=== PATIENT | female | born 1960 | race Caucasian/White ===

== ENCOUNTER → 2022-03-24 10:32 | Outpatient (BNVA) | payer MEDICARE, MEDICAID, SELFPAY | PROVIDERS: PCP Family Medicine; Visit Provider Physician Assistant | DX: E66.01 Morbid (severe) obesity due to excess calories (principal); Z68.42 Body mass index [BMI] 45.0-49.9, adult; G47.30 Sleep apnea, unspecified; K21.9 Gastro-esophageal reflux disease without esophagitis; M79.7 Fibromyalgia; M06.9 Rheumatoid arthritis, unspecified; R42 Dizziness and giddiness; F41.9 Anxiety disorder, unspecified; F32.A Depression, unspecified; Z98.84 Bariatric surgery status | CPT/HCPCS: 99202 ==

== ENCOUNTER → 2022-04-09 14:18 | Outpatient (BNVA) | payer MEDICARE, MEDICAID, SELFPAY | PROVIDERS: PCP Family Medicine; Visit Provider Dietitian, Registered | DX: E66.01 Morbid (severe) obesity due to excess calories (principal); Z71.3 Dietary counseling and surveillance | CPT/HCPCS: 97802 ==

== ENCOUNTER 2022-05-04 14:31 | Outpatient (REF) | payer MEDICARE, MEDICAID, SELFPAY ==
[2022-05-05 15:43] LABS: H Pylori Breath Test Negative (Negative)
== END 2022-05-04 14:32 | disposition home or self-care (01) ==
LOC: HO.LNP 14:31
PROVIDERS: PCP Family Medicine; Visit Provider Physician Assistant
DX: Z01.818 Encounter for other preprocedural examination (principal); E66.01 Morbid (severe) obesity due to excess calories; Z98.84 Bariatric surgery status
CPT/HCPCS: 83013; 99211; 99212

== ENCOUNTER → 2022-05-07 10:20 | Outpatient (BNVA) | payer MEDICARE, MEDICAID, SELFPAY | PROVIDERS: PCP Family Medicine; Visit Provider Dietitian, Registered | DX: E66.01 Morbid (severe) obesity due to excess calories (principal); Z68.41 Body mass index [BMI] 40.0-44.9, adult | CPT/HCPCS: 97803 ==

== ENCOUNTER 2022-05-26 09:28 | Outpatient (REF) | payer MEDICARE, MEDICAID, SELFPAY ==
--- NOTE | ~2022-05-26 | FL_ITS ---
EXAMINATION: FL UPPER GI SERIES CLINICAL INFORMATION: Bariatric service evaluation. Patient notes prior gastric sleeve for approximately 6 years ago at outside facility. Chronic history heartburn. COMPARISON: None TECHNIQUE: Upper GI series is performed using fluoroscopic evaluation in addition to multiple fluoroscopic spot views. The patient is imaged both upright and prone and using both thick and thin barium sulfate along with effervescent granules. Fluoroscopy time: 2.2 minutes DAP: 35.597 Gycm2 Fluoroscopic spot images: 26 FINDINGS: There is normal esophageal motility. There is no obstruction, stricture, or ulceration. There is intermittent sliding hiatal hernia, measuring approximately 2 thoracic vertebral bodies in height. There is spontaneous gastroesophageal reflux seen to the proximal thoracic esophagus. The stomach shows slightly elongated configuration consistent with the history gastric sleeve although is otherwise unremarkable. There is no thickening gastric folds or ulceration or gastric outlet obstruction. The duodenum and upper jejunal mucosal pattern are unremarkable. FL/FL upper GI series IMPRESSION: -Spontaneous gastroesophageal reflux. -Intermittent sliding hiatal hernia. -No ulceration or scarring. No gastric outlet obstruction.
--- NOTE | ~2022-05-26 | US_ITS ---
EXAMINATION: US ABDOMEN US CHEST CLINICAL INFORMATION: Rmcoik-zx-lpqjkf obesity due to excess calories. COMPARISON: None. TECHNIQUE: Chest 2 views. Routine ultrasound imaging of abdomen was performed. FINDINGS: CHEST: The lungs are well expanded and clear. The heart size and pulmonary vascularity are normal. There is moderate right lateral spondylosis dorsal spine. No lytic process. ABDOMEN: Pancreas: The head and the body of the pancreas is homogeneous echotexture. The tail is obscured by overlying gas. Aorta and IVC. The abdominal aorta is normal caliber. IVC is also normal caliber. Liver: The liver is normal size, contour and echogenicity. No focal lesion seen. Right hepatic lobe measures 17.1 cm in length and left hepatic lobe measures 9.9 cm in length. Elastography: Median stiffness measures 1.55 m/s. IQR/median measures 0.14. Gallbladder: The gallbladder is well distended without any echogenic stones or pericholecystic fluid collection. The wall thickness is 0.26 cm. CBD: CBD measures 0.6 x 0.8 cm. Right Kidney: Right kidney measures 12.2 cm in length with normal cortical thickness. No echogenic stones, cysts or hydronephrosis. Left Kidney: Left kidney measures 11.3 cm with normal cortical thickness. No echogenic stones, cysts or solid mass. No hydronephrosis. Spleen: Neck measures 10.3 cm. It is homogeneous in echotexture. Free Fluid: None. US/US abdomen comp w elastography IMPRESSION: Unremarkable chest exam. Unremarkable complete abdominal ultrasound. Elastography: Median stiffness value 1.55 m/s corresponds to cACLD (ruled out).
--- NOTE | 2022-05-26 11:29 | ECG_ITS ---
Test Reason : morbid obesity Blood Pressure : / mmHG Vent. Rate : 066 BPM Atrial Rate : 066 BPM P-R Int : 138 ms QRS Dur : 092 ms QT Int : 398 ms P-R-T Axes : 056 036 084 degrees QTc Int : 417 ms Normal sinus rhythm Low voltage QRS Borderline ECG No previous ECGs available Referred By: Brook Sanford Electronically Signed By:DONNIE CEE
[2022-05-26 12:01] LABS: Estimated Average Glucose 131 mg/dL; Hemoglobin A1c % 6.2 %
[2022-05-26 12:14] LABS: Cholesterol 280 mg/dL; HDL Cholesterol 64 mg/dL; LDL Cholesterol Calculated 196 mg/dl; Triglycerides 101 mg/dL
[2022-05-26 12:35] LABS: Insulin 12 uU/mL (2-29); TSH reflex Free T4 1.63 uIU/mL (0.32-4.0); Vitamin D 25-OH Total 34.7 ng/mL (>30)
[2022-05-26 13:33] LABS: Folate 11.2 ng/mL (> or = 4.0); Vitamin B12 600 pg/mL (200-900)
[2022-05-27 13:47] LABS: PTHI 189 pg/mL (16-77)
[2022-05-29 12:42] LABS: Zinc 72 mcg/dL (60-130)
[2022-05-29 21:46] LABS: Vitamin A 32 mcg/dL (38-98)
[2022-06-04 06:02] LABS: Vitamin B1 16 nmol/L (8-30)
== END 2022-05-26 09:29 | disposition home or self-care (01) ==
LOC: HO.US 09:28
PROVIDERS: PCP Family Medicine; Visit Provider Physician Assistant
DX: Z01.818 Encounter for other preprocedural examination (principal); E66.01 Morbid (severe) obesity due to excess calories; K21.9 Gastro-esophageal reflux disease without esophagitis; Z98.84 Bariatric surgery status
CPT/HCPCS: 36415; 71046; 74240; 76705; 76981; 80061; 82306; 82607; 82746; 83036; 83525; 83970; 84425; 84443; 84590; 84630; 93005

== ENCOUNTER → 2022-06-17 12:00 | Outpatient (BNVA) | payer MEDICARE, MEDICAID, SELFPAY | PROVIDERS: PCP Family Medicine; Visit Provider Counselor Mental Health | DX: F41.1 Generalized anxiety disorder (principal); K21.9 Gastro-esophageal reflux disease without esophagitis; E66.01 Morbid (severe) obesity due to excess calories; M06.9 Rheumatoid arthritis, unspecified | CPT/HCPCS: 90791 ==

== ENCOUNTER → 2022-06-25 09:17 | Outpatient (BNVA) | payer MEDICARE, MEDICAID, SELFPAY | PROVIDERS: PCP Family Medicine; Referring Provider Physician Assistant; Visit Provider Dietitian, Registered | DX: E66.01 Morbid (severe) obesity due to excess calories (principal); Z68.41 Body mass index [BMI] 40.0-44.9, adult | CPT/HCPCS: 97803 ==

== ENCOUNTER → 2022-06-28 14:42 | Outpatient (BNVA) | payer MEDICARE, MEDICAID, SELFPAY | PROVIDERS: PCP Family Medicine; Visit Provider Physician Assistant | DX: E66.01 Morbid (severe) obesity due to excess calories (principal); Z98.84 Bariatric surgery status; K21.9 Gastro-esophageal reflux disease without esophagitis; K44.9 Diaphragmatic hernia without obstruction or gangrene | CPT/HCPCS: Q3014 ==

== ENCOUNTER → 2022-08-04 10:30 | Outpatient (BNVA) | payer MEDICARE, MEDICAID, SELFPAY | PROVIDERS: PCP Family Medicine; Visit Provider Physician Assistant | DX: E66.01 Morbid (severe) obesity due to excess calories (principal); Z98.84 Bariatric surgery status; K21.9 Gastro-esophageal reflux disease without esophagitis; K44.9 Diaphragmatic hernia without obstruction or gangrene; G47.30 Sleep apnea, unspecified | CPT/HCPCS: Q3014 ==

== ENCOUNTER → 2022-11-22 09:30 | Outpatient (BNVA) | payer MEDICARE, MEDICAID, SELFPAY | PROVIDERS: PCP Family Medicine; Visit Provider Physician Assistant | DX: E66.01 Morbid (severe) obesity due to excess calories (principal); M06.9 Rheumatoid arthritis, unspecified; I72.9 Aneurysm of unspecified site; Z98.84 Bariatric surgery status; Z68.41 Body mass index [BMI] 40.0-44.9, adult | CPT/HCPCS: Q3014 ==

== ENCOUNTER → 2023-01-05 11:30 | Outpatient (BNVA) | payer MEDICARE, MEDICAID, SELFPAY | PROVIDERS: PCP Family Medicine; Visit Provider Physician Assistant | DX: E66.01 Morbid (severe) obesity due to excess calories (principal); K44.9 Diaphragmatic hernia without obstruction or gangrene; G47.30 Sleep apnea, unspecified; I72.9 Aneurysm of unspecified site; Z68.41 Body mass index [BMI] 40.0-44.9, adult | CPT/HCPCS: Q3014 ==

== ENCOUNTER → 2023-01-28 10:05 | Outpatient (BNVA) | payer MEDICARE, MEDICAID, SELFPAY | PROVIDERS: PCP Family Medicine; Visit Provider Physician Assistant | DX: E66.01 Morbid (severe) obesity due to excess calories (principal); Z68.41 Body mass index [BMI] 40.0-44.9, adult | CPT/HCPCS: Q3014 ==

== ENCOUNTER → 2023-02-10 14:00 | Outpatient (BNVA) | payer MEDICARE, MEDICAID, SELFPAY | PROVIDERS: PCP Family Medicine; Visit Provider Counselor Mental Health ==

== ENCOUNTER → 2023-02-17 13:58 | Outpatient (BNVA) | payer MEDICARE, MEDICAID, SELFPAY | PROVIDERS: PCP Family Medicine; Visit Provider Counselor Mental Health ==

== ENCOUNTER 2023-04-20 08:51 | Outpatient (AMB) | payer MEDICARE, MEDICAID, SELFPAY ==
--- NOTE | 2023-04-20 08:36 | A.OFFVIS_ITS ---
Intake VS Expanded 04/20/23 08:46 Height 5 ft 3 in Weight 242 lb BMI 42.9 Intake Visit Reasons: (TV) F/U SWL Allergies codeine Allergy (Mild, Verified 05/04/22 14:19) ITCHY AVALAX Allergy (Severe, Uncoded 03/24/22 11:11) Anaphylaxis POLLEN Allergy (Mild, Uncoded 03/24/22 11:11) Runny Nose HPI HPI Comments History of Present Illness Details SWL follow up. 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 Pt has been struggling with depression, GI symptoms and ocular symtoms, and weakness. May 06 will have another procedure to check stents and see if she has another aneurysm. Meal plan per nanofabrication specialist: breakfast - 2 scrambled eggs or shake lunch - shake or yogurt with berries snack - healthy choice low carb meal - half another yogurt Exercise - can not exercise alone or standing due to balance issues. PFSH Surgical History Hx of appendectomy Hx of colonoscopy Hx of foot surgery Hx of hand surgery Hx of hysterectomy Hx of knee surgery Family History Mother No problems noted. Father AA (alcohol abuse) Brother No problems noted. Sister No problems noted. Brother No problems noted. Brother No problems noted. Daughter Autoimmune disease Daughter Autoimmune disease Social History Alcohol intake: never Patient Tobacco Use Status: Former Tobacco user Assessment & Plan Assessment & Plan (1) Morbid obesity: Code(s): E66.01 - Morbid (severe) obesity due to excess calories Plan: 62 yo woman s/p LSG who has been preparing for revision but pre op work up complicated by diagnosis of cerebral aneurysms, now symptomatic again and having another work up. Weight is stable. The only modification I made to her meal plan is to add 1/2 c to 1 c vegetables to her morning eggs. Exercise - she states she does not have any restrictions for sitting exercises. I recommended either Gilberto Ashton or SUREK[employer] sitting 30 minute workouts 5d/ week. She wants to continue her preparation for revision surgery, next appt with me in 2 months and will resume once she is medically stable. Patient is still morbidly obese and is not considered stable at this time. I spent 27 minutes in total speaking with the patient via telephone counseling , reviewing records and charting in patients chart. . (2) S/P laparoscopic sleeve gastrectomy: Code(s): Z98.84 - Bariatric surgery status (3) Aneurysm: Code(s): I72.9 - Aneurysm of unspecified site Plan: Having another procedure on May 06. Telehealth Telehealth Location of provider rendering services: practice address Location of patient: address on file Patient Identification confirmed using: Name, : Yes Telehealth method: voice only Patient verbally consented to treatment: Yes Patient verbally consented to billing insurance company: Yes Patient informed of any privacy concerns related to visit: Yes Coding Level of Care Code Tele Est Pt Level 4 (38018) Diagnoses Morbid obesity E66.01 S/P laparoscopic sleeve gastrectomy Z98.84 Aneurysm I72.9
[2023-04-20 08:46] VITALS: BMI 42.9
--- OUTSIDE RECORDS SUMMARY | 2023-04-20 08:54 | XMS_ITS | Continuity of Care Document ---
Author Name Unknown Organization [facility] Address [address] [place] [address]- Care Team Providers Care Pattern Hand Name Role Phone Liu Lovett MD Primary Care Physician Encounter [facility] [place] Date(s): 03/16/23 - 04/17/[address] [address]- Attending Physician: Elio Hannah MD Admitting Physician: Elio Hannah MD Referring Physician: Elio Hannah MD Allergies, Adverse Reactions, Alerts Substance Reaction Severity Status codeine Itchy Active Effexor Active Avelox Active Contrast Dye 1 Active 1Oral contrast dye, swelling of face/eyes Immunizations Given and Recorded Vaccine Date Status Refusal Reason SARS-CoV-2 mRNA ([id number]-[id number]-[id number]) vax 01/19/22 Recorded SARS-CoV-2 (COVID-19) mRNA-1273 vaccine 06/16/21 R ecorded SARS-CoV-2 (COVID-19) mRNA-1273 vaccine 12/03/20 R ecorded SARS-CoV-2 (COVID-19) mRNA-1273 vaccine 11/05/20 R ecorded Medications aspirin 81 mg oral delayed release tablet 81 mg, 1, tablet, By Mouth, Daily, Take 5 days prior to the procedure, # 90 tablet, Refills 1, Tot.Refills 1, Maintenance, 09/07/22 13:56:00 EST, Route to Pharmacy Electronically, [facility], Partial fill upon patient request if the prescript... Start Date: 09/07/22 Status: Ordered Ativan 0.5 mg oral tablet 2 tablet = 1 mg, By Mouth, 3 times a day, PRN as needed for anxiety, 0 Refills, Maintenance, 05/16/14 15:26:17 EDT Start Date: 05/16/14 Status: Ordered CPAP Machine See Instructions, # 1 each, Maintenance, AutoCPAP 8-20 cm H20, use Daily when sleeping, 07/07/22 12:12:00 EDT, Supply Start Date: 07/07/22 Status: Ordered gabapentin 800 mg oral tablet 2 tablet = 1,600 mg, By Mouth, 3 times a day, # 270 tablet, 0 Refills, Maintenance, 09/13/22 18:16:00 EST, Tablet, Partial fill upon patient request if the prescription is for a schedule II opioid drug. Start Date: 09/13/22 Status: Ordered Lasix 40 mg oral tablet 1 tablet = 40 mg, By Mouth, Every other day, # 30 tablet, 0 Refills, Maintenance, 04/16/14 12:09:59EDT, Tablet Start Date: 04/16/14 Status: Ordered omeprazole 40 mg oral enteric coated capsule 1 capsule, By Mouth, 2 times a day, X30 DAYS., # 60 capsule, 3 Refills, [facility], 163, cm, 01/13/21 11:27:00 EDT, Height, 113, kg, 01/13/21 11:27:00 EDT, Dry Weight Start Date: 03/29/22 Status: Ordered Orencia 0 Refills, Maintenance, 05/23/22 13:05:00 EDT, Partial fill upon patient request if the prescription is for a schedule II opioid drug. Start Date: 05/23/22 Status: Ordered Oxycodone = 5 mg, By Mouth, 3 times a day, PRN Pain , Mild, 0 Refills, Maintenance, 09/13/22 18:18:00 EST, Partial fill upon patient request if the prescription is for a schedule II opioid drug. Start Date: 09/13/22 Status: Ordered Plavix 75 mg oral tablet 75 mg, 1, tablet, By Mouth, Daily, Take 5 days prior to the procedure, # 90 tablet, Refills 1, Tot.Refills 1, Maintenance, 09/07/22 13:56:00 EST, Route to Pharmacy Electronically, [facility], Partial fill upon patient request if the prescript... Start Date: 09/07/22 Status: Ordered Prozac 40 mg oral capsule 1 capsule = 40 mg, By Mouth, Daily, 0 Refills, Maintenance, 05/16/14 15:26:02 Start Date: 05/16/14 Status: Ordered Ventolin 90 mcg Inhaler Inhalation, Every 6 hours, Refills 0, Maintenance, 02/14/20 17:34:00 EDT Start Date: 02/14/20 Status: Ordered Vitamin D3 1000 intl units oral capsule 1 capsule = 1,000 International_Units, By Mouth, Daily, # 100 capsule, 0 Refills, Maintenance, 04/16/14 16:51:10, Capsule Start Date: 04/16/14 Status: Ordered Problem List Condition Confirmation Course Effective Dates Status Health St atus Informant 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 Confirmed Active Anxiety Confirmed Active Depression Confirmed Active Fibromyalgia Confirmed Active GERD (gastroesophageal reflux disease) Confirmed Active Sleep related hypoxia Confirmed Active Obstructive sleep apnea hypopnea, moderate Confirmed Active Rheumatoid arthritis Confirmed Active Severe obesity Confirmed Active Social History Social History Type Response Smoking Status Former smoker; Other : Pt quit on 01/17/18; entered on: 02/09/18 Sex Patient Care team information Care Team Personnel Name: Joe LAM, Bebo Parks Position: [facility] Physician (General Medicine) Member Role: Lifetime Consulting Physician Address: Address: [address] [place] [address]- Name: Alice Le RN Position: [facility] RN Member Role: Primary Care Nurse Name: Bryanna Rolon RN Position: [facility] RN Member Role: Primary Care Nurse Name: Pollo Lopez RN Position: [facility] RN Member Role: Primary Care Nurse Name: Liu Lovett MD Position: [facility] Physician - Primary Care Member Role: PCP Address: Address: [address] [place] [address]- Care Team Related Persons Name: SAMEER MORGAN Address: home [address] [place] [address] Name: JOHNNY PUCKETT Address: home [address] [place] [address] Name: SAMEER SCHAEFER Address: home [address] [place] [address]
--- OUTSIDE RECORDS SUMMARY | 2023-04-20 08:55 | XMS_ITS | Continuity of Care Document ---
Author Name Unknown Organization [facility] Address [address] [place] [address]- Care Team Providers Care Market Development Executive Name Role Phone Liu Lovett MD Primary Care Physician [phone] Encounter [facility] [place] Date(s): 03/14/23 - 04/13/23 [facility] [address] [place] [address]- Attending Physician: Erica Connelly Admitting Physician: Erica Connelly Referring Physician: AdmtrErica Allergies, Adverse Reactions, Alerts Substance Reaction Severity Status codeine Itchy Active Effexor Active Avelox Active Contrast Dye 1 Active 1Oral contrast dye, swelling of face/eyes Immunizations Given and Recorded Vaccine Date Status Refusal Reason SARS-CoV-2 mRNA ([id number]) vax 01/19/22 Recorded SARS-CoV-2 (COVID-19) mRNA-1273 vaccine 06/16/21 R ecorded SARS-CoV-2 (COVID-19) mRNA-1273 vaccine 12/03/20 R ecorded SARS-CoV-2 (COVID-19) mRNA-1273 vaccine 11/05/20 R ecorded Medications aspirin 81 mg oral delayed release tablet 81 mg, 1, tablet, By Mouth, Daily, Take 5 days prior to the procedure, # 90 tablet, Refills 1, Tot.Refills 1, Maintenance, 09/07/22 13:56:00 EST, Route to Pharmacy Electronically, [facility], Partial fill upon patient request if [...] DAYS., # 60 capsule, 3 Refills, [facility], 163, cm, 01/13/21 11:27:00 EDT, Height, [...] 13:56:00 EST, Route to Pharmacy Electronically, [facility], Partial fill upon patient request if [...] Care team information Care Team Personnel Name: Bebo Diaz MD Position: [facility] Physician (General Medicine) Member Role: Lifetime Consulting Physician Address: Address: [address] [place] [address]- Name: Alice Le RN Position: [facility] RN Member Role: Primary Care Nurse Name: Bryanna Rolon RN Position: [facility] RN Member Role: Primary Care Nurse Name: Pollo Lopez RN Position: [facility] RN Member Role: Primary Care Nurse Name: Liu Lovett MD Position: [facility] Physician - Primary Care Member Role: PCP Address: Address: [address] [place] [phone]- Care Team Related Persons Name: SAMEER MORGAN Address: home [address] [place] [address] Name: JOHNNY PUCKETT Address: home [address] [place] [address] Name: SAMEER SCHAEFER Address: home [address] [place] [address]
--- OUTSIDE RECORDS SUMMARY | 2023-04-20 08:55 | XMS_ITS | Continuity of Care Document ---
Author Name Unknown Organization [facility] Address [address] [place] [address]- Care Team Providers Care Laborer Road Name Role Phone Rachell LAM, Liu Rivera Primary Care Physician En[place] [facility] [place] Date(s): 03/05/23 - 04/13/23 [facility] [address] [place] [address]- Attending Physician: Nilda Vo NP Admitting Physician: Nilda Vo NP Referring Physician: Nilda Vo NP Allergies, Adverse Reactions, Alerts Substance Reaction Severity Status codeine Itchy Active Effexor Active Avelox Active Contrast Dye 1 Active 1Oral contrast dye, swelling of face/eyes Immunizations Given and Recorded Vaccine Date Status Refusal Reason SARS-CoV-2 mRNA ([id number]-mnmn-jwqqt) vax 01/19/22 Recorded SARS-CoV-2 (COVID-19) mRNA-1273 vaccine 06/16/21 R ecorded SARS-CoV-2 (COVID-19) mRNA-1273 vaccine 12/03/20 R ecorded SARS-CoV-2 (COVID-19) mRNA-1273 vaccine 11/05/20 R ecorded Medications aspirin 81 mg oral delayed release tablet 81 mg, 1, tablet, By Mouth, Daily, Take 5 days prior to the procedure, # 90 tablet, Refills 1, Tot.Refills 1, Maintenance, 09/07/22 13:56:00 EST, Route to Pharmacy Electronically, [facility], Partial fill upon patient request if [...] DAYS., # 60 capsule, 3 Refills, [facility], 163, cm, 01/13/21 11:27:00 EDT, Height, [...] 13:56:00 EST, Route to Pharmacy Electronically, [facility], Partial fill upon patient request if [...] Personnel Name: Joe LAM, Bebo Parks Position: [facility] Physician (General Medicine) Member Role: Lifetime Consulting Physician Address: Address: [address] [place] [address]- Name: Alice Le RN Position: [facility] RN Member Role: Primary Care Nurse Name: Bryanna Rolon RN Position: [facility] RN Member Role: Primary Care Nurse Name: Pollo Lopez RN Position: [facility] RN Member Role: Primary Care Nurse Name: Liu Lovett MD Position: [facility] Physician - Primary Care Member Role: PCP Address: Address: [address] [place] [address]- Care Team Related Persons Name: SAMEER MORGAN Address: home [address] [place] [address] Name: JOHNNY PUCKETT Address: home [address] [place] [address] Name: SAMEER SCHAEFER Address: home [address] [place] [address]
--- OUTSIDE RECORDS SUMMARY | 2023-04-20 08:55 | XMS_ITS | Continuity of Care Document ---
Author Name Unknown Organization [facility] Address [address] [facility], [address] d Floor, [address] [place] [address]- Care Team Providers Care Button Pusher Name Role Phone Rachell LAM, Liu Rivera Primary Care Physician [place] [facility] [place](s): 03/14/23 - 04/13/23 [facility] [address], [address]rd Floor, [address] [place] [address] Allergies, Adverse Reactions, Alerts Substance Reaction Severity Status codeine Itchy Active Effexor Active Avelox Active Contrast Dye 1 Active 1Oral contrast dye, swelling of face/eyes Immunizations Given and Recorded Vaccine Date Status Refusal Reason SARS-CoV-2 mRNA (bwnsefx-ibeh-nuepr) vax 01/19/22 Recorded SARS-CoV-2 (COVID-19) mRNA-1273 vaccine 06/16/21 R ecorded SARS-CoV-2 (COVID-19) mRNA-1273 vaccine 12/03/20 R ecorded SARS-CoV-2 (COVID-19) mRNA-1273 vaccine 11/05/20 R ecorded Medications aspirin 81 mg oral delayed release tablet 81 mg, 1, tablet, By Mouth, Daily, Take 5 days prior to the procedure, # 90 tablet, Refills 1, Tot.Refills 1, Maintenance, 09/07/22 13:56:00 EST, Route to Pharmacy Electronically, [facility], Partial fill upon patient request if [...] DAYS., # 60 capsule, 3 Refills, [facility], 163, cm, 01/13/21 11:27:00 EDT, Height, [...] 13:56:00 EST, Route to Pharmacy Electronically, [facility], Partial fill upon patient request if [...] Personnel Name: Joe LAM, Bebo Parks Position: [facility] Physician (General Medicine) Member Role: Lifetime Consulting Physician Address: Address: [address] [place] [address]- Name: Alice Le RN Position: [facility] RN Member Role: Primary Care Nurse Name: Bryanna Rolon RN Position: [facility] RN Member Role: Primary Care Nurse Name: Pollo Lopez RN Position: [facility] RN Member Role: Primary Care Nurse Name: Liu Lovett MD Position: [facility] Physician - Primary Care Member Role: PCP Address: Address: [address] [place] [address]- Care Team Related Persons Name: SAMEER MORGAN Address: home [address] [place] [address] Name: JOHNNY PUCKETT Address: home [address] [place] [address] Name: SAMEER SCHAEFER Address: home [address] [place] [address]
--- OUTSIDE RECORDS SUMMARY | 2023-04-20 08:55 | XMS_ITS | Continuity of Care Document ---
Author Name Unknown Organization [facility] Address [address] [facility], [address] Floor, [address] [place] [address]- Care Team Providers Care Rural Mail Contractor Name Role Phone Rachell LAM, Liu Rivera Primary Care Physician Encounter [facility] [place] Date(s): 02/28/23 - 03/30/[address] [facility] [address] [place], [address] Floor, [address] [place] [id number] Attending Physician: Erica Connelly Admitting Physician: AdmErica marquez Referring Physician: Admtr, Ar8 Allergies, Adverse Reactions, Alerts Substance Reaction Severity Status codeine Itchy Active Effexor Active Avelox Active Contrast Dye 1 Active 1Oral contrast dye, swelling of face/eyes Immunizations Given and Recorded Vaccine Date Status Refusal Reason SARS-CoV-2 mRNA (jgktekx-wade-qhanx) vax 01/19/22 Recorded SARS-CoV-2 (COVID-19) mRNA-1273 vaccine 06/16/21 R ecorded SARS-CoV-2 (COVID-19) mRNA-1273 vaccine 12/03/20 R ecorded SARS-CoV-2 (COVID-19) mRNA-1273 vaccine 11/05/20 R ecorded Medications aspirin 81 mg oral delayed release tablet 81 mg, 1, tablet, By Mouth, Daily, Take 5 days prior to the procedure, # 90 tablet, Refills 1, Tot.Refills 1, Maintenance, 09/07/22 13:56:00 EST, Route to Pharmacy Electronically, [facility], Partial fill upon patient request if [...] DAYS., # 60 capsule, 3 Refills, [facility], 163, cm, 01/13/21 11:27:00 EDT, Height, [...] 13:56:00 EST, Route to Pharmacy Electronically, [facility], Partial fill upon patient request if [...] Care team information Care Team Personnel Name: Tiffanie Tamayo RN Position: [facility] RN Member Role: Primary Care Nurse Name: Bebo Diaz MD Position: [facility] Physician (General Medicine) Member Role: Lifetime Consulting Physician Address: Address: [address] [place] [address]- Name: Alice Le RN Position: [facility] RN Member Role: Primary Care Nurse Name: Bryanna Rolon RN Position: [facility] RN Member Role: Primary Care Nurse Name: Pollo Lopez RN Position: [facility] RN Member Role: Primary Care Nurse Name: Liu Lovett MD Position: [facility] Physician - Primary Care Member Role: PCP Address: Address: [address] [place] [address]- Care Team Related Persons Name: SAMEER MORGAN Address: home [address] [place] [address] Name: JOHNNY PUCKETT Address: home [address] [place] [address] Name: SAMEER SCHAEFER Address: home [address] [place] [address]
== END 2023-04-20 08:54 | disposition home or self-care (01) ==
LOC: HO.HBS 08:51
PROVIDERS: PCP Family Medicine; Visit Provider Physician Assistant
DX: E66.01 Morbid (severe) obesity due to excess calories (principal); Z68.41 Body mass index [BMI] 40.0-44.9, adult; Z90.3 Acquired absence of stomach [part of]; Z98.84 Bariatric surgery status; I72.9 Aneurysm of unspecified site
CPT/HCPCS: 99443

== ENCOUNTER → 2023-04-20 08:51 | Outpatient (BNVA) | payer MEDICARE, MEDICAID, SELFPAY | PROVIDERS: PCP Family Medicine; Visit Provider Physician Assistant ==

== ENCOUNTER 2023-06-20 08:49 | Outpatient (AMB) | payer MEDICARE, MEDICAID, SELFPAY ==
--- NOTE | 2023-06-20 08:50 | A.OFFVIS_ITS ---
Intake Vital Signs 06/20/23 08:51 Height 5 ft 3 in Weight 236 lb 12.423 oz BMI 41.9 BP 108/60 Blood Pressure Location Rt brachial Position Sitting Pulse 82 Pulse Source Pulse Oximeter Pulse Oximetry (%) 96 Intake Visit Reasons: Rheumatoid Arthritis Intake Note: New pt presents today for consult. States she has RA and FM. C/o pain in hands, shoulders , hips and knees. Pain started approx 5 years ago. [employer] Required: No Accompanied by: Self / Same As Patient Allergies codeine Allergy (Mild, Verified 06/20/23 08:53) ITCHY AVALAX Allergy (Severe, Uncoded 06/20/23 08:53) Anaphylaxis POLLEN Allergy (Mild, Uncoded 06/20/23 08:53) Runny Nose Medication List - Last Reconciled 06/20/23 by Argentina Cutler MD abatacept (Orencia ClickJect) mg subcut albuterol sulfate 90 mcg/actuation (Ventolin HFA) inhalation aspirin 81 mg PO DAILY clopidogrel (Plavix) 75 mg PO DAILY fluoxetine (Prozac) 40 mg PO DAILY furosemide (Lasix) 40 mg PO Q OTHER DAY gabapentin 800 mg PO TID lorazepam 0.5 mg PO TID omeprazole 40 mg PO BID prednisone 2.5 mg PO DAILY PRN sucralfate (Carafate) 1 g PO QIDACHS HPI HPI Comments History of Present Illness Details This is a 62-year-old female with seronegative RA who presents as a new patient. 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 Her 2018 patient started have pain swelling and stiffness in her hands. Symptoms respond dramatically to prednisone. She was evaluated by Dr. Diaz. And was diagnosed with seronegative RA. She was tried on hydroxychloroquine, methotrexate, leflunomide. Per Dr. Diaz methotrexate was at least partly effective but patient could not tolerate it. Leflunomide caused diarrhea. Patient does not recall what happened with hydroxychloroquine. She took Enbrel for about a year according to patient was not effective. She has been on Orencia for about a year. She states that it has kept her symptoms fairly stable but she continues to get flares of joint pain and swelling especially in her hands. She would take prednisone for 1-2 weeks out of the month. She would take 5 mg daily for 1 week then 2.5 mg daily for 1 week then stop. She had brain aneurysm surgery 09/2022. States that she would be scheduled for a gastric sleeve operation as well as a hiatal hernia in the next 1-2 months. Mentions that her brother has SLE. She denies any history of DVT/PE. [facility] Medical History (Updated 06/20/23 @ 10:47 by Argentina Cutler MD) Aneurysm Surgical History History of surgery for cerebral aneurysm Hx of hand surgery Hx of colonoscopy Hx of foot surgery Hx of knee surgery Hx of appendectomy Hx of hysterectomy Family History Mother No problems noted. Father AA (alcohol abuse) Brother No problems noted. Sister No problems noted. Brother No problems noted. Brother No problems noted. Daughter Autoimmune disease Daughter Autoimmune disease Social History Household Members: Spouse Alcohol intake: never Patient Tobacco Use Status: Former Tobacco user Current occupational status: disabled Female Reproductive History Menstrual Total pregnancies: 3 Number of Living Children: 2 Ab spontaneous: 1 Review of Systems Const Reports fatigue, Reports headache(s) and Reports weakness Eyes Reports dry eyes and Reports eye pain ENT Reports dysphagia, Reports dizziness, Reports headache(s) and Reports tinnitus GI Reports constipation, Reports dysphagia, Reports heartburn and Reports nausea Musc Reports arthralgias, Reports joint swelling, Reports muscle weakness and Reports stiffness Skin/Breast Reports unusual bruising Neuro Reports dizziness, Reports headache(s), Reports memory loss and Reports weakness Psych Reports abnormal sleep pattern, Reports anxiety, Reports depression and Reports memory loss Endo Reports fatigue Physical Exam Vital Signs: Last Vital Signs Pulse 82 06/20/23 08:51 BP 108/60 06/20/23 08:51 Pulse Ox 96 06/20/23 08:51 BMI result Body Mass Index 41.9 Const General: cooperative, healthy appearing and comfortable Nutritional Appearance: obese morbidly obese Orientation/consciousness: patient oriented x3 Limitations: no limitations HEENT Head: Yes normocephalic and Yes atraumatic Mouth: moist mucous membranes Resp Effort & Inspection: normal respiratory effort and able to speak in complete sentences Auscultation: clear to auscultation bilaterally Cardio Rate: regular rate Rhythm: regular rhythm Skin General skin exam: no rashes or lesions noted Neuro General: patient oriented x3 Extrem Other: Bilateral wrist tenderness to palpation and pain with full flexion and extension Left 2nd and 3rd MCP tenderness and diffuse PIP tenderness. No DIP tenderness Right wrist pain with full flexion and extension Few MCP and PIP tenderness right hand No DIP tenderness right hand No knee pain with full flexion and extension Bilateral positive straight leg raise test No ankle swelling or tenderness Discomfort upon palpation of right foot (which she has multiple plates and screws) negative MTP squeeze test No MTP tenderness on the left, negative MTP squeeze test Normal nailfold capillaroscopy No significant fibromyalgia tender points Results Reviewed Results Reviewed: MR pelvis 09/2021? Impression 1. Minimal edema on either side of sacroiliac joints without associated effusion or erosions, likely degenerative in etiology.?? 2. Degenerative endplate changes at L4-L5? 3. Left greater than right mild edema in the trochanteric bursa which may reflect bursitis Assessment & Plan Assessment & Plan (1) Rheumatoid arthritis: Comment: seroneg dx 2019 failed/could not tolerate MTX, leflunomide, hydroxychloroquine Prednisone all through Enbrel [id number] ineffective Orencia [id number] partially effective Code(s): M06.9 - Rheumatoid arthritis, unspecified Qualifiers: Rheumatoid arthritis location: multiple sites Rheumatoid factor presence: without rheumatoid factor Qualified Code(s): M06.09 - Rheumatoid arthritis without rheumatoid factor, multiple sites Plan: This is a 62-year-old female with seronegative RA who presents as a new patient. 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 Patient is currently on Orencia weekly and takes prednisone 5 mg for about 1 week per month. Continues to have multiple tender joints in both hands & wrists. Patient has history of a gastric ulcer. Patient states that she will be scheduled soon for hiatal hernia and gastric sleeve procedure within the next couple of months. Continue medications as is for now. Check labs to evaluate disease activity and check x-rays of involved joints. Follow-up in 1 month (2) Chronic lower back pain: Code(s): M54.50 - Low back pain, unspecified; G89.29 - Other chronic pain Qualifiers: Back pain laterality: midline Sciatica presence: unspecified whether sciatica present Qualified Code(s): M54.50 - Low back pain, unspecified; G89.29 - Other chronic pain Plan: Might need referral to pain management next visit Plan I spent 47 minutes reviewing patient's chart, evaluating patient, ordering diagnostic workup, counseling patient and documenting in the chart Orders: Orders Complete Blood Count Auto Diff Today M06.9 - Rheumatoid arthritis, unspecified C Reactive Protein Today M06.9 - Rheumatoid arthritis, unspecified Hepatitis A,B,C Profile Today Z11.59 - Encounter for screening for other viral diseases T Spot TB Today Z11.7 - Encounter for testing for latent tuberculosis infection Protein Electrophoresis, Serum Today M06.9 - Rheumatoid arthritis, unspecified Rheumatoid Factor Today M06.9 - Rheumatoid arthritis, unspecified Cyclic Citrullinated Peptide Today M06.9 - Rheumatoid arthritis, unspecified Comprehensive Met. Panel Today M06.9 - Rheumatoid arthritis, unspecified Erythrocyte Sedimentation Rate Today M06.9 - Rheumatoid arthritis, unspecified Immunofixation Pnl, Serum Today M06.9 - Rheumatoid arthritis, unspecified XR hand wrist LT Today M06.9 - Rheumatoid arthritis, unspecified XR hand wrist RT Today M06.9 - Rheumatoid arthritis, unspecified Coding Level of Care Code New Pt Level 4 (71444) Diagnoses Rheumatoid arthritis of multiple sites with negative rheumatoid factor M06.09 Rheumatoid arthritis location: multiple sites Rheumatoid factor presence: without rheumatoid factor Chronic midline low back pain, unspecified whether sciatica present M54.50; G89.29 Back pain laterality: midline Sciatica presence: unspecified whether sciatica present
[2023-06-20 08:51] VITALS: BP 108/60; PULSE 82; O2SAT 96; BMI 41.9
== END 2023-06-20 09:33 | disposition home or self-care (01) ==
PROVIDERS: PCP Family Medicine; Visit Provider Student in an Organized Health Care Education/Training Program
DX: M06.09 Rheumatoid arthritis without rheumatoid factor, multiple sites (principal); M54.50 Low back pain, unspecified; G89.29 Other chronic pain
CPT/HCPCS: 99204

== ENCOUNTER 2023-06-20 08:49 | Outpatient (REF) | payer MEDICARE, MEDICAID, SELFPAY ==
--- NOTE | ~2023-06-20 | XR_ITS ---
EXAMINATION: XR WRIST, RIGHT XR HAND, RIGHT CLINICAL INFORMATION: Rheumatoid arthritis. COMPARISON: None available. TECHNIQUE: PA, lateral, oblique, and scaphoid views of the right wrist and PA, lateral, and oblique views of the right hand FINDINGS: RIGHT WRIST: The bones and soft tissues appear unremarkable. No fracture identified. Alignment is anatomic. Joint spaces appear maintained. No erosions or soft tissue calcifications. RIGHT HAND: The bones and soft tissues appear unremarkable. No fracture identified. Alignment is anatomic. Joint spaces appear maintained. No erosions or soft tissue calcifications. XR/XR hand wrist RT IMPRESSION: Unremarkable plain film examinations of the right hand and wrist.
--- NOTE | ~2023-06-20 | XR_ITS ---
EXAMINATION: XR WRIST, LEFT XR HAND, LEFT CLINICAL INFORMATION: Rheumatoid arthritis. COMPARISON: None available. TECHNIQUE: PA, lateral, oblique, and scaphoid views of the left wrist and PA, lateral, and oblique views of the left hand FINDINGS: LEFT WRIST: The bones and soft tissues appear unremarkable. No fracture identified. Alignment is anatomic. Joint spaces appear maintained. No erosions or soft tissue calcifications. LEFT HAND: The bones and soft tissues appear unremarkable. No fracture identified. Alignment is anatomic. Joint spaces appear maintained. No erosions or soft tissue calcifications. XR/XR hand wrist LT IMPRESSION: Unremarkable plain film examinations of the left hand and wrist.
[2023-06-20 10:14] LABS: MANUAL DIFF FLAG NO
[2023-06-20 10:30] LABS: Basophils Absolute Auto 0.1 X10*3/uL (0.0-0.2); Basophils Percent Auto 0.6 % (0-2); Eosinophils Absolute Auto 0.2 X10*3/uL (0.0-0.4); Eosinophils Percent Auto 2.9 % (0-4); Hematocrit 38.4 % (37.0-47.0); Hemoglobin 12.6 g/dl (12.0-16.0); Imm Gran Abs Auto 0.02 X10*3/uL (0.00-0.03); Imm Gran Pct Auto 0.3 % (0.0-0.4); Lymphocytes Absolute Auto 2.5 X10*3/uL (1.2-4.9); Lymphocytes Percent Auto 31.9 % (20-40); Mean Corpuscular HGB Conc 32.8 g/dl (31.0-35.0); Mean Corpuscular Hemoglobin 28.7 pg (27.0-33.0); Mean Corpuscular Volume 87.5 fL (80.0-98.0); Mean Platelet Volume 9.9 fL (9.4-12.3); Monocytes Absolute Auto 0.8 X10*3/uL (0.1-1.2); Monocytes Percent Auto 9.9 % (2-11); Neutrophils Absolute Auto 4.3 x10*3/uL (2.0-8.3); Neutrophils Percent Auto 54.4 % (45-73); Platelet Count 239 X10*3/uL (160-400); Red Blood Count 4.39 X10*6/uL (4.20-5.50); White Blood Count 7.9 X10*3/uL (4.8-10.8)
[2023-06-20 11:03] LABS: Rheumatoid Factor < 13.0 IU/mL (<15.0)
[2023-06-20 11:09] LABS: Alanine Aminotransferase 9 U/L (0-31); Alkaline Phosphatase 106 U/L (39-117); Anion Gap 12 (12-20); Aspartate Amino Transferase 12 U/L (5-31); Bilirubin Total 0.4 mg/dL (0.0-1.0); Blood Urea Nitrogen 12 mg/dL (9-16); C Reactive Protein 3.16 mg/dL (< or = 0.50); Calcium 9.7 mg/dL (8.4-10.2); Carbon Dioxide 25 mmol/L (22-29); Chloride 109 mmol/L (96-108); Estimated Glomerular Filt Rate > 60; Glucose Random 93 mg/dL (60-115); Potassium 4.1 mmol/L (3.3-5.1); Sodium 142 mmol/L (135-145)
[2023-06-20 11:15] LABS: Erythrocyte Sedimentation Rate 27 MM/HR (0-20)
[2023-06-20 11:28] LABS: HBS Num1 0.29 mIU/mL (0-7.99); HBc Num1 0.09 S/CO (0.00-0.79); HBsAGNum1 0.41 S/CO (0.00-0.99); Hepatitis A Antibody IgM 0.42 Index (0-0.79); Hepatitis B Core Antibody Nonreactive (Nonreactive); Hepatitis B Surface Antigen Negative (Negative); ~HepC Num1 0.18 S/CO (0.00-0.79); ~Hepatitis A Antibody IgM Nonreactive (Nonreactive); ~Hepatitis B Surface Antibody NONREACTIVE (Nonreactive); ~Hepatitis C Antibody Nonreactive (Nonreactive)
[2023-06-22 11:53] LABS: Prot Elec - Albumin 3.8 g/dL (3.8-4.8); Prot Elec - Alpha1 0.4 g/dL (0.2-0.3); Prot Elec - Alpha2 0.8 g/dL (0.5-0.9); Prot Elec - Beta 1 0.5 g/dL (0.4-0.6); Prot Elec - Beta 2 0.5 g/dL (0.2-0.5); Prot Elec - Gamma 0.8 g/dL (0.8-1.7); Prot Elec - Total Protein 6.7 g/dL (6.1-8.1)
[2023-06-22 21:49] LABS: TS Negative Control Passed; TS Panel A 4; TS Panel B 2; TS Positive Control Passed; TSpotTB Negative (Negative)
[2023-06-23 10:08] LABS: IgA 267 mg/dL (70-320); IgG 917 mg/dL (600-1540); IgM 85 mg/dL (50-300)
[2023-06-24 12:14] LABS: Cyclic Citrullinated Peptide <16 UNITS
== END 2023-06-20 08:50 | disposition home or self-care (01) ==
LOC: HO.LAB 08:49
PROVIDERS: PCP Family Medicine; Visit Provider Student in an Organized Health Care Education/Training Program
DX: M06.9 Rheumatoid arthritis, unspecified (principal); M54.50 Low back pain, unspecified; G89.29 Other chronic pain; Z11.59 Encounter for screening for other viral diseases; Z72.89 Other problems related to lifestyle; Z11.7 Encounter for testing for latent tuberculosis infection; Z79.899 Other long term (current) drug therapy
CPT/HCPCS: 36415; 73110; 73130; 80053; 82784; 84165; 85025; 85652; 86140; 86200; 86334; 86431; 86481; 86704; 86706; 86709; 86803; 87340; 99202

== ENCOUNTER 2023-07-04 08:30 | Outpatient (AMB) | payer MEDICARE, MEDICAID, SELFPAY ==
--- NOTE | 2023-07-04 08:41 | A.OFFVIS_ITS ---
Intake VS Expanded 07/04/23 08:44 Height 5 ft 3 in Weight 232 lb BMI 41.1 Intake Visit Reasons: (TV) F/U SWL Allergies codeine Allergy (Mild, Verified 06/20/23 08:53) ITCHY AVALAX Allergy (Severe, Uncoded 06/20/23 08:53) Anaphylaxis POLLEN Allergy (Mild, Uncoded 06/20/23 08:53) Runny Nose Medication List - Last Reconciled 07/04/23 by Brook Sanford PA-C abatacept (Orencia ClickJect) mg subcut .every other week albuterol sulfate 90 mcg/actuation (Ventolin HFA) inhalation aspirin 81 mg PO DAILY clopidogrel (Plavix) 75 mg PO DAILY fluoxetine (Prozac) 40 mg PO DAILY furosemide (Lasix) 40 mg PO Q OTHER DAY gabapentin 400 mg PO TID PRN lorazepam 0.5 mg PO BEDTIME PRN omeprazole 40 mg PO BID prednisone 2.5 mg PO DAILY sucralfate (Carafate) 1 g PO QIDACHS HPI HPI Comments History of Present Illness Details [facility] follow up for revision of previous LSG. Pt had another procedure on May 06 to uncoil the stent from the aneurysm. Had Ct post op and does not need any further testing. Neurosurgeon, Dr Corbin, has cleared her for bariatric surgery. 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 She is presently on Plavix - at least until April 2024. Also takes ASA 81 mg daily, Orencia and Prednisone for 1 week monthly. States she has been following the meal plan: 6am - coffee with Premier shake 10am - yogurt 1pm - 8 oz salad with 4-6 oz protein 6pm - shake 8pm- yogurt Exercise - swimming and water running - daily for a few hours each day. Walks her dog Pre op work up completed as follows: [facility] classes -? 05/17 appts? - cleared? ? ? RD appts - cleared H pylori - negative Labs - PTH elevated,not worked up (Vit D normal. 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 CXR- normal? and ECG - normal UGI?FINDINGS: There is normal esophageal motility.? There is no obstruction, stricture, or ulceration. There is intermittent sliding hiatal hernia, measuring approximately 2 thoracic vertebral bodies in height. There is spontaneous gastroesophageal reflux seen to the proximal thoracic esophagus. The stomach shows slightly elongated configuration consistent with the history gastric sleeve although is otherwise unremarkable. There is no thickening gastric folds or ulceration or gastric outlet obstruction. The duodenum and upper jejunal mucosal pattern are unremarkable. ULS - normal exam [facility] Medical History (Updated 07/04/23 @ 08:58 by Brook Sanford PA-C) Aneurysm Surgical History History of surgery for cerebral aneurysm Hx of hand surgery Hx of colonoscopy Hx of foot surgery Hx of knee surgery Hx of appendectomy Hx of hysterectomy Family History Mother No problems noted. Father AA (alcohol abuse) Brother No problems noted. Sister No problems noted. Brother No problems noted. Brother No problems noted. Daughter Autoimmune disease Daughter Autoimmune disease Social History Household Members: Spouse Alcohol intake: never Patient Tobacco Use Status: Former Tobacco user Current occupational status: disabled Assessment & Plan Assessment & Plan (1) Morbid obesity: Code(s): E66.01 - Morbid (severe) obesity due to excess calories Plan: SWL follow for revision of LSG, with recent brain aneurysm cleared by her neurosurgeon. She has completed all pre op work up, but needs labs redrawn and PTH monitored. [place] of [facility] and has very limited cell and internet service. meal plan - only change is 10 forks of protein and veg each Exercise - continue present - and use a pedometer [place] to walk 2 miles in 45 minutes to burn 300 calories - send me text. Will obtain labs again _ if PTH elevated - will get referral from PCP. Will obtain office note clearance from Dr Corbin. Next appt with Dr Last for surgical consultation. Patient is still morbidly obese and is not considered stable at this time. I spent 30minutes in total speaking with the patient via video conference counseling , reviewing records and charting in patients chart. . (2) GERD (gastroesophageal reflux disease): Code(s): K21.9 - Gastro-esophageal reflux disease without esophagitis (3) Sleep apnea: Code(s): G47.30 - Sleep apnea, unspecified (4) Aneurysm: Comment: s/p stents 2022 Code(s): I72.9 - Aneurysm of unspecified site (5) Rheumatoid arthritis: Comment: seroneg dx 2019 failed/could not tolerate MTX, leflunomide, hydroxychloroquine Prednisone all through Enbrel 5456-7558 ineffective Orencia [id number] partially effective Code(s): M06.9 - Rheumatoid arthritis, unspecified Qualifiers: Rheumatoid arthritis location: multiple sites Rheumatoid factor presence: without rheumatoid factor Qualified Code(s): M06.09 - Rheumatoid arthritis without rheumatoid factor, multiple sites Orders: Orders Lipid Panel Today E66.01 - Morbid (severe) obesity due to excess calories, G47.30 - Sleep apnea, unspecified, I72.9 - Aneurysm of unspecified site, K21.9 - Gastro-esophageal reflux disease without esophagitis, M06.9 - Rheumatoid arthritis, unspecified IRON PROFILE Today E66.01 - Morbid (severe) obesity due to excess calories, G47.30 - Sleep apnea, unspecified, I72.9 - Aneurysm of unspecified site, K21.9 - Gastro-esophageal reflux disease without esophagitis, M06.9 - Rheumatoid arthritis, unspecified Complete Blood Count Auto Diff Today E66.01 - Morbid (severe) obesity due to excess calories, G47.30 - Sleep apnea, unspecified, I72.9 - Aneurysm of unspecified site, K21.9 - Gastro-esophageal reflux disease without esophagitis, M06.9 - Rheumatoid arthritis, unspecified Vitamin B1 Today E66.01 - Morbid (severe) obesity due to excess calories, G47.30 - Sleep apnea, unspecified, I72.9 - Aneurysm of unspecified site, K21.9 - Gastro-esophageal reflux disease without esophagitis, M06.9 - Rheumatoid arthritis, unspecified Vitamin A Today E66.01 - Morbid (severe) obesity due to excess calories, G47.30 - Sleep apnea, unspecified, I72.9 - Aneurysm of unspecified site, K21.9 - Gastro-esophageal reflux disease without esophagitis, M06.9 - Rheumatoid arthritis, unspecified C Reactive Protein Today E66.01 - Morbid (severe) obesity due to excess calories, G47.30 - Sleep apnea, unspecified, I72.9 - Aneurysm of unspecified site, K21.9 - Gastro-esophageal reflux disease without esophagitis, M06.9 - Rheumatoid arthritis, unspecified PTHI Today E66.01 - Morbid (severe) obesity due to excess calories, G47.30 - Sleep apnea, unspecified, I72.9 - Aneurysm of unspecified site, K21.9 - Gastro- esophageal reflux disease without esophagitis, M06.9 - Rheumatoid arthritis, unspecified TSH reflex Free T4 Today E66.01 - Morbid (severe) obesity due to excess calories, G47.30 - Sleep apnea, unspecified, I72.9 - Aneurysm of unspecified site, K21.9 - Gastro-esophageal reflux disease without esophagitis, M06.9 - Rheumatoid arthritis, unspecified Vitamin D 25-OH Total Today E66.01 - Morbid (severe) obesity due to excess calories, G47.30 - Sleep apnea, unspecified, I72.9 - Aneurysm of unspecified site, K21.9 - Gastro-esophageal reflux disease without esophagitis, M06.9 - Rheumatoid arthritis, unspecified Insulin Today E66.01 - Morbid (severe) obesity due to excess calories, G47.30 - Sleep apnea, unspecified, I72.9 - Aneurysm of unspecified site, K21.9 - Gastro- esophageal reflux disease without esophagitis, M06.9 - Rheumatoid arthritis, unspecified Vitamin B12 and Folate Today E66.01 - Morbid (severe) obesity due to excess calories, G47.30 - Sleep apnea, unspecified, I72.9 - Aneurysm of unspecified site, K21.9 - Gastro-esophageal reflux disease without esophagitis, M06.9 - Rheumatoid arthritis, unspecified Zinc Today E66.01 - Morbid (severe) obesity due to excess calories, G47.30 - Sleep apnea, unspecified, I72.9 - Aneurysm of unspecified site, K21.9 - Gastro- esophageal reflux disease without esophagitis, M06.9 - Rheumatoid arthritis, unspecified Comprehensive Met. Panel Today E66.01 - Morbid (severe) obesity due to excess calories, G47.30 - Sleep apnea, unspecified, I72.9 - Aneurysm of unspecified site, K21.9 - Gastro-esophageal reflux disease without esophagitis, M06.9 - Rheumatoid arthritis, unspecified Ferritin Today E66.01 - Morbid (severe) obesity due to excess calories, G47.30 - Sleep apnea, unspecified, I72.9 - Aneurysm of unspecified site, K21.9 - Gastro- esophageal reflux disease without esophagitis, M06.9 - Rheumatoid arthritis, unspecified Hemoglobin A1c Today E66.01 - Morbid (severe) obesity due to excess calories, G47.30 - Sleep apnea, unspecified, I72.9 - Aneurysm of unspecified site, K21.9 - Gastro-esophageal reflux disease without esophagitis, M06.9 - Rheumatoid arthritis, unspecified Telehealth Telehealth Location of provider rendering services: practice address Location of patient: address on file Patient Identification confirmed using: Name, : Yes Telehealth method: voice only Patient verbally consented to treatment: Yes Patient verbally consented to billing insurance company: Yes Patient informed of any privacy concerns related to visit: Yes Coding Level of Care Code Tele Est Pt Level 4 (75802) Diagnoses Morbid obesity E66.01 GERD (gastroesophageal reflux disease) K21.9 Sleep apnea G47.30 Aneurysm I72.9 Rheumatoid arthritis of multiple sites with negative rheumatoid factor M06.09 Rheumatoid arthritis location: multiple sites Rheumatoid factor presence: without rheumatoid factor
[2023-07-04 08:44] VITALS: BMI 41.1
--- OUTSIDE RECORDS SUMMARY | 2023-07-04 09:23 | XMS_ITS | Continuity of Care Document ---
Author Name Unknown Organization [facility] Address [address] [place] [address]- Care Team Providers Care Renewal Specialist Name Role Phone Rachell LAM, Liu Rivera Primary Care Physician Encounter [id number] Date(s): 04/20/23 - 05/21/23 [facility] [address], [place] [address] Attending Physician: Edwin Liu MD Admitting Physician: Edwin Liu MD Referring Physician: Brielle LAM, Elio Allergies, Adverse Reactions, Alerts Substance Reaction Severity Status codeine Itchy Active Effexor Active Avelox Active Contrast Dye 1, 2 Active 1per pt not oral contrasst, was IV injection RG 05/06/23 2Oral contrast dye, swelling of face/eyes Immunizations Given and Recorded Vaccine Date Status Refusal Reason SARS-CoV-2 mRNA ([id number]) vax 01/19/22 Recorded SARS-CoV-2 (COVID-19) mRNA-1273 vaccine 06/16/21 R ecorded SARS-CoV-2 (COVID-19) mRNA-1273 vaccine 12/03/20 R ecorded SARS-CoV-2 (COVID-19) mRNA-1273 vaccine 11/05/20 R ecorded Medications aspirin 81 mg oral delayed release tablet 81 mg, 1, tablet, By Mouth, Daily, Take 5 days prior to the procedure, # 30 tablet, Refills 1, Tot.Refills 1, Maintenance, 05/10/23 9:54:00 EDT, Route to Pharmacy Electronically, [facility],Partial fill upon patient request if the prescripti... Start Date: 05/10/23 Stop Date: 07/09/23 Status: Ordered Ativan 0.5 mg oral tablet 2 tablet = 1 mg, By Mouth, 3 times a day, PRN as needed for anxiety, 0 Refills, Maintenance, 05/16/14 15:26:17 EDT Start Date: 05/16/14 Status: Ordered atorvastatin 80 mg oral tablet = 80 mg, By Mouth, Daily at bedtime, # 30 tablet, 0 Refills, Maintenance, 05/10/23 9:55:00 EDT, Tablet, [facility], Partial fill upon patient request if the prescription is for a schedule II opioid drug., 160, cm, 05/08/23 20:11:00 EDT, Height... Start Date: 05/10/23 Stop Date: 06/09/23 Status: Ordered CPAP Machine See Instructions, # [...] opioid drug. Start Date: 09/13/22 Status: Ordered Keppra 500 mg oral tablet = 500 mg, By Mouth, 2 times a day, # 60 tablet, 0 Refills, Maintenance, 05/10/23 9:56:00 EDT, Tablet, [facility], Partial fill upon patient request if the prescription is for a schedule II opioid drug., 160, cm, 05/08/23 20:11:00 EDT, Height,... Start Date: 05/10/23 Stop Date: 06/09/23 Status: Ordered Lasix 40 mg oral tablet 1 tablet = 40 mg, By Mouth, Every other day, # 30 tablet, 0 Refills, Maintenance, 04/16/14 12:09:59EDT, Tablet Start Date: 04/16/14 Status: Ordered omeprazole 40 mg oral enteric coated capsule 1 capsule, By Mouth, 2 times a day, X30 DAYS., # 60 capsule, 3 Refills, [facility], 163, cm, 01/13/21 11:27:00 EDT, Height, 113, kg, 01/13/21 11:27:00 EDT, Dry Weight Start Date: 03/29/22 Status: Ordered Oxycodone = 5 mg, By Mouth, 3 times a day, PRN Pain , Mild, 0 Refills, Maintenance, 09/13/22 18:18:00 EST, Partial fill upon patient request if the prescription is for a schedule II opioid drug. Start Date: 09/13/22 Status: Ordered Ozempic 2 mg/3 mL (0.25 mg or 0.5 mg dose) subcutaneous solution 0 Refills, Maintenance, 05/06/23 15:28:00 EDT, Partial fill upon patient request if the prescription is for a schedule II opioid drug. Start Date: 05/06/23 Status: Ordered Plavix 75 mg oral tablet 75 mg, 1, tablet, By Mouth, Daily, Take 5 days prior to the procedure, # 30 tablet, Refills 1, Tot.Refills 1, Maintenance, 05/10/23 9:54:00 EDT, Route to Pharmacy Electronically, [facility],Partial fill upon patient request if the prescripti... Start Date: 05/10/23 Stop Date: 07/09/23 Status: Ordered predniSONE 5 mg oral tablet 0 Refills, Maintenance, 04/27/23 10:39:00 EDT, Partial fill upon patient request if the prescription is for a schedule II opioid drug. Start Date: 04/27/23 Status: Ordered Prozac 40 mg oral capsule 1 capsule = 40 mg, By Mouth, Daily, 0 Refills, Maintenance, 05/16/14 15:26:02 Start Date: 05/16/14 Status: Ordered Ventolin 90 mcg Inhaler Inhalation, Every 6 hours, Refills 0, Maintenance, 02/14/20 17:34:00 EDT Start Date: 02/14/20 Status: Ordered Problem List Condition Confirmation Course [...] Personnel Name: Joe LAM, Bebo Parks Position: [facility] Physician (General Medicine) Member Role: Lifetime Consulting Physician Address: Address: [address] [place] [address]- [place] Name: Perla Paulino RN Position: [facility] RN Member Role: Primary Care Nurse Name: Nicky Ross RN Position: [facility] RN Member Role: Primary Care Nurse Name: Alice Le RN Position: [facility] RN Member Role: Primary Care Nurse Name: Carolee Mendez RN Position: [facility] RN Supv Member Role: Primary Care Nurse Name: Moni Ross RN Position: [facility] RN Member Role: Primary Care Nurse Name: Bryanna Rolon RN Position: [facility] RN Member Role: Primary Care Nurse Name: Sara Mak RN Position: [facility] RN Member Role: Primary Care Nurse Name: Pollo Lopez RN Position: [facility] RN Member Role: Primary Care Nurse Name: Liu Lovett MD Position: [facility] Physician - Primary Care Member Role: PCP Address: Address: [address] [place] [address]- [place] Name: Celia Simpson RN Position: [facility] RN Member Role: Primary Care Nurse Name: Colby Denny RN Position: [facility] RN Member Role: Primary Care Nurse Care Team Related Persons Name: SAMEER MORGAN Address: [address] [place] [address] Name: JOHNNY PUCKETT Address: home [address] [place] [address] Name: SAMEER SCHAEFER Address: home [address] [place] [address]
--- OUTSIDE RECORDS SUMMARY | 2023-07-04 09:23 | XMS_ITS | Continuity of Care Document ---
Author Name Unknown Organization [facility] Address [address] [place] [address]- Care Team Providers Care Grip Name Role Phone Rachell LAM, Liu Rivera Primary Care Physician Encounter [facility] Date(s): 03/27/23 - 04/26/[address] [address]- Allergies, Adverse Reactions, Alerts Substance Reaction Severity Status codeine Itchy Active Effexor Active Avelox Active Contrast Dye 1 Active 1Oral contrast dye, swelling of face/eyes Immunizations Given and Recorded Vaccine Date Status Refusal Reason SARS-CoV-2 mRNA ([id number]) vax 01/19/22 Recorded SARS-CoV-2 (COVID-19) mRNA-1273 vaccine 06/16/21 R ecorded SARS-CoV-2 (COVID-19) mRNA-1273 vaccine 12/03/20 R ecorded SARS-CoV-2 (COVID-19) mRNA-1273 vaccine 11/05/20 R ecorded Medications aspirin 81 mg oral delayed release tablet 81 mg, 1, tablet, By Mouth, Daily, Take 5 days prior to the procedure, # 90 tablet, Refills 1, Tot.Refills 1, Maintenance, 09/07/22 13:56:00 EST, Route to Pharmacy Electronically, [facility], Partial fill upon patient request if [...] DAYS., # 60 capsule, 3 Refills, [facility], 163, cm, 01/13/21 11:27:00 EDT, Height, [...] 13:56:00 EST, Route to Pharmacy Electronically, [facility], Partial fill upon patient request if the prescript... Start Date: 09/07/22 Status: Ordered Plavix 75 mg oral tablet See Instructions, 1 tablet By Mouth Daily, # 90 tablet, Refills 1, Tot. Refills 1, Maintenance, 04/18/23 12:17:00 EDT, Instructions Replace Required Details, Route to Pharmacy Electronically, [facility], Partial fill upon patient request if th... Start Date: 04/18/23 Status: Ordered Prozac 40 mg oral capsule [...] Condition Confirmation Course Effective Dates Status Health atus Informant Aneurysm of intracranial portion of [...] Team Personnel Name: Bebo Diaz MD Position: [facility] Physician (General Medicine) Member Role: Lifetime Consulting Physician Address: Address: [address] [place] [address]- Name: Alice Le RN Position: [facility] RN Member Role: Primary Care Nurse Name: Bryanna Rolon RN Position: [facility] RN Member Role: Primary Care Nurse Name: Pollo Lopez RN Position: [facility] RN Member Role: Primary Care Nurse Name: Liu Lovett MD Position: [facility] Physician - Primary Care Member Role: PCP Address: Address: [address] [place] [address]- Care Team Related Persons Name: SAMEER MORGAN Address: [address] [place] [address] Name: JOHNNY PUCKETT Address: home [address] [place] [address] Name: SAMEER SCHAEFER Address: [address] [address]
--- OUTSIDE RECORDS SUMMARY | 2023-07-04 09:23 | XMS_ITS | Continuity of Care Document ---
Author Name Unknown Organization [facility] Address [address] [place] [address]- Care Team Providers Care Neuropsychologist Name Role Phone Rachell LAM, Liu Rivera Primary Care Physician [place] [facility] Date(s): 03/27/23 - 04/26/[address] [address]- Allergies, Adverse Reactions, Alerts Substance Reaction Severity Status codeine Itchy Active Effexor Active Avelox Active Contrast Dye 1 Active 1Oral contrast dye, swelling of face/eyes Immunizations Given and Recorded Vaccine Date Status Refusal Reason SARS-CoV-2 mRNA ([id number]) vax 01/19/22 Recorded SARS-CoV-2 (COVID-19) mRNA-1273 vaccine 06/16/21 R ecorded SARS-CoV-2 (COVID-19) mRNA-1273 vaccine 12/03/20 R ecorded SARS-CoV-2 (COVID-19) mRNA-1273 vaccine 11/05/20 R ecorded Medications aspirin 81 mg oral delayed release tablet 81 mg, 1, tablet, By Mouth, Daily, Take 5 days prior to the procedure, # 90 tablet, Refills 1, Tot.Refills 1, Maintenance, 09/07/22 13:56:00 EST, Route to Pharmacy Electronically, [facility], Partial fill upon patient request if [...] DAYS., # 60 capsule, 3 Refills, [facility], 163, cm, 01/13/21 11:27:00 EDT, Height, [...] 13:56:00 EST, Route to Pharmacy Electronically, [facility], Partial fill upon patient request if the prescript... Start Date: 09/07/22 Status: Ordered Plavix 75 mg oral tablet See Instructions, 1 tablet By Mouth Daily, # 90 tablet, Refills 1, Tot. Refills 1, Maintenance, 04/18/23 12:17:00 EDT, Instructions Replace Required Details, Route to Pharmacy Electronically, [facility], Partial fill upon patient request if [...] Team Personnel Name: Bebo Diaz MD Position: [facility] Physician (General Medicine) Member Role: Lifetime Consulting Physician Address: Address: [address] [place] [address]- Name: Alice Le RN Position: [facility] RN Member Role: Primary Care Nurse Name: Bryanna Rolon RN Position: [facility] RN Member Role: Primary Care Nurse Name: Pollo Lopez RN Position: [facility] RN Member Role: Primary Care Nurse Name: Liu Lovett MD Position: [facility] Physician - Primary Care Member Role: PCP Address: Address: [address] [place] [address]- Care Team Related Persons Name: SAMEER MORGAN Address: [address] [place] [address] Name: JOHNNY PUCKETT Address: [address] [place] [address] Name: SAMEER SCHAEFER Address: [address] [address]
--- OUTSIDE RECORDS SUMMARY | 2023-07-04 09:24 | XMS_ITS | Continuity of Care Document ---
Author Name Unknown Organization [facility] Address [address] [place] [address]- Care Team Providers Care Heliarc Welder Name Role Phone Rachell LAM, Liu Rivera Primary Care Physician Encounter [facility] R [id number] Date(s): 04/26/23 - 05/26/23 [facility] [address] [place], [place] [address] [[email or web address]] Attending Physician: Erica Connelly Admitting Physician: Erica Connelly Referring Physician: Erica Connelly Allergies, Adverse Reactions, Alerts Substance Reaction Severity Status codeine Itchy Active Effexor Active Contrast Dye 1, 2 Active Avelox Active 1per pt not oral contrasst, was IV injection RG 05/06/23 2Oral contrast dye, swelling of face/eyes Immunizations Given and Recorded Vaccine Date Status Refusal Reason SARS-CoV-2 mRNA ([id number]) vax 01/19/22 Recorded SARS-CoV-2 (COVID-19) mRNA-1273 vaccine 06/16/21 R ecorded SARS-CoV-2 (COVID-19) mRNA-1273 vaccine 12/03/20 R ecorded SARS-CoV-2 (COVID-19) mRNA-1273 vaccine 11/05/20 R ecorded Medications aspirin 81 mg oral delayed release tablet 81 mg, 1, tablet, By Mouth, Daily, Take 5 days prior to the procedure, # 30 tablet, Refills 1, Tot.Refills 1, Maintenance, 05/10/23 9:54:00 EDT, Route to Pharmacy Electronically, [facility],Partial fill upon patient request if the [...] Refills, Maintenance, 05/10/23 9:55:00 EDT, Tablet, [facility], Partial fill upon patient request if [...] Refills, Maintenance, 05/10/23 9:56:00 EDT, Tablet, [facility], Partial fill upon patient request if [...] DAYS., # 60 capsule, 3 Refills, [facility], 163, cm, 01/13/21 11:27:00 EDT, Height, [...] 9:54:00 EDT, Route to Pharmacy Electronically, [facility],Partial fill upon patient request if the [...] : Pt quit on 01/17/18; entered on: 5/3/18 Sex Patient Care team information Care Team Personnel Name: Joe LAM, Bebo Parks Position: [facility] Physician (General Medicine) Member Role: Lifetime Consulting Physician Address: Address: [address] [place] [address]- Name: Perla Paulino RN Position: [facility] RN Member Role: Primary Care Nurse Name: Nicky Ross RN Position: [facility] RN Member Role: Primary Care Nurse Name: Alice Le RN Position: [facility] RN Member Role: Primary Care Nurse Name: Carolee Mendez RN Position: [facility] RN Supmalou Member Role: Primary Care Nurse Name: Moni Ross RN Position: [facility] RN Member Role: Primary Care Nurse Name: Bryanna Rolon RN Position: [facility] RN Member Role: Primary Care Nurse Name: Sara Mak RN Position: [facility] RN Member Role: Primary Care Nurse Name: Pollo Lopez RN Position: [facility] RN Member Role: Primary Care Nurse Name: Liu Lovett MD Position: [facility] Physician - Primary Care Member Role: PCP Address: Address: [address] [place] [address]- Name: Celia Simpson RN Position: [facility] RN Member Role: Primary Care Nurse Name: Colby Denny RN Position: [facility] RN Member Role: Primary Care Nurse Care Team Related Persons Name: SAMEER MORGAN Address: [address] [place] [address] Name: JOHNNY PUCKETT Address: home [address] [place] [address] Name: SAMEER SCHAEFER Address: [address] [place] [address]
--- OUTSIDE RECORDS SUMMARY | 2023-07-04 09:26 | XMS_ITS | Continuity of Care Document ---
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 Name Role Phone Rachell LAM, Liu Rivera Primary Care Phys[place] [facility] [place] 05/10/[address] [address] Discharge Disposition: A-D/C Home Attending Physician: Wil LAM, Emanuel Admitting Physician: Elio Hannah MD Referring Physician: Elio Hannah MD Allergies, Adverse Reactions, Alerts Substance Reaction Severity Status codeine Itchy Active Effexor Active Contrast Dye 1, 2 Active Avelox Active 1per pt not oral contrasst, was IV injection RG 05/06/23 2Oral contrast dye, swelling of face/eyes Immunizations Given and Recorded Vaccine Date Status Refusal Reason SARS-CoV-2 mRNA ([id number]) vax 01/19/22 Recorded SARS-CoV-2 (COVID-19) mRNA-1273 vaccine 06/16/21 R ecorded SARS-CoV-2 (COVID-19) mRNA-1273 vaccine 12/03/20 R ecorded SARS-CoV-2 (COVID-19) mRNA-1273 vaccine 11/05/20 R ecorded Medications aspirin 81 mg oral delayed release tablet 81 mg, 1, tablet, By Mouth, Daily, Take 5 days prior to the procedure, # 30 tablet, Refills 1, Tot.Refills 1, Maintenance, 05/10/23 9:54:00 EDT, Route to Pharmacy Electronically, [facility],Partial fill upon patient request if the [...] Refills, Maintenance, 05/10/23 9:55:00 EDT, Tablet, [facility], Partial fill upon patient request if the prescription is for a schedule II opioid drug., 160, cm, 05/08/23 20:11:00 EDT, Height... Start Date: 05/10/23 Stop Date: 06/09/23 Status: Ordered CPAP Machine See Instructions, # 1 each, Maintenance, AutoCPAP 8-20 cm H20, use Daily when sleeping, 07/07/22 12:12:00 EDT, Supply Start Date: 07/07/22 Status: Ordered gabapentin 400 mg oral capsule 800 mg, Capsule, By Mouth, 05/10/23 9:00:00 EDT Start Date: 05/10/23 Stop Date: 05/10/23 Status: Completed gabapentin 800 mg oral tablet 2 tablet [...] Refills, Maintenance, 05/10/23 9:56:00 EDT, Tablet, [facility], Partial fill upon patient request if [...] DAYS., # 60 capsule, 3 Refills, [facility], 163, cm, 01/13/21 11:27:00 EDT, Height, 113, kg, 01/13/21 11:27:00 EDT, Dry Weight Start Date: 03/29/22 Status: Ordered Oxycodone = 5 mg, By Mouth, 3 times a day, PRN Pain , Mild, 0 Refills, Maintenance, 09/13/22 18:18:00 EST, Partial fill upon patient request if the prescription is for a schedule II opioid drug. Start Date: 09/13/22 Status: Ordered oxyCODONE 5 mg oral tablet 5 mg, Tablet, By Mouth, Every 6 hours, PRN for Pain , Moderate, Routine, 05/06/23 22:26:00 EDT Start Date: 05/06/23 Stop Date: 05/13/23 Status: Ordered Ozempic 2 mg/3 mL (0.25 [...] 9:54:00 EDT, Route to Pharmacy Electronically, [facility],Partial fill upon patient request if the [...] Inhalation, Every 6 hours, Refills 0, Maintenance, 05/07/20 17:34:00 EDT Start Date: 02/14/20 Status: Ordered [...] arthritis Confirmed Active Severe obesity Confirmed Active Results Radiology Reports * Exam Date Time Procedure Performing Provider Status 05/08/23 7:11 PM MRI Brain W/O Contrast Wild Campuzano (Verified) Notes: (MRI Brain W/O Contrast) Reason For Exam: Aphasia RESULT: MRI Brain W/O Contrast MRI Brain W/O Contrast INDICATION: Reason: Aphasia; Clinical Question(s): Infarction; left internal carotid stent placement on 05/06/2023 Order Comment: Please see Reference Text for complete list of contraindications Infarction TECHNIQUE: MRI of the brain was performed without contrast utilizing sagittal T1, axial T2, axial FLAIR, axial SWAN, and axial DWI sequences. COMPARISON: CT 05/06/2023, MRI 12/27/2017 FINDINGS: BRAIN and EXTRA-AXIAL SPACES: No definite restricted diffusion is noted. A small site of susceptibility artifact is present in the left posterior frontal lobe in the region of the precentral gyrus, just superior to the sylvian fissure. Small subcortical and deep white matter lesions measuring up to5 mm in diameter are noted at the superolateral margins of the bodies of the lateral ventricles andin the frontal lobes. These of slightly increased in number since the prior study of 12/27/2017. No discrete cortical lesion is noted. No cavitary lacune is present. No extra-axial collection or mass effect is noted. The foramen magnum is normal. No vascular abnormality is identified. EXTRACRANIAL SOFT TISSUES: Orbits are unremarkable. A small right maxillary mucus retention cyst ispresent. BONES: Marrow signal is preserved. IMPRESSION: 1. No evidence of an acute intracranial process. 2. Solitary site of susceptibility artifact in the left precentral gyrus just superior to the sylvian fissure. There is no corresponding diffusion or FLAIR abnormality. 3. Minor white matter abnormality of doubtful significance in a patient of this age. WSN: [id number] Ordering Physician: Lucila Connelly Dictated By: Juanita LAM, Bebo Gray Dictated Date/Time: 05/09/23 9:08 am Reviewed By: Bebo Grant MD Signed By: Bebo Grant MD Signed Date/Time: 05/09/23 9:08 am Transcribed By: RAKESH Transcribed Date/Time: 05/09/23 8:50 am * Exam Date Time Procedure Performing Provider Status 05/06/23 2:[address] Angio Neck An Schroeder; Auth (Verified) Notes: (CT Angio Neck) Reason For Exam: left sided weakness;Other: RESULT: CT Angio Neck CT Angio Head, CT Angio Neck Reason: Other:; left sided weakness; Clinical Question(s): Other: / Other: TECHNIQUE: CT angiogram of the head and neck was performed after bolus administration of intravenous contrast. 100 mL of Omnipaque 300 was administered intravenously. Coronal and sagittal MIP reformatted images were obtained. Additional 3-D images were created on a separate workstation under concurrent supervision by the attending radiologist. All stenoses are measured using NASCET criteria. Weight-based protocol using automatic tube modulation was used to optimize exposure parameters. RADIATION DOSE PARAMETERS: CTDIvol Head: 59.36 mGy, DLP Head: 1273 mGy*cm. COMPARISON: Noncontrast CT head performed concurrently. Catheter angiogram, 10/06/2023. MRA, 03/19/2023. CTA head and neck, 08/19/2022. FINDINGS: CTA OF THE NECK: Arch: There is a three vessel aortic arch. The origins of the supra aortic vessels are patent. Right carotid system: The right common carotid artery is tortuous with distal retropharyngeal course. Minimal calcified and noncalcified plaque is seen at the carotid bifurcation, though there is no significant stenosis by NASCET criteria. The proximal ICA is tortuous. Left carotid system: The left common carotid artery is normal in caliber with distal retropharyngeal course. Calcified plaque is seen at the carotid bifurcation, though there is no significant ICA stenosis by NASCET criteria. The mid ICA is tortuous and ectatic. There is a co-dominant vertebral artery system. Right vertebral: Patent. Left vertebral: Patent. Other: Soft tissues and bones: No evidence of lymphadenopathy or mass. The thyroid is unremarkable. Atelectasis is seen in both posterior hemithoraces. Trachea appears narrow in AP dimension, question tracheomalacia. Multilevel degenerative changes of the spine are noted, without acute osseous abnormality. CTA OF THE HEAD: Anterior circulation: Calcified plaque is seen along the intracranial ICAs. There has been intervalplacement of a stent extending from the distal left cavernous ICA to the supraclinoid segment. No definite residual filling is seen within the previously noted ophthalmic artery aneurysm. The laterally directed left supraclinoid aneurysm, however, is unchanged measuring about 3 mm. Right A1 segment is very hypoplastic. There is azygous configuration of the before meals (common [id number]). Bilateral M1 and proximal segments are patent and normal in caliber. Posterior circulation: The vertebral arteries, basilar artery, superior cerebellar arteries, and posterior cerebral arteries are patent with small right posterior commuting artery noted. Veins: Major dural venous sinuses are patent. Other: Soft tissues and bones: No midline shift or effacement of the basal cisterns. No space-occupying hemorrhage. No territorial loss of suggs-white matter differentiation. Orbits are unremarkable. Retention cyst is seen in the right maxillary sinus. There is a large leftconcha bullosa. Mastoids are clear. IMPRESSION: 1. No proximal occlusion or high grade stenosis in the major arteries of the head and neck. 2. Interval placement of stent in the intracranial left ICA. 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 3. Narrowed trachea in AP dimension, question tracheomalacia. WSN: [id number] Ordering Physician: Art Hirsch Dictated By: Jayna Chang MD Dictated Date/Time: 05/06/23 3:38 pm Reviewed By: Jayna Chang MD Signed By: Jayna Chang MD Signed Date/Time: 05/06/23 3:38 pm Transcribed By: RAKESH Transcribed Date/Time: 05/06/23 3:02 pm * Exam Date Time Procedure Performing Provider Status 05/06/23 2:[address] Angio Head An Schroeder; Auth (Verified) Notes: (CT Angio Head) Reason For Exam: left sided weakness;Other: RESULT: CT Angio Head CT Angio Head, CT Angio Neck Reason: Other:; left sided weakness; Clinical Question(s): Other: / Other: TECHNIQUE: CT angiogram of the head and neck was performed after bolus administration of intravenous contrast. 100 mL of Omnipaque 300 was administered intravenously. Coronal and sagittal MIP reformatted images were obtained. Additional 3-D images were created on a separate workstation under concurrent supervision by the attending radiologist. All stenoses are measured using NASCET criteria. Weight-based protocol using automatic tube modulation was used to optimize exposure parameters. RADIATION DOSE PARAMETERS: CTDIvol Head: 59.36 mGy, DLP Head: 1273 mGy*cm. COMPARISON: Noncontrast CT head performed concurrently. Catheter angiogram, 10/06/2023. MRA, 03/19/2023. CTA head and neck, 08/19/2022. FINDINGS: CTA OF THE NECK: Arch: There is a three vessel aortic arch. The origins of the supra aortic vessels are patent. Right carotid system: The right common carotid artery is tortuous with distal retropharyngeal course. Minimal calcified and noncalcified plaque is seen at the carotid bifurcation, though there is no significant stenosis by NASCET criteria. The proximal ICA is tortuous. Left carotid system: The left common carotid artery is normal in caliber with distal retropharyngeal course. Calcified plaque is seen at the carotid bifurcation, though there is no significant ICA stenosis by NASCET criteria. The mid ICA is tortuous and ectatic. There is a co-dominant vertebral artery system. Right vertebral: Patent. Left vertebral: Patent. Other: Soft tissues and bones: No evidence of lymphadenopathy or mass. The thyroid is unremarkable. Atelectasis is seen in both posterior hemithoraces. Trachea appears narrow in AP dimension, question tracheomalacia. Multilevel degenerative changes of the spine are noted, without acute osseous abnormality. CTA OF THE HEAD: Anterior circulation: Calcified plaque is seen along the intracranial ICAs. There has been intervalplacement of a stent extending from the distal left cavernous ICA to the supraclinoid segment. No definite residual filling is seen within the previously noted ophthalmic artery aneurysm. The laterally directed left supraclinoid aneurysm, however, is unchanged measuring about 3 mm. Right A1 segment is very hypoplastic. There is azygous configuration of the before meals (common [id number]). Bilateral M1 and proximal segments are patent and normal in caliber. Posterior circulation: The vertebral arteries, basilar artery, superior cerebellar arteries, and posterior cerebral arteries are patent with small right posterior commuting artery noted. Veins: Major dural venous sinuses are patent. Other: Soft tissues and bones: No midline shift or effacement of the basal cisterns. No space-occupying hemorrhage. No territorial loss of suggs-white matter differentiation. Orbits are unremarkable. Retention cyst is seen in the right maxillary sinus. There is a large leftconcha bullosa. Mastoids are clear. IMPRESSION: 1. No proximal occlusion or high grade stenosis in the major arteries of the head and neck. 2. Interval placement of stent in the intracranial left ICA. 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 3. Narrowed trachea in AP dimension, question tracheomalacia. WSN: [id number] Ordering Physician: Art Hirsch Dictated By: Jayna Chang MD Dictated Date/Time: 05/06/23 3:38 pm Reviewed By: Jayna Chang MD Signed By: Jayna Chang MD Signed Date/Time: 05/06/23 3:38 pm Transcribed By: RAKESH Transcribed Date/Time: 05/06/23 3:02 pm * Exam Date Time Procedure Performing Provider Status 05/06/23 2:[address] Head/Brain W/O Contrast An Schroeder; Auth (Verified) Notes: (CT Head/Brain W/O Contrast) Reason For Exam: Hemiparesis RESULT: CT Head/Brain W/O Contrast CT Head/Brain W/O Contrast INDICATION: Reason: Hemiparesis; Clinical Question(s): Infarction; Order Comment:. Coracoid, TECHNIQUE: Noncontrast head CT using axial technique and reconstructed in axial and coronal planes.Iterative reconstruction techniques are used to optimize dose and image quality. CTDIvol Head: 42.44 mGy, DLP Head: 764 mGy*cm. COMPARISON: Same day CTA head and neck MRA head from 03/19/2023 CT head from 01/13/2021 FINDINGS: Sweeper Brush Maker Machine view findings, lines and tubes: None. BRAIN AND EXTRA-AXIAL SPACES: No parenchymal hemorrhage, midline shift, or mass effect. Suggs-white matter differentiation is wellpreserved. No acute infarct. Negative insular ribbon and hyperdense vessel signs. Status post stenting of the distal left ICA. Ventricles, sulci, and basilar cisterns are normal. No white matter lesions. No subarachnoid hemorrhage. No subdural or epidural collection. CALVARIUM, SKULL BASE, AND SOFT TISSUES: No fractures or suspicious bony lesions. Mucous retention cyst in the right maxillary sinus. Mastoid air cells are clear. Visualized orbits and globes are intact. The extracranial soft tissues are unremarkable. IMPRESSION: No acute intracranial pathology. Status post stenting of the distal left ICA. WSN: [id number] Ordering Physician: Elio Hannah Dictated By: Balta Lin MD Dictated Date/Time: 05/06/23 2:42 pm Reviewed By: Balta Lin MD Signed By: Balta Lin MD Signed Date/Time: 05/06/23 2:42 pm Transcribed By: RAKESH Transcribed Date/Time: 05/06/23 2:30 pm Vital Signs Most recent to oldest [Reference Range]: 1 2 3 Height 160 cm (05/10/23 10:52 AM) 160 cm (05/08/23 8:11 PM) 160 cm (05/08/23 5:43 PM) Weight 113.2 kg (05/08/23 5:43 PM) 111.9 kg (05/08/23 6:00 AM) 112.5 kg (05/07/23 4:00 AM) Oxygen Saturation [94-100 %] 96 % (05/10/23 10:52 AM) 95 % (05/10/23 8:00 AM) 95 % (05/10/23 4:24 AM) Pulse Rate [55-90 bpm] 70 bpm (05/10/23 10:52 AM) 74 bpm (05/10/23 8:00 AM) 76 bpm (05/10/23 4:24 AM) Body Mass Index [18.5-24.99 kg/m2] 44.22 kg/m2 *>HHI* (05/08/23 5:43 PM) 43.36 kg/m2 *>HHI* (05/06/23 2:50 PM) Blood Pressure [90-138/55-84 mm Hg] 91/56mm Hg (05/10/23 10:52 AM) 98/49mm Hg (05/10/23 8:00 AM) 91/58mm Hg (05/10/23 4:24 AM) Respiratory Rate [16-30 br/min] 18 br/min (05/10/23 10:52 AM) 16 br/min (05/10/23 8:46 AM) 16 br/min (05/10/23 8:46 AM) Temperature [96.8-100.4 DegF] 98.2 DegF (05/10/23 10:52 AM) 97.3 DegF (05/10/23 8:00 AM) 97.8 DegF (05/10/23 4:24 AM) Liters per Minute 2 L/min (05/08/23 4:00 PM) 2 L/min (05/08/23 3:00 PM) 2 L/min (05/08/23 2:00 PM) Mode of Delivery (Oxygen) Room air (05/10/23 10:52 AM) Room air (05/10/23 8:00 AM) Room air (05/10/23 4:24 AM) Blood pressure sites Arm, left (05/10/23 10:52 AM) Arm, right (05/10/23 8:00 AM) Arm, right (05/10/23 4:24 AM) Temperature Route Oral (05/10/23 10:52 AM) Oral (05/10/23 8:00 AM) Temporal (05/10/23 4:24 AM) Dry Weight 111 kg (05/06/23 2:50 PM) Weight Obtained Via Bed scale (05/08/23 5:43 PM) Bed scale (05/08/23 6:00 AM) Bed scale (05/07/23 4:00 AM) Social History Social History Type Response Smoking Status Former smoker; Other : Pt quit on 01/17/18; entered on: 02/09/18 Sex Note * Celia Simpson RN: PERFORM Event Display: Discharge/Transfer Note Hospital Authored Date: [id number] Nursing Discharge Note Entered On: 05/10/2023 12:26 EDT Performed On: 05/10/2023 12:25 EDT by Celia Simpson RN Nursing Discharge Note 2 Discharge Time : 05/10/2023 14:30 EDT Celia Simpson RN - 05/10/2023 16:17 EDT Discharge Level of Care at Discharge : Home/Longterm/Foster Care Patient Left Unit Via : Wheelchair Patient Accompanied Off Unit with : Responsible adult, Other: STAFF DC Instructions Provided & Signed by Pt : Yes Patient Understands D/C Instructions : Yes Patient Instructions Discharge Signed : Yes Did Pt have Specialty Bed or Wound Vac : No Tatiana GUEVARA, Celia - 05/10/2023 12:25 EDT * Wil LAM, Emanuel: PERFORM, MODIFY Event Display: Discharge/Transfer Note Hospital Authored Date: [id number] Patient: ??DELANEY, JOSEFINA ? Age:??62 Years?Sex:??Female?:??1960?? Patient Information Discharge Location: A Primary Care Physician: Liu Lovett MD Admit Date/Time: 05/06/23 10:43 Discharge Disposition Discharge Disposition: ?? Discharge Diagnosis ?? 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 _ Discharge Medications Albuterol (Ventolin 90 mcg Inhaler)?Inhalation?Every 6 hours Aspirin (aspirin 81 mg oral delayed release tablet)?81?Milligram?1?tablet?By Mouth?Daily?for 30?Days?Take 5 days prior to the procedure Atorvastatin (atorvastatin 80 mg oral tablet)?80?Milligram?By Mouth?Daily at bedtime?for 30?Days Clopidogrel (Plavix 75 mg oral tablet)?75?Milligram?1?tablet?By Mouth?Daily?for 30?Days?Take 5 days prior to the procedure Durable Medical Equipment (CPAP ??Machine)?See Instructions?AutoCPAP 8-20 cm H20, use Daily when sleeping Fluoxetine (Prozac 40 mg oral capsule)?1?capsule?40?Milligram?By Mouth?Daily Furosemide (Lasix 40 mg oral tablet)?1?tab(s)?40?Milligram?By Mouth?Every other day Gabapentin (gabapentin 800 mg oral tablet)?2?tab(s)?1,600?Milligram?By Mouth?3 times a day levETIRAcetam (Keppra 500 mg oral tablet)?500?Milligram?By Mouth?2 times a day?for 30?Days Lorazepam (Ativan 0.5 mg oral tablet)?2?tab(s)?1?Milligram?By Mouth?3 times a day?as needed?as needed for anxiety Omeprazole (omeprazole 40 mg oral enteric coated capsule)?1?capsule?By Mouth?2 times a day?X30 DAYS. Oxycodone?5?Milligram?By Mouth?3 times a day?as needed?Pain , Mild ? Medications Started Lipitor 80 mg p.o. at bedtime Keppra 500 mg p.o. twice daily Medications Discontinued None Doses Changed None Future Appointments 2022 11:30 AM EDT ?? With: Brielle LAM, Elio Where: [facility] [address] [place] [address] [address] [facility] [place] [address]- [phone] Status: Pending Hospital Course ?? Josefina Suggs is a 62-year-old female with a past medical history of TOMASA, depression, fibromyalgia, esophageal stricture, asthma, prior??brain aneurysms??which were intervened on with a diverting stent in September 2022 and maintained on DAPT,??who presented for elective??neurosurgery 05/06 with .??Brielle, status post left pipeline stent anterior choroidal artery aneurysm, admitted to medical ICU for??monitoring. ??Course complicated by??concern for acute stroke postprocedure??with the??new onset of left-sided deficits though acute imaging showed??no acute abnormalities and she was not a candidate for lytics due to recent intracranial procedure. ??Neurology consulted and following, pending MRIfor further evaluation of etiology of her symptoms.?Also pending EEG to rule out seizure activity currently on Keppra. ??She has been seen by PM+R??who recommends activity with assistance. Her defi cits are improving, though still weaker on left, her speech is improved, may be component of post procedural sedation that has worn off. She is stable and pending transfer to Neurology service for further monitoring, and resumed on home DAPT. downgraded to D5a on 05/08 ?? 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 Postprocedure developed??left upper and lower extremity weakness,??facial droop and??difficulty??forming speech.?? CT head and CTA head and neck negative for acute abnormalities. Neurology consulted, not a candidate for lytics due to intracranial procedure. -Overall??deficits markedly improved especially her mental status, speech and facial droop, continues to have??subtle ??weakness on the left compared to the right which is improving. -Had a vague history of a possible one-time seizure though not on antiepileptics, considered seizure??with postictal state though seems less likely Neurochecks Q4 hrs, were stable Continue aspirin and Plavix??,atorvastatin 80 mg daily at bedtime, was started, Lipid panel- LDL 153,TC - 231 PMR on board - PT eval recommended home with no services needed?? Continue Keppra, PT eval recommended home with no services neededBID??pending results of routine EEG, pending MRI brain done for left wekness- ??no acute infarct was noted CT head??for any acute neuro changes, was not needed, left sided weakness improved monitor on telemetry SBP goal <180/110,??SBP??was maintained in high 90s to??mid teens??and an - prn Fioricet for headache worked well, can follow up with PCP on discharge BP stable, will need optimum control of sleep apnea, and adjustment of CPAP if needed.( not using inhouse) Follow-up with?Brielle??as an outpatient??and with her neurologist?Brittany at [facility]??here recommend to continue??Keppra??500 mg twice daily??on discharge,??will need to be followed up by her neurology??outpatient ? panic attack ?? while at MRI,received??ativan once, got tyelnol, feeling better ativan PRN with MRI and for anxiety ?? Constipation???bowel regimen??(MiraLAX??does not work for her,??will give??Dulcolax suppository and??milk of magnesia) had a BM, post meds ? Chronic medical problems: ?? Anxiety, depression: Continue fluoxetine Fibromyalgia: Continue gabapentin Chronic headache: Started Fioricet as needed per neurology recommendations Chronic lower extremity edema: Continue furosemide 40 mg every other day TOMASA: CPAP at night, she does not know her settings Asthma: Continue albuterol as needed GERD: Continue PPI Rheumatoid arthritis: Home regimen is 2.5 mg prednisone every other day, - ??will follow-up with rheumatology outpatient at her appointment in June ? Code status:??Full VTE prophylaxis: HCP:??Daughter Sameer ?? Discharge disposition: Home??with outpatient follow-up with primary care provider and neurology/interventional neurologist ?? Above documentation was done using [employer] software, please do not hesitate to contact theauthor for clarification of any unintentional issues, should it be needed ?? Objective Assessment and Plan Discharge Planning:? Vital Signs?? Temperature: 97.8 DegF (05/10/23 04:24:00) Temperature Route: Temporal (05/10/23 04:24:00) Pulse Rate: 76 bpm (05/10/23 04:24:00) Respiratory Rate: 16 br/min (05/10/23 08:46:00) Respiratory Rate: 16 br/min (05/10/23 08:46:00) Systolic Blood Pressure: 91 mm Hg (05/10/23 04:24:00) Diastolic Blood Pressure: 58 mm Hg (05/10/23 04:24:00) Blood pressure sites: Arm, right (05/10/23 04:24:00) Mean Arterial Pressure: 69 mm Hg (05/10/23 04:24:00) Pulse Pressure: 33 mm Hg (05/10/23 04:24:00) Oxygen Saturation: 95 % (05/10/23 04:24:00) Mode of Delivery (Oxygen): Room air (05/10/23 04:24:00) Early Warning Score: 5 (05/10/23 08:49:06) ? . Physical Exam General: Alert,??obese,??speaking full sentences,??mild discomfort due to headache ne in no acute distress. HEENT Normocephalic. Pupils are equal, round and reactive to light. Extraocular muscles intact. Oropharynx clear, moist mucous membranes moist.?? Neck: Supple, Full range of motion. Trachea midline. No JVD or bruits. Respiratory: Clear to auscultation and percussion. No wheezing or rhonchi. No use of acessory muscles. No tactile fremitus.?? Cardiovascular: PMI not visible. Heart sounds normal. No thrills. Regular rate and rhythm. No murmurs, rubs or gallops. Gastrointestinal: Abdomen soft, non-tender, non-distended. Normal bowel sounds. No pulsatile mass. No hepatosplenomegaly. Extremities: No lower extremity pitting pedal edema. No cyanosis or clubbing. Neurologic: AAOx3, Cranial nerves II-XII grossly intact. Speech normal. No focal neurological deficits. Deep tendon reflexes +2 bilaterally. Flexor plantar response. Moves all extremities spontaneously. Sensation intact bilaterally. Skin: No rashes or lesions. No petechiae or purpura.?? Pending Results Add On Lab Order ordered on 05/07/2023 Follow-Up Appointments Added Follow Up ?Time Frame ?Comments Brittany BARBOSA, Kimberly M?1 week Post Discharge Care Diet: Regular Diet Code Status: ?? Full Resuscitation Condition: Good Prognosis: Good Discharge ?05/10/23 9:58:00 EDT Discharge Prescriptions ?ePrescribed, ??05/10/23 9:58:00 EDT Home Health Face to Face ^HomeHealthFTF Results Discharge Labs BLOOD COUNT & DIFF WBC 6.8 k/mm3 ()?? 05/09/2023 06:19 RBC 4.19 m/mm3 (Low)?? 05/09/2023 06:19 Hgb 12.0 Gm/dL ()?? 05/09/2023 06:19 Hct 38.0 % ()?? 05/09/2023 06:19 MCV 90.7 femtoliters ()?? 05/09/2023 06:19 MCH 28.6 pg ()?? 05/09/2023 06:19 MCHC 31.6 g/dL (Low)?? 05/09/2023 06:19 Platelet Count 202 k/mm3 ()?? 05/09/2023 06:19 RDW-SD 47.2 femtoliters (High)?? 05/09/2023 06:19 MPV 10.3 femtoliters ()?? 05/09/2023 06:19 Nucleated RBC (Automated) 0.0 #/100 WBC'S ()?? 05/09/2023 06:19 Abs. NRBC 0.0 k/mm3 ()?? 05/09/2023 06:19 Abs. Neut 3.3 k/mm3 ()?? 05/09/2023 06:19 Abs. Lymph 2.5 k/mm3 ()?? 05/09/2023 06:19 Abs. [place] 0.7 k/mm3 ()?? 05/09/2023 06:19 Abs. Eo 0.2 k/mm3 ()?? 05/09/2023 06:19 Abs. Baso 0.0 k/mm3 ()?? 05/09/2023 06:19 Neut % 49.2 % ()?? 05/09/2023 06:19 Lymph % 36.4 % ()?? 05/09/2023 06:19 [place] % 10.6 % (High)?? 05/09/2023 06:19 Eos % 3.1 % ()?? 05/09/2023 06:19 Baso % 0.4 % ()?? 05/09/2023 06:19 Imm Gran 0.3 % ()?? 05/09/2023 06:19 Abs. Imm Gran 0.0 k/mm3 ()?? 05/09/2023 06:19 ?? CHEM GENERAL Sodium 140 mmol/L ()?? 05/09/2023 06:19 Potassium 4.5 mmol/L ()?? 05/09/2023 06:19 Chloride 104 mmol/L ()?? 05/09/2023 06:19 Bicarbonate Level 29 mmol/L ()?? 05/09/2023 06:19 Anion Gap 7 ()?? 05/09/2023 06:19 Glucose Level 95 mg/dL ()?? 05/09/2023 06:19 Glucose, POC 151 mg/dL (High)?? 05/06/2023 17:34 Hemoglobin A1C (Monitoring) 6.2 % (High)?? 05/07/2023 03:55 BUN 14 mg/dL ()?? 05/09/2023 06:19 Creatinine-Blood 0.9 mg/dL ()?? 05/09/2023 06:19 Estimated GFR Creatinine 76 ML/MIN/1.73 M2 ()?? 05/09/2023 06:19 Calcium 8.6 mg/dL ()?? 05/09/2023 06:19 Phosphorus 3.6 mg/dL ()?? 05/09/2023 06:19 Magnesium 2.2 mg/dL ()?? 05/09/2023 06:19 Protein, Total 5.9 Gm/dL (Low)?? 05/07/2023 03:55 Albumin 3.7 Gm/dL ()?? 05/07/2023 03:55 Alkaline Phosphatase 112 units/L (High)?? 05/07/2023 03:55 AST (SGOT) 15 units/L ()?? 05/07/2023 03:55 ALT (SGPT) 18 units/L ()?? 05/07/2023 03:55 Bilirubin, Total <0.2 mg/dL ()?? 05/07/2023 03:55 Bilirubin, Direct <0.2 mg/dL ()?? 05/07/2023 03:55 Bilirubin, Indirect Total bilirubin is less than the measureable limit. Therefore, indirect mg/dL ()?? 05/07/2023 03:55 ?? COAG POC ACT-LR 132.0 seconds ()?? 05/06/2023 12:22 ? LIPID STUDIES Cholesterol 231 mg/dL (High)?? 05/07/2023 03:55 Triglycerides 61 mg/dL ()?? 05/07/2023 03:55 HDL Cholesterol 66 mg/dL ()?? 05/07/2023 03:55 LDL Cholesterol 153 mg/dL (High)?? 05/07/2023 03:55 Non HDL Cholesterol 165 mg/dL (High)?? 05/07/2023 03:55 ? URINE OTHER Est Creatinine Clearance 52.22 mL/min ()?? 05/09/2023 07:31 ? VIROLOGY COVID-19 PCR Specimen Source NASAL ()?? 05/06/2023 18:40 COVID-19 PCR Result NEGATIVE ()?? 05/06/2023 18:40 ? _45 minutes spent on discharge * Celia Simpson RN: PERFORM Event Display: Patient Education/Instruction Authored Date: [id number] Inpatient Adult Discharge Instructions [address] [address] Name: JOSEFINA SUGGS : 1960 Visit: 05/06/2023 10:43:00 Current Date: 05/10/2023 12:26 Account: [id number] Inpatient Adult Discharge Instructions We would like to thank you for allowing us to assist you with your healthcare needs. The following includes patient education materials and information regarding your injury/illness. Our entire staffstrives to provide an excellent experience for our patients and their families. PLEASE ENSURE YOU FOLLOW-UP PER THE INSTRUCTIONS BELOW! ?? YOUR OPINION IS IMPORTANT TO US! Please complete the survey you may receive by mail or email. Your feedback will be used to make improvements to the healthcare experiences of our patients and their families. Surveys are administered by [employer] ?? If further treatment with your primary care physician or another doctor is recommended, it is important for you to keep the appointment. Call your primary care physician or return to the Emergency Department immediately if your condition worsens, fails to improve, or new symptoms develop. If you need to find a doctor, you can call [facility] [employer] for a referral at [phone] or toll free at [phone] Building DirectoryEWNKEL ([phone]) or log in to [email or web address] ?? You can view and manage your care through the patient portal or by using a health care melida of your choosing. [employer] is a website that allows you to securely view your medical information including your hospital discharge summary, office visit summaries, medications and follow-up visits. You can also request appointments, renew medications, and request access to your medical information using a health care melida of your choosing, or just ask a question. You can enroll at [email or web address] or register during your next office visit. You have been discharged from [facility], Patient Care Unit: S3. If you have any questions regarding these instructions after you leave, please call us and we will be happy to assist you. 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 You may have had other tests and procedures not included in this list. Please discuss all test results with your provider. Basic Metabolic Panel CBC w/ Differential COVID-19 (2019 Novel Coronavirus) PCR GLUCOSE POC HEPATIC FUNCTION PANEL Hgb A1C (Monitoring) Lipid Panel Magnesium Level Phosphorus Level POC Hemochron ACT-LR CT Angio Head CT Angio Neck CT Head/Brain W/O Contrast MRI Brain W/O Contrast Primary Care Provider Liu Lovett MD Advance Directive Health Care Proxy on File Yes - Health Care Proxy Discharge Vitals Temperature: 98.2 DegF Height: 160 cm Pulse Rate: 70 bpm Weight: 113.2 kg Respiratory Rate: 18 br/min Body Mass Index:??44.22 kg/m2??Critical Systolic Blood Pressure: 91 mm Hg Body surface area: 2.24 Diastolic Blood Pressure: 56 mm Hg ?? Oxygen Saturation: 96 % ?? Studies Pending All tests and labs ordered during this hospital stay have been completed unless listed below. Please discuss all pending results with your provider listed above in these instructions. ?? Add On Lab Order What to do next Instructions From Your Doctor Discharge Orders Diet:??Regular Diet Code Status:?? Full Resuscitation Condition:??Good Prognosis:??Good Scheduled Follow-Up Appointments 2022 11:30 AM EDT ?? With: Brielle LAM, Elio Where: [facility] [address] [place] [address] Drive [address] [facility] [place] [address]- [phone] Status: Pending Tuesday 2:00 PM EDT ?? With: Nilda oV NP Where: [facility] [address] [place] [address] [address] [place] [address]- Status: Pending You Need to Schedule the Following Appointments Follow Up with??Nilda Vo When:??07/19/2023 02:00 PM EDT Where: [address] [place] [address] [address] [facility] [place] [address]- Business (1) Follow Up with??Liu Lovett When:??In 0 days Discharge Medications JOSEFINA SUGGS :1960 Visit Date:05/06/2023 Medications: Please continue your medications until treatment is completed or stopped by your provider. Medications not listed below should be discontinued. Discuss any questions related to medications with your provider. What How Much When Instructions Next Dose New Atorvastatin (atorvastatin 80 mg oral tablet) 80 Milligram Oral Daily at Bedtime Duration: 30 Days Pickup at [facility] 9pm 05/10 New levETIRAcetam (Keppra 500 mg oral tablet) 500 Milligram Oral Twice a day Duration: 30 Days Pickup at [facility] 9pm 05/10 Changed Aspirin (aspirin 81 mg oral delayed release tablet) 1 tab(s) Oral Daily Duration: 30 Days Take 5 days prior to the procedure ?? Pickup at [facility] m 05/11 Changed Clopidogrel (Plavix 75 mg oral tablet) 1 tab(s) Oral Daily Duration: 30 Days Take 5 days prior to the procedure ?? Pickup at [facility] m 05/11 Unchanged Albuterol (Ventolin 90 mcg Inhaler) Inhalation Every 6 hours every 6 hours Unchanged Durable Medical Equipment (CPAP Machine) See instructions AutoCPAP 8-20 cm H20, use Daily when sleeping ?? see instructions Unchanged Fluoxetine (Prozac 40 mg oral capsule) 1 capsule Oral Daily m 05/11 Unchanged Furosemide (Lasix 40 mg oral tablet) 1 tab(s) Oral Every other day Unchanged Gabapentin (gabapentin 800 mg oral tablet) 2 tab(s) Oral 3 times a day 3pm 05/10 Unchanged Lorazepam (Ativan 0.5 mg oral tablet) 2 tab(s) Oral 3 times a day as needed for as needed for anxiety as needed Unchanged Omeprazole (omeprazole 40 mg oral enteric coated capsule) 1 capsule Oral Twice a day X30 DAYS. ?? 9pm 05/10 Unchanged Oxycodone 5 Milligram Oral 3 times a day as needed for Pain , Mild as needed Unchanged PredniSONE (predniSONE 5 mg oral tablet) resume as ordered by your PCP Unchanged semaglutide (Ozempic 2 mg/ 3 mL (0.25 mg or 0.5 mg dose) subcutaneous solution) resume as ordered by your PCP Pharmacy Information [facility]: [address] [place] [address] [phone] ?? What When Comments Stop Taking Abatacept (Orencia) Test Results Below is a partial list of the most recent Laboratory test results done prior to this discharge. You may have had other tests and procedures not included in this list. Please discuss all test resultswith your provider. Est Creatinine Clearance - 52.22 mL/min (05/09/2023) Basic Metabolic Panel (05/09/2023) ???Sodium - 140 mmol/L???Potassium - 4.5 mmol/L???Chloride - 104 mmol/L???Bicarbonate Level - 29 mmol/L???Anion Gap - 7???Glucose Level - 95 mg/dL???BUN - 14 mg/dL???Creatinine-Blood - 0.9 mg/dL???Estimated GFR Creatinine - 76 ML/MIN/1.73 M2???Calcium - 8.6 mg/dL CBC w/ Differential (05/09/2023) ???WBC - 6.8 k/mm3???RBC - 4.19 m/mm3???Hgb - 12.0 Gm/dL???Hct - 38.0 %???MCV - 90.7 femtoliters???MCH - 28.6 pg???MCHC - 31.6 g/dL???Platelet Count - 202 k/mm3???RDW-SD - 47.2 femtoliters???MPV - 10.3 femtoliters???Nucleated RBC (Automated) - 0.0 #/100 WBC'S???Abs. NRBC - 0.0 k/mm3???Abs. Neut - 3.3 k/mm3???Abs. Lymph - 2.5 k/mm3???Abs. [place] - 0.7 k/mm3???Abs. Eo - 0.2 k/mm3???Abs. Baso - 0.0 k/mm3???Neut % - 49.2 %???Lymph % - 36.4 %???[place] % - 10.6 %???Eos % - 3.1 %???Baso % - 0.4 %???Imm Gran - 0.3 %???Abs. Imm Gran - 0.0 k/mm3 COVID-19 (2019 Novel Coronavirus) PCR (05/06/2023) ???COVID-19 PCR Specimen Source - NASAL???COVID-19 PCR Result - NEGATIVE GLUCOSE POC (05/06/2023) ???Glucose, POC - 151 mg/dL HEPATIC FUNCTION PANEL (05/07/2023) ???Protein, Total - 5.9 Gm/dL???Albumin - 3.7 Gm/dL???Alkaline Phosphatase - 112 units/L???AST (SGOT) - 15 units/L? ?ALT (SGPT) - 18 units/L? ?Bilirubin, Total - <0.2 mg/dL? ?Bilirubin, Direct - <0.2 mg/dL???Bilirubin, Indirect - Total bilirubin is less than the measureable limit. 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 Anxiety?? Depression?? Fibromyalgia?? GERD (gastroesophageal reflux disease)?? Obstructive sleep apnea hypopnea, moderate?? Rheumatoid arthritis?? Severe obesity?? Sleep related hypoxia?? Education Materials Below is the list of Educational Leaflet Providered with your Discharge Instructions. Valuables and Belongings I fully understand and agree that [facility] accepts no responsibility for all my personal property including clothing, toilet articles, radios, jewelry, dentures, hearing aids, rings, money, or any other property that is in my possession or is brought to me after admission. I understand certain valuables may be placed in a hospital safe for a short period of time. I understand that the hospital is not liable for loss or damage due to accident, fire, or other natural occurrence while said property is in the safe. I accept full responsibility for any personal property that I keep with me, and will not hold the hospital responsible in case of loss or disappearance. I acknowledge that i have been encouraged to send valuables and belongings home. ?? Review of Valuable and Belonging List: With patient Date for Pt to Sign Valuables/Belongings: 05/10/23 10:52:00 ?? Other Discharge Information ? Case Management Discharge Plan?? Discharge Plan?? Discharge Level of Care at Discharge: Home/Longterm/Foster Care ?? Pulmonary Rehab Status?? Pulmonary Rehab Discharge Status?? Respiratory Rate: 18 br/min ? Common Emergency Awareness Tips IS IT A STROKE? Act FAST and Check for these signs: FACE Does the face look uneven? ARM Does one arm drift down? SPEECH Does their speech sound strange? TIME Call at any sign of stroke ?? Heart Attack Signs Chest discomfort: Most heart attacks involve discomfort in the center of the chest and lasts more than a few minutes, or goes away and comes back. It can feel like uncomfortable pressure, squeezing, fullness or pain. Discomfort in upper body: Symptoms can include pain or discomfort in one or both arms, back, neck, jaw or stomach. Shortness of breath: With or without discomfort. Other signs: Breaking out in a cold sweat, nausea, or lightheaded. Remember, MINUTES DO MATTER. If you experience any of these heart attack warning signs, call to get immediate medical attention! ?? Smoking can increase your chances of developing chronic health problems and can cause harmful effects to other family members in your house. If you smoke, you are strongly encouraged to quit. Please call [facility] [employer] at [phone] or [phone]-[facility] ([phone]) or log in to [email or web address] for referrals to smoking cessation programs. ?? 988 Suicide & Crisis Lifeline is available 02/05 if you or someone you know needs to find a reason to keep living. By calling 122 you'll be connected to a skilled, trained counselor at a crisis center in your area. INPATIENT DISCHARGE INSTRUCTIONS SIGNATURE CHRISTIANO DELANEYSALTYA Location:[facility] Registration Date and Time:05/06/2023 10:43 EDT Primary Care Physician: Rachell LAM, Liu Rivera, Attending Physician: Wil LAM, Roderickjanes, JOSEFINA DICKEY, have received the above patient education materials/instructions and have verbalized understanding. If ambulance or transport services are being used I further acknowledge being given achoice of service. ?? If you need to contact me, please call me at this number: . Patient/Mapping Technician Name: Patient/Mapping Technician Signature: Relationship to Patient: Witness Name/Signature: Date: * Nicky Posada RN: PERFORM, SIGN, VERIFY Event Display: Patient Education Handout Authored Date: [id number] * eClia Simpson RN: PERFORM Event Display: Patient Education Leaflets Authored Date: [id number] Atorvastatin Oral Tablet ?? [id number] Atorvastatin Oral Tablet Brands: Lipitor Uses To lower high fat levels in blood. ?? Instructions This medicine may be taken with or without food. Keep the medicine at room temperature. Avoid heat and direct light. Avoid grapefruit and grapefruit juice while on this medicine. It is important that you keep taking each dose of this medicine on time even if you are feeling well. If you forget to take a dose on time, take it as soon as you remember. If it is less than 12 hours to the next dose, do not take the missed dose. Return to your normal dosing schedule. Do not take 2 doses of this medicine at one time. Drug interactions can change how medicines work or increase risk for side effects. Tell your healthcare providers about all medicines taken. Include prescription and ozmv-shn-vlfkhmr medicines, vitamins, and herbal medicines. Speak with your doctor or pharmacist before starting or stopping any medicine. It is very important that you follow your doctor's instructions for all blood tests. ?? Cautions Tell your doctor and pharmacist if you ever had an allergic reaction to a medicine. Do not use the medication any more than instructed. Please check with your doctor before drinking alcohol while on this medicine. Do not breastfeed while on this medicine. During , this medicine should be used only when clearly needed. Talk to your doctor about the risks and benefits. Do not share this medicine with anyone who has not been prescribed this medicine. ?? Side Effects Call your doctor or get medical help right away if you notice any of these more serious side effects: ??? signs of kidney damage (such as change in urine color or bubbly urine) ??? signs of liver damage (such as yellowing of eye or skin, dark urine, or unusual tiredness) ??? muscle pain ??? nausea ??? stomach upset or abdominal pain A few people may have an allergic reaction to this medicine. Symptoms can include difficulty breathing, skin rash, itching, swelling, or severe dizziness. If you notice any of these symptoms, seek medical help quickly. ?? Extra Please speak with your doctor, nurse, or pharmacist if you have any questions about this medicine. ?? [email or web address] IMPORTANT NOTE: This document tells you briefly how to take your medicine, but it does not tell youall there is to know about it. Your doctor or pharmacist may give you other documents about your medicine. Please talk to them if you have any questions. Always follow their advice. There is a more complete description of this medicine available in Trinidadian. Scan this code on your smartphone or tablet or use the web address below. You can also ask your pharmacist for a printout. If you have any questions, please ask your pharmacist. The display and use of this drug information is subject to Terms of Use. Copyright(c) 2022 [employer]. ?? [employer]. All rights reserved. This information is not intended as a substitute for professional medical care. Always follow your healthcare professional's instructions. ?? * Celia Simpson RN: PERFORM Event Display: Patient Education Leaflets Authored Date: [id number] Levetiracetam Oral Tablet ?? [id number] Levetiracetam Oral Tablet Brands: Keppra, Roweepra Uses For seizures. ?? Instructions Swallow the medicine without crushing or chewing it. This medicine may be taken with or without food. This medicine will work best if you take it at about the same time every day. Keep the medicine at room temperature. Avoid heat and direct light. It is important that you keep taking each dose of this medicine on time even if you are feeling well. If you forget to take a dose on time, take it as soon as you remember. If it is almost time for thenext dose, do not take the missed dose. Return to your normal schedule. Do not take 2 doses at one time. Tell your doctor and pharmacist about all your medicines. Include prescription and ullz-qqz-jjhrswmkhbzuestv, vitamins, and herbal medicines. Contact your doctor if your seizures do not improve or worsen while on this medicine. Do not suddenly stop taking this medicine. Check with your doctor before stopping. It is very important that you follow your doctor's instructions for all blood tests. ?? Cautions Tell your doctor and pharmacist if you ever had an allergic reaction to a medicine. There is an increased risk of bleeding while on this medicine, please tell your doctor or nurse if you notice any excessive bleeding or bruising. Do not use the medication any more than instructed. Your ability to stay alert or to react quickly may be impaired by this medicine. Do not drive or operate machinery until you know how this medicine will affect you. Please check with your doctor before drinking alcohol while on this medicine. Family should check on the patient often. Call the doctor if patient becomes more depressed, has thoughts of suicide, or shows changes in behavior. Tell the doctor or pharmacist if you are , planning to be , or . Do not start or stop any other medicines without first speaking to your doctor or pharmacist. Do not share this medicine with anyone who has not been prescribed this medicine. Some patients have serious side effects from this medicine. Ask your pharmacist to show you the information from the Food and Drug Administration (FDA) and discuss it with you. ?? Side Effects The following is a list of some common side effects from this medicine. Please speak with your doctor about what you should do if you experience these or other side effects. ??? dizziness or drowsiness ??? lack of energy and tiredness Call your doctor or get medical help right away if you notice any of these more serious side effects: ??? agitated feeling or trouble sleeping ??? depression or feeling sad ??? fever ??? fast or irregular heart beats ??? rapid breathing A few people may have an allergic reaction to this medicine. Symptoms can include difficulty breathing, skin rash, itching, swelling, or severe dizziness. If you notice any of these symptoms, seek medical help quickly. ?? Extra Please speak with your doctor, nurse, or pharmacist if you have any questions about this medicine. ?? [email or web address] IMPORTANT NOTE: This document tells you briefly how to take your medicine, but it does not tell youall there is to know about it. Your doctor or pharmacist may give you other documents about your medicine. Please talk to them if you have any questions. Always follow their advice. There is a more complete description of this medicine available in Trinidadian. Scan this code on your smartphone or tablet or use the web address below. You can also ask your pharmacist for a printout. If you have any questions, please ask your pharmacist. The display and use of this drug information is subject to Terms of Use. Copyright(c) 2022 [employer]. ?? [employer]. All rights reserved. This information is not intended as a substitute for professional medical care. Always follow your healthcare professional's instructions. ?? * Event Display: Hemodynamic Procedure Report Authored Date: History and physical note * Event Display: History and Physical Hospital Authored Date: Admission evaluation note * Lucila Connelly MD: MODIFY, PERFORM Event Display: Admission Note Authored Date: [id number] Patient: ??JOSEFINA SUGGS ? Age:??62 Years?Sex:??Female?:??1960?? Chief Complaint/Reason for Consultation Neuro monitoring in the ICU post elective neuro procedure History of Present Illness Josefina Suggs is a 62-year-old female with a past medical history of TOMASA, depression, fibromyalgia, esophageal stricture, asthma??who incidentally was found to have a??brain aneurysm??and presented for elective??neurosurgery today with ??Brielle. Admitted to MICU for neuro monitoring. ?? 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 She is status post pipeline Shield flow diverting stent placement for treatment of 2 aneurysms in September 2022 and had been maintained on dual antiplatelet therapy.?? An MRA was obtained showing interval occlusion of the left superior hypophyseal aneurysm, and further evaluation of the left anterior choroidal aneurysm was needed for which patient presented for scheduled elective procedure with Dr. Hannah today. ?? She tolerated the procedure without issue and had a left pipeline stent to the anterior choroidal??artery aneurysm placed.?On her way from the OR to the medical ICU,??she developed a change in herneuro status in the elevator. ??Reportedly she developed left-sided weakness and difficulty with her speech, she was immediately sent for CT head and CTA head and neck??which showed no acute hemorrhage or??high vessel occlusion.?? Neurology was consulted??for concern of stroke.?? As she just received an intracranial procedure,??is not a candidate for thrombolytics.?? It is possible that this could have been??seizure??for which she was loaded with Keppra.?? She is admitted to medicine for ongoing every hour neurochecks. ?? On my exam, patient has 4-5 weakness on the left side??but this seems to be improving. ??Patientreports that she feels better.?Feels that her speech is about back to normal.?? Has mild headache behind her eyes but states that she has had this headache since September.?? Confirms her??current medications??which are ordered as well as the fact that she uses a CPAP at night but does not know her settings. ??Attempted to reach her healthcare proxy/daughter Sameer however??she did not answer, left a voicemail requesting callback. Review of Systems A full review of systems was completed and is otherwise negative except as mentioned in history of present illness. Objective Vital Signs?? Temperature: 97 DegF (05/06/23 16:00:00) Temperature Route: Axillary (05/06/23 16:00:00) Pulse Rate: 77 bpm (05/06/23 14:50:00) Heart Rate Monitored: 75 bpm (05/06/23 17:00:00) Respiratory Rate:??14 br/min??Low (05/06/23 16:00:00) Systolic Blood Pressure: 124 mm Hg (05/06/23 17:00:00) Diastolic Blood Pressure: 73 mm Hg (05/06/23 17:00:00) Blood pressure sites: Arm, right (05/06/23 17:00:00) Mean Arterial Pressure: 102 mm Hg (05/06/23 14:50:00) Pulse Pressure: 51 mm Hg (05/06/23 17:00:00) Oxygen Saturation: 97 % (05/06/23 17:00:00) Liters per Minute: 3 L/min (05/06/23 17:00:00) Mode of Delivery (Oxygen): Nasal cannula (05/06/23 17:00:00) ? Physical Exam General Appearance: The patient is??in NAD. Head: atraumatic EENT: MMM, no scleral icterus, EOMI Cardiovascular: RRR S1 and S2 heard with no M/R/G. No JVD. Respiratory: ??Breath sounds clear to auscultation bilaterally. No wheezing. Good air movement throughout both lungs. GI: Soft. Nontender and nondistended. Normal bowel sounds present throughout abdomen.?? MS: ??No edema or erythema in the lower extremities. ??Right femoral access site??nontender. Skin: warm, dry, no rashes Neuro:??As of 5 PM: Left-sided??lower facial droop improved,??4 out of 5 strength left upper and left lower extremity compared to right, overall improved from prior exam.?? Tongue protrudes midline. ??ANO by 3. Lines: Peripheral IV in place.?? Assessment/Plan ??Josefina Suggs is a 62-year-old female with a past medical history of TOMASA, depression, fibromyalgia, esophageal stricture, asthma, prior??brain aneurysms??which were intervened on with a diverting stentin September 2022 and maintained on DAPT,??who presented for elective??neurosurgery 05/06 with ??Simin campbell, status post left pipeline stent anterior choroidal aortic aneurysm, admitted to medical ICU for??monitoring. ??Course complicated by??concern for acute stroke postprocedure??with the??new onset of left-sided deficits though acute imaging no acute abnormalities, currently being followed by neuro. ?? NEURO Anxiety, depression Fibromyalgia History of CVA Anterior choroidal artery aneurysm??status post stent 05/06 Concern for acute [id number] neurodeficits postprocedure concern for stroke versus seizure. ??Patient reportedly had 1 episode of a seizure 1 time in the past but is not on antiepileptics.?? Could possibly have been induced seizure??due to OR sedation.?? However her symptoms are very suspicious for an acute stroke for which??repeat imaging is currently pending.?? Neurology was consulted.??She is not a candidate for thrombolytics as she just had an intracranial??procedure. ??Her neurodeficits appear to be improving. ?? Plan: ???Neurochecks every hour ??? Continue aspirin and Plavix??starting tomorrow ?Neurology consulted and following ?Loaded with Keppra, continue twice daily ???Routine EEG ordered ??? MRI without gadolinium ordered per neuro ???For any acute neuro change, stat CT head ???Continue IV fluids at 125 an hour to optimize??perfusion ???Continue telemetry ? ??SBP goal <180/110 ???Continue home fluoxetine ???Continue home gabapentin at reduced dose of 800 mg 3 times daily ???Follow-up lipids ?? CVS Chronic lower extremity edema At home on Lasix Echo 2018 EF 55-60% ?? Plan: ???Hold Lasix ?? PULM TOMASA Asthma Uses CPAP at night, does not know her settings. ??Only uses a rescue inhaler as needed for her asthma. ?? Plan: ???CPAP ordered, use with naps and at bedtime ??? Albuterol as needed ?? GI/FEN History of esophageal stricture GERD Passed bedside swallow??after procedure ?? Plan: ???Continue regular diet ???Continue PPI ?? RENAL No acute issues ?? Plan: ???Follow-up on BMP tomorrow morning ?? ENDO No acute issues or history of diabetes ?? Plan: ???Follow-up??hemoglobin A1c ?? ID No acute issues ?? HEME/ONC No acute issues ?? Plan: ?Follow-up CBC tomorrow ?? RHEUM/OTHER History of rheumatoid arthritis versus SLE Feels pain in her hands Reports she currently takes 2.5 mg of prednisone every other day, sometimes increases as needed, last dose 05/05 ?? Plan:? Continue home regimen prednisone 2.5 mg every other day starting 05/07 ? Quality Measures: Diet:Regular VTE prophylaxis:Heparin SQ Last BM: none Code status:FULL CODE??confirmed with patient at bedside HCP: daughter Sameer, called and left requesting call back OMN: Neuro monitoring postprocedure DISPO:??Likely home possibly with services 1 to 2 days ?? Lucila Connelly MD Internal Medicine PGY 2 Pager [phone] ?? Patient seen and discussed with??Og LAM, Bienvenido Harvey Histories Allergies Allergies ?(Active and Proposed Allergies Only) Contrast Dye? (Severity: Unknown severity, Onset: Unknown) ?Comments: per pt not oral contrasst, was IV injection RG 05/06/23 ?Comments: Oral contrast dye, swelling of face/eyes Effexor? (Severity: Unknown severity, Onset: Unknown) codeine? (Severity: Unknown severity, Onset: Unknown) ?Reactions: Itchy Avelox? (Severity: Unknown severity, Onset: Unknown) ? 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 Past Surgical History Appendectomy Hysterectomy Stent placement ? Social History Alcohol Details:??Use: Past. Employment/School Details:??Status: Employed. Home/Environment Details:??Living situation: Home/Independent. ??Lives with: Significant other. Nutrition/Health Details:??Caffeine intake amount: 1 coffee daily in AM. Substance Abuse Details:??Use: Never. Tobacco Details:??Light tobacco smoker, Other: patient currently smoking 10 or fewer cigarettes a week. Details:??Former smoker, Other: Pt quit on 01/17/18. ? Family History No family history recorded. ? Medications Home Medications Albuterol (Ventolin 90 mcg Inhaler)?Inhalation?Every 6 hours Aspirin (aspirin 81 mg oral delayed release tablet)?81?Milligram?1?tablet?By Mouth?Daily?Take 5 days prior to the procedure Clopidogrel (Plavix 75 mg oral tablet)?75?Milligram?1?tablet?By Mouth?Daily?Take 5 days prior to the procedure Durable Medical Equipment (CPAP ??Machine)?See Instructions?AutoCPAP 8-20 cm H20, use Daily when sleeping Fluoxetine (Prozac 40 mg oral capsule)?1?capsule?40?Milligram?By Mouth?Daily Furosemide (Lasix 40 mg oral tablet)?1?tab(s)?40?Milligram?By Mouth?Every other day Gabapentin (gabapentin 800 mg oral tablet)?2?tab(s)?1,600?Milligram?By Mouth?3 times a day Lorazepam (Ativan 0.5 mg oral tablet)?2?tab(s)?1?Milligram?By Mouth?3 times a day?as needed?as needed for anxiety Omeprazole (omeprazole 40 mg oral enteric coated capsule)?1?capsule?By Mouth?2 times a day?X30 DAYS. Oxycodone?5?Milligram?By Mouth?3 times a day?as needed?Pain , Mild ? Inpatient Medications Medications (16) Active SCHEDULED: (8) Aspirin 81 mg EC Tablet (aspirin 81 mg oral delayed release tablet) ??81 mg, By Mouth, Daily Clopidogrel 75 mg Tablet (Plavix 75 mg oral tablet) ??75 mg, By Mouth, Daily Fluoxetine 20 mg Capsule (PROzac 20 mg oral capsule) ??40 mg, By Mouth, Daily Gabapentin 400 mg Capsule (gabapentin 400 mg oral capsule) ??800 mg, By Mouth, 3 times a day Heparin 5000 units/mL Inj (1 mL) (Heparin Inj) ??7,500 units 1.5 mL, Subcutaneous Injection, 3 times a day Keppra 500mg Tablet (Keppra 500 mg oral tablet) ??500 mg, By Mouth, 2 times a day Pantoprazole 40 mg EC Tablet (pantoprazole 40 mg oral delayed release tablet) ??40 mg, By Mouth, Daily PredniSONE 5 mg Tablet (predniSONE 5 mg oral tablet) ??2.5 mg, By Mouth, Every other day CONTINUOUS: (1) Lactated Ringers (1000 mL) Cont IV 1,000 mL (LR 1,000 mL) ??1,000 mL, IV Infusion, 125 mL/hr PRN: (7) Acetaminophen 325 mg Tablet (Acetaminophen Tablet) ??650 mg, By Mouth, Every 4 hours Albuterol 90mcg/Inhalation Inhaler HFA (albuterol CFC free 90 mcg/inh inhalation aerosol) ??180 mcg2 puffs, Inhalation, Every 4 hours Dextromethorphan-Guaifenesin 20 mg-200 mg/10 mL Liqu UD (Robitussin DM Liquid) ??10 mL, By Mouth, Every 4 hours Melatonin 3 mg Tablet (Melatonin Tablet) ??3 mg, By Mouth, Daily at bedtime Polyethylene Glycol 17 Gm Powder (MiraLax Powder) ??17 Gm 1 pack/packet, By Mouth, Daily Senna 8.6 mg / Docusate 50 mg tablet (Docusate/Senna Tablet) ??1 tablet, By Mouth, 2 times a day Simethicone 80 mg Chewable Tablet (Simethicone Tablet) ??80 mg, Chew, 3 times a day ? Results Recent Labs No labs resulted between 05/05/2023 00:00 and 05/06/2023 17:40? Hospital Progress note * Nicky Ross RN: PERFORM, SIGN, VERIFY Event Display: Progress Note Hospital Authored Date: [id number] Patient: JOSEFINA SUGGS Age: 62 years Sex: Female : 1960 Associated Diagnoses: None Author: Nicky Ross RN Findings Problem Related to Alteration in Neurological : Alteration in Neurological Function/new 05/10/2023 10:00 EDT Alteration in Neuro status Related to Neurology Procedure Goals & Outcomes, Neurological Pt will be Neurologically stable Interventions, Neurological Assess/monitor neurologic status, Assess/monitor VS per unit standards & prn, Call/Report variances in assessments to provider, Collaborate w/ provider to implement appropriate guidelines, Collaborate with Nutrition, Collaborate with provider re: medication regime, Document & Monitor O2 Sats; Administer O2 as ordered, Emergency airway equipment at bedside, Keep patient's head & body in good alignment, Maintain normothermia, report temp >101.5 F, Maintain patient safety if unsteady gait, Maintain strict intake & output, Monitor Fluid & Electrolytes, Serum Osmolarity, Monitor for headaches, nausea, vomiting, Monitor speech fluency, aphasia, word finding difficulty, Physical assessment per unit standards, Provide emotional support to Pt/careg isabel Goals/Interventions, Neurological Yes Neurological, Problem Start 05/06/2023 14:00 Reviewed plan with, Neurological Patient Patient Progression, Neurological Pt progressing according to plan . Nursing Data Neurological Data. : Neurological Data. 05/10/2023 9:00 EDT Tongue Disposition Midline Neurological Symptoms Headache: persistent, changing or sudden Level of Consciousness Full Consciousness Orientated to person, place, time Person, Place, Time, Event Hallucinations None Facial Symmetry Intact Characteristics of Speech Clear and normal Swallowing Difficulty None Pupil description, left Regular Pupil description, right Regular Pupil reaction, left Brisk Pupil reaction, right Brisk Strength LUE 5-Active movement against gravity & full resistance Strength RUE 5-Active movement against gravity & full resistance Strength LLE 5-Active movement against gravity & full resistance Strength RLE 5-Active movement against gravity & full resistance Tone LUE Normal Tone RUE Normal Tone LLE Normal Tone RLE Normal Sensation LUE Intact Sensation RUE Intact Sensation LLE Intact Sensation RLE Intact Movement LUE Spontaneous, To command Movement RUE Spontaneous, To command Movement LLE Spontaneous, To command Movement RLE Spontaneous, To command Gait Steady Tremors None Response Eye Opening Spontaneously Motor Response-Adult Obeys commands Verbal Response-Adult Oriented and converses [place] Coma Score 15 1 - 10 Pain Scale Score 7 Pain Interventions Non-pharmacological, Pharmacological, PRN medication, Repositioning, Rest Pain relief acceptable Yes Neuro WNL except Eyes and Movements Conjugate gaze: Move in same direction at same speed Headache Moderate Headaches, Characteristic Bilateral Headaches, Duration Constant Memory Intact Swallow - Neuro Normal . Evaluation Pt A+Ox4 with speech clear and appropriate. Able to follow all commands. DEAN 5/5, independently ambulating in the room. Facial symmetry intact with tongue midline. Denies any N/V, numbness/tingling, dizziness, or visual changes. Endorses 7/10 headache, gave PRN oxycodone and tylenol with +effect. Lungs cta on room air, no sob or cough. Last BM was 05/10, +bs in all quadrants. Safety precautions maintained. Pending D/C back home later today. . * Willam OLIVA, Bella Rivera: MODIFY, MODIFY, MODIFY, PERFORM, MODIFY Event Display: Progress Note Hospital Authored Date: Patient: ??SUGGS JOSEFINA ? Age:??62 Years?Sex:??Female?:??1960?? Subjective Interval History: No reported overnight events reports headache improved with Fioricet REEG with out epileptiform activity Review of Systems ?General: Denies weight changes, fatigue, fever, chills ?Skin: denies rash ?Eyes: denies visual changes, blurry vision ?ENT: denies hearing changes, tinnitus ?Cardiovascular: denies chest pain ?Respiratory: denies SOB ?GI/: denies abdominal pain, nausea, vomiting, diarrhea ?denies loss of bladder or bowel function ?Musculoskeletal: denies muscle weakness ?Neurological: denies headache, dizziness, loss of vision, blurry vision, hearing changes, trouble swallowing, slurring, word finding difficulties, weakness, paresthesias, tremors,?? seizure, numbness/tingling/loss of sensation Allergies Allergies ?(Active and Proposed Allergies Only) Contrast Dye? (Severity: Unknown severity, Onset: Unknown) ?Comments: per pt not oral contrasst, was IV injection RG 05/06/23 ?Comments: Oral contrast dye, swelling of face/eyes Effexor? (Severity: Unknown severity, Onset: Unknown) codeine? (Severity: Unknown severity, Onset: Unknown) ?Reactions: Itchy Avelox? (Severity: Unknown severity, Onset: Unknown) ? Objective Vital Signs?? Temperature: 97.8 DegF (05/10/23 04:24:00) Temperature Route: Temporal (05/10/23 04:24:00) Pulse Rate: 76 bpm (05/10/23 04:24:00) Respiratory Rate: 18 br/min (05/10/23 04:24:00) Systolic Blood Pressure: 91 mm Hg (05/10/23 04:24:00) Diastolic Blood Pressure: 58 mm Hg (05/10/23 04:24:00) Blood pressure sites: Arm, right (05/10/23 04:24:00) Mean Arterial Pressure: 69 mm Hg (05/10/23 04:24:00) Pulse Pressure: 33 mm Hg (05/10/23 04:24:00) Oxygen Saturation: 95 % (05/10/23 04:24:00) Mode of Delivery (Oxygen): Room air (05/10/23 04:24:00) Early Warning Score: 5 (05/10/23 04:24:52) ? Precautions No Precautions documented.? NIH Stroke Scale Level of Consciousness for Stroke Scale: Alert (05/09/23 09:00:00) Response Month/Age: Answers both questions correctly (05/09/23 09:00:00) Response Open/Close Eyes: Performs both tasks correctly (05/09/23 09:00:00) Best Gaze: Normal (05/09/23 09:00:00) Visual: No visual loss (05/09/23 09:00:00) Facial Palsy: Normal symmetrical movements (05/09/23 09:00:00) Motor Function Left Arm: No drift (05/09/23 09:00:00) Motor Function Right Arm: No drift (05/09/23 09:00:00) Motor Function Left Leg: No drift (05/09/23 09:00:00) Motor Function Right Leg: No drift (05/09/23 09:00:00) Limb Ataxia: Absent (05/09/23 09:00:00) Sensory: Normal; no sensory loss (05/09/23 09:00:00) Best Language: No aphasia (05/09/23 09:00:00) Dysarthria NIH Stroke Scale: Normal (05/09/23 09:00:00) Extinction and Inattention: No abnormality (05/09/23 09:00:00) NIH Stroke Scale Score: 0 (05/09/23 09:00:00) ?? [place] Coma Scale [place] Coma Score: 15 (05/09/23 21:00:00) Motor Response-Adult: Obeys commands (05/09/23 21:00:00) Response Eye Opening: Spontaneously (05/09/23 21:00:00) Verbal Response-Adult: Oriented and converses (05/09/23 21:00:00) ? Physical Exam General Exam Appearance: Appears comfortable and appropriate, in no acute distress. Appears stated age.? HEENT: Normocephalic, atraumatic. No abrasions or ecchymosis. Conjunctiva without injection. PERRL.EOMI. Lids without ptosis. Nares patent. Mouth normal with moist mucous membranes. Tongue midline. Neck supple ?? Cardiac: Regular rate and rhythm ?? Respiratory: Normal inspiration and expiration ?? Rheumatologic: No swelling, deformities or tenderness ?? Dermatologic: No significant skin lesions, rash, or bruising ?? Extremities: No edema or stasis changes ?? Neurologic: Mentation: Awake, alert. Patient is oriented to person, place, time, and situation. Speech is clearand fluent. Follows simple and 3 step command. Able to repeat no ifs, ands or buts. Able to name objects. Able to read sentence. personnel director: PERRL. EOMI. No nystagmus. VFF to confrontation. Smile symmetric, no droop. Tongue midline anduvula rises symmetrically. Facial sensation in tact to light touch. Hearing acuity in tact to voice.? Motor: Normal bulk/tone. Strength 5/5 UEs and LEs. Manager Operating equal. No pronator drift. Sensation: In tact to light touch of UEs and LEs, no extinction to DTS Coordination: Finger to nose smooth Gait:??deferred _ Inpatient Medications Medications (26) Active SCHEDULED: (11) Aspirin 81 mg EC Tablet (aspirin 81 mg oral delayed release tablet) ??81 mg, By Mouth, Daily Atorvastatin 80 mg Tablet (atorvastatin 80 mg oral tablet) ??80 mg, By Mouth, Daily at bedtime Clopidogrel 75 mg Tablet (Plavix 75 mg oral tablet) ??75 mg, By Mouth, Daily Fluoxetine 20 mg Capsule (PROzac 20 mg oral capsule) ??40 mg, By Mouth, Daily at bedtime Furosemide 40 mg Tablet (Lasix 40 mg oral tablet) ??40 mg, By Mouth, Every other day Gabapentin 400 mg Capsule (gabapentin 400 mg oral capsule) ??800 mg, By Mouth, 3 times a day Heparin 5000 units/mL Inj (1 mL) (Heparin Inj) ??7,500 units 1.5 mL, Subcutaneous Injection, 3 times a day Keppra 500mg Tablet (Keppra 500 mg oral tablet) ??500 mg, By Mouth, 2 times a day NaCl 0.9% Flush 3ml (Flush NaCl 0.9%) ??3 mL, IV Push, Every 8 hours Pantoprazole 40 mg EC Tablet (pantoprazole 40 mg oral delayed release tablet) ??40 mg, By Mouth, Daily PredniSONE 5 mg Tablet (predniSONE 5 mg oral tablet) ??2.5 mg, By Mouth, Every other day CONTINUOUS: (0) PRN: (15) Acetaminophen 325 mg Tablet (Acetaminophen Tablet) ??650 mg, By Mouth, Every 4 hours Acetaminophen/Butalbital/Caffeine Tablet (Fioricet Tablet) ??1 tablet, By Mouth, Every 4 hours Albuterol 90mcg/Inhalation Inhaler HFA (albuterol CFC free 90 mcg/inh inhalation aerosol) ??180 mcg2 puffs, Inhalation, Every 4 hours Bisacodyl 10 mg Suppository (Dulcolax Supp) ??10 mg 1 supp, Rectally, Daily Calcium Carbonate 500 mg (Calcium 200 mg) Chewable Tablet (calcium carbonate 500 mg (200 mg elemental calcium) oral tablet, chewable) ??500 mg 1 tablet, Chew, Every 4 hours Dextromethorphan-Guaifenesin 20 mg-200 mg/10 mL Liqu UD (Robitussin DM Liquid) ??10 mL, By Mouth, Every 4 hours Lorazepam 1 mg Tablet (Lorazepam) ??0.5 mg, By Mouth, Daily Magnesium Hydroxide 8% Susp UD (Milk of Magnesia Liquid) ??30 mL, By Mouth, Daily Melatonin 3 mg Tablet (Melatonin Tablet) ??3 mg, By Mouth, Daily at bedtime NaCl 0.9% Flush 3ml (Flush NaCl 0.9%) ??3 mL, IV Push, Every 8 hours Ondansetron 2mg/mL Inj (2mL Vial) (Zofran Inj) ??4 mg, IV Push, Every 6 hours OxyCODONE 5 mg IR Tablet (oxyCODONE 5 mg oral tablet) ??5 mg, By Mouth, Every 6 hours Polyethylene Glycol 17 Gm Powder (MiraLax Powder) ??17 Gm 1 pack/packet, By Mouth, Daily Senna 8.6 mg / Docusate 50 mg tablet (Docusate/Senna Tablet) ??1 tablet, By Mouth, 2 times a day Simethicone 80 mg Chewable Tablet (Simethicone Tablet) ??80 mg, Chew, 3 times a day ? Results Recent Labs BLOOD COUNT & DIFF WBC 6.8 k/mm3 ()?? 05/09/2023 06:19 RBC 4.19 m/mm3 (Low)?? 05/09/2023 06:19 Hgb 12.0 Gm/dL ()?? 05/09/2023 06:19 Hct 38.0 % ()?? 05/09/2023 06:19 MCV 90.7 femtoliters ()?? 05/09/2023 06:19 MCH 28.6 pg ()?? 05/09/2023 06:19 MCHC 31.6 g/dL (Low)?? 05/09/2023 06:19 Platelet Count 202 k/mm3 ()?? 05/09/2023 06:19 RDW-SD 47.2 femtoliters (High)?? 05/09/2023 06:19 MPV 10.3 femtoliters ()?? 05/09/2023 06:19 Nucleated RBC (Automated) 0.0 #/100 WBC'S ()?? 05/09/2023 06:19 Abs. NRBC 0.0 k/mm3 ()?? 05/09/2023 06:19 Abs. Neut 3.3 k/mm3 ()?? 05/09/2023 06:19 Abs. Lymph 2.5 k/mm3 ()?? 05/09/2023 06:19 Abs. [place] 0.7 k/mm3 ()?? 05/09/2023 06:19 Abs. Eo 0.2 k/mm3 ()?? 05/09/2023 06:19 Abs. Baso 0.0 k/mm3 ()?? 05/09/2023 06:19 Neut % 49.2 % ()?? 05/09/2023 06:19 Lymph % 36.4 % ()?? 05/09/2023 06:19 [place] % 10.6 % (High)?? 05/09/2023 06:19 Eos % 3.1 % ()?? 05/09/2023 06:19 Baso % 0.4 % ()?? 05/09/2023 06:19 Imm Gran 0.3 % ()?? 05/09/2023 06:19 Abs. Imm Gran 0.0 k/mm3 ()?? 05/09/2023 06:19 ?? CHEM GENERAL Sodium 140 mmol/L ()?? 05/09/2023 06:19 Potassium 4.5 mmol/L ()?? 05/09/2023 06:19 Chloride 104 mmol/L ()?? 05/09/2023 06:19 Bicarbonate Level 29 mmol/L ()?? 05/09/2023 06:19 Anion Gap 7 ()?? 05/09/2023 06:19 Glucose Level 95 mg/dL ()?? 05/09/2023 06:19 BUN 14 mg/dL ()?? 05/09/2023 06:19 Creatinine-Blood 0.9 mg/dL ()?? 05/09/2023 06:19 Estimated GFR Creatinine 76 ML/MIN/1.73 M2 ()?? 05/09/2023 06:19 Calcium 8.6 mg/dL ()?? 05/09/2023 06:19 Phosphorus 3.6 mg/dL ()?? 05/09/2023 06:19 Magnesium 2.2 mg/dL ()?? 05/09/2023 06:19 ?? URINE OTHER Est Creatinine Clearance 52.22 mL/min ()?? 05/09/2023 07:31 ? Urinalysis Est Creatinine Clearance: 52.22 mL/min (07:31) ?? 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 Post- procedure??developed left-sided weakness and left facial droop.??TNK deferred given??she received??heparin??during the procedure and had a large arterial??puncture. CT head negative for acute process. ??CTA head and neck without??large vesselocclusion.?? MRI brain with out acute intracranial finding. ?? REEG ?? On exam 05/09 patient is reporting chronic headache, reports left sided weakness improved, weakness not appreciated on exam On??exam 05/10 patient denies headache, reports left sided weakness 80% improved - no weakness appreciated on exam ? DDx -Left sided weakness (Face, arm, and leg) with associated numbness - seizure vs complicated migraine ? Recommendations:?? -??Continue aspirin 81 and Plavix 75??daily - Statin for LDL <70 - Continue Keppra 500mg BID - Continue previous outpatient plan for headache/migraine management - Ok for q4hr neuro checks, VS, and telemetry monitoring - STAT CT Head for any acute changes - PM&R following - Continue to control vascular risks: A1C <7.0. Statin therapy for LDL >70 or >100 with only one vascular risk. senior living BP control - Remainder of care per primary team - Follow up with Dr. Hannah as previously scheduled - Follow up with primary Neurologist Nilda Vo NP ??2-3 mo- request sent ? Thank you. Neurology will sign off. Please call with any questions/concerns ??Discussed with Dr. Tracy cortexted primary team * Demarcus LAM, Art Mckeon: PERFORM Event Display: Progress Note Hospital Authored Date: I personally reviewed the case and agree with the findings and plan as noted below. * Willam OLIVA, Bella Rivera: PERFORM Event Display: Progress Note Hospital Authored Date: Patient: ??JOSEFINA SUGGS ? Age:??62 Years?Sex:??Female?:??1960?? Subjective Interval History: reports headache upon awaking, states headaches have occurred since September reports left sided weakness improved OOB walking to BR - steady gait MRI brain with out acute intracranial process Pending REEG Review of Systems ?General: Denies fatigue, fever, chills ?Skin: denies rash, bites ?Eyes: denies visual changes, blurry vision ?ENT: denies hearing changes, tinnitus, ear pain, ear drainage, sore throat, swollen neck, hoarseness, jaw pain/jaw claudication ?Cardiovascular: denies chest pain, palpatations ?Respiratory: denies SOB ?GI/: denies abdominal pain, nausea, vomiting, diarrhea ?? denies loss of bladder or bowel function ?Musculoskeletal: denies muscle weakness, swelling ?Neurological: reports headache ?? denies dizziness, loss of vision, blurry vision, hearing changes, trouble swallowing, slurring, word finding difficulties, weakness, paresthesias, tremors,?? seizure, numbness/tingling/loss of sensation Allergies Allergies ?(Active and Proposed Allergies Only) Contrast Dye? (Severity: Unknown severity, Onset: Unknown) ?Comments: per pt not oral contrasst, was IV injection RG 05/06/23 ?Comments: Oral contrast dye, swelling of face/eyes Effexor? (Severity: Unknown severity, Onset: Unknown) codeine? (Severity: Unknown severity, Onset: Unknown) ?Reactions: Itchy Avelox? (Severity: Unknown severity, Onset: Unknown) ? Objective Vital Signs?? Temperature: 98.5 DegF (05/09/23 11:00:00) Temperature Route: Oral (05/09/23 11:00:00) Pulse Rate: 67 bpm (05/09/23 11:00:00) Heart Rate Monitored: 86 bpm (05/08/23 17:00:00) Respiratory Rate: 18 br/min (05/09/23 14:39:00) Systolic Blood Pressure: 103 mm Hg (05/09/23 11:00:00) Diastolic Blood Pressure:??46 mm Hg??Low (05/09/23 11:00:00) Blood pressure sites: Arm, right (05/09/23 11:00:00) Mean Arterial Pressure: 77 mm Hg (05/09/23 04:24:00) Pulse Pressure: 51 mm Hg (05/09/23 07:00:00) Oxygen Saturation: 97 % (05/09/23 11:00:00) Liters per Minute: 2 L/min (05/08/23 16:00:00) Mode of Delivery (Oxygen): Room air (05/09/23 11:00:00) Early Warning Score: 0 (05/09/23 14:39:49) ? Precautions No Precautions documented.? NIH Stroke Scale Level of Consciousness for Stroke Scale: Alert (05/09/23 09:00:00) Response Month/Age: Answers both questions correctly (05/09/23 09:00:00) Response Open/Close Eyes: Performs both tasks correctly (05/09/23 09:00:00) Best Gaze: Normal (05/09/23 09:00:00) Visual: No visual loss (05/09/23 09:00:00) Facial Palsy: Normal symmetrical movements (05/09/23 09:00:00) Motor Function Left Arm: No drift (05/09/23 09:00:00) Motor Function Right Arm: No drift (05/09/23 09:00:00) Motor Function Left Leg: No drift (05/09/23 09:00:00) Motor Function Right Leg: No drift (05/09/23 09:00:00) Limb Ataxia: Absent (05/09/23 09:00:00) Sensory: Normal; no sensory loss (05/09/23 09:00:00) Best Language: No aphasia (05/09/23 09:00:00) Dysarthria NIH Stroke Scale: Normal (05/09/23 09:00:00) Extinction and Inattention: No abnormality (05/09/23 09:00:00) NIH Stroke Scale Score: 0 (05/09/23 09:00:00) ?? [place] Coma Scale [place] Coma Score: 15 (05/09/23 09:00:00) Motor Response-Adult: Obeys commands (05/09/23 09:00:00) Response Eye Opening: Spontaneously (05/09/23 09:00:00) Verbal Response-Adult: Oriented and converses (05/09/23 09:00:00) ? Physical Exam General Exam Appearance: Appears comfortable and appropriate, in no acute distress. Appears stated age.? HEENT: Normocephalic, atraumatic. No abrasions or ecchymosis. Conjunctiva without injection. PERRL.EOMI. Lids without ptosis. Nares patent. Mouth normal. Tongue midline. Neck supple ?? Cardiac: Regular rate and rhythm ?? Respiratory: Normal inspiration and expiration ?? Neurologic: Mentation: Awake, alert. Patient is oriented to person, place, time, and situation. Speech is clearand without slurring. Follows simple and 3 step command. Able to repeat no ifs, ands or buts. Able to name objects. able to read clock. personnel director: PERRL. EOMI. No nystagmus. VFF to confrontation. Smile symmetric, no droop. Tongue midline anduvula rises symmetrically. Facial sensation in tact to light touch. Hearing acuity in tact to voice.? Motor: Normal bulk/tone. Strength 5/5 UEs and LEs. Manager Operating equal. No pronator drift. Sensation: In tact to light touch of UEs and LEs, no extinction to DTS Coordination: Finger to nose smooth Gait:??steady _ Inpatient Medications Medications (26) Active SCHEDULED: (11) Aspirin 81 mg EC Tablet (aspirin 81 mg oral delayed release tablet) ??81 mg, By Mouth, Daily Atorvastatin 80 mg Tablet (atorvastatin 80 mg oral tablet) ??80 mg, By Mouth, Daily at bedtime Clopidogrel 75 mg Tablet (Plavix 75 mg oral tablet) ??75 mg, By Mouth, Daily Fluoxetine 20 mg Capsule (PROzac 20 mg oral capsule) ??40 mg, By Mouth, Daily at bedtime Furosemide 40 mg Tablet (Lasix 40 mg oral tablet) ??40 mg, By Mouth, Every other day Gabapentin 400 mg Capsule (gabapentin 400 mg oral capsule) ??800 mg, By Mouth, 3 times a day Heparin 5000 units/mL Inj (1 mL) (Heparin Inj) ??7,500 units 1.5 mL, Subcutaneous Injection, 3 times a day Keppra 500mg Tablet (Keppra 500 mg oral tablet) ??500 mg, By Mouth, 2 times a day NaCl 0.9% Flush 3ml (Flush NaCl 0.9%) ??3 mL, IV Push, Every 8 hours Pantoprazole 40 mg EC Tablet (pantoprazole 40 mg oral delayed release tablet) ??40 mg, By Mouth, Daily PredniSONE 5 mg Tablet (predniSONE 5 mg oral tablet) ??2.5 mg, By Mouth, Every other day CONTINUOUS: (0) PRN: (15) Acetaminophen 325 mg Tablet (Acetaminophen Tablet) ??650 mg, By Mouth, Every 4 hours Acetaminophen/Butalbital/Caffeine Tablet (Fioricet Tablet) ??1 tablet, By Mouth, Every 4 hours Albuterol 90mcg/Inhalation Inhaler HFA (albuterol CFC free 90 mcg/inh inhalation aerosol) ??180 mcg2 puffs, Inhalation, Every 4 hours Bisacodyl 10 mg Suppository (Dulcolax Supp) ??10 mg 1 supp, Rectally, Daily Calcium Carbonate 500 mg (Calcium 200 mg) Chewable Tablet (calcium carbonate 500 mg (200 mg elemental calcium) oral tablet, chewable) ??500 mg 1 tablet, Chew, Every 4 hours Dextromethorphan-Guaifenesin 20 mg-200 mg/10 mL Liqu UD (Robitussin DM Liquid) ??10 mL, By Mouth, Every 4 hours Lorazepam 1 mg Tablet (Lorazepam) ??0.5 mg, By Mouth, Daily Magnesium Hydroxide 8% Susp UD (Milk of Magnesia Liquid) ??30 mL, By Mouth, Daily Melatonin 3 mg Tablet (Melatonin Tablet) ??3 mg, By Mouth, Daily at bedtime NaCl 0.9% Flush 3ml (Flush NaCl 0.9%) ??3 mL, IV Push, Every 8 hours Ondansetron 2mg/mL Inj (2mL Vial) (Zofran Inj) ??4 mg, IV Push, Every 6 hours OxyCODONE 5 mg IR Tablet (oxyCODONE 5 mg oral tablet) ??5 mg, By Mouth, Every 6 hours Polyethylene Glycol 17 Gm Powder (MiraLax Powder) ??17 Gm 1 pack/packet, By Mouth, Daily Senna 8.6 mg / Docusate 50 mg tablet (Docusate/Senna Tablet) ??1 tablet, By Mouth, 2 times a day Simethicone 80 mg Chewable Tablet (Simethicone Tablet) ??80 mg, Chew, 3 times a day ? Results Recent Labs BLOOD COUNT & DIFF WBC 6.8 k/mm3 ()?? 05/09/2023 06:19 RBC 4.19 m/mm3 (Low)?? 05/09/2023 06:19 Hgb 12.0 Gm/dL ()?? 05/09/2023 06:19 Hct 38.0 % ()?? 05/09/2023 06:19 MCV 90.7 femtoliters ()?? 05/09/2023 06:19 MCH 28.6 pg ()?? 05/09/2023 06:19 MCHC 31.6 g/dL (Low)?? 05/09/2023 06:19 Platelet Count 202 k/mm3 ()?? 05/09/2023 06:19 RDW-SD 47.2 femtoliters (High)?? 05/09/2023 06:19 MPV 10.3 femtoliters ()?? 05/09/2023 06:19 Nucleated RBC (Automated) 0.0 #/100 WBC'S ()?? 05/09/2023 06:19 Abs. NRBC 0.0 k/mm3 ()?? 05/09/2023 06:19 Abs. Neut 3.3 k/mm3 ()?? 05/09/2023 06:19 Abs. Lymph 2.5 k/mm3 ()?? 05/09/2023 06:19 Abs. [place] 0.7 k/mm3 ()?? 05/09/2023 06:19 Abs. Eo 0.2 k/mm3 ()?? 05/09/2023 06:19 Abs. Baso 0.0 k/mm3 ()?? 05/09/2023 06:19 Neut % 49.2 % ()?? 05/09/2023 06:19 Lymph % 36.4 % ()?? 05/09/2023 06:19 [place] % 10.6 % (High)?? 05/09/2023 06:19 Eos % 3.1 % ()?? 05/09/2023 06:19 Baso % 0.4 % ()?? 05/09/2023 06:19 Imm Gran 0.3 % ()?? 05/09/2023 06:19 Abs. Imm Gran 0.0 k/mm3 ()?? 05/09/2023 06:19 ?? CHEM GENERAL Sodium 140 mmol/L ()?? 05/09/2023 06:19 Potassium 4.5 mmol/L ()?? 05/09/2023 06:19 Chloride 104 mmol/L ()?? 05/09/2023 06:19 Bicarbonate Level 29 mmol/L ()?? 05/09/2023 06:19 Anion Gap 7 ()?? 05/09/2023 06:19 Glucose Level 95 mg/dL ()?? 05/09/2023 06:19 BUN 14 mg/dL ()?? 05/09/2023 06:19 Creatinine-Blood 0.9 mg/dL ()?? 05/09/2023 06:19 Estimated GFR Creatinine 76 ML/MIN/1.73 M2 ()?? 05/09/2023 06:19 Calcium 8.6 mg/dL ()?? 05/09/2023 06:19 Phosphorus 3.6 mg/dL ()?? 05/09/2023 06:19 Magnesium 2.2 mg/dL ()?? 05/09/2023 06:19 ?? URINE OTHER Est Creatinine Clearance 52.22 mL/min ()?? 05/09/2023 07:31 ? Urinalysis Est Creatinine Clearance: 52.22 mL/min (:) ?? 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 Post- procedure??developed left-sided weakness and left facial droop.??TNK deferred given??she received??heparin??during the procedure and had a large arterial??puncture. CT head negative for acute process. ??CTA head and neck without??large vesselocclusion.?? MRI brain with out acute intracranial finding ?? On exam today 05/09 patient is reporting chronic headache, reports left sided weakness improved, weakness not appreciated on exam ? DDx -Left sided weakness (Face, arm, and leg) with associated numbness - seizure vs complicated migraine ? Recommendations:?? -??Continue aspirin 81 and Plavix 75??daily - Statin for LDL <70 - Continue Keppra 500mg BID - Awaiting rEEG - Ok for q4hr neuro checks, VS, and telemetry monitoring - STAT CT Head for any acute changes - PM&R following - Continue to control vascular risks: A1C <7.0. Statin therapy for LDL >70 or >100 with only one vascular risk. terminal clerk BP control - Remainder of care per primary team ? Thank you. Neurology will follow. Please call with any questions/concerns ??Discussed with Dr. Tracy cortexted primary team * Demarcus LAM, Art Mckeon: PERFORM Event Display: Progress Note Hospital Authored Date: I personally??reviewed the case??and agree with the findings and plan as noted below. Consult note * Art Porter: PERFORM Event Display: Consultation Note Authored Date: Patient: ??DELANEY, JOSEFINA ? Age:??62 Years?Sex:??Female?:??1960?? 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 CT head negative for acute process. ??CTA head and neck without??large vessel occlusion.?? The patient's symptoms have improved but not completely resolved. ??She reports a history of seizure, however the history is very vague and no clear??seizure episode??was witnessed. ??She is not a candidate forthrombolytics as she received??heparin??and had a large arterial??puncture. Review of Systems Patient denies the following General:?fever, chills, weight loss, fatigue HEENT: hearing loss, eye pain Cardiac: chest pain, palpitations, syncope,?? Pulmonary: SOB Gastrointestinal: abdominal pain, diarrhea, nausea, vomiting, bowel incontinence Genitourinary: urinary incontinence Musculoskeletal: myalgias, arthralgias Dermatological: rash Hematological: bruising Psychiatric: anxiety, depression Neurological: headache, diplopia, visual field loss, aphasia, facial droop, seizure like activity, gait imbalance, incoordination, vertigo or light headedness, tremor, memory loss?? Objective Measurements?? Height: 160 cm (05/06/23) Weight: 111 kg (05/06/23) Dry Weight: 111 kg (05/06/23) Body Mass Index:??43.36 kg/m2??Critical (05/06/23) ? Vital Signs?? Temperature: 96.9 DegF (05/06/23 14:50:00) Temperature: 96.9 DegF (05/06/23 14:50:00) Temperature Route: Axillary (05/06/23 14:50:00) Temperature Route: Axillary (05/06/23 14:50:00) Pulse Rate: 77 bpm (05/06/23 14:50:00) Heart Rate Monitored: 73 bpm (05/06/23 15:30:00) Respiratory Rate:??15 br/min??Low (05/06/23 14:50:00) Systolic Blood Pressure: 120 mm Hg (05/06/23 15:30:00) Diastolic Blood Pressure: 68 mm Hg (05/06/23 15:30:00) Blood pressure sites: Arm, right (05/06/23 15:30:00) Mean Arterial Pressure: 102 mm Hg (05/06/23 14:50:00) Pulse Pressure: 49 mm Hg (05/06/23 15:00:00) Oxygen Saturation: 97 % (05/06/23 13:56:00) Liters per Minute: 3 L/min (05/06/23 15:00:00) Mode of Delivery (Oxygen): Nasal cannula (05/06/23 15:00:00) ? Ventilator Settings?? No qualifying data available. ? Intake/Output? No Data Available ? [place] Coma Scale [place] Coma Score: 15 (05/06/23 14:50:00) Motor Response-Adult: Obeys commands (05/06/23 14:50:00) Response Eye Opening: Spontaneously (05/06/23 14:50:00) Verbal Response-Adult: Oriented and converses (05/06/23 14:50:00) ? Mobility & Ambulation Level Mobility & Ambulation Level?? No qualifying data available. ? Physical Exam General Exam? Appearance: appears stated age, comfortable and appropriate.?? HEENT: Head Normocephalic, Neck Supple.?? Respiratory: normal I:E Cardiac: RRR. Abdomen: non distended Rheumatologic: no swelling. ?? Dermatologic: no rash.?? Extremities: no edema.?? Psychiatric: not anxious.? Neuro Exam Mental Status: alert and oriented to person, place, month, and year no dysarthria able to identify simple objects able to follow simple commands ?? Cranial nerves:?? PERRL EOMI VFF Left facial droop no ptosis noted bilaterally hearing intact to voice ?? muscle strength: appropriate muscle tone and bulk no tremors Right upper extremity 5 out of 5, right lower extremity 5 out of 5 but limited due to straight leg precautions Left upper extremity 4 out of 5 with drift,??left lower extremity 4 out of 5 ?? Sensation Decreased sensation to light touch left face arm and leg.?? No extinction ?? Cerebellum Finger to nose intact bilaterally Gait deferred for safety?? Assessment/Plan Diagnoses 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 ??(I67.1) ? 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 CT head negative for acute process. ??CTA head and neck without??large vessel occlusion.?? The patient's symptoms have improved but not completely resolved. ??She reports a history of seizure, however the history is very vague and no clear??seizure episode??was witnessed. ??She is not a candidate forthrombolytics as she received??heparin??and had a large arterial??puncture. ?? DDX -left face, arm, leg weakness and numbness???small vessel stroke more likely,??question seizure ?? Recommendations ?Continue aspirin 81 and Plavix 75??daily, starting tomorrow morning -Subcu heparin for DVT prophylaxis -Keppra 500 mg twice daily, continue for now until work-up complete -MRI brain without keshawn -Routine EEG -Every hour neurochecks -Stat CT head??for??acute change in mental status??or neuro exam.?? If patient has significantly worsening symptoms please page neurology stat - pmr consult if still symptomatic ?? d/w and seen with Dr. Castro, Dr. Hannah and Dr. Magallanes will follow Histories Allergies Allergies ?(Active and Proposed Allergies Only) Contrast Dye? (Severity: Unknown severity, Onset: Unknown) ?Comments: per pt not oral contrasst, was IV injection RG 05/06/23 ?Comments: Oral contrast dye, swelling of face/eyes Effexor? (Severity: Unknown severity, Onset: Unknown) codeine? (Severity: Unknown severity, Onset: Unknown) ?Reactions: Itchy Avelox? (Severity: Unknown severity, Onset: Unknown) ? 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 Past Surgical History Appendectomy Hysterectomy Stent placement ? Social History Alcohol Details:??Use: Past. Employment/School Details:??Status: Employed. Home/Environment Details:??Living situation: Home/Independent. ??Lives with: Significant other. Nutrition/Health Details:??Caffeine intake amount: 1 coffee daily in AM. Substance Abuse Details:??Use: Never. Tobacco Details:??Light tobacco smoker, Other: patient currently smoking 10 or fewer cigarettes a week. Details:??Former smoker, Other: Pt quit on 01/17/18. ? Family History No family history recorded. ? Medications Home Medications Albuterol (Ventolin 90 mcg Inhaler)?Inhalation?Every 6 hours Aspirin (aspirin 81 mg oral delayed release tablet)?81?Milligram?1?tablet?By Mouth?Daily?Take 5 days prior to the procedure Clopidogrel (Plavix 75 mg oral tablet)?75?Milligram?1?tablet?By Mouth?Daily?Take 5 days prior to the procedure Durable Medical Equipment (CPAP ??Machine)?See Instructions?AutoCPAP 8-20 cm H20, use Daily when sleeping Fluoxetine (Prozac 40 mg oral capsule)?1?capsule?40?Milligram?By Mouth?Daily Furosemide (Lasix 40 mg oral tablet)?1?tab(s)?40?Milligram?By Mouth?Every other day Gabapentin (gabapentin 800 mg oral tablet)?2?tab(s)?1,600?Milligram?By Mouth?3 times a day Lorazepam (Ativan 0.5 mg oral tablet)?2?tab(s)?1?Milligram?By Mouth?3 times a day?as needed?as needed for anxiety Omeprazole (omeprazole 40 mg oral enteric coated capsule)?1?capsule?By Mouth?2 times a day?X30 DAYS. Oxycodone?5?Milligram?By Mouth?3 times a day?as needed?Pain , Mild ? Inpatient Medications Medications (12) Active SCHEDULED: (6) Aspirin 81 mg EC Tablet (aspirin 81 mg oral delayed release tablet) ??81 mg, By Mouth, Daily Clopidogrel 75 mg Tablet (Plavix 75 mg oral tablet) ??75 mg, By Mouth, Daily Fluoxetine 20 mg Capsule (PROzac 20 mg oral capsule) ??40 mg, By Mouth, Daily Gabapentin 400 mg Capsule (gabapentin 400 mg oral capsule) ??800 mg, By Mouth, 3 times a day Keppra 500mg Tablet (Keppra 500 mg oral tablet) ??500 mg, By Mouth, 2 times a day Pantoprazole 40 mg EC Tablet (pantoprazole 40 mg oral delayed release tablet) ??40 mg, By Mouth, Daily CONTINUOUS: (0) PRN: (6) Acetaminophen 325 mg Tablet (Acetaminophen Tablet) ??650 mg, By Mouth, Every 4 hours Dextromethorphan-Guaifenesin 20 mg-200 mg/10 mL Liqu UD (Robitussin DM Liquid) ??10 mL, By Mouth, Every 4 hours Melatonin 3 mg Tablet (Melatonin Tablet) ??3 mg, By Mouth, Daily at bedtime Polyethylene Glycol 17 Gm Powder (MiraLax Powder) ??17 Gm 1 pack/packet, By Mouth, Daily Senna 8.6 mg / Docusate 50 mg tablet (Docusate/Senna Tablet) ??1 tablet, By Mouth, 2 times a day Simethicone 80 mg Chewable Tablet (Simethicone Tablet) ??80 mg, Chew, 3 times a day ? Results Recent Labs No labs resulted between 05/05/2023 00:00 and 05/06/2023 16:03? Abnormal Labs No lab data available. ? * Matthew LAM, Sagar Gray: PERFORM Event Display: Consultation Note Authored Date: [id number] I saw this patient and discussed the case with the advanced practitioner and I agree with the assessment and plan. ??Chart, labs, imaging, and vitals were reviewed ?? 62-year-old woman with past history of depression, anxiety, obesity and TOMASA [place] [facility] [place] for left internal carotid aneurysm.?? Postprocedure developed left-sided weakness and facial droop and endovascular and critical care teams were notified.?? Repeat CT head did not show any acute process.?? CTA head and neck without large vessel occlusion.?? Patient's symptoms were noted to improve significantly but had not completely resolved by the time of our evaluation.?? There was a previous report of atypical events with possibility of seizure though no clearseizure episode witnessed and not a confirmed diagnosis.?? Case discussed with endovascular team and given arterial puncture endovascular seizure and heparin received during the case not a candidate for thrombolytics.?? No LVO on CTA to be amenable for thrombectomy. ?? On review of systems denied any chest pain, palpitations, shortness of breath, cough, wheeze, nausea, vomiting, diarrhea, dysuria, recent URI symptoms.?? Denied any speech changes, vision changes, she was aware of left-sided motor and mild sensory deficits but felt they were improving. ?? On exam she was awake, alert, oriented to person, place, date and situation.?? Speech fluent and appropriate, voice mildly hoarse but no clear dysarthria, naming and repetition intact.?? Follows all commands. CN: Pupils equal round reactive to light, no clear gaze deviation or preference, no nystagmus.?? Visual thompson intact to finger count in the right visual field, at times had some difficulty counting the left visual field but inconsistent trace left facial droop that improved with smile, facial sensation intact to light touch, hearing intact to voice, tongue midline. Motor: Age-appropriate bulk and tone, no abnormal movements.?? Strength 5/5 on the right, 4/5 in the left arm and leg, drift but did not hit bed for both. Sensory: Reported intact sensation on the right and in the left arm as well as in the face, and theleft leg she reported an abnormal sensation but did not endorse a specific sensory loss Reflexes: Toes mute bilaterally Coordination: No dysmetria on the right, limited by weakness on the left Gait deferred ?? I personally reviewed patient's neuroimaging.?? Findings as per HPI. ?? Impression and plan: 62-year-old woman who presents for elective embolization of aneurysm.?? Subsequently developed left-sided face arm and leg weakness as well as some leg sensory changes concerning for possible stroke.?? She has a prior history of atypical event work-up for possible seizure but not a clear diagnosis.?? Case discussed with the MICU and endovascular teams.?? Loaded on Keppra per endovascular team.?? Reasonable to continue 500 mg twice daily for now.?? Not a candidate for thrombolytics due to endovascular procedure this morning, no large vessel occlusion amenable for thrombectomy.?? Given presentation with weakness affecting the face arm and leg equally suspected small vessel event in the right hemisphere though unclear why she would have this event likely affecting the right given procedure was on the left.?? Reasonable to get routine EEG as well as MRI of the brain to evaluate for possibleunderlying seizure focus given prior event as well as to evaluate for stroke.?? Would continue aspirin and Plavix per endovascular team.?? Okay for SQ heparin.?? Hourly neurochecks and vital signs.??Stat head CT and call neuro critical care attending for any decompensation. ?? Neurology team will continue to follow. Impression and plan discussed with the MICU fellow Patient Care team information Care Team Personnel Name: Bebo Diaz MD Position: [facility] Physician (General Medicine) Member Role: Lifetime Consulting Physician Address: Address: [address] [place] [id number]- Name: Perla Paulino RN Position: [facility] RN Member Role: Primary Care Nurse Name: Nicky Ross RN Position: [facility] RN Member Role: Primary Care Nurse Name: Alice Le RN Position: [facility] RN Member Role: Primary Care Nurse Name: Carolee Mendez RN Position: [facility] RN Bryan Member Role: Primary Care Nurse Name: Moni Ross RN Position: [facility] RN Member Role: Primary Care Nurse Name: Bryanna Rolon RN Position: [facility] RN Member Role: Primary Care Nurse Name: Sara Mak RN Position: [facility] RN Member Role: Primary Care Nurse Name: Pollo Lopez RN Position: [facility] RN Member Role: Primary Care Nurse Name: Liu Lovett MD Position: [facility] Physician - Primary Care Member Role: PCP Address: Address: [address] [place] [id number]- [place] Name: Celia Simpson RN Position: [facility] RN Member Role: Primary Care Nurse Name: Colby Denny RN Position: [facility] RN Member Role: Primary Care Nurse Care Team Related Persons Name: SAMEER MORGAN Address: [address] [place] [address] Name: JOHNNY PUCKETT Address: home [address] [place] [address] Name: SAMEER SCHAEFER Address: home [address] [place] [address] Name:
== END 2023-07-04 09:00 | disposition home or self-care (01) ==
LOC: HO.HBS 09:20
PROVIDERS: PCP Family Medicine; Visit Provider Physician Assistant
DX: E66.01 Morbid (severe) obesity due to excess calories (principal); Z68.41 Body mass index [BMI] 40.0-44.9, adult; G47.30 Sleep apnea, unspecified; I72.9 Aneurysm of unspecified site; M06.09 Rheumatoid arthritis without rheumatoid factor, multiple sites
CPT/HCPCS: 99443

== ENCOUNTER → 2023-07-04 08:30 | Outpatient (BNVA) | payer MEDICARE, MEDICAID, SELFPAY | PROVIDERS: PCP Family Medicine; Visit Provider Physician Assistant | DX: E66.01 Morbid (severe) obesity due to excess calories (principal); K21.9 Gastro-esophageal reflux disease without esophagitis; G47.30 Sleep apnea, unspecified; I72.9 Aneurysm of unspecified site; M06.9 Rheumatoid arthritis, unspecified ==

== ENCOUNTER 2023-07-20 07:41 | Outpatient (AMB) | payer MEDICARE, MEDICAID, SELFPAY ==
--- NOTE | 2023-07-20 11:26 | A.OFFVIS_ITS ---
Intake VS Expanded 07/20/23 11:32 Height 5 ft 3 in Weight 231 lb BMI 40.9 Intake Visit Reasons: TV Consult Rev/[facility] Allergies codeine Allergy (Mild, Verified 07/20/23 11:26) ITCHY AVALAX Allergy (Severe, Uncoded 07/20/23 11:26) Anaphylaxis POLLEN Allergy (Mild, Uncoded 07/20/23 11:26) Runny Nose Medication List - Last Reconciled 07/20/23 by Massimo Livingston MD abatacept (Orencia ClickJect) mg subcut .every other week albuterol sulfate 90 mcg/actuation (Ventolin HFA) inhalation aspirin 81 mg PO DAILY clopidogrel (Plavix) 75 mg PO DAILY fluoxetine (Prozac) 40 mg PO DAILY furosemide (Lasix) 40 mg PO Q OTHER DAY gabapentin 400 mg PO TID PRN lorazepam 0.5 mg PO BEDTIME PRN omeprazole 40 mg PO BID sucralfate (Carafate) 1 g PO QIDACHS HPI TV Consult Rev/[facility] HPI Details ?I spent 55 minutes speaking with the patient on the phone plus an additional 5 minutes reviewing and updating records for a total of 60 minutes HPI Comments History of Present Illness Details Overall weight loss: 25lbs, or 9.77% TBWL Is doing 3 premade Premier protein shakes and one meal (4-6 oz protein, and a cup of salad, not measured portions) Exercise: walking a dog [facility] Medical History (Updated 07/20/23 @ 11:35 by Massimo Livingston MD) Lower extremity edema Obstructive sleep apnea on CPAP Aneurysm Surgical History History of surgery for cerebral aneurysm Hx of hand surgery Hx of colonoscopy Hx of foot surgery Hx of knee surgery Hx of appendectomy Hx of hysterectomy Family History Mother No problems noted. Father AA (alcohol abuse) Brother No problems noted. Sister No problems noted. Brother No problems noted. Brother No problems noted. Daughter Autoimmune disease Daughter Autoimmune disease Social History Household Members: Spouse Alcohol intake: never Patient Tobacco Use Status: Former Tobacco user Current occupational status: disabled Physical Exam Vital Signs: BMI result Body Mass Index 40.9 Assessment & Plan Assessment & Plan (1) Morbid obesity: Code(s): E66.01 - Morbid (severe) obesity due to excess calories Plan: 1. Plan for lap sleeve gastrectomy revision including upper GI endoscopy. All tests has been completed and reviewed and the patient is cleared for the surgery. ?If diaphragmatic or ventral hernias are present at time of surgery, these will be repaired laparoscopically as well. Risks and complications were discussed in detail including possible conversion to an open procedure, anastomotic leak, bleeding requiring transfusion, small bowel obstruction, , DVT and pulmonary embolism, cardiac, or pulmonary complications, as shelter complications such as anastomotic ulcer, insufficient weight loss and vitamin deficiencies. I emphasized the importance of close follow-up, adherence to instructions and good communication. So far she has proven to be an excellent communicator and very compliant with all our directions accomplishing a great weight loss. I believe that she is an excellent candidate and she is ready. 2. Nutritional counseling. Start with 2 CELEBRATE REBUILD protein (buy at [facility]) shakes (ONE scoop EACH in 8oz low fat unsweetened almond milk each) at 7am-9am and 10am-12pm, 2 protein bars (CELEBRATE protein bars, buy at [facility] [email or web address] [facility]) at 1pm-3pm and 4pm-6pm, dinner at 7pm (8 forks of protein and 8 forks of salad/vegetables). So you do 2 protein shakes, 2 protein bars and one meal per day. Meal to include lean meat (beef, fish, pork, turkey, chicken), or vietnamese yogurt, or egg whites, or beans with a salad with olive oil and fruits (berries, pears, apples, kiwi). Avoid salt, breads, potatoes, rice, pasta, desserts. 3. Each shake would be drunk slowly, like coffee in a period of 2 hours. 4. Cut each bar in 4 pieces and eat each piece in 30min ?to make each bar last 2 hours. 5. I emphasized the importance of measuring accurately the food portion and measure it when serving the food in plate 6. The meal portions include 8 full-size forks of meat and 8 full-size forks of salad. You always eat the meat portion but you can replace up to 4 forks for salad/vegetables with rice, potatoes or pasta, or a fruit ?if you like. The less you do it the better weight loss will be. 7. One full-size fork is what it can be scooped on the fork without falling aside and not what can be bit with the fork. Use regular forks like those you find in a typical restaurant. 8.? Please send me weight measurements as soon as possible and then once a week. Always include your diet and exercise plan. 9. Start treadmill with an incline of 2.0 and speed of 3.0. Increase incline by 1 every 3 min to a max incline of 8.0, stay 3min at 8.0 and then return to 2.0 and repeat same steps until calorie goal is met. Start also weight exercises with 20-30lbs for chest/shoulders/abdomen and 40-50lbs for thighs doing 2 sets of 15 repetitions each. 10. Purchase a stationary bike at home and start stationary bike at a resistance level of 4.0 Increase level by 1.0 every 3 min to a max level of 10.0. Stay at this level for 3 min and then return to level 4.0 and repeat same steps until 300 calories are burned. Goal is to burn 2000 calories per week on exercise, which means either 300 calories daily, or 400 calories 5 days per week, or 500 calories 4 days per week, or 650 calories 3 days per week. 11. Goal is to lose at least 1.5-2lbs per week 13. Please follow the diet plan exactly without any change. If you don't like something about the plan or you feel hungry you need to communicate with me so I can help you revise the plan. You should not change the plan yourself. (2) GERD (gastroesophageal reflux disease): Code(s): K21.9 - Gastro-esophageal reflux disease without esophagitis (3) Rheumatoid arthritis: Comment: seroneg dx 2019 failed/could not tolerate MTX, leflunomide, hydroxychloroquine Prednisone all through Enbrel [id number] ineffective Orencia [id number] partially effective Code(s): M06.9 - Rheumatoid arthritis, unspecified Qualifiers: Rheumatoid arthritis location: multiple sites Rheumatoid factor presence: without rheumatoid factor Qualified Code(s): M06.09 - Rheumatoid arthritis without rheumatoid factor, multiple sites (4) Anxiety and depression: Code(s): F41.9 - Anxiety disorder, unspecified; F32.A - Depression, unspecified (5) Hiatal hernia: Code(s): K44.9 - Diaphragmatic hernia without obstruction or gangrene (6) Aneurysm: Comment: s/p stents 2022 Code(s): I72.9 - Aneurysm of unspecified site (7) Obstructive sleep apnea on CPAP: Code(s): G47.33 - Obstructive sleep apnea (adult) (pediatric) (8) Lower extremity edema: Code(s): R60.0 - Localized edema (9) Prediabetes: Code(s): R73.03 - Prediabetes (10) Hyperlipidemia: Code(s): E78.5 - Hyperlipidemia, unspecified Orders: Orders MM diagnostic mammo BI Today E66.01 - Morbid (severe) obesity due to excess calories Telehealth Telehealth Location of provider rendering services: practice address Location of patient: address on file Patient Identification confirmed using: Name, : Yes Telehealth method: voice only Patient verbally consented to treatment: Yes Patient verbally consented to billing insurance company: Yes Patient informed of any privacy concerns related to visit: Yes Minutes spent on Phone/Video with Pt.: 60 Coding Level of Care Code Tele Est Pt Level 5 (43260) Diagnoses Morbid obesity E66.01 GERD (gastroesophageal reflux disease) K21.9 Rheumatoid arthritis of multiple sites with negative rheumatoid factor M06.09 Rheumatoid arthritis location: multiple sites Rheumatoid factor presence: without rheumatoid factor Anxiety and depression F41.9; F32.A Hiatal hernia K44.9 Aneurysm I72.9 Obstructive sleep apnea on CPAP G47.33 Lower extremity edema R60.0 Prediabetes R73.03 Hyperlipidemia E78.5 Time Spent (min) 60
[2023-07-20 11:32] VITALS: BMI 40.9
== END 2023-07-20 18:14 | disposition home or self-care (01) ==
PROVIDERS: PCP Family Medicine; Visit Provider Surgery
DX: E66.01 Morbid (severe) obesity due to excess calories (principal); Z68.41 Body mass index [BMI] 40.0-44.9, adult; K44.9 Diaphragmatic hernia without obstruction or gangrene; G47.33 Obstructive sleep apnea (adult) (pediatric)
CPT/HCPCS: 99443

== ENCOUNTER → 2023-07-20 07:41 | Outpatient (BNVA) | payer MEDICARE, MEDICAID, SELFPAY | PROVIDERS: PCP Family Medicine; Visit Provider Surgery ==

== ENCOUNTER 2023-08-26 08:16 | Outpatient (AMB) | payer MEDICARE, MEDICAID, SELFPAY ==
--- OUTSIDE RECORDS SUMMARY | 2023-08-26 08:20 | XMS_ITS | Continuity of Care Document ---
Author Name Unknown Organization [facility] Address [address] [facility], [address] d Floor, [address] [place] [id number]- Care Team Providers Care Station Attendant Name Role Phone Rachell LAM, Liu Rivera Primary Care Physician Encounter [facility] Date(s): 05/10/23 - 08/18/23 [facility] [address], [address], [address] [place] [id number] Attending Physician: Not on Staff, Attending MD Referring Physician: Willam OLIVA, Bella Rivera Allergies, Adverse Reactions, Alerts Substance Reaction Severity Status codeine Itchy Active Effexor Active Avelox Active Contrast Dye 1, 2 Active 1per pt not oral contrasst, was IV injection RG 05/06/23 2Oral contrast dye, swelling of face/eyes Immunizations Given and Recorded Vaccine Date Status Refusal Reason SARS-CoV-2 mRNA ([id number]) vax 01/19/22 Recorded SARS-CoV-2 (COVID-19) mRNA-1273 vaccine 06/16/21 R ecorded SARS-CoV-2 (COVID-19) mRNA-1273 vaccine 12/03/20 R ecorded SARS-CoV-2 (COVID-19) mRNA-1273 vaccine 11/05/20 R ecorded Medications aspirin 81 mg oral delayed release tablet 81 mg, 1, tablet, By Mouth, Daily, Take 5 days prior to the procedure, # 30 tablet, Refills 1, Tot.Refills 1, Maintenance, 05/10/23 9:54:00 EDT, Route to Pharmacy Electronically, [facility],Partial fill upon patient request if the [...] Refills, Maintenance, 05/10/23 9:55:00 EDT, Tablet, [facility], Partial fill upon patient request if [...] Refills, Maintenance, 05/10/23 9:56:00 EDT, Tablet, [facility], Partial fill upon patient request if [...] DAYS., # 60 capsule, 3 Refills, [facility], 163, cm, 01/13/21 11:27:00 EDT, Height, [...] 9:54:00 EDT, Route to Pharmacy Electronically, [facility],Partial fill upon patient request if the [...] List Condition Confirmation Course Effective Dates Status [facility] atus Informant Aneurysm of intracranial portion [...] Team Personnel Name: Tiffanie Tamayo RN Position: [facility] RN Member Role: Primary Care Nurse Name: Bebo Diaz MD Position: [facility] Physician (General Medicine) Member Role: Lifetime Consulting Physician Address: Address: [address] [place] [address] Name: Perla Paulino RN Position: [facility] RN Member Role: Primary Care Nurse Name: Nicky Ross RN Position: S RN Member Role: Primary Care Nurse Name: Alice Le RN Position: [facility] RN Member Role: Primary Care Nurse Name: Carolee Mendez RN Position: [facility] RN Supv Member Role: Primary Care Nurse Name: Bryanna Rolon RN Position: [facility] RN Member Role: Primary Care Nurse Name: Sara Mak RN Position: [facility] RN Member Role: Primary Care Nurse Name: Pollo Lopez RN Position: [facility] RN Member Role: Primary Care Nurse Name: Liu Lovett MD Position: [facility] Physician - Primary Care Member Role: PCP Address: Address: [address] [place] [address]- Name: Celia Simpson RN Position: [facility] RN Member Role: Primary Care Nurse Name: Colby Denny RN Position: [facility] RN Member Role: Primary Care Nurse Care Team Related Persons Name: SAMEER MORGAN Address: home [address] [place] [address] Name: JOHNNY PUCKETT Address: home [address] [place] [address] Name: SAMEER SCHAEFER Address: home [address] [place] [address]
--- OUTSIDE RECORDS SUMMARY | 2023-08-26 08:21 | XMS_ITS | Continuity of Care Document ---
Author Name Unknown Organization [facility] Address [address] [facility], [address] Floor, [address] [place] [id number]- Care Team Providers Care Director Of Casework Services Name Role Phone Rachell LAM, Liu Rivera Primary Care Physician Encounter [facility] Date(s): 07/19/23 - 08/18/23 [facility] [address] [place], [address], [address] [place] [id number] Attending Physician: Erica Connelly Admitting Physician: AdmErica marquez Referring Physician: AdmtrErica Allergies, Adverse Reactions, Alerts Substance Reaction Severity Status codeine Itchy Active Effexor Active Avelox Active Contrast Dye 1, 2 Active 1per pt not oral contrasst, was IV injection RG 05/06/23 2Oral contrast dye, swelling of face/eyes Immunizations Given and Recorded Vaccine Date Status Refusal Reason SARS-CoV-2 mRNA ([id number]) vax 01/19/22 Recorded SARS-CoV-2 (COVID-19) mRNA-1273 vaccine 06/16/21 R ecorded SARS-CoV-2 (COVID-19) mRNA-1273 vaccine 12/03/20 R ecorded SARS-CoV-2 (COVID-19) mRNA-1273 vaccine 11/05/20 R ecorded Medications aspirin 81 mg oral delayed release tablet 81 mg, 1, tablet, By Mouth, Daily, Take 5 days prior to the procedure, # 30 tablet, Refills 1, Tot.Refills 1, Maintenance, 05/10/23 9:54:00 EDT, Route to Pharmacy Electronically, [facility],Partial fill upon patient request if the [...] Refills, Maintenance, 05/10/23 9:55:00 EDT, Tablet, [facility], Partial fill upon patient request if [...] Refills, Maintenance, 05/10/23 9:56:00 EDT, Tablet, [facility], Partial fill upon patient request if [...] DAYS., # 60 capsule, 3 Refills, [facility], 163, cm, 01/13/21 11:27:00 EDT, Height, [...] 9:54:00 EDT, Route to Pharmacy Electronically, [facility],Partial fill upon patient request if the [...] List Condition Confirmation Course Effective Dates Status [facility] atus Informant Aneurysm of intracranial portion [...] Team Personnel Name: Tiffanie Tamayo RN Position: [facility] RN Member Role: Primary Care Nurse Name: Bebo Diaz MD Position: [facility] Physician (General Medicine) Member Role: Lifetime Consulting Physician Address: Address: [address] [place] [address] Name: Perla Paulino RN Position: [facility] RN Member Role: Primary Care Nurse Name: Nicky Ross RN Position: S RN Member Role: Primary Care Nurse Name: Alice Le RN Position: S RN Member Role: Primary Care Nurse Name: Carolee Mendez RN Position: [facility] RN Supv Member Role: Primary Care Nurse Name: Bryanna Rolon RN Position: [facility] RN Member Role: Primary Care Nurse Name: Sara Mak RN Position: [facility] RN Member Role: Primary Care Nurse Name: Pollo Lopez RN Position: [facility] RN Member Role: Primary Care Nurse Name: Liu Lovett MD Position: [facility] Physician - Primary Care Member Role: PCP Address: Address: [address] [place] [id number]- Name: Celia Simpson RN Position: [facility] RN Member Role: Primary Care Nurse Name: Colby Denny RN Position: [facility] RN Member Role: Primary Care Nurse Care Team Related Persons Name: SAMEER MORGAN Address: home [address] [place] [address] Name: JOHNNY PUCKETT Address: home [address] [place] [address] Name: SAMEER SCHAEFER Address: home [address] [place] [address]
--- NOTE | 2023-08-26 12:31 | MHC.OFFVISWM ---
Intake VS Expanded 08/26/23 12:44 Height 5 ft 3 in Weight 223 lb 6 oz BMI 39.6 Body Fat % 53.7 Body Fat Mass 120 Fat Free Mass 103.6 Visceral Fat Rating 21 Body Water % 31.7 Body Water Mass 70.8 Basal Metabolic Rate/Score 1,392 Intake Visit Reasons: TV Pre Op LSG 09/08/23 Allergies codeine Allergy (Mild, Verified 08/26/23 12:31) ITCHY AVALAX Allergy (Severe, Uncoded 08/26/23 12:31) Anaphylaxis POLLEN Allergy (Mild, Uncoded 08/26/23 12:31) Runny Nose Medication List - Last Reconciled 08/26/23 by Massimo Livingston MD abatacept (Orencia ClickJect) mg subcut .every other week albuterol sulfate 90 mcg/actuation (Ventolin HFA) inhalation aspirin 81 mg PO DAILY clopidogrel (Plavix) 75 mg PO DAILY fluoxetine (Prozac) 40 mg PO DAILY furosemide (Lasix) 40 mg PO Q OTHER DAY gabapentin 400 mg PO TID PRN lorazepam 0.5 mg PO BEDTIME PRN omeprazole 40 mg PO BID ondansetron 4 mg PO Q12H pantoprazole 40 mg PO DAILY polyethylene glycol 3350 (Miralax) 17 grams PO DAILY sucralfate (Carafate) 1 g PO QIDACHS sucralfate 10 mL PO BID HPI TV Pre Op LSG 09/08/23 HPI Details Start time: 12.20pm, End time: 1pm ?I spent 30 minutes speaking with the patient on the phone plus an additional 10 minutes reviewing and updating records for a total of 40 minutes HPI Comments History of Present Illness Details Overall weight loss: 32.4lbs, or 12.66% TBWL Is doing 2-3 Celebrate protein shakes (1 scoop each in 8oz almond milk) and one meal (8 forks of protein and 8 forks of salad or vegetables) Exercise: walking outside [facility] Medical History (Updated 08/26/23 @ 12:26 by Massimo Livingston MD) Lower extremity edema Obstructive sleep apnea on CPAP Aneurysm Surgical History History of surgery for cerebral aneurysm Hx of hand surgery Hx of colonoscopy Hx of foot surgery Hx of knee surgery Hx of appendectomy Hx of hysterectomy Family History Mother No problems noted. Father AA (alcohol abuse) Brother No problems noted. Sister No problems noted. Brother No problems noted. Brother No problems noted. Daughter Autoimmune disease Daughter Autoimmune disease Social History Household Members: Spouse Alcohol intake: never Patient Tobacco Use Status: Former Tobacco user Current occupational status: disabled Assessment & Plan Assessment & Plan (1) Obesity: Code(s): E66.9 - Obesity, unspecified Plan: 1. Plan for lap sleeve gastrectomy including upper GI endoscopy. All tests has been completed and reviewed and the patient is cleared for the surgery. ?If diaphragmatic or ventral hernias are present at time of surgery, these will be repaired laparoscopically as well. Risks and complications were discussed in detail including possible conversion to an open procedure, anastomotic leak, bleeding requiring transfusion, small bowel obstruction, , DVT and pulmonary embolism, cardiac, or pulmonary complications, as intermediate complications such as anastomotic ulcer, insufficient weight loss and vitamin deficiencies. I emphasized the importance of close follow-up, adherence to instructions and good communication. So far she has proven to be an excellent communicator and very compliant with all our directions accomplishing a great weight loss. I believe that she is an excellent candidate and she is ready. I also told her that there is a possibility of not completing her surgery if I don't feel the anatomy is clear enough to perform the procedure safely and she understands that. 2. Preop prescriptions were provided and explained the purpose of each one. Need to be purchased preop. Start Pantoprazole now as you get it from the pharmacy, 1 pill per day. Sucralfate and Zofran are for after surgery as needed. 3. Bowel prep: please do 7 packets ?of Miralax mixing each one with a an 8oz glass of water, crystal light, gatorade zero, or propel ?on 09/06/23 and the same amount on 09/07/23. Continue the protein shakes during? the bowel prep. 4. Needs to purchase 1oz medicine cups . 5. Needs to purchase Children's liquid Tylenol for postop pain control. 6. She needs to stop the aspirin on 09/01/23 7. Start doing one Fondaparinux (Arixtra) injection per day on 09/01/23. The last injection before surgery should be on 09/06/23. 8. She needs to stop the Plavix and Gabapentin on 09/03/23 9. Stop the Lasix on 09/06/23 (last pill). 10. Stop the Orencia on 08/29/23 11. Avoid Motrin, Meloxicam, Advil, Aleve, Ibuprofen, Naproxyn. Tylenol is OK. 12. She needs to purchase the Celebrate 4:1 protein shakes from the hospital's gift shop. 12. Will do basic preop blood work-up any day between Tuesday08/29/23 and Tuesday08/31/23 fasting for 12 hours and is scheduled to see the Anesthesiologist prior to the day of surgery. 13. Importance of adherence to postop folllow-up and recommendations was underscored and she understands that. 14. Stop food and bars as of Tuesday08/29/23 and continue with 3 Celebrate Rebuild protein shakes (ONE scoop EACH in 8oz almond milk) at 7am-9am, 10am-12pm and 1pm-3pm AND TWO more Celebrate Rebuild protein shakes with TWO scoops EACH in 8oz of almond milk at 4pm-6pm and 7pm-9pm. 15. You may have one small meal only at the . 16. No soups, broths or V8 17. The patient's?medical?history has been reviewed and they are considered low risk for post op DVT and therefore DVT prophylaxis is not considered necessary. Travel after surgery was reviewed. The patient has not disclosed any travel plans during the first 30 days after surgery and they have been advised that within the first 30 days after surgery any bus, plane, train or car travel over 2 hours in duration is contraindicated due to the possibility of developing blood clots from immobility. Any travel, needs to include periods of ambulation of 10 minutes in duration every 2 hours.? Patient was instructed to discuss any plans for travel during this period with their bariatric surgeon.? 18. Use your CPAP daily and bring it to the hospital with your mask 19. Please take at the day of surgery the following medications: NONE 20. Absolutely no smoking or vaping, or marijuana until the surgery and for at least the first 4 weeks. Only nicotine patches are allowed. 21. Send me weight measurements on Thursday 08/30 and then on 09/08/23 the day of surgery before you go to the hospital. 22. Avoid any steroids by mouth for any reason. Let me know if someone prescribes them to you (2) BMI 39.0-39.9,adult: Code(s): Z68.39 - Body mass index [BMI] 39.0-39.9, adult (3) Aneurysm: Comment: s/p stents 2022 Code(s): I72.9 - Aneurysm of unspecified site Orders: Orders Comprehensive Met. Panel Today E66.9 - Obesity, unspecified, E78.5 - Hyperlipidemia, unspecified, R73.03 - Prediabetes, Z68.39 - Body mass index [BMI] 39.0-39.9, adult TSH reflex Free T4 Today E66.9 - Obesity, unspecified, E78.5 - Hyperlipidemia, unspecified, R73.03 - Prediabetes, Z68.39 - Body mass index [BMI] 39.0-39.9, adult Prothrombin Time INR Today E66.9 - Obesity, unspecified, E78.5 - Hyperlipidemia, unspecified, R73.03 - Prediabetes, Z68.39 - Body mass index [BMI] 39.0-39.9, adult Type and Screen Today E66.9 - Obesity, unspecified, E78.5 - Hyperlipidemia, unspecified, R73.03 - Prediabetes, Z68.39 - Body mass index [BMI] 39.0-39.9, adult C Reactive Protein Today E66.9 - Obesity, unspecified, E78.5 - Hyperlipidemia, unspecified, R73.03 - Prediabetes, Z68.39 - Body mass index [BMI] 39.0-39.9, adult Lipid Panel Today E66.9 - Obesity, unspecified, E78.5 - Hyperlipidemia, unspecified, R73.03 - Prediabetes, Z68.39 - Body mass index [BMI] 39.0-39.9, adult Complete Blood Count Auto Diff Today E66.9 - Obesity, unspecified, E78.5 - Hyperlipidemia, unspecified, R73.03 - Prediabetes, Z68.39 - Body mass index [BMI] 39.0-39.9, adult Partial Thromboplastin Time Today E66.9 - Obesity, unspecified, E78.5 - Hyperlipidemia, unspecified, R73.03 - Prediabetes, Z68.39 - Body mass index [BMI] 39.0-39.9, adult Hemoglobin A1c Today E66.9 - Obesity, unspecified, E78.5 - Hyperlipidemia, unspecified, R73.03 - Prediabetes, Z68.39 - Body mass index [BMI] 39.0-39.9, adult Insulin Today E66.9 - Obesity, unspecified, E78.5 - Hyperlipidemia, unspecified, R73.03 - Prediabetes, Z68.39 - Body mass index [BMI] 39.0-39.9, adult Medications: New pantoprazole 40 mg PO DAILY 30 tabs 2RF K21.9 - Gastro-esophageal reflux disease without esophagitis ondansetron Only take one every 12 hours as needed if you have nausea 4 mg PO Q12H 20 tabs 0RF nausea and vomiting R11.0 - Nausea sucralfate 10 mL PO BID 400 mL 2RF K21.9 - Gastro-esophageal reflux disease without esophagitis polyethylene glycol 3350 (Miralax) Mix each packet with 8oz of water, Crystal light, or Gatorade zero, or Propel and do 7 packets on 09/06/23 and another 7 packets on 09/07/23 17 grams PO DAILY 14 ea 0RF Z01.818 - Encounter for other preprocedural examination fondaparinux Start taking one per day on 09/01. Do the last one on 09/06/23. Dr. Livingston will tell you when to re-start after surgery 2.5 mg (0.5 mL) subcut Q24H 5 mL 1RF I72.9 - Aneurysm of unspecified site Telehealth Telehealth Location of provider rendering services: practice address Location of patient: address on file Patient Identification confirmed using: Name, : Yes Telehealth method: voice only Patient verbally consented to treatment: Yes Patient verbally consented to billing insurance company: Yes Patient informed of any privacy concerns related to visit: Yes Minutes spent on Phone/Video with Pt.: 40 Coding Level of Care Code Tele Est Pt Level 4 (89082) Diagnoses Obesity E66.9 BMI 39.0-39.9,adult Z68.39 Aneurysm I72.9 Time Spent (min) 40
[2023-08-26 12:44] VITALS: BMI 39.6
== END 2023-08-26 13:00 | disposition home or self-care (01) ==
LOC: HO.HBS 08:16
PROVIDERS: PCP Family Medicine; Visit Provider Surgery
DX: E66.9 Obesity, unspecified (principal); Z68.39 Body mass index [BMI] 39.0-39.9, adult; I72.9 Aneurysm of unspecified site
CPT/HCPCS: 99499

== ENCOUNTER → 2023-08-26 08:16 | Outpatient (BNVA) | payer MEDICARE, MEDICAID, SELFPAY | PROVIDERS: PCP Family Medicine; Visit Provider Surgery ==

== ENCOUNTER 2023-08-31 13:13 | Outpatient (REF) | payer MEDICARE, MEDICAID, SELFPAY ==
[2023-08-31 13:52] LABS: Basophils Percent Auto 0.4 % (0-2); Eosinophils Absolute Auto 0.2 X10*3/uL (0.0-0.4); Eosinophils Percent Auto 2.4 % (0-4); Hematocrit 39.1 % (37.0-47.0); Hemoglobin 12.8 g/dl (12.0-16.0); Imm Gran Abs Auto 0.03 X10*3/uL (0.00-0.03); Imm Gran Pct Auto 0.4 % (0.0-0.4); Lymphocytes Absolute Auto 2.8 X10*3/uL (1.2-4.9); Lymphocytes Percent Auto 34.7 % (20-40); MANUAL DIFF FLAG NO; Mean Corpuscular HGB Conc 32.7 g/dl (31.0-35.0); Mean Corpuscular Hemoglobin 28.8 pg (27.0-33.0); Mean Corpuscular Volume 87.9 fL (80.0-98.0); Monocytes Absolute Auto 0.7 X10*3/uL (0.1-1.2); Monocytes Percent Auto 9.1 % (2-11); Neutrophils Absolute Auto 4.3 x10*3/uL (2.0-8.3); Platelet Count 251 X10*3/uL (160-400); Red Blood Count 4.45 X10*6/uL (4.20-5.50); Red Cell Distribution Width 13.1 % (11.0-16.0)
[2023-08-31 13:56] LABS: INTERNATIONAL NORM RATIO 0.9 (0.9-1.1); Prothrombin Time 11.5 SEC (11.1-13.3)
[2023-08-31 14:17] LABS: Estimated Average Glucose 111 mg/dL; Hemoglobin A1c % 5.5 % (<6.0)
[2023-08-31 14:38] LABS: Alanine Aminotransferase 15 U/L (0-31); Albumin Level 3.9 g/dL (3.5-5.0); Alkaline Phosphatase 117 U/L (39-117); Anion Gap 11 (12-20); Aspartate Amino Transferase 13 U/L (5-31); Bilirubin Total 0.3 mg/dL (0.0-1.0); Blood Urea Nitrogen 19 mg/dL (9-16); C Reactive Protein 2.54 mg/dL (< or = 0.50); Calcium 9.6 mg/dL (8.4-10.2); Carbon Dioxide 29 mmol/L (22-29); Chloride 104 mmol/L (96-108); Cholesterol 241 mg/dL (<200); Estimated Glomerular Filt Rate > 60; Glucose Random 99 mg/dL (60-115); HDL Cholesterol 52 mg/dL (>40); LDL Cholesterol Calculated 170 mg/dL (<100); Potassium 3.6 mmol/L (3.3-5.1); Sodium 140 mmol/L (135-145); Triglycerides 97 mg/dL (<150)
[2023-08-31 14:53] LABS: Insulin 9 uU/mL (2-29); TSH reflex Free T4 1.73 uIU/mL (0.32-4.0)
== END 2023-08-31 13:14 | disposition home or self-care (01) ==
LOC: HO.LAB 13:13
PROVIDERS: PCP Family Medicine; Visit Provider Surgery
DX: E66.9 Obesity, unspecified (principal); Z68.39 Body mass index [BMI] 39.0-39.9, adult; R73.03 Prediabetes; E78.5 Hyperlipidemia, unspecified
CPT/HCPCS: 36415; 80053; 80061; 83036; 83525; 84443; 85025; 85610; 85730; 86140

== ENCOUNTER 2023-09-08 07:29 | Inpatient (IN) | payer MEDICARE, MEDICAID, SELFPAY ==
[2023-08-30 10:42] VITALS: BMI 39.7
--- NOTE | 2023-09-03 20:40 | MHC.SHP ---
Pre-Procedural Eval Section A Date of Service: 09/03/23 The patient is an INPATIENT: Yes The History & Physical has been completed within 30 days and I have reviewed it.: Yes Section B Chief Complaint: Morbid (severe) obesity due to excess calories Relevant Family History (Specify if Yes): No Relevant Social History: None Present Medications: None Medical History: No relevant PMH History of Previous Operations: Relevant previous surgery/procedure and date(s) (Laparoscopic sleeve gastrectomy) Allergies: Allergies Allergy/AdvReac Type Severity Reaction Status Date / Time moxifloxacin [From Avelox] Allergy Severe Anaphylaxis Verified 08/30/23 10:30 codeine Allergy Mild ITCHY Verified 08/30/23 10:30 AVALAX Allergy Severe Anaphylaxis Uncoded 08/26/23 12:31 POLLEN Allergy Mild Runny Nose Uncoded 08/30/23 10:30 Review of Systems Sugical H&P ROS: Negative: Constitution, Cardiovascular, Respiratory, Neurological, Psychiatric, Hem-Onc, Allergic/Immunologic, Gastrointestinal, Genitourinary, Musculoskeletal, Integumentary, Endocrine and Eyes/Ears/Nose/Throat Exam Surgical H&P Exam: Normal: HEENT, Normal: Heart, Normal: Lungs, Normal: Extremities, Normal: Abdomen, Normal: Skin and Normal: Neurological Plan Diagnosis/Plan: Unchanged I have reviewed the history and physical and performed a pertinent physical examination on my patient. No changes have occurred unless specified. Time Spent With Patient Time: Total time managing care of this patient today ____ minutes.
--- NOTE | 2023-09-07 09:42 | HO.ANESPROP2 ---
Documented by User: Moni Galarza NP 09/07/23 09:52 HPI - Anesthesia Eval Consult details Narrative: 63yo F for Revision Sleeve Gastrectomy to a Gastrectomy Sleeve-EGD, possible diaphragmatic hernia, possible ventral hernia, possible open s/p cerebral aneurysm stent 09/2022 - plavix and asa. Stable at last neurology office visit and ok to hold thinners PONV EKG to be updated DOS PMFSH Active Problems Active Problems: All Active Problems (Updated 08/30/23 @ 10:48 by Alyse Stevens, RN) BMI 39.0-39.9,adult (Acute) Obesity (Acute) Hyperlipidemia (Acute) Prediabetes (Acute) Chronic lower back pain (Acute) Hiatal hernia (Acute) Generalized anxiety disorder (Acute) Pre-op evaluation (Acute) Anxiety and depression (Acute) Vertigo (Acute) Rheumatoid arthritis (Acute) Fibromyalgia (Acute) S/P laparoscopic sleeve gastrectomy (Acute) GERD (gastroesophageal reflux disease) (Acute) Sleep apnea (Acute) Morbid obesity (Acute) Lower extremity edema (Acute) Obstructive sleep apnea on CPAP (Acute) Aneurysm (Acute) Past Medical History Medical History (Updated 09/08/23 @ 08:35 by Massimo Livingston MD) Hx of migraine headaches Environmental and seasonal allergies PONV (postoperative nausea and vomiting) Lower extremity edema Obstructive sleep apnea on CPAP Aneurysm Family History Family History Mother No problems noted. Father AA (alcohol abuse) Brother No problems noted. Sister No problems noted. Brother No problems noted. Brother No problems noted. Daughter Autoimmune disease Daughter Autoimmune disease Surgical History Surgical History (Updated 09/08/23 @ 08:56 by Mahsa Morataya) H/O gastric sleeve S/P cerebral aneurysm operation History of surgery for cerebral aneurysm Hx of hand surgery Hx of colonoscopy Hx of foot surgery Hx of knee surgery Hx of appendectomy Hx of hysterectomy Social History Social History (Updated 08/30/23 @ 10:44 by Alyse Stevens, PAOLA) Household Members: Spouse Housing: House Are you a primary career center director to a significant other at home: No Do you presently have visiting nurse or other home services: No Alcohol intake: never Patient Tobacco Use Status: Former Tobacco user Quit Date: 2015 Tobacco use type: Cigarette Use of substances other than those prescribed or required for medical reasons: No Have you been hit, kicked, punched, or otherwise hurt by someone within the past year? If so, by whom?: No Are you DNR?: No Advance Directives: No Advance Directives Information Provided: Yes Advance Directives on File: No Recently lost weight without trying: No Current occupational status: disabled Meds Allergies Allergy/AdvReac Type Severity Reaction Status Date / Time moxifloxacin [From Avelox] Allergy Severe Anaphylaxis Verified 09/08/23 07:55 codeine Allergy Mild ITCHY Verified 09/08/23 07:55 AVALAX Allergy Severe Anaphylaxis Uncoded 09/08/23 07:55 POLLEN Allergy Mild Runny Nose Uncoded 09/08/23 07:55 Home Medications Medication Instructions Recorded Confirmed Last Taken Type omeprazole 40 mg capsule,delayed 40 mg PO BID 03/24/22 09/08/23 09/01/23 History release fluoxetine 40 mg capsule (Prozac) 40 mg PO DAILY 06/28/22 09/08/23 09/07/23 History furosemide 40 mg tablet (Lasix) 40 mg PO Q OTHER DAY 06/28/22 09/08/23 09/06/23 History aspirin 81 mg tablet,delayed 81 mg PO DAILY 11/22/22 09/08/23 09/01/23 History release clopidogrel 75 mg tablet (Plavix) 75 mg PO DAILY 11/22/22 09/08/23 09/01/23 History albuterol sulfate 90 mcg/actuation 2 puff inhalation Q4-6H PRN 06/20/23 09/08/23 08/10/22 History aerosol inhaler (Ventolin HFA) Shortness Of Breath Or Wheezing abatacept 125 mg/mL subcutaneous 125 mg subcut QWEEK 07/04/23 09/08/23 08/29/23 10:00 History auto-injector (Orencia ClickJect) gabapentin 800 mg tablet 400 mg PO TID PRN Pain 07/04/23 09/08/23 09/03/23 History lorazepam 0.5 mg tablet 0.5 mg PO TID PRN Anxiety 07/04/23 09/08/23 09/08/23 03:00 History oxycodone 5 mg tablet 5 - 10 mg PO TID PRN Pain 08/30/23 09/08/23 09/01/23 History Exam Height,Weight and Vital Signs: Height 5 ft 3 in Weight 101.605 kg Pertinent Lab Results Pertinent Lab Results: Laboratory Tests 08/31/23 13:24 Blood Type O Positive Antibody Screen NEGATIVE Laboratory Tests 08/31/23 08/31/23 13:19 Unknown WBC 8.0 Hgb 12.8 Hct 39.1 Plt Count 251 Sodium 140 Potassium 3.6 Chloride 104 Carbon Dioxide 29 BUN 19 H Creatinine 0.87 Assessment and Plan Assessment Anesthesia Assessment: Chart Reviewed Documented by User: Cecy Campbell MD 09/08/23 09:30 PMFSH Past Medical History Medical History (Updated 09/08/23 @ 08:35 by Massimo Livingston MD) Hx of migraine headaches Environmental and seasonal allergies PONV (postoperative nausea and vomiting) Lower extremity edema Obstructive sleep apnea on CPAP Aneurysm Family History Family History Mother No problems noted. Father AA (alcohol abuse) Brother No problems noted. Sister No problems noted. Brother No problems noted. Brother No problems noted. Daughter Autoimmune disease Daughter Autoimmune disease Surgical History Surgical History (Updated 09/08/23 @ 08:56 by Mahsa Morataya) H/O gastric sleeve S/P cerebral aneurysm operation History of surgery for cerebral aneurysm Hx of hand surgery Hx of colonoscopy Hx of foot surgery Hx of knee surgery Hx of appendectomy Hx of hysterectomy History of Problems with Anesthesia: No Social History Social History (Updated 08/30/23 @ 10:44 by Alyse Stevens RN) Household Members: Spouse Housing: House Are you a primary career center director to a significant other at home: No Do you presently have visiting nurse or other home services: No Alcohol intake: never Patient Tobacco Use Status: Former Tobacco user Quit Date: 2015 Tobacco use type: Cigarette Use of substances other than those prescribed or required for medical reasons: No Have you been hit, kicked, punched, or otherwise hurt by someone within the past year? If so, by whom?: No Are you DNR?: No Advance Directives: No Advance Directives Information Provided: Yes Advance Directives on File: No Recently lost weight without trying: No Current occupational status: disabled Meds Allergies Allergy/AdvReac Type Severity Reaction Status Date / Time moxifloxacin [From Avelox] Allergy Severe Anaphylaxis Verified 09/08/23 07:55 codeine Allergy Mild ITCHY Verified 09/08/23 07:55 AVALAX Allergy Severe Anaphylaxis Uncoded 09/08/23 07:55 POLLEN Allergy Mild Runny Nose Uncoded 09/08/23 07:55 Home Medications Medication Instructions Recorded Confirmed Last Taken Type omeprazole 40 mg capsule,delayed 40 mg PO BID 03/24/22 09/08/23 09/01/23 History release fluoxetine 40 mg capsule (Prozac) 40 mg PO DAILY 06/28/22 09/08/23 09/07/23 History furosemide 40 mg tablet (Lasix) 40 mg PO Q OTHER DAY 06/28/22 09/08/23 09/06/23 History aspirin 81 mg tablet,delayed 81 mg PO DAILY 11/22/22 09/08/23 09/01/23 History release clopidogrel 75 mg tablet (Plavix) 75 mg PO DAILY 11/22/22 09/08/23 09/01/23 History albuterol sulfate 90 mcg/actuation 2 puff inhalation Q4-6H PRN 06/20/23 09/08/23 08/10/22 History aerosol inhaler (Ventolin HFA) Shortness Of Breath Or Wheezing abatacept 125 mg/mL subcutaneous 125 mg subcut QWEEK 07/04/23 09/08/23 08/29/23 10:00 History auto-injector (Orencia ClickJect) gabapentin 800 mg tablet 400 mg PO TID PRN Pain 07/04/23 09/08/23 09/03/23 History lorazepam 0.5 mg tablet 0.5 mg PO TID PRN Anxiety 07/04/23 09/08/23 09/08/23 03:00 History oxycodone 5 mg tablet 5 - 10 mg PO TID PRN Pain 08/30/23 09/08/23 09/01/23 History Exam Airway Mallampati Class: III TM Dist: >3cm Neck ROM: Full Loose/Missing/Broken Teeth: No Heart: RRR Lungs: CTA Assessment and Plan Final Anesthetic Review History of Problems with Anesthesia: No NPO: Yes ASA Class: III Final Preanesthetic Review: Meds/Allgs Chart Reviewed, Consent Obtained/Reviewed and Anes Risks/Benef Reviewed Patient Risk: Intermediate Procedure Risk: Intermediate Anesthetic Plan Anesthetic Plan: GA Disposition: Standard PACU
[2023-09-08] VITALS (15 sets, daily range): BP systolic 91–127; BP diastolic 44–72; PULSE 66–94; RESP 16–20; TEMP 36.1–36.8; O2SAT 93–98; BMI 39.6
--- NOTE | ~2023-09-08 | US_ITS ---
EXAMINATION: US VENOUS ULTRASOUND WITH DOPPLER LOWER EXTREMITY, RIGHT CLINICAL INFORMATION: Palpable tender lump in the right lower lobe patient on anticoagulation COMPARISON: None available. TECHNIQUE: Ultrasound of the deep veins is performed from the hip to the calf with compression sonography and color and pulse Doppler assessment. Spectral analysis with color-flow imaging is performed. FINDINGS: There is normal venous compression and respiratory variation and augmented flow. The visualized common femoral vein, superficial femoral vein, profunda femoral vein, popliteal vein, and the trifurcation region shows no evidence of deep venous thrombosis. There is no significant popliteal fossa cyst. The area of palpable lump posterior to the mid calf revealed small hypoechoic area with central anechoic region, measured 1.3 x 0.6 x 1.4 cm consistent with the appearance of incompletely resolved hematoma If the patient's symptoms persist, followup ultrasound in 5 days 7 days might be of value to exclude proximal propagation from a non-visualized calf vein. US/US venous duplex LE RT IMPRESSION: No DVT demonstrated in the right lower extremity.
--- NOTE | 2023-09-08 07:07 | ECG_ITS ---
Test Reason : preop Blood Pressure : / mmHG Vent. Rate : 064 BPM Atrial Rate : 064 BPM P-R Int : 152 ms QRS Dur : 080 ms QT Int : 414 ms P-R-T Axes : 036 009 042 degrees QTc Int : 427 ms Normal sinus rhythm Low voltage QRS Nonspecific ST and T wave abnormality Abnormal ECG When compared with ECG of 26-MAY-2022 11:32, No significant changes seen Referred By: Massimo Livingston Electronically Signed By:VERITO REYES MD
--- OUTSIDE RECORDS SUMMARY | 2023-09-08 07:36 | XMS_ITS | Continuity of Care Document ---
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 Name Role Phone Rachell LAM, Liu Rivera Primary Care Physician Encounter [facility] Date(s): 08/02/23 - 09/01/[address] [address]- Allergies, Adverse Reactions, Alerts Substance Reaction Severity Status codeine Itchy Active Effexor Active Contrast Dye 1, 2 Active Avelox Active 1per pt not oral contrasst, was IV injection RG 05/06/23 2Oral contrast dye, swelling of face/eyes Immunizations Given and Recorded Vaccine Date Status Refusal Reason SARS-CoV-2 mRNA ([id number]) vax 01/19/22 Recorded SARS-CoV-2 (COVID-19) mRNA-1273 vaccine 06/16/21 R ecorded SARS-CoV-2 (COVID-19) mRNA-1273 vaccine 12/03/20 R ecorded SARS-CoV-2 (COVID-19) mRNA-1273 vaccine 11/05/20 R ecorded Medications aspirin 81 mg oral delayed release tablet 81 mg, 1, tablet, By Mouth, Daily, Take 5 days prior to the procedure, # 30 tablet, Refills 1, Tot.Refills 1, Maintenance, 05/10/23 9:54:00 EDT, Route to Pharmacy Electronically, [facility],Partial fill upon patient request if the [...] Refills, Maintenance, 05/10/23 9:55:00 EDT, Tablet, [facility], Partial fill upon patient request if [...] Refills, Maintenance, 05/10/23 9:56:00 EDT, Tablet, [facility], Partial fill upon patient request if [...] DAYS., # 60 capsule, 3 Refills, [facility], 163, cm, 01/13/21 11:27:00 EDT, Height, [...] 9:54:00 EDT, Route to Pharmacy Electronically, [facility],Partial fill upon patient request if the [...] Team Personnel Name: Tiffanie Tamayo RN Position: [facility] RN Member Role: Primary Care Nurse Name: Bebo Diaz MD Position: [facility] Physician (General Medicine) Member Role: Lifetime Consulting Physician Address: Address: [address] [place] [address] Name: Perla Paulino RN Position: [facility] RN Member Role: Primary Care Nurse Name: Nicky Ross RN Position: [facility] RN Member Role: Primary Care Nurse Name: Alice Le RN Position: [facility] RN Member Role: Primary Care Nurse Name: Carolee Mendez RN Position: [facility] RN Supv Member Role: Primary Care Nurse Name: Bryanna Rolon RN Position: [facility] RN Member Role: Primary Care Nurse Name: Sara aMk RN Position: [facility] RN Member Role: Primary Care Nurse Name: Pollo Lopez RN Position: [facility] RN Member Role: Primary Care Nurse Name: Liu Lovett MD Position: [facility] Physician - Primary Care Member Role: PCP Address: Address: [address] [place] [id number] Name: Celia Simpson RN Position: [facility] RN Member Role: Primary Care Nurse Name: Colby Denny RN Position: [facility] RN Member Role: Primary Care Nurse Care Team Related Persons Name: SAMEER MORGAN Address: home [address] [place] [address] Name: JOHNNY PUCKETT Address: home [address] [place] [address] Name: SAMEER SCHAEFER Address: home [address] [place] [address]
--- OUTSIDE RECORDS SUMMARY | 2023-09-08 07:37 | XMS_ITS | Continuity of Care Document ---
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 Attending Physician: Yara LAM , Massimo Admitting Physician: Yara LAM , Massimo Referring Physician: Yara LAM , Massimo Allergies, Adverse Reactions, Alerts Substance Reaction Severity Status codeine Itchy Active Effexor Active Avelox Active Contrast Dye 1, 2 Active 1per pt not oral contrasst, was IV injection RG 05/06/23 2Oral contrast dye, swelling of face/eyes Immunizations Given and Recorded Vaccine Date Status Refusal Reason SARS-CoV-2 mRNA ([id number]) vax 01/19/22 Recorded SARS-CoV-2 (COVID-19) mRNA-1273 vaccine 06/16/21 R ecorded SARS-CoV-2 (COVID-19) mRNA-1273 vaccine 12/03/20 R ecorded SARS-CoV-2 (COVID-19) mRNA-1273 vaccine 11/05/20 R ecorded Medications aspirin 81 mg oral delayed release tablet 81 mg, 1, tablet, By Mouth, Daily, Take 5 days prior to the procedure, # 30 tablet, Refills 1, Tot.Refills 1, Maintenance, 05/10/23 9:54:00 EDT, Route to Pharmacy Electronically, [facility],Partial fill upon patient request if the [...] Refills, Maintenance, 05/10/23 9:55:00 EDT, Tablet, [facility], Partial fill upon patient request if [...] Refills, Maintenance, 05/10/23 9:56:00 EDT, Tablet, [facility], Partial fill upon patient request if [...] DAYS., # 60 capsule, 3 Refills, [facility], 163, cm, 01/13/21 11:27:00 EDT, Height, [...] 9:54:00 EDT, Route to Pharmacy Electronically, [facility],Partial fill upon patient request if the [...] List Condition Confirmation Course Effective Dates Status [facility] Informant Aneurysm of intracranial portion [...] Team Personnel Name: Tiffanie Tamayo RN Position: [facility] RN Member Role: Primary Care Nurse Name: Bebo Diaz MD Position: [facility] Physician (General Medicine) Member Role: Lifetime Consulting Physician Address: Address: [address] [place] [address] Name: Perla Paulino RN Position: [facility] RN Member Role: Primary Care Nurse Name: Nicky Ross RN Position: S RN Member Role: Primary Care Nurse Name: Alice Le RN Position: S RN Member Role: Primary Care Nurse Name: Carolee Mendez RN Position: [facility] RN Supv Member Role: Primary Care Nurse Name: Bryanna Rolon RN Position: [facility] RN Member Role: Primary Care Nurse Name: Sara Mak RN Position: [facility] RN Member Role: Primary Care Nurse Name: Plolo Lopez RN Position: [facility] RN Member Role: Primary Care Nurse Name: Liu Lovett MD Position: [facility] Physician - Primary Care Member Role: PCP Address: Address: [address] [place] [id number]- Name: Celia Simpson RN Position: [facility] RN Member Role: Primary Care Nurse Name: Colby Denny RN Position: [facility] RN Member Role: Primary Care Nurse Care Team Related Persons Name: SAMEER MORGAN Address: [address] [place] [address] Name: JOHNNY PUCKETT Address: home [address] [place] [place] [address] Name: SAMEER SCHAEFER Address: home [address] [place] [address]
[2023-09-08] MEDS: Aprepitant 32 MG/4.4 ML VIAL IVPUSH (08:15)
[2023-09-08] MEDS: Lactated Ringers 1,000 ML 100 ML IVCONT ×3 (08:26→21:08)
--- NOTE | 2023-09-08 08:29 | P.BOP_ITS ---
Brief Operative Note Date of Service: 09/08/23 Pre-op diagnosis: Severe obesity and comorbidities (see below) Post-op diagnosis: same (Dense and extensive adhesions at an extremely unusual extent) Procedure: INITIAL PATIENT BMI ON PRESENTATION AT OUR OFFICE: 45.4 kg/m2 LAST BMI BEFORE SURGERY: 39.5 kg/m2 COMORBIDITIES: sleep apnea on CPAP, GERD, diaphragmatic hernia, liver fibrosis, lower extremity edema, prediabetes, hyperlipidemia, depression, anxiety, history of left internal carotid artery aneurysm ?The patient presented to the Weight Management Program with significant obesity that was negatively impacting the patient's comorbidities as listed above.? The program is a phased program with a special focus on preoperative medical weight management to promote substantial weight loss and prepare the patients for the second phase of the program: bariatric surgery. The patient participated in an intensive weekly lifestyle ?intervention and exercise program during which the patient ?has lost between the initial office visit and the last preoperative visit 33.2lbs, or 12.97% of initial actual body weight. It was deemed appropriate for the patient to now have bariatric surgery. In light of the current Covid-19 pandemic and the well documented strong association of obesity and increased risk of worse outcomes if infected with Covid-19 (REFERENCES: https://pubmed.ncbi.nlm.nih.gov/11150944/ ,? https://pubmed.ncbi.nlm.nih.gov/08823194/ ), any delay in undergoing bariatric surgery may lead to the patient's worsening health condition and increased?risk of more severe Covid-19 disease if infected. In addition a recent?study from [facility] published in [facility] on 10/05/2021 ([email or web address]) found that, among patients with obesity, substantial weight loss achieved with surgery was associated with improved outcomes of COVID-19 infection. The findings suggest that obesity can be a modifiable risk factor for the severity of COVID-19 infection. In addition, the patient met the BMI-criteria for bariatric surgery based on the BMI on initial presentation. The patient should not be penalized for achieving such weight loss because ?it is not sustainable long-term without surgical intervention and it was achieved in preparation for bariatric surgery ?under my direction and based on my published research ([email or web address]).[email or web address] and? https://www.soard.org/article/[email or web address](78)22330-X/pdf ) ?that a 10% preoperative weight loss improves long-term weight loss after surgery and reduces perioperative complications.? Insurance carriers such as [facility] have endorsed my recommendations ?and have included in their policies criteria to include a 10% preoperative weight loss requirement. PROCEDURE: Esophago-gastroscopy, extensive laparoscopic lysis of adhesions, laparoscopic sleeve gastrectomy and laparoscopic gastropexy. UNIQUELY DIFFICULT LYSIS OF ADHESIONS THAT TOOK OVER 2.5 HOURS TO COMPLETE. INDICATIONS: This is a 63 year-old female who was electively scheduled for laparoscopic, possibly open sleeve gastrectomy revision. The patient has a previous sleeve gastrectomy with . Preoperative work-up including an UGI and EGD is suggestive of a very large proximal pouch of retained gastric fundus as well as incomplete distal antral resection. The objective of this operation is to redo the sleeve. The risks and complications of the procedure were discussed with the patient in advance, particularly the possibility of ; pulmonary embolism; staple line leak; bleeding; GERD; cardiac, pulmonary, or renal complications; as well as long-term problems such as insufficient weight loss, vitamin deficiency, strictures, or ulcers. The patient understood all the risks, and was in agreement to proceed with surgery. DESCRIPTION OF PROCEDURE: After informed consent was obtained from the patient, the patient was given preoperative antibiotics, and was transferred to the operating room. After successful induction of general anesthesia, pneumatic compression devices were placed on both lower extremities. An upper endoscopy was performed next. The oropharynx and esophagus appeared to be within normal limits. There was no significant diaphragmatic hernia present consistent with the findings of the preoperative upper GI. The stomach was entered. Then after all fluid and air were suctioned and the stomach was fully decompressed, the scope was withdrawn and secured in the mid esophagus. The patient was then prepped and draped in the usual sterile manner, and abdominal access was established at the right upper quadrant with the Cherie technique. A 12 mm blunt port was inserted, and the abdomen was insufflated with CO2 to a pressure of 15 mmHg. Under direct visualization, additional ports were placed, specifically two 5 mm Versi-step ports to the left upper quadrant, and a 5 mm Versi-Step port to the right upper quadrant. 1% lidocaine plain was used to infiltrate all port sites as well as all fascia defects. Following that, the patient was placed in a steep reverse Trendelenburg position. An additional 5 mm port was placed but a liver rretractor was not required as the liver was densely adherent to the anterior abdominal wall and it was self retracted. Using the EndoClose suture passer device, I placed a #1 Polysorb tie across the falciform ligament in order to retract it up against the abdominal wall and prevent injury of the ligament with our instruments during the procedure. There were extensive adhesions in the abdomen from previous sleeve gastrectomy involving the left lobe of the liver, the omentum and the anterior abdominal wall. The entire lesser omentum was densleyl adherent to the undersurface of the left lobe of the liver. This is highly unusual after sleeve gastrectomy. Those required tedious and extensive dissection. were with the ultrasonic device ([employer], [employer]). Despite this I was not able to see clearly the right jennifer or the vena cava or the caudate liver lobe. Also I was no able to see clearly the anterior part of the hiatus. It is unclear what exactly happened to the original sleeve astrectomy surgery and led to such extensive and dense adhesions, I then opened the gastrocolic ligament between the transverse colon and the greater curvature of the stomach with the ultrasonic device to enter the lesser sac. This was very difficult as there were dense adhesions from previous sleeve gastrectomy. That was highly unusual. The posterior gastric wall was attached to the pancreas and extensive and tedious dissection was required to free the stomach. The dissection continued all the way to the angle of His until the left jennifer was completely dissected at its entirety. The previous surgeon did not dissect adequately posterior leaving short gastric vessels? which resulted in a much larger proximal stomach which was confirmed bt preoperative UGI and EGD. These posterior short gastric vessels were ligated as well as other posterior attachments that were not divided originally. As a result there was a large part of the gastric fundus that was left unresected at the original operation which was densely adherent to the spleen. Separation was extremely difficult and highly dangerous. Nevertheless, I was able to separate the stomach from the s pleen without any inadvertent injuries or bleeding. This allowed us to mobilize the stomach completely and appreciate the amount of stomach that was inappropriately left unresected at the original operation.? Adhesiolysis took approximately 2.5 hours with a total operative time of 3 hours and 10 minutes. The angle of His was opened with the ultrasonic device the fundus of the stomach from any diaphragmatic and splenic attachments. The stomach was then divided transversely with one Endo TEMO-45 purple load and one endo TEMO-60 purple load using the SIGNIA stapler and loads. Every effort was made that the gastric sleeve had a tubular shape and an even caliber throughout. An endoscopy was performed before the first and second fire to ensure that I did not narrow the gastro-esophageal junction. Once the sleeve resection was completed, the staple line of the gastric sleeve was reinforced with Hemoclips. The resected stomach was retrieved without difficulty from the Cherie port. A gastropexy was then performed in order to prevent postoperative GERD and partial gastric volvulus. Several interrupted 2.0 Surgidac sutures were placed between the sleeve's staple line and the previously divided greater omentum and gastro-colic ligament using the Endo-Stitch device. ?An upper endoscopy was performed. There was no narrowing at the GE junction. The scope was easily advanced all the way to the pylorus which was clearly visualized. There was no narrowing anywhere and the sleeve's caliber was even throughout. The sleeve's staple line was inspected and there was no evidence of ischemia, bleeding or dehiscence. At that point the gastroscope was withdrawn from the patient?s mouth while we were decompressing the bowel and the stomach from any remaining air. I looked into the lesser sac to see how the sleeve was situating and it was situating well. There was no bleeding from the staple line, spleen, or short gastric vessels. The Mediflex retractor was removed, and the undersurface of the liver was inspected and there was no bleeding. The patient was placed in supine position. I closed the fascial defect of the 12 mm port site with a figure of eight #1 Polysorb suture. Then 30cc Ropivacaine plain with 10 mg of Dexamethasone were used to infiltrate the fascial closure as well as all skin incisions. A total of 7ml of Zynrelef was used at the Cherie port site. At this point, the abdomen was deflated, all ports were removed under direct vision, and no bleeding was noted from any of the port sites. The skin incisions were irrigated with saline and were closed with 4-0 absorbable monofilament sutures. Steri-Strips and OpSites were used to cover all incisions. The patient was extubated and was transferred in stable condition to the recovery room for further care. I was present and performed all avila parts of the procedure. Maxi Mayen was the therapeutic recreation assistant. There were no residents to assist with this case. Gurjit Livingston MD, PhD, FACS Surgeon: Massimo Livingston MD Anesthesia: GETA, local and other (TAP block and 7ml Zynrelef) Was an Coding File Clerk used for this Procedure?: No Coding File Clerk: Kiran Mayen Estimated blood loss (mL): 10 Urine output (mL): 2,700 Pathology: other (Stomach) Condition: stable Disposition: PACU
--- NOTE | 2023-09-08 08:34 | P.PNGS_ITS ---
Subjective Subjective Date of Service: 09/09/23 Interval history: Feels well. Mild incisional pain. She is tolerating phase 1 bariatric diet Physical Exam 2 Vital Signs: Vital Signs: Last Vital Signs Temp 97.4 F 09/08/23 08:28 Pulse 66 09/08/23 08:28 Resp 16 09/08/23 08:28 BP 103/54 L 09/08/23 08:28 Pulse Ox 96 09/08/23 08:28 O2 Del Method Room Air 09/08/23 08:28 BMI result Body Mass Index 39.6 GI: Inspection: Yes normal to inspection, Yes incision (clean, dry and intact) and Yes obesity Palpation (GI): Soft to palpation Extrem: Right lower extremity: normal to inspection (no calf tenderness) L eft lower extremity: normal to inspection (no calf tenderness) Objective Data Active Medications Lactated Ringer's (Lr) 1,000 mls @ 100 mls/hr IVCONT .Q10H [facility] Last Admin: 09/08/23 08:26 Dose: 100 mls/hr Documented By: AMY Lactated Ringer's (Lr) 1,000 mls @ 999 mls/hr IV .Q1H1M [facility] Stop: 09/08/23 09:15 Labs 09/08/23 13:18 09/08/23 13:18 Procedures Date of Service Date of Service: 09/09/23 Progress Note: A&P Assessment and plan (1) Obesity: Status: Acute Assessment and Plan: s/p laparoscopic sleeve gastrectomy, lysis of adhesions and gastropexy Doing well Will check am labs and if OK the patient will be discharged home (2) BMI 39.0-39.9,adult: Status: Acute (3) Hyperlipidemia: Status: Acute (4) Prediabetes: Status: Acute (5) Hiatal hernia: Status: Acute (6) Generalized anxiety disorder: Status: Acute (7) Anxiety and depression: Status: Acute (8) Rheumatoid arthritis: Status: Acute (9) S/P laparoscopic sleeve gastrectomy: Status: Acute (10) GERD (gastroesophageal reflux disease): Status: Acute (11) Obstructive sleep apnea on CPAP: Status: Acute (12) Lower extremity edema: Status: Acute (13) Aneurysm: Status: Acute (14) Liver fibrosis: Status: Acute (15) Intra-abdominal adhesions: Status: Acute Time Spent With Patient Time: Total time managing care of this patient today ____ minutes. Quality Stroke Does the patient have a stroke diagnosis?: No VTE Prior VTE?: No VTE Risk Level:: Surgical - moderate VTE Device Contraindication: N/A - Device Ordered VTE Drug Contraindication: Treatment Not Indicated
--- NOTE | 2023-09-08 13:03 | P.DS_ITS ---
DS: Providers Provider Date of Service: 09/09/23 Date of admission: 09/08/23 07:29 Primary care physician: Liu Lovett MD DS: Diagnosis Discharge Diagnosis (1) Obesity: Status: Acute (2) BMI 39.0-39.9,adult: Status: Acute (3) Hyperlipidemia: Status: Acute (4) Prediabetes: Status: Acute (5) Hiatal hernia: Status: Acute (6) Generalized anxiety disorder: Status: Acute (7) Anxiety and depression: Status: Acute (8) Rheumatoid arthritis: Status: Acute (9) S/P laparoscopic sleeve gastrectomy: Status: Acute (10) GERD (gastroesophageal reflux disease): Status: Acute (11) Obstructive sleep apnea on CPAP: Status: Acute (12) Lower extremity edema: Status: Acute (13) Aneurysm: Status: Acute (14) Liver fibrosis: Status: Acute DS: Summary Hospital Course Hospital Course: ADMITTING DIAGNOSIS: obesity, GERD, RA, TOMASA, Fibromyalgia, HLD, anxiety, depression, Hx cerebral aneurysm ? DISCHARGE DIAGNOSIS: same, s/p revision of previous laparoscopic sleeve gastrectomy and extensive lysis of adhesions ? PAST SURGICAL HISTORY: LSG, cerebral aneurysm stenting, appendectomy, hysterectomy, hand surgery ? PROCEDURE: upper endoscopy, revision of previous laparoscopic sleeve gastrectomy, gastropexy and extensive lysis of adhesions ? DISCHARGE SUMMARY: ? History of Present Illness: ? The patient is a?63 year-old woman with a BMI of?45.3 kg/m2 and associated co- morbidities as described above. The patient had extensive work-up,lost?32.5 lbs preoperatively and was electively scheduled for revision of previous laparoscopic sleeve gastrectomy and gastropexy. Risks and complications of the surgery were discussed with the patient in advance, particularly the possibility of , pulmonary embolism, anastomotic leak, bleeding, bowel injury, GERD, cardiac, renal or pulmonary complications. The patient understood all the risks and was in agreement with the surgical plan. ? Hospital Course: ? The patient underwent an uneventful laparoscopic revision of previous laparoscopic sleeve gastrectomy with gastropexy and extensive lysis of adhesions on the day of admission. Postoperatively, the patient was transferred to the surgical floor. The patient received IV Acetaminophen and IV dilaudid for pain control. Patient was started on bariatric phase 1 diet POD #0. On postoperative day one, the patient was feeling well without nausea, vomiting, fevers, or tachycardia. The patient had some mild incisional pain and the abdomen was soft. ? On the morning of postoperative day one, the patient was continued on 1 ounce of water or ice every half hour. During the day, the patient did fairly well, having some incisional pain, but able to ambulate adequately and to tolerate liquids well. ? Since the patient is doing well, we decided that the patient was ready to be discharged. The patient was given instructions to follow-up with me next week and to call my office for any fever over 101, persistent abdominal pain, nausea, vomiting, GERD, symptoms of DVT such as calf tenderness, or leg swelling, or pulmonary embolism such as chest pain or shortness of breath. The patient was also instructed to drink 40-60 ounces of liquids per day using the 1-ounce cups. The patient had been given prescriptions for Tylenol for pain, Zofran prn for nausea, and pantoprazole and carafate previously. The patient was encouraged to ambulate and use the incentive spirometer. The patient was allowed to shower, but no baths, and encouraged to stay active at home. All of these instructions were given to the patient personally. All questions were answered and the patient understood all instructions, the instructions were also given to the patient in print. Time Attestation Discharge coordination time: Less than 30 minutes Quality: Safe Use of Opioids Does Pt have an Active Cancer Diagnosis on the Problem List?: No Quality: Stroke Does the patient have a stroke diagnosis?: No Physical Exam Vital Signs: Vital Signs: Last Vital Signs Temp 97.4 F 09/08/23 08:28 Pulse 66 09/08/23 08:28 Resp 16 09/08/23 08:28 BP 103/54 L 09/08/23 08:28 Pulse Ox 96 09/08/23 08:28 O2 Del Method Room Air 09/08/23 08:28 BMI result Body Mass Index 39.6 DS: Data Data Completed and Pending Pending studies at discharge: Pending at discharge 09/08/23 12:10 Surgical [PTH] Routine Discharge Plan Discharge Anticipated Discharge Date/Time: 09/09/23 10:00 Patient Disposition: Home, Self-Care Discharge Diagnosis: s/p laparoscopic revision of previous laparoscopic sleeve gastrectomy and extensive lysis of adhesions Referrals: Liu Lovett MD [Primary Care Provider] - 1 Week Discharge Medications: Continued atorvastatin 80 mg tablet 80 mg PO DAILY albuterol sulfate [Ventolin HFA] 90 mcg/actuation HFA aerosol inhaler 2 puff inhalation Q4-6H PRN (Reason: Shortness Of Breath Or Wheezing) lorazepam 0.5 mg tablet 0.5 mg PO TID PRN (Reason: Anxiety) fluoxetine [Prozac] 40 mg capsule 40 mg PO DAILY pantoprazole 40 mg tablet,delayed release (DR/EC) 40 mg PO DAILY Qty: 30 2RF sucralfate 100 mg/mL suspension 10 ml PO BID Qty: 400 2RF ondansetron 4 mg tablet,disintegrating 4 mg PO Q12H Qty: 20 0RF Rx Instructions: Only take one every 12 hours as needed if you have nausea Held oxycodone 5 mg Tablet 5 - 10 mg PO TID PRN (Reason: Pain) Hold Instructions: until discussed with Dr Livingston clopidogrel [Plavix] 75 mg tablet 75 mg PO DAILY Hold Instructions: Resume on 09/16/23. aspirin 81 mg tablet,delayed release (DR/EC) 81 mg PO DAILY Hold Instructions: Resume on 09/16/23. Orencia ClickJect 125 mg/mL auto-injector 125 mg subcut QWEEK Hold Instructions: hold for one month gabapentin 800 mg tablet 400 mg PO TID PRN (Reason: Pain) Hold Instructions: Resume on 09/16/23. furosemide [Lasix] 40 mg tablet 40 mg PO Q OTHER DAY Hold Instructions: until discussed with Dr Livingston Discontinued omeprazole 40 mg capsule,delayed release(DR/EC) 40 mg PO BID sucralfate [Carafate] 1 gram tablet 1 g PO QIDACHS Qty: 120 3RF Discharge Orders: Discharge Order (Routine); Ordered 09/09/23 Ordered By: Massimo Livingston Activity on Discharge: No heavy lifting Stand Alone Forms: Patient Portal Discharge page Care Plan Goals: weight loss Health Concerns: obesity Plan of Treatment: No tub baths, sex or returning to work until discussed at first post op appointment. No exercise, alcohol, tobacco or illegal drug use. Continue to use incentive spirometer hourly while awake. Walk in home for 5- 10 minutes every 2 hours during the first week. Follow all instructions in the bariatric handbook and call with any questions.Discharge Instructions 1. Please call your doctor or come back to the emergency room should any new symptoms arise. 2. You will receive a courtesy call from [facility] 24-48 hours after discharge. 3. Activity: abstain from alcohol, practice limited stair climbing, no bending, no driving, no exercise, no illicit substances, no lifting, no sex, no tub bath, no work. 4. Diet: continue as discussed with Dr. Livingston. 5. Dressing Change/Wound Care: Your incision is covered by clear bandages and guaze underneath. If the area is tender, you may apply an ice pack for short intervals (no more than 20 minutes on, followed by at least 20 minutes off). Do not apply heat. Do not use creams, lotions, or topical antibiotics unless instructed to do so by your surgeon. These can cause infection or allergic reaction. 6. Call your doctor if: - Your temperature exceeds 101.5 F - You experience excessive pain or swelling - You have an unexpected reaction to medication - You have excessive bleeding - You experience continued vomiting/nausea - Your incision begins to separate - Your incision shows signs of infection such as increased redness, swelling, excessive pain, heat, or drainage (light blood or clear fluid is normal) 7. General instructions: No lifting greater than 5 lbs for 1 week and not more than 20lbs the next 3?weeks. No driving until seen at the office in 5-7 days after surgery. If you do not move your bowels in the next 2 days, please tell?Dr. Livingston. Please walk around your home every hour or two to prevent blood clots from forming in your legs. You do not need to wake from sleeping to walk. Please sleep in a bed or couch to prevent kinking at the hips and knees. Please take your incentive spirometer (your lung final inspection supervisor) home with you and use it for the next few days to prevent pneumonia. You may shower, no hot tubs, baths or swimming pools.?Please follow the post op diet instructions you are?given by Dr Livingston? and text me daily at 5-6pm for an update.?If you have any issues or concerns or questions please communicate this to him via text.? The Celebrate shakes have all of the bariatric vitamins you need if you consume these shakes. If you are drinking other protein shakes, you will need to purchase the Celebrate multivitamins and calcium that are available in the hospital gift shop on the first floor of the main hospital.??Do not take anything without first discussing with Dr Livingston. Please make sure you are consuming at least 40 ounces of fluids per day starting the?day AFTER your discharge from the hospital. Always drink 1-2 ml per minute using the 5ml?syringe. If you drink faster you may experience?bloating,?gas pain, burping, nausea or heartburn. In that case please slow down your pace and use the syringe to?understand better the?proper?pace and volume of drinking. Do not hesitate to contact the office with any questions at . The patient's medical history has been reviewed and they are considered low risk for post op DVT and therefore DVT prophylaxis is not considered necessary. Travel after surgery was reviewed. The patient has not disclosed any travel plans during the first 30 days after surgery and they have been advised that within the first 30 days after surgery any bus, plane, train or car travel over 2 hours in duration is contraindicated due to the possibility of developing blood clots from immobility. Any travel, needs to include periods of ambulation of 10 minutes in duration every 2 hours.? The patient was instructed to discuss any plans for travel during this period with their bariatric surgeon. Assessment: stable s/p laparoscopic revision of previous laparoscopic sleeve gastrectomy and extensive lysis of adhesions
[2023-09-08] MEDS: HYDROmorphone HCl 0.5 MG/0.5 ML SYRINGE 0.25 MG IVPUSH ×2 (13:26→18:27)
[2023-09-08 13:48] LABS: Anion Gap 11 (12-20); Blood Urea Nitrogen 13 mg/dL (9-16); Calcium 8.7 mg/dL (8.4-10.2); Carbon Dioxide 25 mmol/L (22-29); Chloride 105 mmol/L (96-108); Estimated Glomerular Filt Rate > 60; Glucose Random 144 mg/dL (60-115); Sodium 137 mmol/L (135-145)
[2023-09-08] MEDS: Acetaminophen 1,000 MG/100 ML PIGGYBACK 16.7 MG IV ×2 (14:19→20:52)
[2023-09-08] MEDS: ceFAZolin Sodium/Dextrose,Iso 2 GM/50 ML PIGGYBACK IV (14:26)
--- NOTE | 2023-09-08 20:04 | PC.RT ---
Refusing CPAP; states im fine with oxygen . Pt found on RA NC on bed
[2023-09-08] MEDS: LORazepam 0.5 MG TABLET PO (21:00)
[2023-09-08] MEDS: Famotidine/PF 20 MG/2 ML VIAL IVPUSH (21:00)
--- NOTE | 2023-09-08 21:17 | PC.NURSE ---
Addendum entered by Bee Gibbons RN 09/08/23 21:36: patient refused ice pack for now Addendum entered by Bee Gibbons RN 09/08/23 21:26: KRIS Beck responded not being marine resource economist tonightKRIS notified,will apply ice pack as advised Original Note: Patient reported small lump on the back of her Right lower leg,painful on palpation,area around it is slightly bruised,patient noticed it being painful today after surgery,pt is tolerating sequentials stockings,KRIS Beck notified
[2023-09-08] MEDS: oxyCODONE HCl Immed Release 5 MG TABLET PO (23:24)
[2023-09-09] MEDS: Acetaminophen 1,000 MG/100 ML PIGGYBACK 16.7 MG IV ×2 (01:31→06:13)
[2023-09-09 03:28] VITALS: BP 109/61; PULSE 71; RESP 18; TEMP 36.3; O2SAT 97
[2023-09-09] MEDS: Lactated Ringers 1,000 ML 100 ML IVCONT (06:14)
[2023-09-09] MEDS: HYDROmorphone HCl 0.5 MG/0.5 ML SYRINGE 0.25 MG IVPUSH (07:18)
[2023-09-09] MEDS: Famotidine/PF 20 MG/2 ML VIAL IVPUSH (07:18)
[2023-09-09 08:00] VITALS: BP 120/57; PULSE 68; RESP 16; TEMP 36.6; O2SAT 96
[2023-09-09 08:37] VITALS: O2SAT 96
--- NOTE | 2023-09-09 08:53 | MHC.CM.PN ---
IMM DELIVERED. PT FROM HOME WITH , INDEPENDENT. HAS CPAP, SUPPLIES THROUGH [facility]. PCP: ALYSSA GODOY MD HCP: NOT ON FILE, PT REPORTS AGENTS ARE LISTED FOLLOWS : 1) DAUGHTER SAMEER [phone], 2) JOHNNY, COPY REQUESTED DP: MEDICALLY CLEARED FOR DC HOME SELF CARE. DAUGHTER WILL CLOTH BURLER AT 11AM. RN AWARE.
[2023-09-09 08:59] VITALS: BP 118/57; PULSE 69; RESP 16; TEMP 36.8; O2SAT 95
[2023-09-09 09:37] VITALS: BP 105/56; PULSE 97; RESP 18; TEMP 36.8; O2SAT 97
[2023-09-09 10:16] LABS: MANUAL DIFF FLAG NO
[2023-09-09 10:18] LABS: Basophils Percent Auto 0.1 % (0-2); Hematocrit 35.2 % (37.0-47.0); Hemoglobin 11.4 g/dl (12.0-16.0); Imm Gran Abs Auto 0.04 X10*3/uL (0.00-0.03); Imm Gran Pct Auto 0.3 % (0.0-0.4); Lymphocytes Absolute Auto 1.7 X10*3/uL (1.2-4.9); Lymphocytes Percent Auto 14.4 % (20-40); Mean Corpuscular HGB Conc 32.4 g/dl (31.0-35.0); Mean Corpuscular Hemoglobin 28.6 pg (27.0-33.0); Mean Corpuscular Volume 88.4 fL (80.0-98.0); Mean Platelet Volume 10.2 fL (9.4-12.3); Monocytes Percent Auto 8.9 % (2-11); Neutrophils Absolute Auto 8.9 x10*3/uL (2.0-8.3); Neutrophils Percent Auto 76.3 % (45-73); Platelet Count 226 X10*3/uL (160-400); Red Blood Count 3.98 X10*6/uL (4.20-5.50); White Blood Count 11.6 X10*3/uL (4.8-10.8)
[2023-09-09 10:50] LABS: Anion Gap 13 (12-20); Blood Urea Nitrogen 11 mg/dL (9-16); Calcium 8.9 mg/dL (8.4-10.2); Carbon Dioxide 23 mmol/L (22-29); Chloride 109 mmol/L (96-108); Creatinine Clr Calc Pharmacy 104.6; Estimated Glomerular Filt Rate > 60; Glucose Random 89 mg/dL (60-115); Potassium 4.1 mmol/L (3.3-5.1); Sodium 141 mmol/L (135-145)
--- NOTE | 2023-09-09 13:19 | HO.POSTANES ---
Post Anesthesia Evaluation Post Anesthesia Evaluation Date of Service: 09/09/23 Vital Signs: Vital Signs Temp Pulse Resp BP Pulse Ox O2 Del Method O2 Flow Rate 09/09/23 09:37 98.3 F 97 18 105/56 L 97 Nasal Cannula 4.0 09/09/23 08:59 98.2 F 69 16 118/57 L 95 Room Air 09/09/23 08:37 96 Room Air 09/09/23 08:00 97.8 F 68 16 120/57 L 96 Room Air 09/09/23 03:28 97.3 F 71 18 109/61 97 Nasal Cannula 2 Anesthesia: General Endotracheal-GETA Mental Status: Awake Pain Control: Satisfactory Nausea/Vomiting: None Hydration: Adequate Anesthesia-Related Issues: No Anes. Related Issues
== END 2023-09-09 11:00 | disposition home or self-care (01) | DRG 621 ==
LOC: HO.SSSA 13:10 → HO.S3 13:14
PROVIDERS: Physician Assistant Surgical; Admitting Provider Surgery; PCP Family Medicine; Visit Provider Surgery
PROC: 0DB64Z3 Excision of Stomach, Percutaneous Endoscopic Approach, Vertical (ICD-10-PCS; principal; 2023-09-08 08:30)
DX: E66.01 Morbid (severe) obesity due to excess calories (principal); K21.9 Gastro-esophageal reflux disease without esophagitis; M06.9 Rheumatoid arthritis, unspecified; K74.00 Hepatic fibrosis, unspecified; F41.1 Generalized anxiety disorder; F32.A Depression, unspecified; R73.03 Prediabetes; Z68.39 Body mass index [BMI] 39.0-39.9, adult; Z87.891 Personal history of nicotine dependence; Z79.899 Other long term (current) drug therapy
CPT/HCPCS: 36410; 36415; 37242; 71045; 71250; 71260; 74175; 74176; 80048; 80053; 80076; 82150; 82947; 83605; 83690; 83735; 84484; 85014; 85018; 85025; 85027; 85610; 85730; 86850; 86900; 86901; 86923; 88307; 88342; 93005; 93970; 93971; 94640; 94660; 97116; 97162; 99152; 99153; 99285; A4649; C1751; C1769; C9088; C9113; C9145; J0131; J0690; J1100; J1170; J1940; J2250; J2371; J2405; J2543; J2704; J2765; J2795; J3010; J3411; J3420; J3480; J7120; P9016; P9017; P9073; Q9967

== ENCOUNTER → 2023-09-08 07:29 | Outpatient (BNV) | payer MEDICARE, MEDICAID, SELFPAY | PROVIDERS: Admitting Provider Surgery; PCP Family Medicine; Visit Provider Surgery | DX: E66.9 Obesity, unspecified (principal); Z68.39 Body mass index [BMI] 39.0-39.9, adult; K66.0 Peritoneal adhesions (postprocedural) (postinfection); Z90.3 Acquired absence of stomach [part of] | CPT/HCPCS: 43659; 43775 ==

== ENCOUNTER 2023-09-10 07:39 | Inpatient (IN) | payer MEDICARE, SELFPAY ==
[2023-09-10] VITALS (37 sets, daily range): BP systolic 81–128; BP diastolic 31–71; PULSE 82–105; RESP 17–33; TEMP 36.4–36.9; O2SAT 95–100; BMI 45.8
--- NOTE | ~2023-09-10 | IR_ITS ---
PROCEDURE: Splenic artery angiogram and embolization HISTORY/INDICATIONS: Grade 4 splenic laceration with large perisplenic hematoma and active extravasation seen in the lower pole the spleen on cross-sectional imaging. Medications for conscious sedation: The patient received intravenous conscious sedation under my direct supervision. A registered nurse monitored the patient and the patient's vital signs throughout the procedure. The total sedation was 30 minutes. A total of 0.5 mg of Versed and 25 mcg fentanyl was given for good effect. TECHNIQUE/FINDINGS: Informed consent was obtained following a discussion of the risks and benefits of the procedure with the patient. The patient was placed supine on the fluoroscopy table and the bilateral groins were sterilely prepped and draped. Following administration of 1% lidocaine for local anesthesia, a puncture was made into the right common femoral artery with a 21-gauge micropuncture needle under direct ultrasound guidance. The micropuncture needle was exchanged for a transitional dilator over a 0.018 guidewire. The inner dilator and guidewire were removed and a 0.035 guide wire was placed. The outer dilator was then exchanged for a 5 Sudanese vascular sheath. Contrast injected through the sheath demonstrated the puncture site to be above the bifurcation with flow down the leg. A 0.035 angled Glidewire was then negotiated up and over the aortic bifurcation with the assistance of a 4 Sudanese Omni Flush catheter. The Omni flush catheter was then exchanged for a 5 Sudanese Balbuena 1 catheter which was formed on the arch. The Balbuena 1 catheter was then used to select the celiac artery.. A digital subtraction angiogram (DSA) of the celiac artery was performed. There is standard vascular anatomy. No active extravasation or arterial abnormality was identified with attention to the spleen. A 2.4 Sudanese Progreat microcatheter was then used to select the splenic artery over a 0.018 guidewire. Additional angiograms of the splenic artery were performed in multiple obliques. Again, no evidence of active arterial extravasation or arterial abnormality. Given the grade 4 splenic laceration with perisplenic hematoma and hemoperitoneum, we elected to perform a proximal splenic artery embolization. After confirming position within the proximal splenic artery, embolization was performed using a 7 mm detachable coil followed by a 5 mm coil and finally two 4 mm coils. Completion angiogram demonstrates successful embolization of the proximal splenic artery with maintained perfusion to the spleen by way of collaterals. The sheath was removed and hemostasis was achieved with manual compression. A sterile dressing was applied. The patient tolerated the procedure well with no immediate complications. IR/IR embolization arterial IMPRESSION: Splenic angiogram did not demonstrate any active extravasation or arterial abnormality. Given the grade 4 splenic laceration and perisplenic hematoma, we elected to proceed with a proximal splenic artery embolization. Successful coil embolization of the proximal splenic artery was performed as detailed above. RECOMMENDATION: Keep right leg straight for 6 hours and monitor right groin puncture site for hematoma.
--- NOTE | ~2023-09-10 | CT_ITS ---
EXAMINATION: CT ABDOMEN AND PELVIS WITHOUT CONTRAST CLINICAL INFORMATION: Status post gastric sleeve surgery COMPARISON: Outside study dated 09/10/2023 at 5:16 AM TECHNIQUE: Multidetector volumetric imaging was performed from the superior aspect of the liver through the pubic symphysis. Sagittal and coronal reformatted images were obtained on the technologist's workstation. This CT examination was performed using dose optimization techniques as appropriate, variously including the following: *Automated exposure control *Adjustment of mA and/or kV according to patient size (this includes techniques or standardized protocols for targeted exams where dose is matched to indication/reason for exam; i.e. extremities or head) *Use of iterative reconstruction technique DLP: 1256 mGy-cm FINDINGS: LUNG BASES: Increasing opacity at the left base is likely small effusion with adjacent atelectasis/infiltrate. Mild atelectasis once again seen at the right base. Upper abdomen; Once again markedly abnormal spleen. Heterogeneous attenuation and enlarged at 13.4 cm. Splenic size has not changed from previous however on this exam there appears to be more increased attenuation within the spleen on this noncontrast study. Therefore must consider that this is increased active bleeding within the spleen in this patient at this time. Surrounding fluid is also noted There is also fluid adjacent to the liver measuring lower Hounsfield units and this may just be ascites versus aging blood. Increasing in volume from previous There is felt to be increasing density at the left side of the abdomen consistent with increased active bleeding at this time. From image 32 to image 68. Superiorly this is contiguous with the spleen. Once again fluid in the deep pelvis is seen. Centrally there is increased attenuation here as well suggesting acute blood. Difficult to say if this is increasing from previous. More apparent on this study. Overall the volume of fluid in the pelvis is similar to previous to mildly increased. There is also fluid density within the mesentery. Increased from previous The liver is within normal limits. Partially visualized pancreas is unchanged. Area the adrenal glands within normal limits. The kidneys are nonhydronephrotic. Diverticulosis in the colon. The bowel pattern is nonobstructing. There is no bulky adenopathy. The abdominal wall demonstrates air densities and soft tissue stranding and there is also some air density within the musculature. This would be consistent with surgical procedure. Appearance is similar to previous.. There is also increased fluid density consistent with blood along the undersurface of the abdominal wall on the left starting below the level of the umbilicus and extending inferior. This may be contiguous with the pelvic blood described Review of the bone windows does not demonstrate evidence for fracture. Atherosclerotic change in the vasculature. CT/CT abdomen pelvis wo IV con IMPRESSION: This exam is abnormal. Findings consistent with significant splenic hemorrhage and as described some increasing attenuation within the abnormal spleen may well suggest active bleeding at this time and in addition some increasing increased attenuation in the left flank consistent with increasing acute blood here. There is also a small area of increased attenuation within the fluid of the deep pelvis consistent with hemorrhage which is equivocal for increasing from previous exam. This area could be contiguous with more anterior blood along the undersurface of the left abdominal wall described. Again equivocal for increase. There is also increasing fluid around the liver. As described more simple attenuating appearing fluid density is seen otherwise in the mesentery in the pelvis which could be aging hematoma versus ascites. Increasing left basilar fluid which could be aging hematoma or pleural effusion. Adjacent atelectasis or infiltrate or contusion. Other findings are as described above. This critical result was discussed with KRIS Jackman at 11:30 AM on 09/10/2023 and it was ascertained that the content and urgency of the report was understood at the time of direct communication.
--- NOTE | ~2023-09-10 | XR_ITS ---
EXAMINATION: XR CHEST CLINICAL INFORMATION: Chest pain COMPARISON: 01/24/2023 TECHNIQUE: Frontal view of the chest was obtained. FINDINGS: Left lower lobe atelectasis/infiltrate. No evidence for failure. No significant effusion. The cardiac silhouette is within normal limits for AP projection. Hilar regions do not appear pathologically enlarged. XR/XR chest 1V IMPRESSION: Left lower lobe atelectasis/infiltrate.
--- NOTE | ~2023-09-10 | CT_ITS ---
EXAMINATION: CT ANGIOGRAM ABDOMEN CLINICAL INFORMATION: COMPARISON: Multiple prior studies. Most recent CT angiography abdomen September 12, 2023. Prior embolization September 12, 2023 TECHNIQUE: Multiple axial images were obtained through the abdomen following the administration of 85 mL Omnipaque 350 intravenous contrast. Images were reviewed on a dedicated 3-D workstation. This CT examination was performed using dose optimization techniques as appropriate, variously including the following: *Automated exposure control *Adjustment of mA and/or kV according to patient size (this includes techniques or standardized protocols for targeted exams where dose is matched to indication/reason for exam; i.e. extremities or head) *Use of iterative reconstruction technique DLP: 315+717 mGy-cm FINDINGS: LUNG BASES: Atelectasis at left lung base. LIVER, GALLBLADDER, AND BILIARY TREE: The liver is normal in size, shape, and attenuation. No focal hepatic lesion or biliary ductal dilatation is present. Gallbladder is distended. No stone seen in the gallbladder. PANCREAS: Unremarkable. SPLEEN: Patient is status post splenic artery embolization. The spleen remains heterogeneous and enlarged due to a previously noted splenic grade 4 rupture as seen on prior studies. The previously seen area of active extravasation on the CAT scan September 12, 2023 however is no longer present. The spleen measures about 14 cm AP similar prior studies. ADRENAL GLANDS: Unremarkable. KIDNEYS AND URETERS: The kidneys are normal in size, shape, and attenuation. No hydronephrosis, hydroureter, or calculi seen. No perinephric stranding. BLADDER: Trace air within the bladder. No Aquino catheter seen. Correlate with history of instrumentation. GASTROINTESTINAL TRACT: There are scattered diverticula of the sigmoid colon. There is no diverticulitis. There is no bowel wall thickening /edema. There is no bowel obstruction. There is a small to moderate volume of stool in the colon. The appendix is nonvisualized . The small bowel loops are unremarkable. Status post gastric surgery. Mesentery: Similar volume of fluid in the mid and lower peritoneum. There is however increasing fluid in the anterior left upper and right upper quadrants. This fluid has a density measurement of 20 Hounsfield units. This is causing scalloping of the left lobe of the liver, sagittal image 82/147 series 12, axial image 8/81 series 10. This fluid is contiguous with the left upper quadrant fluid involving the spleen. ABDOMINAL WALL: No significant hernia is appreciated. No abscess or fluid collection. Mild generalized anasarca along the flanks. LYMPH NODES: Normal. VASCULAR: Vascular calcifications of aorta and iliac vessels. No aneurysm. PELVIC VISCERA: Unremarkable. OSSEOUS STRUCTURES: Multilevel degenerative spondylosis spine. CT/CT angio abdomen IMPRESSION: 1. Status post splenic artery embolization. Previously seen active extravasation in the spleen no longer present. 2. Persistent heterogeneous enlargement of the spleen consistent with splenic laceration and hematoma. 3. Increasing fluid in the upper abdomen. This is concerning for increased volume of hemorrhagic fluid in the peritoneal cavity within units lower than expected for hemorrhagic fluid. 4. Atelectasis at left lung base. Fleischner guidelines were followed.
--- NOTE | ~2023-09-10 | CT_ITS ---
EXAMINATION: CT CHEST WITHOUT CONTRAST CLINICAL INFORMATION: Splenic laceration, status post splenic artery embolization, chest x-ray shows left lower lobe atelectasis or infiltrate COMPARISON: CT scan of chest on 09/12/2023 TECHNIQUE: Multidetector volumetric CT imaging of the chest was done. Axial MIP volume rendering provided. Sagittal and coronal reformatted images were obtained. This CT examination was performed using dose optimization techniques as appropriate, variously including the following: *Automated exposure control *Adjustment of mA and/or kV according to patient size (this includes techniques or standardized protocols for targeted exams where dose is matched to indication/reason for exam; i.e. extremities or head) *Use of iterative reconstruction technique DLP: 315 mGy-cm FINDINGS: LUNGS: There are asymmetric elevation of left hemidiaphragm, complete left lower lobe lung consolidation with air bronchograms. Mild crescent-shaped dependent atelectasis is seen along the medial and posterior border of right lower lobe. Sagittal reoriented atelectasis is seen in posterior right upper lobe. PLEURA: Moderate left pleural effusion is present. A small right pleural effusion is also seen. No pneumothorax is seen. PERICARDIUM: No pericardial effusion is seen. MEDIASTINUM AND RAJI: Inadequate evaluation of the mediastinal and hilar lymph nodes due to absence of IV contrast filling the surrounding blood vessels. TRACHEOBRONCHIAL TREE: Trachea and bilateral mainstem bronchi are patent. THORACIC AORTA: The thoracic aorta is normal in size with scattered atherosclerotic calcifications. CORONARY ARTERY CALCIFICATIONS: None PULMONARY ARTERIES: The main pulmonary arteries appear to be normal in size. CHEST WALL AND LOWER NECK: The subcutaneous and muscular chest wall are intact with no focal lesion. No abnormal mass lesion could be seen in the visualized lower neck. BONES: Advanced mid degenerative thoracic disc disease and multilevel sharp anterior and lateral thoracic syndesmophytes are seen. No fracture or dislocation. No focal bone lesion diagnostic of metastatic disease could be seen in the thorax. VISUALIZED UPPER ABDOMEN: Spleen is markedly enlarged, with heterogeneous attenuation. No acute high attenuation hematoma is seen. Geographic hypodensity is seen indenting into the left hepatic lobe segment 4A and segment 2 extending to the lateral corner of segment 3, measuring 5.6 cm in AP diameter, 14.1 cm in width, 2.2 cm in vertical height, mean attenuation of 13.7 Hounsfield units. Surgical staple line is seen surrounding the gastric body. CT/CT chest wo IV con IMPRESSION: 1. Unchanged complete consolidation of left lower lobe, moderate left pleural effusion, posterior right upper lobe sagittal atelectasis, crescent-shaped atelectasis in right lower lobe and tiny right pleural effusion. 2. Unchanged, No thoracic aortic aneurysm is seen. 3. Interval increase in perihepatic fluid collection which appears to be subcapsular and penetrating into liver parenchyma on the current examination. Chronic hypodense posttraumatic seroma cannot be excluded. 4. Unchanged surgical staple line in the gastric body, could represent sleeve gastrectomy. Fleischner guidelines were followed.
--- NOTE | ~2023-09-10 | CT_ITS ---
EXAMINATION: CT chest with IV contrast. CTA abdomen with IV contrast. CLINICAL HISTORY: Splenic hemorrhage. COMPARISON: CTA abdomen 09/10/2023. TECHNIQUE: 5 mm thin axial and reformatted 3 mm thin coronal and sagittal images of chest were obtained following IV 85 ml Omnipaque 350. Initially CTA 3 mm thin axial and reformatted 3 mm sagittal and coronal images of the abdomen was obtained following rapid IV administration of contrast. DLP 552. This CT examination was performed using dose optimization technique as appropriate, variously including the following: Automated exposure control Adjustment of MA and/or KV according to patient size(this includes techniques or standardized protocols for targeted exams where dose is matched to indication/reason for exam; extremities or head. Use of iterative reconstruction techniques. FINDINGS: Chest: LUNGS: The lungs are well-expanded with compressive atelectasis both lung bases slightly greater on the left. Rest of lungs are clear. No pleural nodular mass visualized, however limited. Mediastinum: Heart size and the great vessels are normal caliber. Central trachea and the bronchi appears widely patent. No abnormal size mediastinal or hilar lymph nodes or mass seen. Pleura: There is a small left pleural effusion and minimal right pleural effusion. Axilla: There are no abnormal lymph nodes. The chest wall is unremarkable. Osseous structures: There is no aggressive lytic or sclerotic process seen. There is mild ventral spondylosis mid and lower dorsal spine. Abdomen and pelvis: Liver, ducts and gallbladder: The liver is homogeneous in density, normal size and contour. No focal lesion or intrahepatic ductal dilatation seen. There is perihepatic fluid collection. There are no radiopaque gallstones or wall thickening. The gallbladder is more distended compared to 09/10/2023. Spleen: Again visualized is splenic rupture grade 4 with an active extravasation of contrast seen along the anterior aspect of the spleen on axial image 26/3. There is a large amount of perisplenic hematoma. The spleen measures 11.3 cm wide on axial slice 16/3. Previously it measured 10.8 cm wide on previous CT image 26/3. Pancreas: The pancreas overall is unremarkable. Just superior to the pancreas is new increased fluid collection likely seroma on axial image 23/3. Adrenal glands: Unremarkable. Kidneys and ureters: Both kidneys are normal size, shape and position. There is normal cortical thickness. No abnormality involving the kidneys. Abdominal aorta: The abdominal aorta is atherosclerotic and calcified. But normal caliber. No retrocrural bleed or mass. GI tract: Visualized GI tract is unremarkable. Osseous structures: Mild degenerative disc changes L4-L5 disc level. CT/CT chest w IV con IMPRESSION: Small left and tiny right pleural effusion with bilateral basilar compressive atelectasis/consolidation. Splenic laceration grade 4 with moderate to large perisplenic and mild perihepatic hemorrhagic fluid collection/seroma. There is small seroma collection superior to the pancreatic body which has increased. There is active extravasation of contrast in the spleen. If patient is unstable hemodynamically splenic embolization can be attempted.
--- NOTE | ~2023-09-10 | US_ITS ---
EXAMINATION: US VENOUS ULTRASOUND WITH DOPPLER LOWER EXTREMITY, BILATERAL CLINICAL INFORMATION: History of splenic hemorrhage. Status post splenic artery embolization. Bed rest, hypercoagulable COMPARISON: CT angiogram abdomen 09/15/2023 TECHNIQUE: Ultrasound of the deep veins is performed from the hip to the calf with compression sonography and color and pulse Doppler assessment. Spectral analysis with color-flow imaging is performed. FINDINGS: RIGHT: There is normal venous compression and respiratory variation. The visualized common femoral vein, superficial femoral vein, profunda femoral vein, popliteal vein, and the posterior tibial and peroneal veins shows no evidence of deep venous thrombosis. LEFT: There is normal venous compression and respiratory variation. The visualized common femoral vein, superficial femoral vein, profunda femoral vein, popliteal vein and posterior tibial and peroneal veins shows no evidence of deep venous thrombosis. 3.2 x 1.9 x 2.6 cm left popliteal cyst is seen. US/US venous duplex LE BI IMPRESSION: No DVT demonstrated in the right and left lower extremity. 3.2 cm left Wing's cyst.
--- NOTE | ~2023-09-10 | CT_ITS ---
EXAMINATION: CT ANGIOGRAM ABDOMEN CLINICAL INFORMATION: Splenic hemorrhage COMPARISON: CT abdomen and pelvis performed on 12 2 10:43 AM. TECHNIQUE: Multiple axial images were obtained through the abdomen following the administration of 80 mL Omnipaque 350 intravenous contrast. Images were reviewed on a dedicated 3-D workstation. This CT examination was performed using dose optimization techniques as appropriate, variously including the following: *Automated exposure control *Adjustment of mA and/or kV according to patient size (this includes techniques or standardized protocols for targeted exams where dose is matched to indication/reason for exam; i.e. extremities or head) *Use of iterative reconstruction technique DLP: 546 mGy-cm FINDINGS: Lower chest: Trace bilateral pleural effusions and bibasilar atelectasis. Liver: Normal in size and attenuation. No focal lesions. Gallbladder and bile ducts: Biliary sludge in the gallbladder. No intrahepatic or extrahepatic biliary ductal dilatation. Spleen: Redemonstration of the splenic rupture with moderate amount of perisplenic hemorrhage. No active extravasation or pseudoaneurysm is identified. The amount of intraperitoneal hemorrhage, mostly adjacent to the spleen, but also in the perihepatic space is relatively unchanged compared to the exam at 10:45 AM, however it is mildly increased compared to the 5:15 AM exam. Pancreas: Unremarkable. Adrenal glands: Unremarkable. Right kidney: The right kidney is normal. There is no hydronephrosis or hydroureter. Left kidney: The left kidney is normal. There is no hydronephrosis or hydroureter. Lymph nodes: There is no lymphadenopathy in the abdomen or pelvis. Gastrointestinal tract: Postsurgical changes from gastric sleeve. The small, and large bowel are normal in course and caliber. Vasculature: The abdominal aorta is normal in course and caliber. There is mild atherosclerotic disease. The splenic artery is patent. Additional findings: Layering hemorrhage in the perihepatic space and bilateral paracolic gutters. Soft tissues: Soft tissue stranding and subcutaneous air from recent operative procedure. Osseous structures: Minimal degenerative disease of the lumbar spine. CT/CT angio abdomen IMPRESSION: Redemonstration of the splenic rupture with moderate amount of perisplenic hemorrhage. No active extravasation or pseudoaneurysm is identified. The amount of intraperitoneal hemorrhage is unchanged compared to the exam at 10:45 AM, however it is mildly increased compared to the 5:15 AM exam. Findings were discussed with Dr. Mayen at 3:05pm.
--- NOTE | 2023-09-10 07:44 | ECG_ITS ---
Test Reason : CHEST PAIN Blood Pressure : / mmHG Vent. Rate : 096 BPM Atrial Rate : 096 BPM P-R Int : 110 ms QRS Dur : 078 ms QT Int : 348 ms P-R-T Axes : 030 019 137 degrees QTc Int : 439 ms Sinus rhythm with short VA Possible Inferior infarct (cited on or before 10-SEP-2023) Abnormal ECG When compared with ECG of 08-SEP-2023 07:13, Vent. rate has increased BY 32 BPM Referred By: Thomas Osborn Electronically Signed By:PASTOR CARDONA MD
--- NOTE | 2023-09-10 07:51 | ED.ABDPAIN ---
HPI - Abdominal Pain General Chief Complaint: Abdominal Pain Stated Complaint: INTERNAL BLEEDING Time Seen by Provider: 09/10/23 07:44 Source: patient Mode of arrival: EMS History of Present Illness HPI narrative: This is 63 years old patient transferred from outside hospital because hemoperitoneum . Patient was accepted in transfer the by the bariatric surgery service ans Dr Waters Ed Physician. Per bariatric surgery CT scan showed hemoperitoneum. The patient had surgery at [facility] on September 08 gastric sleeve revision,she arrived c/o abdominal pain. Pertinent past history: none Onset (ago): day(s) (1) Pain Consistency: constant Location: diffuse Severity: moderate Quality: cramping Associated symptoms: denies other symptoms Related Data Home Medications Medication Instructions Recorded Confirmed fluoxetine 40 mg capsule (Prozac) 40 mg PO DAILY 06/28/22 09/08/23 furosemide 40 mg tablet (Lasix) 40 mg PO Q OTHER DAY 06/28/22 09/08/23 aspirin 81 mg tablet,delayed 81 mg PO DAILY 11/22/22 09/08/23 release clopidogrel 75 mg tablet (Plavix) 75 mg PO DAILY 11/22/22 09/08/23 albuterol sulfate 90 mcg/actuation 2 puff inhalation Q4-6H PRN 06/20/23 09/08/23 aerosol inhaler (Ventolin HFA) Shortness Of Breath Or Wheezing abatacept 125 mg/mL subcutaneous 125 mg subcut QWEEK 07/04/23 09/08/23 auto-injector (Orencia ClickJect) gabapentin 800 mg tablet 800 mg PO TID PRN Pain 07/04/23 09/08/23 lorazepam 0.5 mg tablet 0.5 mg PO QID PRN Anxiety 07/04/23 09/08/23 oxycodone 5 mg tablet 5 - 10 mg PO TID PRN Pain 08/30/23 09/08/23 atorvastatin 80 mg tablet 80 mg PO DAILY 09/08/23 09/08/23 levetiracetam 500 mg tablet 500 mg PO BID 09/10/23 09/10/23 semaglutide 1 mg/dose (4 mg/3 mL) 1 mg subcut QWEEK 09/10/23 09/10/23 subcutaneous pen injector (Ozempic) Previous Rx's Medication Instructions Recorded ondansetron 4 mg disintegrating 4 mg PO Q12H nausea and vomiting 08/26/23 tablet #20 tabs pantoprazole 40 mg tablet,delayed 40 mg PO DAILY #30 tabs 08/26/23 release sucralfate 100 mg/mL oral 10 ml PO BID #400 mL 08/26/23 suspension Allergies Allergy/AdvReac Type Severity Reaction Status Date / Time moxifloxacin [From Avelox] Allergy Severe Anaphylaxis Verified 09/08/23 07:55 codeine Allergy Mild ITCHY Verified 09/08/23 07:55 AVALAX Allergy Severe Anaphylaxis Uncoded 09/08/23 07:55 POLLEN Allergy Mild Runny Nose Uncoded 09/08/23 07:55 oral contrast Allergy Itching Uncoded 09/10/23 08:49 Review of Systems Constitutional: Reports no additional constitutional complaints Eyes: Reports no additional eye complaints Gastrointestinal: Reports abdominal pain PMFSH Past Medical History Medical History Hx of migraine headaches Environmental and seasonal allergies PONV (postoperative nausea and vomiting) Lower extremity edema Obstructive sleep apnea on CPAP Aneurysm Surgical History H/O gastric sleeve S/P cerebral aneurysm operation History of surgery for cerebral aneurysm Hx of hand surgery Hx of colonoscopy Hx of foot surgery Hx of knee surgery Hx of appendectomy Hx of hysterectomy Family History Family History Mother No problems noted. Father AA (alcohol abuse) Brother No problems noted. Sister No problems noted. Brother No problems noted. Brother No problems noted. Daughter Autoimmune disease Daughter Autoimmune disease Social History Social History Household Members: Spouse Housing: House Are you a primary home care attendant to a significant other at home: No Do you presently have visiting nurse or other home services: No Alcohol intake: never Patient Tobacco Use Status: Former Tobacco user Quit Date: 2015 Tobacco use type: Cigarette Smoked in Last 30 Days: No Use of substances other than those prescribed or required for medical reasons: No Advance Directives: No Advance Directives Information Provided: Yes service: No Current occupational status: disabled Physical Exam ED Vital Signs: Vital Signs - 24 hr 09/10/23 08:10 09/10/23 08:13 09/10/23 08:18 Temperature 97.7 F Pulse Rate 92 95 97 Respiratory Rate 20 20 20 Blood Pressure 101/53 L 81/39 L 89/55 L Pulse Oximetry 98 100 Oxygen Delivery Method Room Air Room Air Oxygen Flow Rate 09/10/23 08:42 09/10/23 09:01 09/10/23 09:19 Temperature 97.6 F 97.9 F 97.7 F Pulse Rate 95 93 97 Respiratory Rate 17 20 20 Blood Pressure 94/63 93/63 94/63 Pulse Oximetry 100 Oxygen Delivery Method Nasal Cannula Oxygen Flow Rate 3 09/10/23 09:24 09/10/23 09:33 09/10/23 09:51 Temperature 97.7 F 97.7 F 97.7 F Pulse Rate 97 93 88 Respiratory Rate 20 20 22 H Blood Pressure 84/55 L 98/51 L 98/51 L Pulse Oximetry Oxygen Delivery Method Nasal Cannula Oxygen Flow Rate 2 09/10/23 09:54 09/10/23 10:08 09/10/23 10:25 Temperature 97.6 F 97.6 F Pulse Rate 82 83 90 Respiratory Rate 22 H 20 20 Blood Pressure 103/51 L 100/61 100/59 L Pulse Oximetry Oxygen Delivery Method Oxygen Flow Rate 09/10/23 10:28 09/10/23 10:45 09/10/23 11:00 Temperature 97.6 F 97.8 F 97.8 F Pulse Rate 90 88 87 Respiratory Rate 24 H 20 22 H Blood Pressure 100/59 L 100/51 L 98/57 L Pulse Oximetry 99 Oxygen Delivery Method Nasal Cannula Oxygen Flow Rate 2 09/10/23 11:05 09/10/23 11:14 09/10/23 12:41 Temperature Pulse Rate 93 86 83 Respiratory Rate 20 20 20 Blood Pressure 98/57 L 106/60 112/67 Pulse Oximetry 100 99 Oxygen Delivery Method Nasal Cannula Nasal Cannula Oxygen Flow Rate 2 2 09/10/23 12:56 09/10/23 13:12 09/10/23 13:30 Temperature 97.9 F Pulse Rate 91 95 92 Respiratory Rate 20 18 20 Blood Pressure 111/65 108/65 105/60 Pulse Oximetry 100 Oxygen Delivery Method Nasal Cannula Oxygen Flow Rate 2 09/10/23 14:21 09/10/23 14:38 09/10/23 14:40 Temperature 97.9 F 97.9 F Pulse Rate 85 93 92 Respiratory Rate 20 20 20 Blood Pressure 114/64 103/63 105/62 Pulse Oximetry 99 Oxygen Delivery Method Nasal Cannula Oxygen Flow Rate 2 09/10/23 15:34 Temperature Pulse Rate 100 Respiratory Rate 20 Blood Pressure 112/62 Pulse Oximetry 98 Oxygen Delivery Method Nasal Cannula Oxygen Flow Rate 2 BMI result Body Mass Index 45.8 Const General: alert and awake Nutritional Appearance: well nourished Orientation/consciousness: patient oriented x3 HENMT Head: Yes normal to inspection Face and sinus: Yes normal facial exam Mouth: Normal oral and palatal mucosa present Throat: Yes posterior oropharynx normal Neck Neck: Yes normal visual inspection Chest Chest palpation & inspection: normal inspection of the chest Resp Effort & Inspection: normal respiratory effort and able to speak in complete sentences Auscultation: clear to auscultation bilaterally Cardio Jugular venous distension: no JVD Rate: regular rate Rhythm: regular rhythm GI Other: Abdominal examination, abdomen is obese she has diffuse tenderness with peritoneal signs Palpation (GI): Tenderness to palpation present (GI) and Guarding due to palpation present (GI) Neuro General: patient oriented x3 Course Reevaluation(s) Reevaluation #1: The spoke with Kiran Mayen he is aware that the patient has arrived, I was asked to transfuse the patient 1 more unit of blood the 2 units of FFP 1 unit of platelet Time: 08:08 Reevaluation #2: waiting for bariatric team I spoke several times with KIRS Mayen,FFP infused/platelets ordered PRBC order as requested by bariatric team Time: 09:28 Reevaluation #3: I called back bariatric service again requested evaluation stat of pt accepted by them in transfer, Kiran Mayen replied on my way Time: 10:16 Additional Reevaluation(s): 10:29 AM Kiran Mayen bariatric here to see the pt 11:00 KRIS Guzman states that his surgeon Dr Bangura is getting in the car now to see the pt 12:13 Dr Bangura here 3.25 Pm I tiger text KRIS Guzman requesting the plan of care of the pt ,he will let me know in 20 minutes 3:[address] Bangura here stating that CTA showed no active bleeding request admission to Bariatric floor care transferred to Fr Bangura Medical Decision Making Medical Decision Making MDM Narrative: Patient presented in transfer from another hospital with a hemoperitoneum , bariatric surgery aware of the patient, she ready received 1 unit of blood in the outside hospital will proceed with 1 more unit 16:00 prolong stay the emergency department patient had a CTA no active bleeding, decision per surgeon was to admit the patient [facility] Differential Diagnosis Differential Diagnoses: The differential diagnosis associated with the presentation includes arterial or stephen bleeding/rupture solid organ Admission/Observation Consideration of admission/observation: Escalation of care including admission/observation considered Consult Healthcare Provider Management of the patient was discussed with: Fire Alarm Inspector surgeon Lab Data MDM Lab Attestation statement: I reviewed the patient's lab results. 09/10/23 10:02 09/10/23 08:22 Labs: Lab Results 09/10/23 09/10/23 09/10/23 Range/Units 08:22 10:02 11:21 WBC 14.0 H 13.4 H (4.8-10.8) X10*3/uL RBC 3.00 L D 2.68 L (4.20-5.50) X10*6/uL Hgb 8.6 L D 7.9 L (12.0-16.0) g/dl Hct 27.4 L D 24.5 L (37.0-47.0) % MCV 91.3 91.4 (80.0-98.0) fL MCH 28.7 29.5 (27.0-33.0) pg MCHC 31.4 32.2 (31.0-35.0) g/dl RDW 13.6 13.7 (11.0-16.0) % Plt Count 271 258 (160-400) X10*3/uL MPV 10.2 10.2 (9.4-12.3) fL Immature Gran % (Auto) 0.6 H 0.4 (0.0-0.4) % Neut % (Auto) 85.3 H 86.1 H (45-73) % Lymph % (Auto) 4.7 L 4.4 L (20-40) % Marshall % (Auto) 9.2 9.0 (2-11) % Eos % (Auto) 0.0 0.0 (0-4) % Baso % (Auto) 0.2 0.1 (0-2) % Lymph # (Auto) 0.7 L 0.6 L (1.2-4.9) X10*3/uL Marshall # (Auto) 1.3 H 1.2 (0.1-1.2) X10*3/uL Eos # (Auto) 0.0 0.0 (0.0-0.4) X10*3/uL Baso # (Auto) 0.0 0.0 (0.0-0.2) X10*3/uL Abs Immat Gran (auto) 0.08 H 0.06 H (0.00-0.03) X10*3/uL Absolute Neuts (auto) 11.9 H 11.5 H (2.0-8.3) x10*3/uL Absolute Nucleated RBC 0.000 0.000 (0.0-0.012) X10*3/uL Nucleated RBC % (auto) 0.0 0.0 (0.0-0.2) /100WBC PT 13.2 (11.1-13.3) SEC INR 1.1 (0.9-1.1) APTT 24.4 L D (26.0-36.4) SEC Sodium 143 (135-145) mmol/L Potassium 3.8 (3.3-5.1) mmol/L Chloride 113 H (96-108) mmol/L Carbon Dioxide 23 (22-29) mmol/L Anion Gap 11 L (12-20) BUN 13 (9-16) mg/dL Creatinine 0.78 (0.5-1.4) mg/dL Estim Creat Clear Calc 88.9 Estimated GFR > 60 Random Glucose 174 H (60-115) mg/dL Lactic Acid 2.0 (0.5-2.0) mmol/L Calcium 7.5 L D (8.4-10.2) mg/dL Total Bilirubin 0.5 (0.0-1.0) mg/dL AST 20 (5-31) U/L ALT 21 (0-31) U/L Alkaline Phosphatase 79 (39-117) U/L Troponin I High Sens < 2.7 (<3.5-17.0) ng/L Total Protein 5.1 L (6.5-8.0) g/dL Albumin 2.9 L (3.5-5.0) g/dL Blood Type O Positive Antibody Screen NEGATIVE Crossmatch See Detail Independent Interpretation I performed an independent interpretation of an: CT Scan Interpretation: hemoperitoneum Radiology Impression Discussion of test interpretation with radiology: I have reviewed the radiologist's reading. Independent Historian Clinical information obtained from an independent historian. History obtained from or confirmed by: Spouse External Record Review External record reviewed: Inpatient record and Outpatient record Prescription Management I considered prescription management with: Pain Medication Chronic Conditions obesity Medications Administered Generic Name Dose Route Start Last Admin Trade Name Freq PRN Reason Stop Dose Admin Acetaminophen 1,000 mg in 100 mls @ 16.7 mls/hr 09/10/23 12:45 09/10/23 13:07 Ofirmev IV 16.7 mls/hr .Q6H KATHY Administration Discontinued Medications Generic Name Dose Route Start Last Admin Trade Name Freq PRN Reason Stop Dose Admin Fentanyl 50 mcg 09/10/23 09:11 09/10/23 09:16 Fentanyl Citrate/Pf 100 Mcg/2 Ml Vial IVPUSH 09/10/23 09:12 50 mcg ONCE ONE Administration Protocol Fentanyl 50 mcg 09/10/23 09:51 09/10/23 11:18 Fentanyl Citrate/Pf 100 Mcg/2 Ml Vial IVPUSH 09/10/23 09:52 Not Given ONCE ONE Protocol Hydromorphone HCl 0.5 mg 09/10/23 09:57 09/10/23 10:17 Hydromorphone Hcl 0.5 Mg/0.5 Ml Syringe IVPUSH 09/10/23 09:58 0.5 mg ONCE ONE Administration Protocol Hydromorphone HCl 0.5 mg 09/10/23 11:03 09/10/23 11:13 Hydromorphone Hcl 0.5 Mg/0.5 Ml Syringe IVPUSH 09/10/23 11:04 0.5 mg ONCE ONE Administration Protocol Hydromorphone HCl 0.5 mg 09/10/23 12:23 09/10/23 13:06 Hydromorphone Hcl 0.5 Mg/0.5 Ml Syringe IVPUSH 09/10/23 12:24 0.5 mg ONCE ONE Administration Protocol Hydromorphone HCl 0.5 mg 09/10/23 15:25 09/10/23 15:32 Hydromorphone Hcl 0.5 Mg/0.5 Ml Syringe IVPUSH 09/10/23 15:26 0.5 mg ONCE ONE Administration Protocol Sodium Chloride 100 mls @ 100 mls/hr 12/02/23 07:45 09/10/23 10:55 Ns IV 09/10/23 08:44 Infused ONCE ONE Infusion Sodium Chloride 100 mls @ 100 mls/hr 09/10/23 07:45 09/10/23 10:56 Ns IV 09/10/23 08:44 Infused ONCE ONE Infusion Sodium Chloride 100 mls @ 100 mls/hr 09/10/23 07:48 09/10/23 14:42 Ns IV 09/10/23 08:47 Infused ONCE ONE Infusion Sodium Chloride 100 mls @ 100 mls/hr 09/10/23 07:49 09/10/23 14:42 Ns IV 09/10/23 08:48 Infused ONCE ONE Infusion Sodium Chloride 100 mls @ 100 mls/hr 09/10/23 12:24 09/10/23 14:41 Ns IV 09/10/23 13:23 100 mls/hr ONCE ONE Administration Sodium Chloride 100 mls @ 100 mls/hr 09/10/23 12:24 09/10/23 14:41 Ns IV 09/10/23 13:23 100 mls/hr ONCE ONE Administration Iohexol 80 ml 09/10/23 13:56 09/10/23 13:56 Iohexol 350 Mg/Ml 100 Ml Infus..Btl IV 09/10/23 13:57 80 ml ONCE ONE Administration Ondansetron HCl 4 mg 09/10/23 09:12 09/10/23 09:18 Ondansetron Hcl 4 Mg/2 Ml Vial IVPUSH 09/10/23 09:13 4 mg ONCE ONE Administration Ondansetron HCl 4 mg 09/10/23 10:12 09/10/23 10:16 Ondansetron Hcl 4 Mg/2 Ml Vial IVPUSH 09/10/23 10:13 4 mg ONCE ONE Administration Critical Care Time Critical Care Time Critical Care Time: Yes Total Critical Care Time: 120 Attestation: multiple reexamination,Xfusion blood product ,multiple phone call to service station helper Discharge Plan Discharge Clinical Impression: Hemoperitoneum Patient Disposition: Admitted As Inpatient
[2023-09-10 08:29] LABS: MANUAL DIFF FLAG NO
[2023-09-10 08:31] LABS: Basophils Percent Auto 0.2 % (0-2); Hematocrit 27.4 % (37.0-47.0); Hemoglobin 8.6 g/dl (12.0-16.0); Imm Gran Abs Auto 0.08 X10*3/uL (0.00-0.03); Imm Gran Pct Auto 0.6 % (0.0-0.4); Lymphocytes Absolute Auto 0.7 X10*3/uL (1.2-4.9); Lymphocytes Percent Auto 4.7 % (20-40); Mean Corpuscular HGB Conc 31.4 g/dl (31.0-35.0); Mean Corpuscular Hemoglobin 28.7 pg (27.0-33.0); Mean Corpuscular Volume 91.3 fL (80.0-98.0); Mean Platelet Volume 10.2 fL (9.4-12.3); Monocytes Absolute Auto 1.3 X10*3/uL (0.1-1.2); Monocytes Percent Auto 9.2 % (2-11); Neutrophils Absolute Auto 11.9 x10*3/uL (2.0-8.3); Neutrophils Percent Auto 85.3 % (45-73); Platelet Count 271 X10*3/uL (160-400); Red Cell Distribution Width 13.6 % (11.0-16.0)
[2023-09-10 08:46] LABS: INTERNATIONAL NORM RATIO 1.1 (0.9-1.1); Prothrombin Time 13.2 SEC (11.1-13.3)
[2023-09-10 08:48] LABS: Partial Thromboplastin Time 24.4 SEC (26.0-36.4)
[2023-09-10 08:52] LABS: Alanine Aminotransferase 21 U/L (0-31); Albumin Level 2.9 g/dL (3.5-5.0); Alkaline Phosphatase 79 U/L (39-117); Anion Gap 11 (12-20); Aspartate Amino Transferase 20 U/L (5-31); Bilirubin Total 0.5 mg/dL (0.0-1.0); Blood Urea Nitrogen 13 mg/dL (9-16); Calcium 7.5 mg/dL (8.4-10.2); Carbon Dioxide 23 mmol/L (22-29); Chloride 113 mmol/L (96-108); Creatinine Clr Calc Pharmacy 88.9; Estimated Glomerular Filt Rate > 60; Glucose Random 174 mg/dL (60-115); Potassium 3.8 mmol/L (3.3-5.1); Sodium 143 mmol/L (135-145); Total Protein 5.1 g/dL (6.5-8.0)
[2023-09-10 08:57] LABS: Troponin-I High Sensitivity < 2.7 ng/L (<3.5-17.0)
[2023-09-10] MEDS: fentaNYL citrate/PF 100 MCG/2 ML VIAL 50 MCG IVPUSH (09:16)
[2023-09-10] MEDS: ondansetron HCL 4 MG/2 ML VIAL IVPUSH ×3 (09:18→17:48)
--- NOTE | 2023-09-10 09:29 | PC.NURSE ---
Addendum entered by Liane Dixon 09/10/23 12:21: Abd distended/tender, more on left side at this time. Original Note: Pt is alert/oriented. Reports 10/10 left sided abd pain/pressure and bloating. DSG intact to abd. FFP first unit infusing, tech obtaining second unit at this time. Fentanyl given as charted to manage pain. Skin is pale warm and dry. Pt refusing stout at this time. Attempting to tolerate PO contrast for CT scan.
--- NOTE | 2023-09-10 09:42 | PC.NURSE ---
Second unit FFP started, per Dr Irena gray to infuse as rapidly as tolerated. Pt states no pain relief s/p Fentanyl given. BP improving.
[2023-09-10 10:05] LABS: MANUAL DIFF FLAG NO
[2023-09-10 10:07] LABS: Basophils Percent Auto 0.1 % (0-2); Hematocrit 24.5 % (37.0-47.0); Hemoglobin 7.9 g/dl (12.0-16.0); Imm Gran Abs Auto 0.06 X10*3/uL (0.00-0.03); Imm Gran Pct Auto 0.4 % (0.0-0.4); Lymphocytes Absolute Auto 0.6 X10*3/uL (1.2-4.9); Lymphocytes Percent Auto 4.4 % (20-40); Mean Corpuscular HGB Conc 32.2 g/dl (31.0-35.0); Mean Corpuscular Hemoglobin 29.5 pg (27.0-33.0); Mean Corpuscular Volume 91.4 fL (80.0-98.0); Mean Platelet Volume 10.2 fL (9.4-12.3); Monocytes Absolute Auto 1.2 X10*3/uL (0.1-1.2); Neutrophils Absolute Auto 11.5 x10*3/uL (2.0-8.3); Neutrophils Percent Auto 86.1 % (45-73); Platelet Count 258 X10*3/uL (160-400); Red Blood Count 2.68 X10*6/uL (4.20-5.50); Red Cell Distribution Width 13.7 % (11.0-16.0); White Blood Count 13.4 X10*3/uL (4.8-10.8)
[2023-09-10] MEDS: HYDROmorphone HCl 0.5 MG/0.5 ML SYRINGE IVPUSH ×4 (10:17→15:32)
--- NOTE | 2023-09-10 10:30 | PC.NURSE ---
Pt reports increasing pain across abd from left side, nausea, tingling to extremities. Skin remains pale. SBP upper 90s. Dr Osborn to bedside to assess. Repeat CBC trends down. Plan for repeat CT scan and PRBC to be given now. PLT continue to infuse at this time. Pt reports little to no pain relief s/p pain med interventions.
--- NOTE | 2023-09-10 10:44 | PC.NURSE ---
RBC started, transported to CT scan with this RN
--- NOTE | 2023-09-10 12:13 | PC.NURSE ---
Dr Hernández at bedside at this time
[2023-09-10] MEDS: Acetaminophen 1,000 MG/100 ML PIGGYBACK 16.7 MG IV ×2 (13:07→20:58)
--- NOTE | 2023-09-10 13:20 | PC.NURSE ---
Plan for CTA. VSS. Medicated by kong RN with additional pain meds and Tylenol infusing at this time
--- NOTE | 2023-09-10 13:41 | PC.NURSE ---
Platelets completed at 1106-unable to document correctly in TAR
--- NOTE | 2023-09-10 13:42 | PC.NURSE ---
completed at 1105
--- NOTE | 2023-09-10 13:42 | PC.NURSE ---
TAR not allowing this machine sign writer to document end time for Plt, end time for PLATELETS 110
--- NOTE | 2023-09-10 13:44 | PC.NURSE ---
CTA at this time
[2023-09-10] MEDS: iohexoL 350 MG/ML 100 ML INFUS..BTL 80 ML IV (13:56)
--- NOTE | 2023-09-10 14:37 | PC.NURSE ---
Addendum entered by Liane Dixon 09/10/23 14:46: LS clear anteriorly, pt denies any increased SOB since arrival to ED Original Note: Additional 2 units FFP started. Pt attempted to void earlier, unable. Bladder scan 248. VSS, color has improved since prior assesment.
--- NOTE | 2023-09-10 15:37 | PC.NURSE ---
Dr Fung at bedside at this time discussing plan to keep pt here. Additional pain meds given as charted
--- NOTE | 2023-09-10 15:41 | MHC.EDTECH ---
Two techs attempted to draw CBC. Phelobotomy called.
--- NOTE | 2023-09-10 15:54 | PM.HPGS ---
History of Present Illness History of Present Illness Date of Service: 09/10/23 Chief complaint: ANEMIA,SPLENIC HEMORRHAGE Narrative: Josefina Suggs is a 63 year old female who underwent an uneventful laparoscopic revision of previous laparoscopic sleeve gastrectomy performed on 09/08/2023. Her original surgery was in 2014. She did well intraoperatively. Postop day 1 she was examined in the morning, as well as evaluation of her immediate postop labs and postop day 1 labs showing expected slight drop in hemoglobin and hematocrit. She was hemodynamically stable and had no significant complaints and was therefore deemed safe for discharge. After the orders were placed, she did slip to her left knee in her hospital room but denied any injury, and she went home She states that when she was getting out of her 's truck she felt a ?pop? in her left abdomen. She was in communication with attending surgeon Dr. Livingston throughout the evening of 09/09/23, however her abdominal pain worsened, she complained of left upper quadrant abdominal pain, left shoulder pain, diarrhea and per her 's report she was quite pale and sweaty. Approximately 03:30 hours on 09/10/2023 an ambulance was called and she was brought to the nearest hospital which was [facility]. While there, the case was discussed with ER attending Dr. Knowles. She was found to have blood in the left upper quadrant on a noncontrast abdominal CT scan as well as anemia with a hemoglobin of 8.9 and lactic acidosis of 2.5. She was hypotensive at 80/56. She did have evidence of leukocytosis at 17,000 without bandemia. She received 2 L of IV fluids and 1 unit packed red blood cells. Her blood pressure improved to 101/73 with O2 sat of 95% and heart rate in the 80s and was felt she was safe for transport to [facility]. Once at [facility], labs revealed a white blood cell count of 14, hemoglobin 8.6, hematocrit 27.4 with platelet 271. She was given 2 units FFP and 1 unit of platelets. A repeat noncontrast CT scan showed slight increase in perisplenic fluid collection. Case was discussed in depth with off-site radiology Dr. Schmitt as well as Dr. Perez. There was concern over a subcapsular hematoma that ruptured within the spleen. Patient remained in the emergency room, receiving IV Dilaudid, IV fentanyl, IV Zofran, another unit of packed red blood cells and ultimately was determined she needed a CTA of the abdomen for further evaluation of possible ongoing extravasation and the need for transfer for Interventional Radiology directed embolization. (She does have a history of oral IV contrast allergy and not IV contrast allergy and this was confirmed with the patient). CTA imaging was reviewed with Dr. Shannno, interventional radiologist and there was no evidence of extravasation and no significant increase in perisplenic fluid from her previous noncontrast CT earlier this morning at approximately 10:45. It was felt she was stable for admission to [facility] for continued care. Throughout the day, her heart rate remained in the 80s to 90s with blood pressure hovering around 100. There was ongoing and constant communication between offsite Radiology, emergency room attending physician and bariatric surgery attending physician Dr. Livingston. Dr. Livingston was on site and the patient was seen, examined and case was discussed in depth with him during the entire proceeding. Review of Systems Review of Systems: Yes all other systems are reviewed and are negative Constitutional: Constitutional: Reports as per HPI Eyes: Eyes: Reports as per HPI ENT: Reports system reviewed and no additional complaints, except as documented Cardiovascular: Cardiovascular: Denies chest pain Respiratory: Respiratory: Denies chest congestion and Denies cough Gastrointestinal: Gastrointestinal: Reports abdominal pain, Reports diarrhea and Reports nausea Genitourinary: Genitourinary: Reports no additional female genitourinary complaints Musculoskeletal: Comments: Known right medial calf pain Neurologic: Reports system reviewed and no additional complaints, except as documented PMFSH Past Medical History Medical History Hx of migraine headaches Environmental and seasonal allergies PONV (postoperative nausea and vomiting) Lower extremity edema Obstructive sleep apnea on CPAP Aneurysm Family History Family History Mother No problems noted. Father AA (alcohol abuse) Brother No problems noted. Sister No problems noted. Brother No problems noted. Brother No problems noted. Daughter Autoimmune disease Daughter Autoimmune disease Surgical History Surgical History H/O gastric sleeve S/P cerebral aneurysm operation History of surgery for cerebral aneurysm Hx of hand surgery Hx of colonoscopy Hx of foot surgery Hx of knee surgery Hx of appendectomy Hx of hysterectomy Social History Social History Household Members: Spouse Housing: House Are you a primary healthcare sales representative to a significant other at home: No Do you presently have visiting nurse or other home services: No Alcohol intake: never Patient Tobacco Use Status: Former Tobacco user Quit Date: 2015 Tobacco use type: Cigarette Smoked in Last 30 Days: No Use of substances other than those prescribed or required for medical reasons: No Advance Directives: No Advance Directives Information Provided: Yes service: No Current occupational status: disabled Meds Allergies Allergy/AdvReac Type Severity Reaction Status Date / Time moxifloxacin [From Avelox] Allergy Severe Anaphylaxis Verified 09/08/23 07:55 codeine Allergy Mild ITCHY Verified 09/08/23 07:55 AVALAX Allergy Severe Anaphylaxis Uncoded 09/08/23 07:55 POLLEN Allergy Mild Runny Nose Uncoded 09/08/23 07:55 oral contrast Allergy Itching Uncoded 09/10/23 08:49 Active Medications: Current Medications Hydromorphone HCl (Hydromorphone Hcl 0.5 Mg/0.5 Ml Syringe) 0.25 mg IVPUSH Q2H PRN; Protocol PRN Reason: Pain, Moderate(Pain Scale 4-6) Acetaminophen (Ofirmev) 1,000 mg in 100 mls @ 16.7 mls/hr IV .Q6H [facility] Last Admin: 09/10/23 13:07 Dose: 16.7 mls/hr Lactated Ringer's (Lr) 1,000 mls @ 125 mls/hr IVCONT .Q8H [facility] Acetaminophen (Ofirmev) 1,000 mg in 100 mls @ 16.7 mls/hr IV .Q6H [facility] Metoclopramide HCl (Metoclopramide Hcl 10 Mg/2 Ml Vial) 10 mg IVPUSH Q6H PRN PRN Reason: Nausea Ondansetron HCl (Ondansetron Hcl 4 Mg/2 Ml Vial) 4 mg IVPUSH Q8H [facility]ATH[facility] Pantoprazole Sodium (Pantoprazole Sodium 40 Mg/10 Ml Vial) 40 mg IVPUSH BID KATHY Sodium Chloride (0.9 % Sodium Chloride Flush 3 Ml Syringe) 3 ml IVFLUSH QSHIFT [facility] Home Medications Medication Instructions Recorded Confirmed Last Taken Type fluoxetine 40 mg capsule (Prozac) 40 mg PO DAILY 06/28/22 09/08/23 09/07/23 History albuterol sulfate 90 mcg/actuation 2 puff inhalation Q4-6H PRN 06/20/23 09/08/23 08/10/22 History aerosol inhaler (Ventolin HFA) Shortness Of Breath Or Wheezing lorazepam 0.5 mg tablet 0.5 mg PO QID PRN Anxiety 07/04/23 09/08/23 09/08/23 03:00 History oxycodone 5 mg tablet 5 - 10 mg PO TID PRN Pain 08/30/23 09/08/23 09/01/23 History Physical Exam Vital Signs: Vital Signs: Last Vital Signs Temp 97.9 F 09/10/23 14:40 Pulse 100 09/10/23 15:34 Resp 20 09/10/23 15:34 BP 112/62 09/10/23 15:34 Pulse Ox 98 09/10/23 15:34 O2 Del Method Nasal Cannula 09/10/23 15:34 O2 Flow Rate 2 09/10/23 15:34 BMI result Body Mass Index 45.8 Const: General: alert, awake and ill appearing acutely Nutritional Appearance: obese Orientation/consciousness: patient oriented x3 HEENT: Head: Yes normal to inspection Ears: hearing grossly normal bilaterally Eyes: Conjunctivae: conjunctival abnormal (Pale) Chest: Chest palpation & inspection: normal inspection of the chest Resp: Effort & Inspection: normal respiratory effort Auscultation: clear to auscultation bilaterally Cardio: Rate: regular rate Rhythm: regular rhythm GI: Inspection: Yes incision (Jessi-incisional ecchymosis) Palpation (GI): Soft to palpation and Tenderness to palpation present (GI) in the LUQ Auscultation: Hypoactive bowel sounds present Skin: General skin exam: ecchymosis (Jessi-incisional and medial right distal calf) Neuro: General: patient oriented x3 Results Results Labs: Short CBC 09/10/23 09/10/23 Range/Units 08:22 10:02 WBC 14.0 H 13.4 H (4.8-10.8) X10*3/uL Hgb 8.6 L D 7.9 L (12.0-16.0) g/dl Hct 27.4 L D 24.5 L (37.0-47.0) % Plt Count 271 258 (160-400) X10*3/uL BMP 09/10/23 08:22 Sodium 143 Potassium 3.8 Chloride 113 H Carbon Dioxide 23 BUN 13 Creatinine 0.78 Calcium 7.5 L D Liver Function 09/10/23 Range/Units 08:22 Total Bilirubin 0.5 (0.0-1.0) mg/dL AST 20 (5-31) U/L ALT 21 (0-31) U/L Alkaline Phosphatase 79 (39-117) U/L Albumin 2.9 L (3.5-5.0) g/dL Assessment and Plan (1) Splenic hemorrhage: Status: Acute Comparison of noncontrast CT imaging approximately 04:30, 10:00 and CTA of 14:00 shows no worsening based on most recent CTA and no evidence of extravasation without significant change compared to 10:00 CT. Given that there appears to be no acute need for transfer for urgent interventional radiology embolization, she will be admitted to the hospital for further care. She will receive an additional 2 units FFP, 1 unit packed red blood cells. Given the recent CTA we will check a Chem 7, hemoglobin, hematocrit and repeat lactic acid at approximately 19:00 hours tonight. Follow up CBC and Chem 7 in the morning. LR at 125 mL/hour. Aquino catheter to monitor urinary output. IV acetaminophen. IV Dilaudid p.r.n.. IV pantoprazole, Zofran and p.r.n. raglan. She will be on bed rest with compression garment to her left leg given the small right posterior calf hematoma. She will be placed on remote telemetry and monitored very closely on [facility] 3 floor as there is no available bed in our ICU. (2) Hemoperitoneum: Status: Acute As above with repeat labs tonight and again tomorrow. (3) S/P laparoscopic sleeve gastrectomy: Status: Acute Status post revision of previous sleeve gastrectomy. Original surgery performed in 2014. Most recent revision performed on 09/08/2023. Should be placed on bariatric phase 1 diet. (4) Abdominal pain: Qualifiers: Abdominal location: left upper quadrant Qualified Code(s): R10.12 - Left upper quadrant pain Status: Acute Analgesia as above (5) Aneurysm: Status: Acute History of cerebral aneurysm, status post stenting in September 2022 and April 2023. Previously on aspirin and Plavix which were held for 1 week preoperatively. She did receive Arixtra during that time, held 1 day prior to surgery. Given her recent hemorrhage, we will hold any further anticoagulation at this time. (6) Obstructive sleep apnea on CPAP: Status: Acute CPAP while sleeping Plan Case was discussed with and patient was examined with attending physician Dr. Livingston who was on site during the entire above proceedings. Total time managing care of this patient today: 480 minutes. Quality Stroke Does the patient have a stroke diagnosis?: No VTE Prior VTE?: No VTE Risk Level:: Surgical - very high VTE Device Contraindication: N/A - Device Ordered VTE Drug Contraindication: Treatment Not Indicated Procedures Date of Service Date of Service: 09/10/23
[2023-09-10 16:36] LABS: MANUAL DIFF FLAG NO
[2023-09-10 16:41] LABS: Basophils Percent Auto 0.1 % (0-2); Hematocrit 21.3 % (37.0-47.0); Imm Gran Abs Auto 0.04 X10*3/uL (0.00-0.03); Imm Gran Pct Auto 0.3 % (0.0-0.4); Lymphocytes Percent Auto 8.3 % (20-40); Mean Corpuscular HGB Conc 32.9 g/dl (31.0-35.0); Mean Corpuscular Hemoglobin 29.2 pg (27.0-33.0); Mean Corpuscular Volume 88.8 fL (80.0-98.0); Mean Platelet Volume 10.2 fL (9.4-12.3); Monocytes Absolute Auto 1.5 X10*3/uL (0.1-1.2); Monocytes Percent Auto 12.3 % (2-11); Neutrophils Absolute Auto 9.6 x10*3/uL (2.0-8.3); Platelet Count 207 X10*3/uL (160-400); Red Cell Distribution Width 13.8 % (11.0-16.0); White Blood Count 12.2 X10*3/uL (4.8-10.8)
--- NOTE | 2023-09-10 16:57 | PHA.MEDREC ---
Pharmacy Consult ? Medication Reconciliation Pharmacy has completed the medication reconciliation. Spoke to patient to confirm meds. Patient states they D/C'd multiple meds following surgery. Only take what is confirmed.
--- NOTE | 2023-09-10 17:00 | PC.NURSE ---
FFP completed, [facility] to follow. Dr Hernández back to bedside at this time, at bedside as well. Aquino inserted per order, output 600ml of dark yellow urine. H+H continues to trend down.
[2023-09-10] MEDS: 0.9 % Sodium Chloride Flush 3 ML SYRINGE IVFLUSH (17:38)
[2023-09-10] MEDS: HYDROmorphone HCl 0.5 MG/0.5 ML SYRINGE 0.25 MG IVPUSH ×3 (17:46→22:46)
[2023-09-10] MEDS: Lactated Ringers 1,000 ML 125 ML IVCONT (17:50)
--- NOTE | 2023-09-10 17:55 | PC.NURSE ---
PRBC unit infusing, per verbal order Dr Robles unit to infuse over 2 hours, then give another PRBC then FFP with labs including cbc, chem 7 and lactic at 2100 LR started at 125ml/hr, additional pain meds given and zofran.
--- NOTE | 2023-09-10 20:18 | PC.NURSE ---
Pt medicated per dec Pt ca7Ox4, no signs of acute distress remains at bedside. Plan of care ongoing.
[2023-09-10 21:29] LABS: Hematocrit 26.1 % (37.0-47.0); Hemoglobin 8.5 g/dl (12.0-16.0)
[2023-09-10 21:36] LABS: Lactic Acid 1.4 mmol/L (0.5-2.0)
[2023-09-10 21:40] LABS: Anion Gap 12 (12-20); Blood Urea Nitrogen 12 mg/dL (9-16); Calcium 8.2 mg/dL (8.4-10.2); Carbon Dioxide 24 mmol/L (22-29); Chloride 112 mmol/L (96-108); Creatinine Clr Calc Pharmacy 103.5; Estimated Glomerular Filt Rate > 60; Glucose Random 138 mg/dL (60-115); Potassium 4.2 mmol/L (3.3-5.1); Sodium 144 mmol/L (135-145)
--- NOTE | 2023-09-10 21:54 | PC.NURSE ---
This RN spoke with Dr Kiran Mayen regarding next steps for pt. Pt to finish RBC running once that's completed continuous acetaminophen will be stopped and both plasma orders will run concurrently. After the plasma is finished pt will receive another unit of RBC and an H&H will be redrawn for 3am. director of donor relations updated. Plan of care ongoing.
[2023-09-10] MEDS: Pantoprazole Sodium 40 MG/10 ML VIAL IVPUSH (22:41)
[2023-09-10] MEDS: Metoclopramide HCl 10 MG/2 ML VIAL IVPUSH (22:44)
--- NOTE | 2023-09-10 22:54 | PC.NURSE ---
Pt ca&ox4, no signs of distress. Pt medicated per mar. Plan of care ongoing.
[2023-09-10 23:30] LABS: Glucose, Whole Blood 127 mg/dL (60-115)
--- NOTE | 2023-09-10 23:46 | PC.NURSE ---
Pt ca&ox4, no signs of acute distress. Pt asking what the plan is, this RN explained the next steps. Plan of care ongoing.
[2023-09-11] VITALS (19 sets, daily range): BP systolic 113–142; BP diastolic 56–83; PULSE 91–110; RESP 16–31; TEMP 36.5–37.3; O2SAT 90–93; BMI 45.2
--- NOTE | 2023-09-11 00:02 | PC.NURSE ---
Update given to pts daughter Edelmira at this time.
[2023-09-11] MEDS: ondansetron HCL 4 MG/2 ML VIAL IVPUSH ×3 (01:35→16:52)
[2023-09-11] MEDS: HYDROmorphone HCl 0.5 MG/0.5 ML SYRINGE 0.25 MG IVPUSH ×4 (01:36→10:23)
--- NOTE | 2023-09-11 02:23 | PC.NURSE ---
Pt placed in hospital bed for comfort.
--- NOTE | 2023-09-11 02:52 | MHC.EDTECH ---
Aquino emptied 750MLS
--- NOTE | 2023-09-11 03:05 | PC.NURSE ---
Pt removed binder unable to breath with it on. Plan of care ongoing.
--- NOTE | 2023-09-11 03:11 | PC.NURSE ---
Pt requested hob elevated. Plan of care ongoing.
[2023-09-11 03:45] LABS: Basophils Percent Auto 0.3 % (0-2); Hematocrit 28.3 % (37.0-47.0); Hematocrit 29.4 % (37.0-47.0); Hemoglobin 9.6 g/dl (12.0-16.0); Hemoglobin 9.7 g/dl (12.0-16.0); Imm Gran Abs Auto 0.12 X10*3/uL (0.00-0.03); Imm Gran Pct Auto 0.8 % (0.0-0.4); Lymphocytes Absolute Auto 1.4 X10*3/uL (1.2-4.9); MANUAL DIFF FLAG SCAN; Mean Corpuscular Hemoglobin 28.8 pg (27.0-33.0); Mean Corpuscular Volume 87.2 fL (80.0-98.0); Mean Platelet Volume 10.4 fL (9.4-12.3); Monocytes Absolute Auto 2.2 X10*3/uL (0.1-1.2); Monocytes Percent Auto 14.6 % (2-11); Neutrophils Absolute Auto 11.5 x10*3/uL (2.0-8.3); Neutrophils Percent Auto 75.3 % (45-73); Platelet Count 161 X10*3/uL (160-400); Red Blood Count 3.37 X10*6/uL (4.20-5.50); Red Cell Distribution Width 16.3 % (11.0-16.0); SCAN SMEAR FLAG 1; White Blood Count 15.2 X10*3/uL (4.8-10.8)
[2023-09-11 03:51] LABS: Anion Gap 13 (12-20); Blood Urea Nitrogen 11 mg/dL (9-16); Calcium 8.7 mg/dL (8.4-10.2); Carbon Dioxide 26 mmol/L (22-29); Chloride 111 mmol/L (96-108); Creatinine Clr Calc Pharmacy 103.5; Estimated Glomerular Filt Rate > 60; Glucose Random 134 mg/dL (60-115); Potassium 4.1 mmol/L (3.3-5.1); Sodium 146 mmol/L (135-145)
[2023-09-11 04:21] LABS: SLIDE REVIEW VERIFIED
[2023-09-11] MEDS: Metoclopramide HCl 10 MG/2 ML VIAL IVPUSH ×3 (05:07→18:36)
[2023-09-11] MEDS: Acetaminophen 1,000 MG/100 ML PIGGYBACK 16.7 MG IV ×4 (06:34→23:51)
--- NOTE | 2023-09-11 07:19 | PC.NURSE ---
patient arrived to this unit room 380 at 0615 from ER. IV site infiltrated on right arm, new access obtained, # 20 to right lower arm. Tylenol infusion started, LR and platelets started in ER and are infusing. VS taken and stable. Patient is alert and oriented, small 5 dressings to abd, D&I. Report given to receiving PAOLA Freed to continue care.
[2023-09-11] MEDS: Lactated Ringers 1,000 ML 125 ML IVCONT ×2 (08:30→16:15)
[2023-09-11] MEDS: Pantoprazole Sodium 40 MG/10 ML VIAL IVPUSH ×2 (08:30→21:50)
[2023-09-11 09:03] LABS: Basophils Percent Auto 0.2 % (0-2); Hematocrit 24.4 % (37.0-47.0); Hemoglobin 8.3 g/dl (12.0-16.0); Imm Gran Abs Auto 0.12 X10*3/uL (0.00-0.03); Imm Gran Pct Auto 0.8 % (0.0-0.4); Lymphocytes Absolute Auto 1.2 X10*3/uL (1.2-4.9); Lymphocytes Percent Auto 7.6 % (20-40); MANUAL DIFF FLAG SCAN; Mean Corpuscular Hemoglobin 29.3 pg (27.0-33.0); Mean Corpuscular Volume 86.2 fL (80.0-98.0); Mean Platelet Volume 10.4 fL (9.4-12.3); Monocytes Absolute Auto 1.8 X10*3/uL (0.1-1.2); Monocytes Percent Auto 11.4 % (2-11); Neutrophils Absolute Auto 12.5 x10*3/uL (2.0-8.3); Platelet Count 170 X10*3/uL (160-400); Red Blood Count 2.83 X10*6/uL (4.20-5.50); Red Cell Distribution Width 16.1 % (11.0-16.0); SCAN SMEAR FLAG 1; White Blood Count 15.6 X10*3/uL (4.8-10.8)
[2023-09-11 09:53] LABS: Anion Gap 12 (12-20); Blood Urea Nitrogen 9 mg/dL (9-16); Calcium 8.3 mg/dL (8.4-10.2); Carbon Dioxide 25 mmol/L (22-29); Chloride 111 mmol/L (96-108); Creatinine Clr Calc Pharmacy 116.6; Estimated Glomerular Filt Rate > 60; Glucose Random 117 mg/dL (60-115); Potassium 3.3 mmol/L (3.3-5.1); Sodium 145 mmol/L (135-145)
--- NOTE | 2023-09-11 10:39 | PC.NURSE ---
received pt this morning with platelets infusing , pt reports pain 10/10 medicated with pain med at 0730 see DEC . Miguel Mayen called at 0820 for an update and ordered stat labs . Pts daughter at bedside upset and asking for an update . reached out to MIGUEL Mayen via tiger Txt , he replied he will be at bedside shortly . Family given reassurance .
--- NOTE | 2023-09-11 10:50 | PC.NURSE ---
Miguel Mayen at bedside to see Pt and Speak with family. Okay for pt to have premier clear protein drink 2 ml at a time as tolerated . Will maintain IV fluids as ordered and will adjust pain meds to better control pain along with will place an order for 1 unit of PRBC . Spoke with MIGUEL Mayen and questioned if theres a need for a hospitalist consult at this time , he declined need for. Will continue to monitor closely.
--- NOTE | 2023-09-11 12:06 | P.PNGS_ITS ---
Subjective Subjective Date of Service: 09/11/23 Patient reports: still having pain Interval history: 63-year-old female admitted to the hospital yesterday, postop day 2, status post revision of previous laparoscopic sleeve gastrectomy. She developed worsening abdominal pain requiring emergency transport to [facility] where she was found to have hemoperitoneum about the left upper quadrant as well as anemia and hypotension. She was given 1 unit of packed red blood cells and 2 L of IV fluids, stabilized for transfer and was sent by ambulance to [facility]. While in the emergency room she had a repeat noncontrast CT scan showing slight increase in hemoperitoneum. She received an additional 3 units packed red blood cells and 4 units fresh frozen plasma and 1 unit of platelets. She had a CTA of the abdomen showing no extravasation or active bleeding and no increase in hemoperitoneum compared to the noncontrast CT earlier yesterday morning. She was admitted to the hospital for further care. Overnight she received another unit of packed red blood cells, 2 more units of fresh frozen plasma and 1 unit of platelets. She had labs checked at approximately 03:30 hours revealing an improvement in her hemoglobin. Her blood pressure improved although she remained slightly tachypneic with heart rate in the 90s. This morning, she did have a slight decrease in her hemoglobin again although hemodynamically her picture is improving with improved blood pressures and no increase in heart rate. Her tachypnea has additionally improved. To date, she has received a total of 5 units packed red blood cells, 6 units fresh frozen plasma and 2 units platelets. Per nursing, she continues to complain of left upper quadrant abdominal pain and intermittent nausea. She additionally reports gas pain that ?comes and goes . Physical Exam 2 Vital Signs: Vital Signs: Last Vital Signs Temp 99 F 09/11/23 09:31 Pulse 96 09/11/23 09:31 Resp 18 09/11/23 09:31 BP 132/68 09/11/23 09:31 Pulse Ox 93 09/11/23 09:31 O2 Del Method Nasal Cannula wit h Capnography 09/11/23 09:31 O2 Flow Rate 2.5 09/11/23 09:31 BMI result Body Mass Index 45.2 Const: General: cooperative, no acute distress and ill appearing O rientation/consciousness: patient oriented x3 Cardio: Rate: regular rate Rhythm: regular rhythm GI: Inspection: Yes incision (Ecchymosis about the surgical incision sites) Palpation (GI): Tenderness to palpation present (GI) in the LUQ Auscultation: Hypoactive bowel sounds present Neuro: General: patient oriented x3 Extrem: General: No edema Objective Data Active Medications Acetylcysteine (Acetylcysteine 10 % 400 Mg/4 Ml Vial) 400 mg INHALE RBID KATHY Hydromorphone HCl (Hydromorphone Hcl 0.5 Mg/0.5 Ml Syringe) 0.5 mg IVPUSH Q3H PRN; Protocol PRN Reason: Pain, Moderate(Pain Scale 4-6) Acetaminophen (Ofirmev) 1,000 mg in 100 mls @ 16.7 mls/hr IV .Q6H [facility] Last Admin: 09/11/23 11:55 Dose: 16.7 mls/hr Documented By: KIRK Lactated Ringer's (Lr) 1,000 mls @ 125 mls/hr IVCONT .Q8H [facility] Last Admin: 09/11/23 08:30 Dose: 125 mls/hr Documented By: KIRK Sodium Chloride (Ns) 100 mls @ 100 mls/hr IV ONCE ONE Stop: 09/11/23 12:35 Piperacillin Sod/Tazobactam (Sod 3.375 gm/ Sodium Chloride) 50 mls @ 100 mls/hr IV Q8H [facility] Metoclopramide HCl (Metoclopramide Hcl 10 Mg/2 Ml Vial) 10 mg IVPUSH Q6H PRN PRN Reason: Nausea Last Admin: 09/11/23 05:07 Dose: 10 mg Documented By: JOSAFAT Ondansetron HCl (Ondansetron Hcl 4 Mg/2 Ml Vial) 4 mg IVPUSH Q8H [facility] Last Admin: 09/11/23 08:30 Dose: 4 mg Documented By: KIRK Pantoprazole Sodium (Pantoprazole Sodium 40 Mg/10 Ml Vial) 40 mg IVPUSH BID [facility] Last Admin: 09/11/23 08:30 Dose: 40 mg Documented By: KIRK Sodium Chloride (0.9 % Sodium Chloride Flush 3 Ml Syringe) 3 ml IVFLUSH QSHIFT [facility] Last Admin: 09/11/23 08:36 Dose: Not Given Documented By: KIRK Non-Admin Reason: IV Running Labs 09/11/23 08:49 09/11/23 08:49 Labs: Laboratory Results - last 24 hr 09/10/23 09/10/23 09/10/23 08:22 16:32 21:18 MCV 88.8 MCH 29.2 MCHC 32.9 RDW 13.8 Plt Count 207 MPV 10.2 Immature Gran % (Auto) 0.3 Neut % (Auto) 79.0 H Lymph % (Auto) 8.3 L [place] % (Auto) 12.3 H Eos % (Auto) 0.0 Baso % (Auto) 0.1 Lymph # (Auto) 1.0 L [place] # (Auto) 1.5 H Eos # (Auto) 0.0 Baso # (Auto) 0.0 Abs Immat Gran (auto) 0.04 H Absolute Neuts (auto) 9.6 H Absolute Nucleated RBC 0.000 Nucleated RBC % (auto) 0.0 Smear Tech's Comments Anion Gap 12 Estim Creat Clear Calc 103.5 Estimated GFR > 60 POC Glucose Random Glucose 138 H Lactic Acid 1.4 Calcium 8.2 L D Blood Type O Positive Antibody Screen NEGATIVE Crossmatch See Detail 09/10/23 09/11/23 09/11/23 23:26 03:30 08:49 MCV 87.2 86.2 MCH 28.8 29.3 MCHC 33.0 34.0 RDW 16.3 H 16.1 H Plt Count 161 170 MPV 10.4 10.4 Immature Gran % (Auto) 0.8 H 0.8 H Neut % (Auto) 75.3 H 80.0 H Lymph % (Auto) 9.0 L 7.6 L [place] % (Auto) 14.6 H 11.4 H Eos % (Auto) 0.0 0.0 Baso % (Auto) 0.3 0.2 Lymph # (Auto) 1.4 1.2 [place] # (Auto) 2.2 H 1.8 H Eos # (Auto) 0.0 0.0 Baso # (Auto) 0.0 0.0 Abs Immat Gran (auto) 0.12 H 0.12 H Absolute Neuts (auto) 11.5 H 12.5 H Absolute Nucleated RBC 0.000 0.000 Nucleated RBC % (auto) 0.0 0.0 Smear Tech's Comments VERIFIED Anion Gap 13 12 Estim Creat Clear Calc 103.5 116.6 Estimated GFR > 60 > 60 POC Glucose 127 H Random Glucose 134 H 117 H Lactic Acid Calcium 8.7 D 8.3 L Blood Type Antibody Screen Crossmatch Imaging CT scan - abdomen: Radiologist's impression: Impressions Abdomen CTA 09/10/23 13:52 IMPRESSION: Redemonstration of the splenic rupture with moderate amount of perisplenic hemorrhage. No active extravasation or pseudoaneurysm is identified. The amount of intraperitoneal hemorrhage is unchanged compared to the exam at 10:45 AM, however it is mildly increased compared to the 5:15 AM exam. Chest x-ray: Radiologist's impression: Impressions 09/10/924 hrs IMPRESSION: Left lower lobe atelectasis/infiltrate. Procedures Date of Service Date of Service: 09/11/23 Progress Note: A&P Assessment and plan (1) Splenic hemorrhage: Status: Acute Assessment and Plan: CTA performed yesterday showed no extravasation or worsening of noted splenic hemoperitoneum. She has received multiple blood products including packed red cells, FFP and platelets. She will receive 1 more unit of packed red blood cells with repeat hemogram at 17:30 hours. Plan for repeat CTA of the abdomen tomorrow No evidence of acute kidney injury from previous dye exposure from CTA yesterday. No evidence of intolerance/allergy to IV contrast, corroborating with patient's report of oral contrast allergy. Continue pain management with p.r.n. IV Dilaudid however increased dose from 0.25 mg q.2 hours to 0.5 mg q.3 hours p.r.n.. Continue antiemetic. CBC and Chem 7 tomorrow morning. There still remains concern of possible rebleed requiring transfer for IR guided embolization. At this time, there is no indication of read bleed or for need for embolization. Despite the volume with the blood products and continued IV fluids with lactated Ringer's, there is no evidence to suggest fluid overload at this time. She does use Lasix in the outpatient setting and we will continue to monitor very closely as she may need intermittent IV Lasix. Continue to monitor urinary output via [place] especially given current bed rest status. (2) Hemoperitoneum: Status: Acute Assessment and Plan: Reimaging of the abdomen tomorrow. Continue analgesia and antiemetics. (3) S/P laparoscopic sleeve gastrectomy: Status: Acute Assessment and Plan: Advance to phase 3 bariatric diet. She was given a 20 gm protein water and was instructed on the pace of drinking, 2 mL/hour. Patient's daughter, Zaina was at bedside and was also instructed on the pace and volume of drinking. She will additionally be given a protein shake with the goal of finishing both the protein water and protein shake today. (4) Atelectasis of left lung: Status: Acute Assessment and Plan: Add Mucomyst 400 mg b.i.d. as well as Zosyn 3.375 g IV q.8 hours. Patient was given incentive spirometry yesterday and was encouraged again today to use the incentive spirometer. She was instructed on its use and encouraged to use it 10 times per hour. As above, her daughter was at bedside and was additionally instructed to be able to help encourage her mom to use the incentive spirometer. (5) Sleep apnea: Status: Acute Assessment and Plan: Continue CPAP while sleeping Plan Overnight events including review of 03:30 hour labs were done at the time of the labs with Dr. Livingston. He was also aware of all current events as of this morning and was directly involved in both the interpretation of the data as well as the plans/goals for the day. With patient's permission, the case was discussed with her daughter at bedside as well as by phone with her Justin and her other daughter per request. Time Spent With Patient Time: Total time managing care of this patient today 120 minutes. Quality Stroke Does the patient have a stroke diagnosis?: No VTE Prior VTE?: No VTE Risk Level:: Surgical - very high VTE Device Contraindication: N/A - Device Ordered VTE Drug Contraindication: Treatment Not Indicated
[2023-09-11] MEDS: Acetylcysteine 10 % 400 MG/4 ML VIAL INHALE ×2 (12:11→19:42)
--- NOTE | 2023-09-11 12:17 | PC.NURSE ---
Loss of IV access . starting of blood will be delayed until access obtained
[2023-09-11] MEDS: HYDROmorphone HCl 0.5 MG/0.5 ML SYRINGE IVPUSH ×4 (12:25→21:49)
--- NOTE | 2023-09-11 13:16 | PC.NURSE ---
1 unit of PRBC started
--- NOTE | 2023-09-11 14:53 | MHC.CM.PN ---
CM MET WITH PT AND DAUGHTER AT BEDSIDE PT LIVES WITH HER AND IS INDEPENDENT WITH CARE SHE SAYS SHE USES A CPAP ONLY FOR DME SHE HAS NO HOME SERVICES SHE REPORTS SHE HAS A HCP NAMING HER AND DAUGHTER HER AGENTS, COPY REQUESTED PCP: ALYSSA GODOY IMM DELIVERED DCP: HOME NO SERVICES VIA FAMILY TRANSPORT
[2023-09-11] MEDS: Furosemide 20 MG/2 ML VIAL 10 MG IVPUSH ×3 (15:57→23:46)
[2023-09-11] MEDS: Piperacillin Sodium/Tazobactam 3.375 GM in 0.9 % Sodium Chloride 50 ML IV ×2 (16:02→23:50)
--- NOTE | 2023-09-11 16:22 | PC.NURSE ---
unit of PRBC complete pt tolerated well
--- NOTE | 2023-09-11 16:29 | PC.NURSE ---
Pt has done 20ml of the clear protein water and 20 ml of the protein shake with encouragement
--- NOTE | 2023-09-11 17:05 | PC.NURSE ---
stout emptied for 325cc of urine after 10 mg of Iv lasix
[2023-09-11 17:20] LABS: Hematocrit 28.7 % (37.0-47.0); Hemoglobin 9.8 g/dl (12.0-16.0); Mean Corpuscular HGB Conc 34.1 g/dl (31.0-35.0); Mean Corpuscular Hemoglobin 29.2 pg (27.0-33.0); Mean Corpuscular Volume 85.4 fL (80.0-98.0); NRBC Pct Auto 0.1 /100WBC (0.0-0.2); Platelet Count 173 X10*3/uL (160-400); Red Blood Count 3.36 X10*6/uL (4.20-5.50); White Blood Count 18.6 X10*3/uL (4.8-10.8)
--- NOTE | 2023-09-11 20:36 | PC.RT ---
Patient refuses CPAP. Patient states noncompliance at home and discomfort. Patient educated and instructed to let staff know of she wishes to wear it.
--- NOTE | 2023-09-11 22:31 | PC.RT ---
This RT spoke with patient again re: CPAP usage. Educated patient and came to agreement to try CPAP. RN informs this RT of MD order to encourage patient to drink protein drinks Q20 minutes throughout the night. This RT informs the RN that this would negate benefits of positive pressure therapy for TOMASA and would put patient at increased risk of aspiration. RN is encouraging patient to drink now and we will attempt CPAP at 2300 and Rn states she will resume protein drinks in the AM. Asked by provider to provide number of puffs taken by patient during Acetylcysteine treatment. Patient was able to tolerate for 2 minutes of nebulizer before coughing and refusing to finish due to pain.
[2023-09-12] VITALS (23 sets, daily range): BP systolic 119–160; BP diastolic 60–93; PULSE 83–97; RESP 15–24; TEMP 36–36.9; O2SAT 92–98
[2023-09-12] MEDS: ondansetron HCL 4 MG/2 ML VIAL IVPUSH ×3 (00:03→20:35)
[2023-09-12] MEDS: Lactated Ringers 1,000 ML 100 ML IVCONT ×3 (01:56→22:38)
--- NOTE | 2023-09-12 04:41 | PC.NURSE ---
at 2044 spoke with ANDRY r/e pts low sats 90 % on 2 L HR 107-110 and difficulty breathing. also Resp notified this Rn pt only took few puffs with mucomyst and for future refusing CPAP. trying to enc. to use of inspr. very poorly performed only up to 250-and 500 . 2119 pt states difficulty breathing still 90% on 2L asked Charisse Mayen to increase to 3 L. agreed. also order rc'd to decrease iv fluids to 100ml/h. and place pt on CPAP BECAUSE THE DRINKS asked resp to come at [address] on pt agreed at this time. she was able to drink total of 20 ml of protein shake and 20 ml of propel water after 2300 order was given for 10 mg of lasix iv given f/c was empty before lasix for 750 ml. pt over night was for total of maybe 3 hours . had 2 loose stools one large and one small she said protein shake is giving her diarrhea
[2023-09-12] MEDS: HYDROmorphone HCl 0.5 MG/0.5 ML SYRINGE 0.25 MG IVPUSH ×3 (05:20→19:49)
[2023-09-12] MEDS: Acetaminophen 1,000 MG/100 ML PIGGYBACK 16.7 MG IV ×4 (06:24→23:58)
--- NOTE | 2023-09-12 07:11 | PC.NURSE ---
pt feeling little better this morning she wants to get out of bed .o2 sats are on 2L 94 %
[2023-09-12] MEDS: Acetylcysteine 10 % 400 MG/4 ML VIAL INHALE (07:44)
[2023-09-12] MEDS: Piperacillin Sodium/Tazobactam 3.375 GM in 0.9 % Sodium Chloride 50 ML IV ×3 (08:01→23:58)
[2023-09-12] MEDS: Pantoprazole Sodium 40 MG/10 ML VIAL IVPUSH ×2 (08:01→20:38)
[2023-09-12] MEDS: 0.9 % Sodium Chloride Flush 3 ML SYRINGE IVFLUSH (08:02)
--- NOTE | 2023-09-12 08:12 | PM.PNGS ---
Subjective Subjective Date of Service: 09/12/23 Patient reports: feels better, still having pain, pain is less and tolerating liquids well Interval history: 63-year-old female admitted to the hospital with significant left upper quadrant abdominal pain secondary to splenic hemorrhage. Please see HPI for full details and previous notes for details from the weekend. Overnight events reviewed, she had some increased work of breathing yesterday evening and overnight, responsive to 3 total doses of IV Lasix and CPAP. Pain has improved although still persists in the left upper quadrant. IV fluids were decreased as well as p.r.n. Dilaudid. This morning, she states that she wants to get out of bed and start to walk around which is certainly an improvement. She tolerated some protein water, regular water and protein shake yesterday afternoon although she feels as though the protein shake was causing her loose stools. She did have 2 loose stools overnight. She additionally states that her is going to be bringing in her own CPAP from home as well as the protein shakes that she was tolerating well at home prior to surgery. Physical Exam Vital Signs: Vital Signs: Last Vital Signs Temp 96.8 F 09/12/23 07:41 Pulse 89 09/12/23 07:48 Resp 18 09/12/23 07:48 BP 157/87 H 09/12/23 07:41 Pulse Ox 92 09/12/23 07:41 O2 Del Method Nasal Cannula 09/12/23 07:41 O2 Flow Rate 2 09/12/23 07:41 BMI result Body Mass Index 45.2 Const: General: no acute distress Orientation/consciousness: patient oriented x3 Resp: Auscultation: diminished lung sounds on the left in the lower lung thompson Cardio: Rate: regular rate Rhythm: regular rhythm GI: Inspection: Yes incision (Ecchymosis about the incisions) Palpation (GI): Tenderness to palpation present (GI) in the LUQ Auscultation: Hypoactive bowel sounds present Neuro: General: patient oriented x3 Extrem: General: Yes no pedal edema and Yes edema (Trace lower extremity edema) Objective Data Active Medications Acetylcysteine (Acetylcysteine 10 % 400 Mg/4 Ml Vial) 400 mg INHALE RBID KATHY Last Admin: 09/12/23 07:44 Dose: 400 mg Documented By: BERKLEY Hydromorphone HCl (Hydromorphone Hcl 0.5 Mg/0.5 Ml Syringe) 0.25 mg IVPUSH Q4H PRN; Protocol PRN Reason: Pain, Moderate(Pain Scale 4-6) Last Admin: 09/12/23 05:20 Dose: 0.25 mg Documented By: SHAUNNA Acetaminophen (Ofirmev) 1,000 mg in 100 mls @ 16.7 mls/hr IV .Q6H [facility] Last Admin: 09/12/23 06:24 Dose: 16.7 mls/hr Documented By: SHAUNNA Lactated Ringer's (Lr) 1,000 mls @ 100 mls/hr IVCONT .Q10H [facility] Last Admin: 09/12/23 01:56 Dose: 100 mls/hr Documented By: SHAUNNA Piperacillin Sod/Tazobactam (Sod 3.375 gm/ Sodium Chloride) 50 mls @ 100 mls/hr IV Q8H [facility] Last Admin: 09/12/23 08:01 Dose: 100 mls/hr Documented By: JUDY Metoclopramide HCl (Metoclopramide Hcl 10 Mg/2 Ml Vial) 10 mg IVPUSH Q6H PRN PRN Reason: Nausea Last Admin: 09/11/23 18:36 Dose: 10 mg Documented By: KIRK Ondansetron HCl (Ondansetron Hcl 4 Mg/2 Ml Vial) 4 mg IVPUSH Q8H [facility] Last Admin: 09/12/23 08:01 Dose: 4 mg Documented By: JUDY Pantoprazole Sodium (Pantoprazole Sodium 40 Mg/10 Ml Vial) 40 mg IVPUSH BID [facility] Last Admin: 09/12/23 08:01 Dose: 40 mg Documented By: JUDY Sodium Chloride (0.9 % Sodium Chloride Flush 3 Ml Syringe) 3 ml IVFLUSH QSHIFT [facility] Last Admin: 09/12/23 08:02 Dose: 3 ml Documented By: JUDY Labs 09/11/23 17:11 09/11/23 08:49 Labs: Laboratory Results - last 24 hr 09/10/23 09/11/23 09/11/23 08:22 08:49 17:11 MCV 86.2 85.4 MCH 29.3 29.2 MCHC 34.0 34.1 RDW 16.1 H 16.0 Plt Count 170 173 MPV 10.4 10.0 Immature Gran % (Auto) 0.8 H Neut % (Auto) 80.0 H Lymph % (Auto) 7.6 L [place] % (Auto) 11.4 H Eos % (Auto) 0.0 Baso % (Auto) 0.2 Lymph # (Auto) 1.2 [place] # (Auto) 1.8 H Eos # (Auto) 0.0 Baso # (Auto) 0.0 Abs Immat Gran (auto) 0.12 H Absolute Neuts (auto) 12.5 H Absolute Nucleated RBC 0.000 0.020 H Nucleated RBC % (auto) 0.0 0.1 Anion Gap 12 Estim Creat Clear Calc 116.6 Estimated GFR > 60 Random Glucose 117 H Calcium 8.3 L Blood Type O Positive Antibody Screen NEGATIVE Crossmatch See Detail Procedures Date of Service Date of Service: 09/12/23 Progress Note: A&P Assessment and plan (1) Splenic hemorrhage: Status: Acute Assessment and Plan: Overall treatment included a total of 6 units packed red blood cells, 6 units fresh frozen plasma, 2 units platelets with stabilization of hemorrhage and hemoglobin. Stat CTA of the abdomen for further evaluation with plan to cautiously get her up and out of bed with physical therapy if no worsening pathology. Serial a.m. labs. Overall, clinical improvement and tolerability of decreased p.r.n. narcotic. Continue scheduled ATC IV acetaminophen. (2) Atelectasis of left lung: Status: Acute Assessment and Plan: Left lower lobe atelectasis versus infiltrate. Repeat labs this morning given her history of leukocytosis, Zosyn was started prophylactically. Zosyn 3.375 g IV q.8 hours, day 2. Strongly encouraged to utilize incentive spirometry 10 times per hour while awake. Additionally strongly encouraged to utilize her CPAP whenever sleeping. (3) S/P laparoscopic sleeve gastrectomy: Status: Acute Assessment and Plan: Tolerating bariatric phase 3 diet. She did not like the hospital protein shakes and states that her will bring in her celebrate rebuild from home. As long as the CTA of the abdomen is showing improvement, she will be encouraged to have 3 celebrate rebuild protein shakes with 1 scoop each in 8 oz of 1% milk. No evidence of incisional disruption or problems related to the surgery. (4) Sleep apnea: Status: Acute Assessment and Plan: Must use CPAP at night as well as whenever sleeping. (5) Aneurysm: Status: Acute Assessment and Plan: Previously on aspirin and Plavix, this was held for planned surgery 09/08/2023. She did receive Arixtra prior to surgery and was supposed to continue this postoperatively however given the massive splenic hemorrhage, she has remained off of all anticoagulants. Resumption of anticoagulants will be determined based upon clinical improvement, outcomes and stability of splenic hemorrhage Plan Patient was seen and examined with Dr. Livingston today. All aspects of the case were reviewed with him. Time Spent With Patient Time: Total time managing care of this patient today ____ minutes. Quality Stroke Does the patient have a stroke diagnosis?: No VTE Prior VTE?: No VTE Risk Level:: Surgical - very high VTE Device Contraindication: N/A - Device Ordered VTE Drug Contraindication: Treatment Not Indicated
[2023-09-12 08:25] LABS: Basophils Percent Auto 0.1 % (0-2); Hematocrit 28.9 % (37.0-47.0); Hemoglobin 9.5 g/dl (12.0-16.0); Imm Gran Abs Auto 0.22 X10*3/uL (0.00-0.03); Imm Gran Pct Auto 1.2 % (0.0-0.4); Lymphocytes Absolute Auto 1.2 X10*3/uL (1.2-4.9); Lymphocytes Percent Auto 6.9 % (20-40); MANUAL DIFF FLAG SCAN; Mean Corpuscular HGB Conc 32.9 g/dl (31.0-35.0); Mean Corpuscular Hemoglobin 28.6 pg (27.0-33.0); Mean Platelet Volume 10.4 fL (9.4-12.3); Monocytes Absolute Auto 1.9 X10*3/uL (0.1-1.2); Monocytes Percent Auto 10.7 % (2-11); NRBC Pct Auto 0.1 /100WBC (0.0-0.2); Neutrophils Absolute Auto 14.4 x10*3/uL (2.0-8.3); Neutrophils Percent Auto 81.1 % (45-73); Platelet Count 173 X10*3/uL (160-400); Red Blood Count 3.32 X10*6/uL (4.20-5.50); SCAN SMEAR FLAG 1; White Blood Count 17.8 X10*3/uL (4.8-10.8)
[2023-09-12 08:40] LABS: Anion Gap 13 (12-20); Blood Urea Nitrogen 10 mg/dL (9-16); Calcium 8.7 mg/dL (8.4-10.2); Carbon Dioxide 27 mmol/L (22-29); Chloride 109 mmol/L (96-108); Creatinine Clr Calc Pharmacy 112.8; Estimated Glomerular Filt Rate > 60; Glucose Random 118 mg/dL (60-115); Potassium 3.5 mmol/L (3.3-5.1); Sodium 145 mmol/L (135-145)
[2023-09-12] MEDS: Cyanocobalamin (Vitamin B-12) 1,000 MCG/ML VIAL 1000 MCG IM (09:16)
[2023-09-12] MEDS: Thiamine HCL 100 MG in 0.9 % Sodium Chloride 100 ML 202 MG IV (09:16)
[2023-09-12 09:24] LABS: SLIDE REVIEW VERIFIED
[2023-09-12] MEDS: iohexoL 350 MG/ML 100 ML INFUS..BTL 85 ML IV (10:17)
[2023-09-12] MEDS: Folic Acid 1 MG in 0.9 % Sodium Chloride 50 ML 100.4 MG IV (10:33)
--- NOTE | 2023-09-12 15:24 | MHC.CM.PN ---
Per MD rounds no discharge today. DP home , family transport
--- NOTE | 2023-09-12 17:42 | PC.NURSE ---
Pt arrived in PACU AT 1700 from IR. Acetaminophen drip was disconnected and IV tubing connection was open to air. the remaining 70 ml of bag was discarded along with the tubing. Plan is to restart acetaminophen infusion when current abx infusion completed.
[2023-09-12 20:17] LABS: Hematocrit 27.9 % (37.0-47.0); Hemoglobin 9.3 g/dl (12.0-16.0)
[2023-09-12] MEDS: Furosemide 20 MG/2 ML VIAL 10 MG IVPUSH (22:27)
[2023-09-13] VITALS (8 sets, daily range): BP systolic 130–147; BP diastolic 62–93; PULSE 89–96; RESP 16–18; TEMP 36.3–36.8; O2SAT 92–97
[2023-09-13] MEDS: ondansetron HCL 4 MG/2 ML VIAL IVPUSH ×3 (00:09→16:24)
[2023-09-13] MEDS: HYDROmorphone HCl 0.5 MG/0.5 ML SYRINGE 0.25 MG IVPUSH ×5 (01:32→20:52)
[2023-09-13] MEDS: Metoclopramide HCl 10 MG/2 ML VIAL IVPUSH (01:32)
--- NOTE | 2023-09-13 01:42 | PC.NURSE ---
pt brought from home her cpap. but when oxygen was connected her o2 sat was only 85-87% . resp notified but not able to fix the problem pt was placed back on 3L of o2
[2023-09-13 05:41] LABS: MANUAL DIFF FLAG NO
[2023-09-13 05:51] LABS: Basophils Percent Auto 0.1 % (0-2); Eosinophils Percent Auto 0.1 % (0-4); Hematocrit 25.8 % (37.0-47.0); Hemoglobin 8.6 g/dl (12.0-16.0); Imm Gran Abs Auto 0.16 X10*3/uL (0.00-0.03); Imm Gran Pct Auto 1.1 % (0.0-0.4); Lymphocytes Absolute Auto 1.2 X10*3/uL (1.2-4.9); Lymphocytes Percent Auto 7.9 % (20-40); Mean Corpuscular HGB Conc 33.3 g/dl (31.0-35.0); Mean Corpuscular Hemoglobin 29.2 pg (27.0-33.0); Mean Corpuscular Volume 87.5 fL (80.0-98.0); Monocytes Absolute Auto 1.3 X10*3/uL (0.1-1.2); Monocytes Percent Auto 9.1 % (2-11); NRBC Pct Auto 0.2 /100WBC (0.0-0.2); Neutrophils Absolute Auto 11.8 x10*3/uL (2.0-8.3); Neutrophils Percent Auto 81.7 % (45-73); Platelet Count 186 X10*3/uL (160-400); Red Blood Count 2.95 X10*6/uL (4.20-5.50); Red Cell Distribution Width 16.1 % (11.0-16.0); White Blood Count 14.5 X10*3/uL (4.8-10.8)
[2023-09-13 06:04] LABS: Amylase 19 U/L (28-100)
[2023-09-13 06:05] LABS: Alanine Aminotransferase 26 U/L (0-31); Albumin Level 2.8 g/dL (3.5-5.0); Alkaline Phosphatase 155 U/L (39-117); Anion Gap 14 (12-20); Aspartate Amino Transferase 32 U/L (5-31); Bilirubin Direct 0.9 mg/dL (0.0-0.5); Bilirubin Total 1.3 mg/dL (0.0-1.0); Blood Urea Nitrogen 12 mg/dL (9-16); Calcium 8.4 mg/dL (8.4-10.2); Carbon Dioxide 25 mmol/L (22-29); Chloride 108 mmol/L (96-108); Creatinine Clr Calc Pharmacy 122.8; Estimated Glomerular Filt Rate > 60; Glucose Random 124 mg/dL (60-115); Lipase 13 U/L (8-78); Potassium 3.2 mmol/L (3.3-5.1); Sodium 144 mmol/L (135-145); Total Protein 5.5 g/dL (6.5-8.0)
[2023-09-13] MEDS: Acetaminophen 1,000 MG/100 ML PIGGYBACK 16.7 MG IV (06:13)
--- NOTE | 2023-09-13 06:20 | PC.NURSE ---
pt was not able to tolerate head up to 45 degree she was asking to bring it down because she cant sleep. drsg to R groin d/i no s/s of bleeding. also not able to use cpap from home with oxygen o2 sats low in 85-87%. pain is better tonite
[2023-09-13] MEDS: KCl 20 mEq in 0.45% Sod 20 MEQ/1,000 ML IV.SOLN 100 MEQ IVCONT ×3 (07:21→20:55)
[2023-09-13] MEDS: Piperacillin Sodium/Tazobactam 3.375 GM in 0.9 % Sodium Chloride 50 ML IV ×2 (07:27→15:04)
[2023-09-13] MEDS: Potassium Chloride/H20 10 MEQ/100 ML PIGGYBACK 100 MEQ IV ×4 (07:31→10:36)
[2023-09-13] MEDS: 0.9 % Sodium Chloride Flush 3 ML SYRINGE IVFLUSH ×2 (07:33→20:52)
--- NOTE | 2023-09-13 07:44 | P.PNGS_ITS ---
Subjective Subjective Date of Service: 09/13/23 Interval history: Pt states she feels much better this am s/p splenic artery embolization yesterday. LUQ pain is now 4/10, no further nausea, wants to have her bariatric phase 3 diet and ambulate today. Pain in buttocks has also resolved. She states could not tolerate Ensure shakes - gave her diarrhea, will bring Celebrate 4:1 to hospital today and she can have the Premier clear protein water. Physical Exam 2 Vital Signs: Vital Signs: Last Vital Signs Temp 97.7 F 09/13/23 07:00 Pulse 91 09/13/23 07:00 Resp 18 09/13/23 07:00 BP 147/71 H 09/13/23 07:00 Pulse Ox 94 09/13/23 07:00 O2 Del Method Nasal Cannula 09/13/23 07:00 O2 Flow Rate 2 09/13/23 07:00 BMI result Body Mass Index 45.2 Const: General: healthy appearing, comfortable and no acute distress N utritional Appearance: obese GI: Other: Right groin - dressing clean and dry Inspection: Yes abdominal wall ecchymosis (a surgical incision sites) and Yes incision (surgical dressings in place clean and dry) Palpation (GI): Soft to palpation, Tenderness to palpation present (GI) (minimally tender LUQ only) and no guarding Extrem: General: Yes no pedal edema, Yes no calf tenderness and Yes edema (mild edema in hands bilaterally) Objective Data Active Medications Acetylcysteine (Acetylcysteine 10 % 400 Mg/4 Ml Vial) 400 mg INHALE RBID [facility] Last Admin: 09/12/23 19:38 Dose: Not Given Documented By: BECKY Non-Admin Reason: Off Unit: Surgery Hydromorphone HCl (Hydromorphone Hcl 0.5 Mg/0.5 Ml Syringe) 0.25 mg IVPUSH Q4H PRN; Protocol PRN Reason: Pain, Moderate(Pain Scale 4-6) Last Admin: 09/13/23 01:32 Dose: 0.25 mg Documented By: SHAUNNA Acetaminophen (Ofirmev) 1,000 mg in 100 mls @ 16.7 mls/hr IV .Q6H [facility] Last Admin: 09/13/23 06:13 Dose: 16.7 mls/hr Documented By: SHAUNNA Piperacillin Sod/Tazobactam (Sod 3.375 gm/ Sodium Chloride) 50 mls @ 100 mls/hr IV Q8H [facility] Last Admin: 09/13/23 07:27 Dose: 100 mls/hr Documented By: MILVIA Potassium Chloride/Sodium Chloride (Kcl 20 Meq In 0.45% Sod) 20 meq in 1,000 mls @ 100 mls/hr IVCONT .Q10H [facility] Last Admin: 09/13/23 07:21 Dose: 100 mls/hr Documented By: MILVIA Potassium Chloride (Potassium Chloride/H20) 10 meq in 100 mls @ 100 mls/hr IV Q1H [facility] Stop: 09/13/23 11:14 Last Admin: 09/13/23 07:31 Dose: 100 mls/hr Documented By: MILVIA Metoclopramide HCl (Metoclopramide Hcl 10 Mg/2 Ml Vial) 10 mg IVPUSH Q6H PRN PRN Reason: Nausea Last Admin: 09/13/23 01:32 Dose: 10 mg Documented By: SHAUNNA Ondansetron HCl (Ondansetron Hcl 4 Mg/2 Ml Vial) 4 mg IVPUSH Q8H [facility] Last Admin: 09/13/23 00:09 Dose: 4 mg Documented By: SHAUNNA Pantoprazole Sodium (Pantoprazole Sodium 40 Mg/10 Ml Vial) 40 mg IVPUSH BID [facility] Last Admin: 09/12/23 20:38 Dose: 40 mg Documented By: CIEBOM Sodium Chloride (0.9 % Sodium Chloride Flush 3 Ml Syringe) 3 ml IVFLUSH QSHIFT [facility] Last Admin: 09/13/23 07:33 Dose: 3 ml Documented By: MILVIA Labs 09/13/23 05:35 09/13/23 05:35 Labs: Laboratory Results - last 24 hr 09/12/23 09/12/23 09/13/23 07:48 07:53 05:35 MCV 87.0 87.5 MCH 28.6 29.2 MCHC 32.9 33.3 RDW 16.0 16.1 H Plt Count 173 186 MPV 10.4 10.0 Immature Gran % (Auto) 1.2 H 1.1 H Neut % (Auto) 81.1 H 81.7 H Lymph % (Auto) 6.9 L 7.9 L Beckham % (Auto) 10.7 9.1 Eos % (Auto) 0.0 0.1 Baso % (Auto) 0.1 0.1 Lymph # (Auto) 1.2 1.2 Beckham # (Auto) 1.9 H 1.3 H Eos # (Auto) 0.0 0.0 Baso # (Auto) 0.0 0.0 Abs Immat Gran (auto) 0.22 H 0.16 H Absolute Neuts (auto) 14.4 H 11.8 H Absolute Nucleated RBC 0.020 H 0.030 H Nucleated RBC % (auto) 0.1 0.2 Smear Tech's Comments VERIFIED Anion Gap 13 14 Estim Creat Clear Calc 112.8 122.8 Estimated GFR > 60 > 60 Random Glucose 118 H 124 H Calcium 8.7 8.4 Total Bilirubin 1.3 H Direct Bilirubin 0.9 H AST 32 H ALT 26 Alkaline Phosphatase 155 H Total Protein 5.5 L Albumin 2.8 L Amylase 19 L Lipase 13 Procedures Date of Service Date of Service: 09/13/23 Progress Note: A&P Assessment and plan (1) Splenic hemorrhage: Status: Acute Assessment and Plan: HD # 4, s/p embolization of proximal splenic artery day # 1. Patient improved today with stable h/h. Patient seen and examined with Dr Livingston. Patient may ambulate and sit in recliner today. Restart bariatric phase 3 diet, family to bring Celebrate 4:1 shakes from home. Aquino to remain in place today Monitor CBC, BMP daily Will continue to monitor for signs of bleeding or infection, continue Zosyn today (2) Anemia: Status: Acute Assessment and Plan: Monitor dialy, s/p transfusion (3) S/P laparoscopic sleeve gastrectomy: Status: Acute Assessment and Plan: Bariatric phase 3 diet (4) Obstructive sleep apnea on CPAP: Status: Acute Assessment and Plan: Contienu CPAP nightly (5) Hypokalemia: Status: Acute Assessment and Plan: IVF changed to 1/2 NS with 20 meq KCL, and 20 meq KCL given IVPB Check labs in am Time Spent With Patient Time: Total time managing care of this patient today ____ minutes. Quality Stroke Does the patient have a stroke diagnosis?: No VTE Prior VTE?: No VTE Risk Level:: Surgical - very high VTE Device Contraindication: N/A - Device Ordered VTE Drug Contraindication: Treatment Not Indicated
[2023-09-13] MEDS: Acetylcysteine 10 % 400 MG/4 ML VIAL INHALE ×2 (07:57→20:05)
[2023-09-13] MEDS: Pantoprazole Sodium 40 MG/10 ML VIAL IVPUSH ×2 (08:48→20:52)
--- NOTE | 2023-09-13 15:30 | PC.NURSE ---
Two IV's i Right Arm leaking, removed, tolerated well.
--- NOTE | 2023-09-13 15:37 | PC.NURSE ---
New area of discoloration on ABD, Provider made aware, in to see patient.
--- NOTE | 2023-09-13 15:44 | PC.NURSE ---
Tele states Normal Sinus Rhythm with [facility] PACs, provider notified. Provider to order MAG Level
--- NOTE | 2023-09-13 15:59 | PC.NURSE ---
STAT Labs ordered.
[2023-09-13 16:34] LABS: Hematocrit 25.2 % (37.0-47.0); Hemoglobin 8.2 g/dl (12.0-16.0)
[2023-09-13 16:47] LABS: Magnesium 2.1 mg/dL (1.6-2.6)
--- NOTE | 2023-09-13 17:45 | PC.NURSE ---
Waiting for lab to draw Coag Studies.
[2023-09-13 22:10] LABS: INTERNATIONAL NORM RATIO 1.1 (0.9-1.1); Prothrombin Time 13.7 SEC (11.1-13.3)
[2023-09-14] VITALS (8 sets, daily range): BP systolic 123–138; BP diastolic 59–98; PULSE 84–99; RESP 16–18; TEMP 36.1–36.9; O2SAT 92–99
[2023-09-14 00:35] LABS: Partial Thromboplastin Time 26.4 SEC (26.0-36.4)
[2023-09-14] MEDS: HYDROmorphone HCl 0.5 MG/0.5 ML SYRINGE 0.25 MG IVPUSH ×6 (00:52→21:27)
[2023-09-14] MEDS: Piperacillin Sodium/Tazobactam 3.375 GM in 0.9 % Sodium Chloride 50 ML IV ×3 (00:53→16:26)
[2023-09-14] MEDS: ondansetron HCL 4 MG/2 ML VIAL IVPUSH ×3 (00:53→17:02)
--- NOTE | 2023-09-14 06:29 | PC.NURSE ---
Pt had 3 episodes of loose stools overnight, was able to ambulate to the the bathroom with 1 assist and the walker. Pt encouraged to use her incentive spirometer and wore her cpap from home for a portion of the night. Around 5 pt's O2 sats dropped to 84% on 2L, increased O2 to 4L and sats came back up, after that was able to wheen pt back down to 2L.
[2023-09-14] MEDS: KCl 20 mEq in 0.45% Sod 20 MEQ/1,000 ML IV.SOLN 100 MEQ IVCONT (06:51)
[2023-09-14] MEDS: Pantoprazole Sodium 40 MG/10 ML VIAL IVPUSH ×2 (07:33→21:27)
[2023-09-14] MEDS: 0.9 % Sodium Chloride Flush 3 ML SYRINGE IVFLUSH (07:33)
[2023-09-14] MEDS: Acetylcysteine 10 % 400 MG/4 ML VIAL INHALE (07:46)
--- NOTE | 2023-09-14 08:29 | PM.PNGS ---
Subjective Subjective Date of Service: 09/14/23 Patient reports: no new complaints Interval history: Patient states she continues to feel better each day. LUQ pain has resolved, ambulating in room yesterday, completed 2 Premier prtoein shakes. Cotninue to have loose stools and feels edematous in feet and hands. Using ICS regularly. States no tenderness over ecchymoses on right flank. she believes this happened when moving form [place] to bed after embolization procedure - she remembers hitting the side rail with her right flank. Physical Exam Vital Signs: Vital Signs: Last Vital Signs Temp 96.9 F 09/14/23 07:13 Pulse 93 09/14/23 07:50 Resp 18 09/14/23 07:50 BP 123/98 H 09/14/23 07:13 Pulse Ox 96 09/14/23 07:13 O2 Del Method Room Air 09/14/23 07:13 O2 Flow Rate 2 09/14/23 03:50 BMI result Body Mass Index 45.2 Const: General: cooperative and no acute distress Nutritional Appearance: obese GI: Inspection: Yes abdominal wall ecchymosis (noted yesterday afternoon. extends from RUQ around incisions to right flank), Yes incision (surgical dressings clean and dry) and Yes Abdominal panniculus present Palpation (GI): Soft to palpation, nontender and no guarding Extrem: General: Yes no calf tenderness and No edema (feet and hands) Objective Data Active Medications Acetylcysteine (Acetylcysteine 10 % 400 Mg/4 Ml Vial) 400 mg INHALE RBID [facility] Last Admin: 09/14/23 07:46 Dose: 400 mg Documented By: BERKLEY Hydromorphone HCl (Hydromorphone Hcl 0.5 Mg/0.5 Ml Syringe) 0.25 mg IVPUSH Q4H PRN; Protocol PRN Reason: Pain, Moderate(Pain Scale 4-6) Last Admin: 09/14/23 06:19 Dose: 0.25 mg Documented By: NEIL Piperacillin Sod/Tazobactam (Sod 3.375 gm/ Sodium Chloride) 50 mls @ 100 mls/hr IV Q8H [facility] Last Infusion: 09/14/23 08:16 Dose: Infused Documented By: MILVIA Metoclopramide HCl (Metoclopramide Hcl 10 Mg/2 Ml Vial) 10 mg IVPUSH Q6H PRN PRN Reason: Nausea Last Admin: 09/13/23 01:32 Dose: 10 mg Documented By: SHAUNNA Ondansetron HCl (Ondansetron Hcl 4 Mg/2 Ml Vial) 4 mg IVPUSH Q8H [facility] Last Admin: 09/14/23 07:33 Dose: 4 mg Documented By: MILVIA Pantoprazole Sodium (Pantoprazole Sodium 40 Mg/10 Ml Vial) 40 mg IVPUSH BID [facility] Last Admin: 09/14/23 07:33 Dose: 40 mg Documented By: MILVIA Sodium Chloride (0.9 % Sodium Chloride Flush 3 Ml Syringe) 3 ml IVFLUSH QSHIFT [facility] Last Admin: 09/14/23 07:33 Dose: 3 ml Documented By: MILVIA Labs 09/13/23 16:23 09/13/23 05:35 Labs: Laboratory Results - last 24 hr 09/13/23 09/13/23 09/14/23 16:23 21:54 00:18 PT 13.7 H INR 1.1 APTT Cancelled 26.4 Magnesium 2.1 Procedures Date of Service Date of Service: 09/14/23 Progress Note: A&P Assessment and plan (1) Splenic hemorrhage: Status: Acute Assessment and Plan: HD #5, s/p post splenic artery embolization day # 2 for grade 4 splenic laceration. No evidence of further bleeding. Lab has tried multiple times to get her labs draws over last 12 hours - will try again this am for daily CBC and BMP. Will await labs this am and if stable will consider removing stout catheter, decreaasing IVF's and ambulating in hallway. Will discuss termination of antibiotics with Dr Livingston. (2) S/P laparoscopic sleeve gastrectomy: Status: Acute Assessment and Plan: POD #6 revision of previous LSG. Tolerating phase 3 bariatric diet, will continue 2 shakes today - and hopefully her family will bring Celebrate 4:1 so she can restart bariatric vitamins. (3) Anemia: Status: Acute Assessment and Plan: Monitor daily, iron supplements on discharge. Plan see above Time Spent With Patient Time: Total time managing care of this patient today 20 minutes. Quality Stroke Does the patient have a stroke diagnosis?: No VTE Prior VTE?: No VTE Risk Level:: Surgical - very high VTE Device Contraindication: N/A - Device Ordered VTE Drug Contraindication: Treatment Not Indicated
--- NOTE | 2023-09-14 08:59 | PC.NURSE ---
f/c removed at this TIME.
[2023-09-14 09:17] LABS: Basophils Percent Auto 0.3 % (0-2); Eosinophils Absolute Auto 0.1 X10*3/uL (0.0-0.4); Eosinophils Percent Auto 0.5 % (0-4); Hematocrit 23.3 % (37.0-47.0); Hemoglobin 7.6 g/dl (12.0-16.0); Imm Gran Abs Auto 0.14 X10*3/uL (0.00-0.03); Imm Gran Pct Auto 1.4 % (0.0-0.4); Lymphocytes Absolute Auto 1.3 X10*3/uL (1.2-4.9); Lymphocytes Percent Auto 13.1 % (20-40); MANUAL DIFF FLAG SCAN; Mean Corpuscular HGB Conc 32.6 g/dl (31.0-35.0); Mean Corpuscular Hemoglobin 29.3 pg (27.0-33.0); Monocytes Absolute Auto 1.3 X10*3/uL (0.1-1.2); Monocytes Percent Auto 12.4 % (2-11); NRBC Pct Auto 0.5 /100WBC (0.0-0.2); Neutrophils Absolute Auto 7.4 x10*3/uL (2.0-8.3); Neutrophils Percent Auto 72.3 % (45-73); PLT CLUMP 1; Platelet Count 184 X10*3/uL (160-400); Red Blood Count 2.59 X10*6/uL (4.20-5.50); Red Cell Distribution Width 16.2 % (11.0-16.0); SCAN SMEAR FLAG 1; White Blood Count 10.2 X10*3/uL (4.8-10.8)
[2023-09-14 09:43] LABS: SLIDE REVIEW VERIFIED
--- NOTE | 2023-09-14 11:29 | PC.NURSE ---
Lab and phlebotomy called for STAT Lab draw, phlebotomy investigating.
[2023-09-14 12:09] LABS: Potassium 4.2 mmol/L (3.3-5.1); Sodium 143 mmol/L (135-145)
[2023-09-14 12:10] LABS: Anion Gap 14 (12-20); Blood Urea Nitrogen 16 mg/dL (9-16); Calcium 8.5 mg/dL (8.4-10.2); Carbon Dioxide 24 mmol/L (22-29); Chloride 109 mmol/L (96-108); Creatinine Clr Calc Pharmacy 134.9; Estimated Glomerular Filt Rate > 60; Glucose Random 120 mg/dL (60-115)
--- NOTE | 2023-09-14 13:04 | MHC.CM.PN ---
Met with Pt dtr and surgeon. DP home with [facility] SN+PT. Patient was provided a print out for her home care preferences. Pts dtr will review with patient and let CM know preferences.
--- NOTE | 2023-09-14 14:37 | PC.NURSE ---
Pt Left AC IV leaking, removed, could not place new IV, [place] Clinical Sup asked if she could assist with placement. PA notified. IV K on hold.
--- NOTE | 2023-09-14 15:30 | PC.NURSE ---
Unable to place IV line, Provider notified.
[2023-09-14] MEDS: Phytonadione (Vit K1) Oral 10 MG/ML AMPUL 2.5 MG PO (16:14)
--- NOTE | 2023-09-14 17:30 | PC.NURSE ---
US Guided IV placed right upper arm, medial, 20G, single lumen, tolerated well.
[2023-09-15] VITALS (10 sets, daily range): BP systolic 107–137; BP diastolic 53–69; PULSE 85–97; RESP 16–20; TEMP 36.1–37; O2SAT 93–97
[2023-09-15] MEDS: HYDROmorphone HCl 0.5 MG/0.5 ML SYRINGE 0.25 MG IVPUSH ×4 (00:26→15:55)
[2023-09-15] MEDS: Piperacillin Sodium/Tazobactam 3.375 GM in 0.9 % Sodium Chloride 50 ML IV ×3 (00:27→16:48)
[2023-09-15] MEDS: ondansetron HCL 4 MG/2 ML VIAL IVPUSH ×3 (00:27→16:49)
[2023-09-15 05:48] LABS: MANUAL DIFF FLAG NO
[2023-09-15 05:56] LABS: Basophils Percent Auto 0.2 % (0-2); Eosinophils Absolute Auto 0.2 X10*3/uL (0.0-0.4); Eosinophils Percent Auto 2.5 % (0-4); Hematocrit 23.9 % (37.0-47.0); Hemoglobin 7.7 g/dl (12.0-16.0); Imm Gran Pct Auto 2.1 % (0.0-0.4); Lymphocytes Absolute Auto 1.3 X10*3/uL (1.2-4.9); Lymphocytes Percent Auto 13.6 % (20-40); Mean Corpuscular HGB Conc 32.2 g/dl (31.0-35.0); Mean Corpuscular Hemoglobin 28.8 pg (27.0-33.0); Mean Corpuscular Volume 89.5 fL (80.0-98.0); Mean Platelet Volume 9.8 fL (9.4-12.3); Monocytes Absolute Auto 1.3 X10*3/uL (0.1-1.2); Monocytes Percent Auto 13.1 % (2-11); NRBC Pct Auto 0.3 /100WBC (0.0-0.2); Neutrophils Absolute Auto 6.6 x10*3/uL (2.0-8.3); Neutrophils Percent Auto 68.5 % (45-73); Platelet Count 223 X10*3/uL (160-400); Red Blood Count 2.67 X10*6/uL (4.20-5.50); Red Cell Distribution Width 16.1 % (11.0-16.0); White Blood Count 9.7 X10*3/uL (4.8-10.8)
[2023-09-15 06:11] LABS: Alanine Aminotransferase 38 U/L (0-31); Albumin Level 2.8 g/dL (3.5-5.0); Alkaline Phosphatase 149 U/L (39-117); Anion Gap 13 (12-20); Aspartate Amino Transferase 37 U/L (5-31); Bilirubin Total 0.9 mg/dL (0.0-1.0); Blood Urea Nitrogen 14 mg/dL (9-16); Calcium 8.7 mg/dL (8.4-10.2); Carbon Dioxide 28 mmol/L (22-29); Chloride 108 mmol/L (96-108); Creatinine Clr Calc Pharmacy 120.7; Estimated Glomerular Filt Rate > 60; Glucose Random 114 mg/dL (60-115); Lipase 15 U/L (8-78); Potassium 3.7 mmol/L (3.3-5.1); Sodium 145 mmol/L (135-145); Total Protein 5.7 g/dL (6.5-8.0)
--- NOTE | 2023-09-15 07:25 | PM.PNGS ---
Subjective Subjective Date of Service: 09/15/23 Patient reports: no new complaints Interval history: Patient feels better this am. Minimal pain over LUQ only. Only had 1 protein shake yesterday. No nausea, just finding it hard to drink. Ambulating. Using ICS hourly and finds it easier to breath deeply now. Patient lost IV access yesterday and after multiple attempts at replacing peripheral IV, ICU team was able to place 20 g catheter via ultrasound. Physical Exam Vital Signs: Vital Signs: Last Vital Signs Temp 97.5 F 09/15/23 03:59 Pulse 88 09/15/23 03:59 Resp 17 09/15/23 03:59 BP 127/69 09/15/23 03:59 Pulse Ox 97 09/15/23 03:59 O2 Del Method Nasal Cannula 09/15/23 03:59 O2 Flow Rate 2 09/15/23 03:59 BMI result Body Mass Index 45.2 GI: Other: R groin dressing clean and dry Inspection: Yes abdominal wall ecchymosis (has not expanded since yesterday, RUQ to posterior R flank -~20 cms. ) and Yes incision (surgical dressings clean and dry) Palpation (GI): Soft to palpation, nontender and no guarding Extrem: General: Yes no calf tenderness and Yes edema (improved since yesterday) Objective Data Active Medications Acetylcysteine (Acetylcysteine 10 % 400 Mg/4 Ml Vial) 400 mg INHALE RBID [facility] Last Admin: 09/14/23 19:51 Dose: Not Given Documented By: TRISTAN Non-Admin Reason: Patient Refused Hydromorphone HCl (Hydromorphone Hcl 0.5 Mg/0.5 Ml Syringe) 0.25 mg IVPUSH Q3H PRN; Protocol PRN Reason: Pain, Moderate(Pain Scale 4-6) Last Admin: 09/15/23 06:10 Dose: 0.25 mg Documented By: NEIL Piperacillin Sod/Tazobactam (Sod 3.375 gm/ Sodium Chloride) 50 mls @ 100 mls/hr IV Q8H [facility] Last Infusion: 09/15/23 01:03 Dose: Infused Documented By: NEIL Metoclopramide HCl (Metoclopramide Hcl 10 Mg/2 Ml Vial) 10 mg IVPUSH Q6H PRN PRN Reason: Nausea Last Admin: 09/13/23 01:32 Dose: 10 mg Documented By: SHAUNNA Ondansetron HCl (Ondansetron Hcl 4 Mg/2 Ml Vial) 4 mg IVPUSH Q8H [facility] Last Admin: 09/15/23 00:27 Dose: 4 mg Documented By: NEIL Pantoprazole Sodium (Pantoprazole Sodium 40 Mg/10 Ml Vial) 40 mg IVPUSH BID [facility] Last Admin: 09/14/23 21:27 Dose: 40 mg Documented By: NEIL Sodium Chloride (0.9 % Sodium Chloride Flush 3 Ml Syringe) 3 ml IVFLUSH QSHIFT [facility] Last Admin: 09/15/23 01:00 Dose: Not Given Documented By: NEIL Non-Admin Reason: IV Running Labs 09/15/23 05:42 09/15/23 05:42 Labs: Laboratory Results - last 24 hr 09/14/23 09/14/23 09/15/23 08:43 11:20 05:42 MCV 90.0 89.5 MCH 29.3 28.8 MCHC 32.6 32.2 RDW 16.2 H 16.1 H Plt Count 184 223 MPV Not Reportable 9.8 Immature Gran % (Auto) 1.4 H 2.1 H Neut % (Auto) 72.3 68.5 Lymph % (Auto) 13.1 L 13.6 L Borden % (Auto) 12.4 H 13.1 H Eos % (Auto) 0.5 2.5 Baso % (Auto) 0.3 0.2 Lymph # (Auto) 1.3 1.3 Borden # (Auto) 1.3 H 1.3 H Eos # (Auto) 0.1 0.2 Baso # (Auto) 0.0 0.0 Abs Immat Gran (auto) 0.14 H 0.20 H Absolute Neuts (auto) 7.4 6.6 Absolute Nucleated RBC 0.050 H 0.030 H Nucleated RBC % (auto) 0.5 H 0.3 H Smear Tech's Comments VERIFIED Anion Gap 14 13 Estim Creat Clear Calc 134.9 120.7 Estimated GFR > 60 > 60 Random Glucose 120 H 114 Calcium 8.5 8.7 Total Bilirubin 0.9 AST 37 H ALT 38 H Alkaline Phosphatase 149 H Total Protein 5.7 L Albumin 2.8 L Lipase 15 Procedures Date of Service Date of Service: 09/15/23 Progress Note: A&P Assessment and plan (1) Splenic hemorrhage: Status: Acute Assessment and Plan: HD #5 for splenic hemmorrhage, day #3 s/p splenic artery embolization and POD #7 s/p LSG. Hgb stable this am at 7.7. IVF and stout were discontinued yesterday. Plan per Dr Last today - CT chest to follow up on previous LLL atelectasis and possible infiltrate - CTA abd today to evaluate for continued splenic bleed - Bilatereal venous doppplers of LE - to rule out DVT Pt received 1 dose Vitamin K yesterday, due to extensive ecchymoses after minor tap to her left side, Coagulation profile normal. Will continue Zosyn for now Patient asked to have dialudid dose increased frequency to q 3h yesterday, will decrease frequency again today if all studies are normal. Remove surgical dressing from laparoscopic incisions later today and from groin incision before discharge Case discussed with Dr Livingston (2) Anemia: Status: Acute Assessment and Plan: Continue to monitor, iron supplements upon discharge (3) S/P laparoscopic sleeve gastrectomy: Status: Acute Plan Plan to drink 40 - 60 ounces today, plan for 3 protien shakes per day. Bariatric phase 3 diet Time Spent With Patient Time: Total time managing care of this patient today 20 minutes. Quality Stroke Does the patient have a stroke diagnosis?: No VTE Prior VTE?: No VTE Risk Level:: Surgical - very high VTE Device Contraindication: N/A - Device Ordered VTE Drug Contraindication: Treatment Not Indicated
[2023-09-15] MEDS: Pantoprazole Sodium 40 MG/10 ML VIAL IVPUSH ×2 (07:38→20:50)
[2023-09-15] MEDS: Acetylcysteine 10 % 400 MG/4 ML VIAL INHALE (08:22)
[2023-09-15] MEDS: Acetaminophen 325 MG TABLET 650 MG PO (13:02)
[2023-09-15] MEDS: oxyCODONE HCl Immed Release 5 MG TABLET PO ×2 (13:02→20:51)
--- NOTE | 2023-09-15 13:49 | MHC.CM.PN ---
Met with patient this afternoon to discuss discharge plan. The patient stated that she had concerns. She requested a patient advocate. The patient advocate, Celia was notified of the patients request. We met with the patient, her daughter, Director of the unit and Shannon the surgical PA. The patient agreed to line placement via US,. to be used for contrast
[2023-09-15] MEDS: FLUoxetine HCl 20 MG CAPSULE 40 MG PO (14:12)
[2023-09-15] MEDS: LORazepam 0.5 MG TABLET PO (14:12)
--- NOTE | 2023-09-15 14:55 | PC.NURSE ---
20G R Upper arm placed by US on 09/14. D/t past difficult sticks and a previously failed US placed IV. IV was patent on 09/15. IV zosyn and dilaudid received. Pt went for CT angio abdomen w/ contrast. RN irvin lyons was able to hand flush IV. However, IV inflistrated d/t power injection of dye. This nurse removed IV upon returning to floor. Placed Ice and had Pt elevate above heart. Pt refusing furthing US attempt, as well as and PICC/Mid lines. MD sandoval, KRIS heart @ bedside discussing options w/ Pt. Pt aggreed to US IV, however it was determined d/t depth of veins IV would fail again. This nurse, Jennifer loyola, and ad suarez discussed an option of Ultrasound w/ a midline. Pt agreed to US guided Midd, aware that is not a central catheter/PICC line. KRIS ordered po ativan which was given @ 2:15 and US nurse team entered the room @ aprox 3:35 to attempt line.
--- NOTE | 2023-09-15 17:02 | HO.MIDLINE ---
Midline Insertion MIDLINE INSERTION Diagnosis: poor iv access Indication: CT contrast Pertinent Labs: reviewed Technique: Using sterile technique including cap and mask, glove and drape, the left arm was prepped and draped in the usual sterile fashion of full barrier technique with [facility]. Using ultrasound guidance, right basilic vein access was obtained . 20g x 10cm powerglide midline catheter was positioned. The procedure was performed in rm [id number]. Ultrasound was used to document vein patency and for needle entry. A formal ultrasound picture was recorded. Vascular Pressing Machine Operator has released the line for use and it is currently dressed with a StatLock, Tegaderm, and CHG disc. Verification has been performed for blood return and line patency. Arm Circumference: 31.5cm Equipment: BARD PowerGlide ST midline catheter Catheter Type: 20g x 10cm Lot #: [id number]
[2023-09-15] MEDS: iohexoL 350 MG/ML 100 ML INFUS..BTL 85 ML IV (17:14)
[2023-09-15] MEDS: 0.9 % Sodium Chloride Flush 3 ML SYRINGE IVFLUSH (20:50)
[2023-09-16] VITALS (8 sets, daily range): BP systolic 123–147; BP diastolic 60–98; PULSE 79–88; RESP 16–20; TEMP 36–36.4; O2SAT 90–96
[2023-09-16] MEDS: ondansetron HCL 4 MG/2 ML VIAL IVPUSH ×3 (00:11→16:37)
[2023-09-16] MEDS: LORazepam 0.5 MG TABLET PO (00:11)
[2023-09-16] MEDS: Piperacillin Sodium/Tazobactam 3.375 GM in 0.9 % Sodium Chloride 50 ML IV ×3 (00:11→16:37)
[2023-09-16] MEDS: oxyCODONE HCl Immed Release 5 MG TABLET PO ×3 (05:21→19:40)
[2023-09-16 06:06] LABS: Basophils Absolute Auto 0.1 X10*3/uL (0.0-0.2); Basophils Percent Auto 0.4 % (0-2); Eosinophils Absolute Auto 0.3 X10*3/uL (0.0-0.4); Eosinophils Percent Auto 2.9 % (0-4); Hematocrit 29.3 % (37.0-47.0); Hemoglobin 9.4 g/dl (12.0-16.0); Imm Gran Abs Auto 0.59 X10*3/uL (0.00-0.03); Lymphocytes Absolute Auto 1.8 X10*3/uL (1.2-4.9); Lymphocytes Percent Auto 15.5 % (20-40); MANUAL DIFF FLAG SCAN; Mean Corpuscular HGB Conc 32.1 g/dl (31.0-35.0); Mean Corpuscular Hemoglobin 28.7 pg (27.0-33.0); Mean Corpuscular Volume 89.3 fL (80.0-98.0); Monocytes Absolute Auto 1.8 X10*3/uL (0.1-1.2); Monocytes Percent Auto 14.9 % (2-11); Neutrophils Absolute Auto 7.3 x10*3/uL (2.0-8.3); Neutrophils Percent Auto 61.3 % (45-73); Platelet Count 244 X10*3/uL (160-400); Red Blood Count 3.28 X10*6/uL (4.20-5.50); Red Cell Distribution Width 15.8 % (11.0-16.0); SCAN SMEAR FLAG 1; White Blood Count 11.8 X10*3/uL (4.8-10.8)
[2023-09-16 06:08] LABS: NRBC Pct Auto 1.7 /100WBC (0.0-0.2)
[2023-09-16 06:22] LABS: Alanine Aminotransferase 65 U/L (0-31); Albumin Level 2.8 g/dL (3.5-5.0); Alkaline Phosphatase 158 U/L (39-117); Aspartate Amino Transferase 61 U/L (5-31); Bilirubin Direct 0.4 mg/dL (0.0-0.5); Total Protein 5.9 g/dL (6.5-8.0)
[2023-09-16 06:39] LABS: SLIDE REVIEW VERIFIED
[2023-09-16] MEDS: Acetylcysteine 10 % 400 MG/4 ML VIAL INHALE (07:23)
[2023-09-16] MEDS: 0.9 % Sodium Chloride Flush 3 ML SYRINGE IVFLUSH ×3 (08:07→20:49)
[2023-09-16] MEDS: Pantoprazole Sodium 40 MG/10 ML VIAL IVPUSH ×2 (09:12→20:48)
[2023-09-16] MEDS: FLUoxetine HCl 20 MG CAPSULE 40 MG PO (09:13)
--- NOTE | 2023-09-16 09:37 | PM.PNGS ---
Subjective Subjective Date of Service: 09/16/23 Patient reports: feels better and diarrhea Interval history: 63-year-old female admitted to the hospital with significant splenic hemorrhage of unknown etiology. Hospital day 7. Postop day 8., status post revision of previous sleeve gastrectomy. Day 4, status post splenic artery embolization. Day 5 of IV Zosyn. Yesterday, patient had to undergo ultrasound guidance for placement of midline for IV access. This morning, she reports last pain although continues to require supplemental oxygen at rest. She additionally reports continued loose stools, 3-4 watery stools per day. Patient reports overall feeling somewhat weak although is anxious to return home. She underwent ambulatory evaluation for O2 needs. Her heart rate did go from 100-1 await and O2 sats 92-94% ambulating greater than 50 ft without oxygen. Physical Exam Vital Signs: Vital Signs: Last Vital Signs Temp 96.9 F 09/16/23 07:24 Pulse 84 09/16/23 07:24 Resp 16 09/16/23 07:24 BP 147/70 H 09/16/23 07:24 Pulse Ox 94 09/16/23 07:24 O2 Del Method Nasal Cannula 09/16/23 07:24 O2 Flow Rate 2 09/16/23 07:24 BMI result Body Mass Index 45.2 Const: General: cooperative, comfortable and no acute distress Resp: Effort & Inspection: normal respiratory effort Auscultation: diminished lung sounds on the left in the lower lung thompson Cardio: Rate: regular rate Rhythm: regular rhythm GI: Inspection: Yes incision (Significant ecchymosis noted to the right abdomen) Palpation (GI): Other GI palpation findings present (Tenderness left upper quadrant) Auscultation: normal bowel sounds Objective Data Active Medications Acetaminophen (Acetaminophen 325 Mg Tablet) 650 mg PO Q6H PRN PRN Reason: Pain, Mild (Pain Scale 1-3) Last Admin: 09/15/23 13:02 Dose: 650 mg Documented By: LEWIS Acetylcysteine (Acetylcysteine 10 % 400 Mg/4 Ml Vial) 400 mg INHALE RBID [facility] Last Admin: 09/16/23 07:23 Dose: 400 mg Documented By: RUIZ Fluoxetine HCl (Fluoxetine Hcl 20 Mg Capsule) 40 mg PO DAILY [facility] Last Admin: 09/16/23 09:13 Dose: 40 mg Documented By: KIRK Piperacillin Sod/Tazobactam (Sod 3.375 gm/ Sodium Chloride) 50 mls @ 100 mls/hr IV Q8H [facility] Last Infusion: 09/16/23 08:55 Dose: Infused Documented By: KIRK Lorazepam (Lorazepam 0.5 Mg Tablet) 0.5 mg PO Q8H PRN PRN Reason: Anxiety Last Admin: 09/16/23 00:11 Dose: 0.5 mg Documented By: NEIL Metoclopramide HCl (Metoclopramide Hcl 10 Mg/2 Ml Vial) 10 mg IVPUSH Q6H PRN PRN Reason: Nausea Last Admin: 09/13/23 01:32 Dose: 10 mg Documented By: SHAUNNA Ondansetron HCl (Ondansetron Hcl 4 Mg/2 Ml Vial) 4 mg IVPUSH Q8H [facility] Last Admin: 09/16/23 09:12 Dose: 4 mg Documented By: KIRK Oxycodone HCl (Oxycodone Hcl Immed Release 5 Mg Tablet) 5 mg PO Q6H PRN PRN Reason: Pain, Moderate(Pain Scale 4-6) Last Admin: 09/16/23 05:21 Dose: 5 mg Documented By: NEIL Pantoprazole Sodium (Pantoprazole Sodium 40 Mg/10 Ml Vial) 40 mg IVPUSH BID [facility] Last Admin: 09/16/23 09:12 Dose: 40 mg Documented By: KIRK Sodium Chloride (0.9 % Sodium Chloride Flush 3 Ml Syringe) 3 ml IVFLUSH QSHIFT [facility] Last Admin: 09/16/23 08:07 Dose: 3 ml Documented By: KIRK Labs 09/16/23 05:00 09/15/23 05:42 Labs: Laboratory Results - last 24 hr 09/15/23 09/15/23 09/16/23 17:45 17:47 05:00 MCV 89.3 MCH 28.7 MCHC 32.1 RDW 15.8 Plt Count 244 MPV 10.0 Immature Gran % (Auto) 5.0 H Neut % (Auto) 61.3 Lymph % (Auto) 15.5 L Kinney % (Auto) 14.9 H Eos % (Auto) 2.9 Baso % (Auto) 0.4 Lymph # (Auto) 1.8 Kinney # (Auto) 1.8 H Eos # (Auto) 0.3 Baso # (Auto) 0.1 Abs Immat Gran (auto) 0.59 H Absolute Neuts (auto) 7.3 Absolute Nucleated RBC 0.200 H Nucleated RBC % (auto) 1.7 H Smear Tech's Comments VERIFIED Hold Purple Top SEE NOTE Total Bilirubin 1.0 Direct Bilirubin 0.4 AST 61 H ALT 65 H Alkaline Phosphatase 158 H Total Protein 5.9 L Albumin 2.8 L Hold Yellow Top See Note Blood Type O Positive Antibody Screen NEGATIVE Crossmatch See Detail Procedures Date of Service Date of Service: 09/16/23 Progress Note: A&P Assessment and plan (1) Splenic hemorrhage: Status: Acute Assessment and Plan: Overall, patient has stabilized. She has had multiple blood products including 7 units packed red blood cells, 6 frozen plasma and 2 of platelets will continue to trend hemoglobin and hematocrit with CBC in the morning. Additionally, follow liver enzymes given slight elevation with the scalloping from the hemoperitoneum. She did undergo IR guided embolization. Patient has been encouraged to be up and ambulating, very carefully, she is not requiring oxygen for household distances based on ambulatory O2 sats of 92-94%. Will continue to have physical therapy treat and likely discharge home with physical therapy in 1-2 days. (2) S/P laparoscopic sleeve gastrectomy: Status: Acute Assessment and Plan: Continue bariatric phase 3 diet with goal of 3 shakes today (3) Sleep apnea: Status: Acute Assessment and Plan: Continue home CPAP (4) S/P cerebral aneurysm operation: Status: Acute Assessment and Plan: Previously on aspirin and Plavix, this has been held given her splenic hemorrhage. He continue sequential compression boots for DVT prophylaxis. Plan Patient was seen and examined with Dr. Livingston today and he was involved in all aspects of her care. Time Spent With Patient Time: Total time managing care of this patient today ____ minutes. Quality Stroke Does the patient have a stroke diagnosis?: No VTE Prior VTE?: No VTE Risk Level:: Surgical - very high VTE Device Contraindication: N/A - Device Ordered VTE Drug Contraindication: Treatment Not Indicated
--- NOTE | 2023-09-16 10:17 | PC.NURSE ---
Pt ambulated 75 feet on room air O2 sats 92-94% pt denies SOB reports weak/tired
--- NOTE | 2023-09-16 13:40 | MHC.CM.PN ---
Met with patient and family to discuss discharge. Patient states that she will go with Silvino [facility]. Silvino has received a clinical update. They have been informed thatthe patient may discharge over the weekend. DP home with [facility]. A family member will provide transport home.
[2023-09-17] MEDS: ondansetron HCL 4 MG/2 ML VIAL IVPUSH ×2 (00:05→08:34)
[2023-09-17] MEDS: Piperacillin Sodium/Tazobactam 3.375 GM in 0.9 % Sodium Chloride 50 ML IV ×2 (00:05→08:33)
[2023-09-17] MEDS: LORazepam 0.5 MG TABLET PO (00:07)
[2023-09-17] MEDS: oxyCODONE HCl Immed Release 5 MG TABLET PO ×3 (02:51→15:16)
[2023-09-17 03:15] VITALS: BP 124/60; PULSE 80; RESP 16; TEMP 36; O2SAT 98
[2023-09-17 06:04] LABS: Basophils Absolute Auto 0.1 X10*3/uL (0.0-0.2); Basophils Percent Auto 0.5 % (0-2); Eosinophils Absolute Auto 0.2 X10*3/uL (0.0-0.4); Eosinophils Percent Auto 2.2 % (0-4); Hematocrit 27.3 % (37.0-47.0); Hemoglobin 8.8 g/dl (12.0-16.0); Imm Gran Abs Auto 0.42 X10*3/uL (0.00-0.03); Lymphocytes Absolute Auto 1.6 X10*3/uL (1.2-4.9); Lymphocytes Percent Auto 15.3 % (20-40); MANUAL DIFF FLAG SCAN; Mean Corpuscular HGB Conc 32.2 g/dl (31.0-35.0); Mean Corpuscular Hemoglobin 29.5 pg (27.0-33.0); Mean Corpuscular Volume 91.6 fL (80.0-98.0); Mean Platelet Volume 9.7 fL (9.4-12.3); Monocytes Absolute Auto 1.7 X10*3/uL (0.1-1.2); Monocytes Percent Auto 15.7 % (2-11); NRBC Pct Auto 0.5 /100WBC (0.0-0.2); Neutrophils Absolute Auto 6.5 x10*3/uL (2.0-8.3); Neutrophils Percent Auto 62.3 % (45-73); Platelet Count 269 X10*3/uL (160-400); Red Blood Count 2.98 X10*6/uL (4.20-5.50); Red Cell Distribution Width 15.7 % (11.0-16.0); SCAN SMEAR FLAG 1; White Blood Count 10.5 X10*3/uL (4.8-10.8)
[2023-09-17 06:18] LABS: Alanine Aminotransferase 71 U/L (0-31); Albumin Level 2.6 g/dL (3.5-5.0); Alkaline Phosphatase 146 U/L (39-117); Anion Gap 11 (12-20); Aspartate Amino Transferase 56 U/L (5-31); Bilirubin Direct 0.3 mg/dL (0.0-0.5); Bilirubin Total 0.9 mg/dL (0.0-1.0); Blood Urea Nitrogen 9 mg/dL (9-16); Calcium 8.5 mg/dL (8.4-10.2); Carbon Dioxide 31 mmol/L (22-29); Chloride 105 mmol/L (96-108); Creatinine Clr Calc Pharmacy 140.4; Estimated Glomerular Filt Rate > 60; Glucose Random 115 mg/dL (60-115); Potassium 3.3 mmol/L (3.3-5.1); Sodium 144 mmol/L (135-145); Total Protein 5.6 g/dL (6.5-8.0)
[2023-09-17 06:45] LABS: SLIDE REVIEW VERIFIED
[2023-09-17 07:25] VITALS: BP 127/63; PULSE 77; RESP 18; TEMP 36.1; O2SAT 96
[2023-09-17] MEDS: Pantoprazole Sodium 40 MG/10 ML VIAL IVPUSH (08:33)
[2023-09-17] MEDS: FLUoxetine HCl 20 MG CAPSULE 40 MG PO (08:34)
[2023-09-17] MEDS: 0.9 % Sodium Chloride Flush 3 ML SYRINGE IVFLUSH (08:43)
[2023-09-17 12:00] VITALS: BP 116/57; PULSE 79; RESP 18; TEMP 37; O2SAT 97
[2023-09-17 12:07] VITALS: PULSE 107; PULSE 89; O2SAT 94
--- NOTE | 2023-09-17 13:10 | PM.DS ---
DS: Providers Provider Date of Service: 09/17/23 Date of admission: 09/10/23 15:42 Primary care physician: Liu Lovett MD Consults: 09/10/23 09:49 Consult to Bariatric Surgery Stat Consulting Provider: Massimo Livingston Reason for consultation: hemoperitoneum DS: Diagnosis Discharge Diagnosis (1) Splenic hemorrhage: Status: Acute (2) S/P laparoscopic sleeve gastrectomy: Status: Acute (3) Sleep apnea: Status: Acute (4) S/P cerebral aneurysm operation: Status: Acute DS: Summary Hospital Course Hospital Course: Josefina Suggs is a 63 year old female who underwent an uneventful laparoscopic revision of previous laparoscopic sleeve gastrectomy performed on 09/08/2023. Her original surgery was in 2014. She did well intraoperatively. Postop day 1 she was examined in the morning, as well as evaluation of her immediate postop labs from 09/08/23 and postop day 1 labs showing expected slight drop in hemoglobin and hematocrit. She was hemodynamically stable and had no significant complaints and was therefore deemed safe for discharge. After the orders were placed, she did slip to her left knee in her hospital room but denied any injury, and she went home She states that when she was getting out of her daughter's truck she felt a ?pop? in her left abdomen. She felt sudden pain in LUQ of her abdoment and even had some difficulty walking to her other daughter's car to go home. She was in communication with attending surgeon Dr. Livingston throughout the evening of 09/09/23, however her abdominal pain worsened, she complained of left upper quadrant abdominal pain, left shoulder pain, diarrhea and per her 's report she was quite pale and sweaty. Approximately 03:30 hours on 09/10/2023 an ambulance was called and she was brought to the nearest hospital which was [facility]. While there, the case was discussed with ER attending Dr. Knowles. She was found to have blood in the left upper quadrant on a noncontrast abdominal CT scan as well as anemia with a hemoglobin of 8.9 and lactic acidosis of 2.5. She was hypotensive at 80/56. She did have evidence of leukocytosis at 17,000 without bandemia. She received 2 L of IV fluids and 1 unit packed red blood cells. Her blood pressure improved to 101/73 with O2 sat of 95% and heart rate in the 80s and was felt she was safe for transport to [facility] [place]. Once at [facility] [place], ER labs revealed a white blood cell count of 14, hemoglobin 8.6, hematocrit 27.4 with platelet 271. She was given 2 units FFP and 1 unit of platelets. A repeat noncontrast CT scan showed slight increase in perisplenic fluid collection. Case was discussed in depth with off-site radiology Dr. Schmitt as well as Dr. Perez. There was concern over a subcapsular hematoma that ruptured within the spleen. Patient remained in the emergency room, receiving IV Dilaudid, IV fentanyl, IV Zofran, another unit of packed red blood cells and ultimately was determined she needed a CTA of the abdomen for further evaluation of possible ongoing extravasation and the need for transfer for Interventional Radiology directed embolization. (She does have a history of oral IV contrast allergy and not IV contrast allergy and this was confirmed with the patient). CTA imaging was reviewed with Dr. Shannon, interventional radiologist and there was no evidence of extravasation and no significant increase in perisplenic fluid from her previous noncontrast CT performed earlier on 09/09/23. It was felt she was stable for admission to [facility] [place] for continued care. Patient received a total of 6 units packed red blood cells, 6 units fresh frozen plasma, 2 units platelets with stabilization of hemorrhage and hemoglobin. A repeat CTA was performed on 09/12/2023. 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 The injury was located in the inferior pole of the spleen, quite far from the surgical field. The patient and family were informed and agreed to proceed with a postprocedure proximal splenic artery embolization on 09/12/2023. There was no active extravasation noted during the procedure and the proximal splenic artery was embolized. Patient's hemoglobin remained low and she did ultimately require 1 more unit of packed red blood cells on 09/15/2023. Repeat chest CT 09/15/2023 revealed reduced right pleural effusion and perihepatic fluid. Stable left pleural effusion with LLL atelectasis. Clinically she did slowly continue to improve with decreasing pain to the left upper quadrant. She did not require further narcotic intervention. Her Aquino catheter was able to be removed and she began to take p.o. protein shakes. She was educated on the use of incentive spirometry and use this frequently. She does have a history of sleep apnea and while she did refuse her CPAP during the 1st 2 nights of her hospitalization, she was more compliant with it throughout the vas of her stay. She was educated on the left lower lobe atelectasis and the importance of using the incentive spirometer 10 times per hour while awake and CPAP while sleeping to assist in pulmonary support. Given the left lower lobe atelectasis, she was placed on IV Zosyn during her hospitalization, she received a total of 6 days of Zosyn and the plan will be to discharge her on oral Augmentin for 8 more days to complete a 14 day course of antibiotics. She additionally reported significant loose stools and she will be discharged home on 10 days of Flagyl. Stool specimen for C diff was ordered. Results are not yet available at this time of dictation. She was significantly deconditioned given her presentation and clinical course and was seen by Physical therapy. It was recommended that she go home with visiting nurses and physical therapy. This was arranged with case management. Case management stated that [facility] who have accepted the patient would not be able to go into the home until Tuesday. This was discussed with the patient and she stated that she had significant support at home including her , both daughters and a son-in-law who will be able to help her until the Na comes in. She even additionally stated that she would pay for private help to come in tomorrow. Additionally, recommendation was to go home with a wheeled walker. The patient states that she does have one at home and that her will bring it in. We will provide a wheeled walker if he is unable to do so until such time that she can get one. She did require intermittent oxygenation supplemental ED via nasal cannula throughout her stay. Yesterday she was able to ambulate without oxygen with O2 sats approximately 92% and heart rate in the 80s. This morning she was ambulating off O2 with O2 sats 83-89% and heart rate 70s to 80s. I requested a home O2 eval with respiratory therapist, Ivon, and during the evaluation, patient's O2 sat at rest was 94-95% off oxygen and 91-92% with ambulation although she became tachycardic at 01:07. Given patient's low, borderline O2 with tachycardia and anemia as well as left lower lobe effusion and history of sleep apnea requiring CPAP, we felt patient would benefit from supplemental oxygen and therefore a repeat home O2 evaluation was requested. Upon repeat evaluation, patient ambulated further than her 1st attempt with O2 sats 92-93% off oxygen with heart rate of 107. Given the current guidelines, she would not qualify for home O2 based on the readings obtained during her official home O2 evaluation by respiratory therapy. Regarding her recent revision of her previous sleeve gastrectomy, she has tolerated a bariatric phase 3 diet and has been given instructions on continued protein requirements. She will continue to be in communication with Dr. Livingston for further meal plan recommendations. We discussed the critical elements of drinking at a pace of 2 mL/minute, (1 oz every 15 minutes) as well as continuing Tylenol, 15 mL p.o. Q 4 hours. She will also continue previously prescribed PPI and sucralfate to assist in the healing process. Her dressings from surgery, 09/08/2023, were removed during her hospitalization revealing ecchymosis without any evidence of incisional dehiscence or infection. She will continue to wear her abdominal binder with activity for the next 2 weeks. Regarding her other ongoing chronic medical conditions, she will not be discharged home on her previously prescribed aspirin and Plavix given the recent splenic hemorrhage. She has been advised to check her blood pressure daily regarding her home dose of Lasix and not to take the Lasix until discussed with Dr. Livingston. She will hold off on taking home dose of gabapentin or her Orencia. The Orencia will be held for 1 month. Status at Discharge Functional status at discharge: uses cane/walker Time Attestation Total time managing care of this patient today: 120 mintues. Discharge coordination time: Greater than 30 minutes Quality: Safe Use of Opioids Does Pt have an Active Cancer Diagnosis on the Problem List?: No Quality: Stroke Does the patient have a stroke diagnosis?: No Physical Exam Vital Signs: Vital Signs: Last Vital Signs Temp 98.6 F 09/17/23 12:00 Pulse 79 09/17/23 12:00 Resp 18 09/17/23 12:00 BP 116/57 L 09/17/23 12:00 Pulse Ox 97 09/17/23 12:00 O2 Del Method Room Air 09/17/23 12:00 O2 Flow Rate 1 09/17/23 07:25 BMI result Body Mass Index 45.2 Const: General: no acute distress Nutritional Appearance: obese Orientation/consciousness: patient oriented x3 HEENT: Head: Yes normal to inspection Resp: Effort & Inspection: normal respiratory effort Auscultation: diminished lung sounds on the left in the lower lung thompson Cardio: Rate: regular rate Rhythm: regular rhythm GI: Inspection: Yes incision (Clean, dry, intact) and Yes other (Ecchymosis noted about her incisions and right abdomen) Palpation (GI): Tenderness to palpation present (GI) in the LUQ Auscultation: normal bowel sounds Neuro: General: patient oriented x3 Extrem: General: Yes no pedal edema DS: Data Data Completed and Pending Completed studies during hospitalization [Text1]: Procedures Excision of Stomach, Percutaneous Endoscopic Approach, Vertical (09/08/23) Labs on day of discharge: Laboratory Results - last 24 hr 09/17/23 05:38 WBC 10.5 RBC 2.98 L Hgb 8.8 L Hct 27.3 L MCV 91.6 MCH 29.5 MCHC 32.2 RDW 15.7 Plt Count 269 MPV 9.7 Immature Gran % (Auto) 4.0 H Neut % (Auto) 62.3 Lymph % (Auto) 15.3 L Craig % (Auto) 15.7 H Eos % (Auto) 2.2 Baso % (Auto) 0.5 Lymph # (Auto) 1.6 Craig # (Auto) 1.7 H Eos # (Auto) 0.2 Baso # (Auto) 0.1 Abs Immat Gran (auto) 0.42 H Absolute Neuts (auto) 6.5 Absolute Nucleated RBC 0.050 H Nucleated RBC % (auto) 0.5 H Smear Tech's Comments VERIFIED Sodium 144 Potassium 3.3 Chloride 105 Carbon Dioxide 31 H Anion Gap 11 L BUN 9 Creatinine 0.49 L Estim Creat Clear Calc 140.4 Estimated GFR > 60 Random Glucose 115 Calcium 8.5 Total Bilirubin 0.9 Direct Bilirubin 0.3 AST 56 H ALT 71 H Alkaline Phosphatase 146 H Total Protein 5.6 L Albumin 2.6 L Discharge Plan Discharge Anticipated Discharge Date/Time: 09/17/23 15:54 Patient Disposition: Home Health Service Discharge Diagnosis: Status post splenic hemorrhage Referrals: [facility] [Outside] ([facility]NA will start on Tuesday ) Liu Lovett MD [Primary Care Provider] - 1 Week Discharge Medications: New sucralfate 100 mg/mL suspension 10 ml PO BID Qty: 420 0RF amoxicillin-pot clavulanate 400-57 mg/5 mL suspension for reconstitution 10 ml PO BID 8 Days Qty: 160 0RF metronidazole 500 mg tablet 500 mg PO TID 10 Days Qty: 30 0RF Rx Instructions: may crush Continued pantoprazole 40 mg tablet,delayed release (DR/EC) 40 mg PO DAILY@0630 albuterol sulfate [Ventolin HFA] 90 mcg/actuation HFA aerosol inhaler 2 puff inhalation Q4-6H PRN (Reason: Shortness Of Breath Or Wheezing) lorazepam 0.5 mg tablet 1 mg PO TID PRN (Reason: Anxiety) fluoxetine [Prozac] 40 mg capsule 40 mg PO DAILY Held oxycodone 5 mg Tablet 5 mg PO TID PRN (Reason: Pain) Hold Instructions: until discussed with Dr Livingston Discontinued prednisone 5 mg tablet 5 mg PO DAILY PRN (Reason: arthritis) Discharge Orders: Discharge Order (Routine); Ordered 09/17/23 Ordered By: Kiran Mayen Activity on Discharge: No heavy lifting Stand Alone Forms: Patient Portal Discharge page Care Plan Goals: weight loss and improve strength Health Concerns: obesity, splenic hemorrhage, LLL atelectasis Plan of Treatment: Home [facility]NA, PT, unstructed on use of incentive spirometry, continued CPAP, outpatient oral antibiotics Assessment: ok to dc home w VNA
--- NOTE | 2023-09-17 13:47 | MHC.CM.PN ---
PT WILL DC HOME TODAY WITH [facility] FOR PT AND SN FAMILY TO TRANSPORT
== END 2023-09-17 15:57 | disposition home health service (06) | DRG 816 ==
LOC: HO.ED 08:12 → HO.EDOVER 16:00 → HO.S3 09-11 02:37
PROVIDERS: Physician Assistant; Physician Assistant Surgical; Radiology Vascular & Interventional Radiology; Admitting Provider Surgery; Emergency Provider Emergency Medicine; PCP Family Medicine; Visit Provider Surgery
DX: D73.5 Infarction of spleen (principal)
CPT/HCPCS: 36410; 36415; 37242; 71045; 71250; 71260; 74175; 74176; 80048; 80053; 80076; 82150; 82947; 83605; 83690; 83735; 84484; 85014; 85018; 85025; 85027; 85610; 85730; 86850; 86900; 86901; 86923; 93005; 93970; 94640; 94660; 97116; 97162; 99152; 99153; 99285; C1751; C1769; C9113; J0131; J1170; J1940; J2405; J2543; J2765; J3010; J3411; J3420; J3430; J3480; J7120; P9016; P9017; P9073; Q9967

== ENCOUNTER → 2023-09-10 07:44 | Outpatient (BNV) | payer MEDICARE, MEDICAID, SELFPAY | PROVIDERS: Admitting Provider Surgery; Emergency Provider Emergency Medicine; PCP Family Medicine; Visit Provider Internal Medicine Cardiovascular Disease | DX: R94.31 Abnormal electrocardiogram [ECG] [EKG] (principal); R07.9 Chest pain, unspecified | CPT/HCPCS: 93010 ==

== ENCOUNTER 2023-09-10 15:42 | Outpatient (BNV) | payer MEDICARE, MEDICAID, SELFPAY | END 2023-09-12 15:00 | PROVIDERS: Admitting Provider Surgery; Emergency Provider Emergency Medicine; PCP Family Medicine; Visit Provider Student in an Organized Health Care Education/Training Program | DX: S36.032A Major laceration of spleen, initial encounter (principal) | CPT/HCPCS: 36246; 37242; 75726; 76937 ==

== ENCOUNTER → 2023-09-10 15:42 | Outpatient (BNV) | payer MEDICARE, MEDICAID, SELFPAY | PROVIDERS: Admitting Provider Surgery; Emergency Provider Emergency Medicine; PCP Family Medicine; Visit Provider Physician Assistant Surgical | DX: D73.5 Infarction of spleen (principal); Z98.84 Bariatric surgery status; Z90.3 Acquired absence of stomach [part of]; D64.9 Anemia, unspecified | CPT/HCPCS: 99223; 99232; 99233; 99239 ==

== ENCOUNTER 2023-10-12 12:14 | Outpatient (AMB) | payer MEDICARE, MEDICAID, SELFPAY ==
--- NOTE | 2023-10-12 11:34 | MHC.OFFVISWM ---
Intake Intake Visit Reasons: OV PO lsg 09/08/23 Allergies moxifloxacin [From Avelox] Allergy (Severe, Verified 09/08/23 07:55) Anaphylaxis codeine Allergy (Mild, Verified 09/08/23 07:55) ITCHY AVALAX Allergy (Severe, Uncoded 09/08/23 07:55) Anaphylaxis POLLEN Allergy (Mild, Uncoded 09/08/23 07:55) Runny Nose oral contrast Allergy (Uncoded 09/10/23 08:49) Itching Medication List - Last Reconciled 10/12/23 by Brook Sanford PA-C fluoxetine (Prozac) 40 mg PO DAILY lorazepam 1 mg PO TID PRN pantoprazole 40 mg PO DAILY@0630 HPI HPI Comments History of Present Illness Details Patient had office visit scheduled for today but called and said she could not come to office today. Seen by [facility] this am. States is constipated, gassy and had hard BM after suppository yesterday. Needs more ondansteron, never started sucralfate - states did not know about it. Pt states she is angry, disappointed and very scared about what happened, she feels she has PTSD with nightmares and she wants to talk with someone about. CT scan not scheduled yet. No exercise per Dr Kim Now about 5 weeks s/p LSG and then 4th degree splenic laceration. Meal plan per Dr Last: Total fluids now 42 ounces of combination of water and Propel. 6am - Celebrate 4:1 shakes 2 scoops with UAM - over 3 hours. 11:30 same shake over 3 hours 4:30 pm - same shake bar over 3 hours [facility] Medical History (Updated 09/25/23 @ 00:01 by Background Daemon) Hypokalemia Hiatal hernia Pre-op evaluation Vertigo Morbid obesity Hx of migraine headaches Environmental and seasonal allergies PONV (postoperative nausea and vomiting) Lower extremity edema Obstructive sleep apnea on CPAP Aneurysm Surgical History (Updated 09/25/23 @ 00:01 by Background Daemon) H/O gastric sleeve S/P cerebral aneurysm operation History of surgery for cerebral aneurysm Hx of hand surgery Hx of colonoscopy Hx of foot surgery Hx of knee surgery Hx of appendectomy Hx of hysterectomy Family History Mother No problems noted. Father AA (alcohol abuse) Brother No problems noted. Sister No problems noted. Brother No problems noted. Brother No problems noted. Daughter Autoimmune disease Daughter Autoimmune disease Social History Household Members: Spouse Housing: House Are you a primary healthcare market consultant to a significant other at home: No Do you presently have visiting nurse or other home services: No 75 years or older and lives alone: No Alcohol intake: never Patient Tobacco Use Status: Former Tobacco user Quit Date: 2015 Tobacco use type: Cigarette service: No Current occupational status: disabled Assessment & Plan Assessment & Plan (1) S/P laparoscopic sleeve gastrectomy: Code(s): Z98.84 - Bariatric surgery status Plan: No changes made to meal plan, still no exercise allowed. Will try again today to get the CT of her chest and abdomen scheduled at [facility] - per patient request. She was encouraged to speak to Dr Livingston about anticoagulation - she is concerned that she is putting herself at higher risk for another brain aneurysm, has phone call scheduled for next week with her neurosurgeon. I have started her on fiber tablets and colace for post op constipation, and refilled her ondansteron. I have also sent prescription for sucralfate tablets - never started after surgery. She is being scheduled to see Isi now to help her with the traumatic feelings she has due to her hospitalization from the splenic bleed. Next appt with me in 2 weeks via TV, will discuss case with Dr Kim (2) Splenic hemorrhage: Code(s): D73.5 - Infarction of spleen Plan see above Medications: New ondansetron HCl 4 mg PO Q8H PRN 30 tabs 0RF nausea and vomiting sucralfate 1 g PO BID 60 tabs 1RF inulin (Fiber Gummies) 2 grams PO BID 90 tabs 1RF docusate sodium (Colace) 100 mg PO BID 90 caps 1RF Telehealth Telehealth Location of provider rendering services: practice address Location of patient: address on file Patient Identification confirmed using: Name, : Yes Telehealth method: voice only Patient verbally consented to treatment: Yes Patient verbally consented to billing insurance company: Yes Patient informed of any privacy concerns related to visit: Yes Coding Level of Care Code Tele Est Pt Level 4 (22361) Diagnoses S/P laparoscopic sleeve gastrectomy Z98.84 Splenic hemorrhage D73.5
== END 2023-10-12 12:24 | disposition home or self-care (01) ==
LOC: HO.HBS 12:14
PROVIDERS: PCP Family Medicine; Visit Provider Physician Assistant
DX: E66.9 Obesity, unspecified (principal); D73.5 Infarction of spleen; Z90.3 Acquired absence of stomach [part of]; Z98.84 Bariatric surgery status
CPT/HCPCS: 99024

== ENCOUNTER → 2023-10-12 12:14 | Outpatient (BNVA) | payer MEDICARE, MEDICAID, SELFPAY | PROVIDERS: PCP Family Medicine; Visit Provider Physician Assistant | DX: D73.5 Infarction of spleen (principal); Z98.84 Bariatric surgery status | CPT/HCPCS: 99212 ==

== ENCOUNTER 2023-10-27 15:02 | Outpatient (AMB) | payer MEDICARE, SELFPAY ==
--- NOTE | 2023-10-27 15:05 | MHC.OFFVISWM ---
Intake VS Expanded 10/27/23 15:16 BP 105/53 L Blood Pressure Location Rt brachial Blood Pressure Position Sitting Pulse 69 Pulse Source Pulse Oximeter Temp 96.0 F L Temperature Source Tympanic Pulse Oximetry 96 Oxygen Delivery Method Room Air Height 5 ft 3 in Weight 205 lb BMI 36.3 Body Fat % 45.9 Body Fat Mass 94.0 Fat Free Mass 110.8 Visceral Fat Rating 14.0 Body Water % 45.9 Body Water Mass 78.4 Muscle Mass/Score 105.4 Basal Metabolic Rate/Score 1,551 Intake Visit Reasons: (TV) PO lsg 09/08/23 Allergies moxifloxacin [From Avelox] Allergy (Severe, Verified 09/08/23 07:55) Anaphylaxis codeine Allergy (Mild, Verified 09/08/23 07:55) ITCHY AVALAX Allergy (Severe, Uncoded 09/08/23 07:55) Anaphylaxis POLLEN Allergy (Mild, Uncoded 09/08/23 07:55) Runny Nose oral contrast Allergy (Uncoded 09/10/23 08:49) Itching Medication List - Last Reconciled 10/27/23 by Brook Sanford PA-C colchicine 0.6 mg PO BID docusate sodium (Colace) 100 mg PO BID fluoxetine (Prozac) 40 mg PO DAILY levetiracetam (Keppra) 250 mg PO DAILY lorazepam 1 mg PO TID PRN ondansetron HCl 4 mg PO Q8H PRN pantoprazole 40 mg PO DAILY@0630 sucralfate 1 g PO BID HPI HPI Comments History of Present Illness Details 63 yo woman is 7 weeks s/p LSG revision after previous GBP. She sustained a 4 degree splenic laceration on POD #2, was hospitalized for 7 days at [facility] had a splenic artery embolization and received multiple blood products. Since her discharge we have been unable to have her seen in the office. She had a repeat CT chest and abd at [facility] on Oct 20 which has been reveiwed by Dr Garzon. She discussed results with DR Last- laura sellers in abdomen, option for Plavix discussed - will not start it yet. She discussed results with Dr Hannah (vascular surgeon/neurologist and her PCP). No abd pain, minimal tenderness over LUQ. She was also seen in the ED there for gout, improving now. Hgb was stable at 11 x 2 that day. Nausea when needs to have BM's only - She has lost 4 lbs this week. Meal plan - wakes at 6am. Wants to add vegetables 6am - Equate (20 gr) RTD shake with 2 oz decaf coffee - 1 hour 10:30 - 2.5 oz yogurt - over 20 minutes 12 pm - same shake no caffeine 4pm - Equate bar (15 gr) - over 20 minutes 6-7 pm - Equate shake Exercise -unable to for now. Walks in home 20 minutes now, and has PT coming to house [facility] Medical History (Updated 09/25/23 @ 00:01 by Background Daemon) Hypokalemia Hiatal hernia Pre-op evaluation Vertigo Morbid obesity Hx of migraine headaches Environmental and seasonal allergies PONV (postoperative nausea and vomiting) Lower extremity edema Obstructive sleep apnea on CPAP Aneurysm Surgical History (Updated 09/25/23 @ 00:01 by Background Daemon) H/O gastric sleeve S/P cerebral aneurysm operation History of surgery for cerebral aneurysm Hx of hand surgery Hx of colonoscopy Hx of foot surgery Hx of knee surgery Hx of appendectomy Hx of hysterectomy Family History Mother No problems noted. Father AA (alcohol abuse) Brother No problems noted. Sister No problems noted. Brother No problems noted. Brother No problems noted. Daughter Autoimmune disease Daughter Autoimmune disease Social History Household Members: Spouse Housing: House Are you a primary administrator health care facility to a significant other at home: No Do you presently have visiting nurse or other home services: No 75 years or older and lives alone: No Alcohol intake: never Patient Tobacco Use Status: Former Tobacco user Quit Date: 2015 Tobacco use type: Cigarette service: No Current occupational status: disabled Physical Exam Vital Signs: Last Vital Signs Temp 96.0 F L 10/27/23 15:16 Pulse 69 10/27/23 15:16 BP 105/53 L 10/27/23 15:16 Pulse Ox 96 10/27/23 15:16 Oxygen Delivery Method Room Air 10/27/23 15:16 BMI result Body Mass Index 36.3 Assessment & Plan Assessment & Plan (1) Obesity: Code(s): E66.9 - Obesity, unspecified Plan: Now 7 weeks post op. Stable from splenic bleed. Will get CBC today at [facility] 6am - 2 oz decaf with Equate 8am - Finish Equate shake over 2 hours 12 pm - 1/2 yogurt 3pm - bar 6pm - 4 forks soft/moist chicken , fish or scrambled egg and 2 forks cooked veg 8pm- Equate shake Walk in home 20 minutes continuously tid until can increase exercise. CBC today CT abd on 12/01 at [facility] Phone appt with me in 3 weeks, continue to communicate with Dr Last Add fiber tablets bid. (2) S/P laparoscopic sleeve gastrectomy: Code(s): Z98.84 - Bariatric surgery status (3) Splenic hemorrhage: Code(s): D73.5 - Infarction of spleen Plan see above Orders: Orders Complete Blood Count Auto Diff Today D64.9 - Anemia, unspecified, D73.5 - Infarction of spleen, Z98.84 - Bariatric surgery status Medications: New inulin (Fiber Gummies) 2 grams PO BID 60 tabs 4RF Coding Level of Care Code Global (14547) Diagnoses Obesity E66.9 S/P laparoscopic sleeve gastrectomy Z98.84 Splenic hemorrhage D73.5
[2023-10-27 15:16] VITALS: BP 105/53; PULSE 69; TEMP 35.6; O2SAT 96; BMI 36.3
== END 2023-10-27 16:24 | disposition home or self-care (01) ==
PROVIDERS: PCP Family Medicine; Visit Provider Physician Assistant
DX: E66.9 Obesity, unspecified (principal); Z98.84 Bariatric surgery status; D73.5 Infarction of spleen
CPT/HCPCS: 99024

== ENCOUNTER → 2023-10-27 15:02 | Outpatient (BNVA) | payer MEDICARE, MEDICAID, SELFPAY | PROVIDERS: PCP Family Medicine; Visit Provider Physician Assistant | DX: E66.9 Obesity, unspecified (principal); D73.5 Infarction of spleen; Z98.84 Bariatric surgery status; Z68.36 Body mass index [BMI] 36.0-36.9, adult | CPT/HCPCS: 99212 ==

== ENCOUNTER 2023-12-21 10:00 | Outpatient (AMB) | payer OTHER, MEDICAID, SELFPAY ==
--- NOTE | 2023-12-21 09:47 | MHC.OFFVISWM ---
Intake VS Expanded 12/21/23 10:27 Height 5 ft 3 in Weight 202 lb BMI 35.8 Intake Visit Reasons: (TV) PO LSG 09/08/23 Allergies moxifloxacin [From Avelox] Allergy (Severe, Verified 09/08/23 07:55) Anaphylaxis codeine Allergy (Mild, Verified 09/08/23 07:55) ITCHY AVALAX Allergy (Severe, Uncoded 09/08/23 07:55) Anaphylaxis POLLEN Allergy (Mild, Uncoded 09/08/23 07:55) Runny Nose oral contrast Allergy (Uncoded 09/10/23 08:49) Itching Medication List - Last Reconciled 12/21/23 by Borok Sanford PA-C abatacept (Orencia) mg subcut colchicine 0.6 mg PO BID docusate sodium (Colace) 100 mg PO BID fluoxetine (Prozac) 40 mg PO DAILY furosemide (Lasix) 40 mg PO Q OTHER DAY gabapentin 800 mg PO TID inulin (Fiber Gummies) 2 grams PO BID lorazepam 1 mg PO TID PRN prednisone 2.5 mg PO DAILY HPI HPI Comments History of Present Illness Details Pt is 63 yo woman who underwent revision of previous LSG on 09/08 and then sustained 4th degree splenic laceration 2 d post op. She was last seen in office on Oct 27 at 7 weeks post op and has been communicating with Dr Last since then. 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 Patient had repeat CT of abdomen on 12/01/23 at [facility] which revealed resolving subscapular collection then measuring 13.8 x 9.8 x 11.7 cms. 12/01 - hgb - 11.0, hct - 35.0 Pt states she wasn't following our meal plan due to being depressed. Has being talking to PCP with increasing Prozac dose. Has been off Orencia for 3 months which has exacerbated her RA - so she will be restarting Orencia on December 25and has been on Prednisone 2.5 - 5mg daily until she is stabilized on Orencia. Sometimes has LUQ abd pain, no nausea or vomiting or reflux. + gas pain, BM every day or other day - soft and easy to pass. 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 [facility] Medical History (Updated 12/21/23 @ 11:37 by Brook Sanford PA-C) Splenic hemorrhage Hypokalemia Hiatal hernia Pre-op evaluation Vertigo Morbid obesity Hx of migraine headaches Environmental and seasonal allergies PONV (postoperative nausea and vomiting) Lower extremity edema Obstructive sleep apnea on CPAP Aneurysm Surgical History (Updated 09/25/23 @ 00:01 by Lorelei Reid) H/O gastric sleeve S/P cerebral aneurysm operation History of surgery for cerebral aneurysm Hx of hand surgery Hx of colonoscopy Hx of foot surgery Hx of knee surgery Hx of appendectomy Hx of hysterectomy Family History Mother No problems noted. Father AA (alcohol abuse) Brother No problems noted. Sister No problems noted. Brother No problems noted. Brother No problems noted. Daughter Autoimmune disease Daughter Autoimmune disease Social History Household Members: Spouse Housing: House Are you a primary patient centered care specialist to a significant other at home: No Do you presently have visiting nurse or other home services: No 75 years or older and lives alone: No Alcohol intake: never Patient Tobacco Use Status: Former Tobacco user Quit Date: 2015 Tobacco use type: Cigarette service: No Current occupational status: disabled Assessment & Plan Assessment & Plan (1) Obesity: Code(s): E66.9 - Obesity, unspecified Plan: Pt is now 3.5 months s/p revision LSG and 4th degree splenci laceration. CT on 12/01 reveals resolving fluid collection and h/h has greatly improved from 8.8 - 11.5, I reassured patient this is great news. We will repeat CT scan and h/h 6 weeks from previous on January 08 at [facility]. Presently on prednisone until restarts Orencia for RA later this month. I asked her to contact Dr Last with this information. Exercise - she is comfortable walking only at this time. Will track her dog walks for 1 mile in 20 minutes tid. Meal plan was not discussed today - she is waiting for plan from Dr Last - has been eating anything adn everything . She has requested 1 more appt with me at the end of this month and will be transfered to appts with [place] after that. She is also being scheduled for an appt with Isi, as she feels very traumatized by what happened post op. Next appt with me in 2 weeks. (2) S/P laparoscopic sleeve gastrectomy: Code(s): Z98.84 - Bariatric surgery status (3) Splenic hemorrhage: Code(s): D73.5 - Infarction of spleen Plan: see plan above Plan see above Orders: Orders Complete Blood Count Auto Diff Today D73.5 - Infarction of spleen, K66.1 - Hemoperitoneum, Z98.84 - Bariatric surgery status CT abdomen pelvis wo/w IV con 01/09/24 D73.5 - Infarction of spleen, K66.1 - Hemoperitoneum, S36.039A - Unspecified laceration of spleen, initial encounter, Z98.84 - Bariatric surgery status Telehealth Telehealth Location of provider rendering services: practice address Location of patient: address on file Patient Identification confirmed using: Name, : Yes Telehealth method: voice only Patient verbally consented to treatment: Yes Patient verbally consented to billing insurance company: Yes Patient informed of any privacy concerns related to visit: Yes Coding Level of Care Code Tele Est Pt Level 4 (89686) Diagnoses Obesity E66.9 S/P laparoscopic sleeve gastrectomy Z98.84 Splenic hemorrhage D73.5
[2023-12-21 10:27] VITALS: BMI 35.8
== END 2023-12-21 11:44 | disposition home or self-care (01) ==
LOC: HO.HBS 10:54
PROVIDERS: PCP Family Medicine; Visit Provider Physician Assistant
DX: E66.9 Obesity, unspecified (principal); Z68.35 Body mass index [BMI] 35.0-35.9, adult; Z90.3 Acquired absence of stomach [part of]; Z98.84 Bariatric surgery status; D73.5 Infarction of spleen
CPT/HCPCS: 99442

== ENCOUNTER → 2023-12-21 10:00 | Outpatient (BNVA) | payer MEDICARE, SELFPAY | PROVIDERS: PCP Family Medicine; Visit Provider Physician Assistant ==

== ENCOUNTER 2024-01-04 10:30 | Outpatient (AMB) | payer MEDICARE, MEDICAID, SELFPAY ==
--- NOTE | 2024-01-04 10:26 | A.OFFVIS_ITS ---
Intake VS Expanded 01/04/24 10:38 Height 5 ft 3 in Weight 202 lb BMI 35.8 Intake Visit Reasons: (TV) PO LSG 09/08/23 Allergies moxifloxacin [From Avelox] Allergy (Severe, Verified 09/08/23 07:55) Anaphylaxis codeine Allergy (Mild, Verified 09/08/23 07:55) ITCHY AVALAX Allergy (Severe, Uncoded 09/08/23 07:55) Anaphylaxis POLLEN Allergy (Mild, Uncoded 09/08/23 07:55) Runny Nose oral contrast Allergy (Uncoded 09/10/23 08:49) Itching Medication List - Last Reconciled 01/04/24 by Brook Sanford PA-C abatacept (Orencia) mg subcut fluoxetine (Prozac) 60 mg PO DAILY furosemide (Lasix) 40 mg PO Q OTHER DAY gabapentin 800 mg PO TID inulin (Fiber Gummies) 2 grams PO BID lorazepam 1 mg PO TID PRN wlfyncyeehbz-iej-kwti-FA-vit K 45 mg iron- 800 mcg-120 mcg (Bariatric Multivitamins) caps PO HPI HPI Comments History of Present Illness Details 63 yo woman had revision of LSG on 09/08 23, 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 She sustained 4th degree splenic lac and follow up CT last month should stable fluid collection. She will have repeat H/H and CT at [facility] on --------. She states she does not feel much restriction. She states she is VERY depressed, PCP changes her med dose. She does not have a therapist - appt was not scheduled with Isi as advised. 6am - 1 cup coffee with fake sugar and c remora or UAM. 1pm - protein bar - over 3 hours 5pm- 4 forks of protein and vegetable - over 30 minutes 7pm - Equate shake - 1 hour She feels hungry - but didn't understand that is because she is not eating enough. Exercise - none, her dog and she hasn't done anything. Her daughter will give her a treadmill. [facility] Medical History (Updated 12/21/23 @ 11:37 by Brook Sanford PA-C) Splenic hemorrhage Hypokalemia Hiatal hernia Pre-op evaluation Vertigo Morbid obesity Hx of migraine headaches Environmental and seasonal allergies PONV (postoperative nausea and vomiting) Lower extremity edema Obstructive sleep apnea on CPAP Aneurysm Surgical History (Updated 09/25/23 @ 00:01 by Lorelei Reid) H/O gastric sleeve S/P cerebral aneurysm operation History of surgery for cerebral aneurysm Hx of hand surgery Hx of colonoscopy Hx of foot surgery Hx of knee surgery Hx of appendectomy Hx of hysterectomy Family History Mother No problems noted. Father AA (alcohol abuse) Brother No problems noted. Sister No problems noted. Brother No problems noted. Brother No problems noted. Daughter Autoimmune disease Daughter Autoimmune disease Social History Household Members: Spouse Housing: House Are you a primary medicare compliance auditor to a significant other at home: No Do you presently have visiting nurse or other home services: No 75 years or older and lives alone: No Alcohol intake: never Patient Tobacco Use Status: Former Tobacco user Quit Date: 2015 Tobacco use type: Cigarette service: No Current occupational status: disabled Assessment & Plan Assessment & Plan (1) S/P laparoscopic sleeve gastrectomy: Code(s): Z98.84 - Bariatric surgery status Plan: Pt is 4 months post op revision LSG, very depressed regarding post op occurrence and not getting enough protein. Also never started walking which she has been cleared for - so has minimal weight loss. We discussed a few things today. 1. Need for CT scan next week with repeat H/H 2. Appt with Isi now 3. Increase protein intake by having 30 grams protein water per day and stopping electrolyte water 4. Start treadmill walking 30 minutes at home daily - no specific guidelines given today Plan is for her to follow up with [place] - pablito appt after CT has been completed. [place] is aware. Patient is still obese and is not considered stable at this time. I spent 30 minutes in total speaking with the patient via telephone (she does not have video access) counseling , reviewing records and charting in patients chart. . (2) Splenic hemorrhage: Code(s): D73.5 - Infarction of spleen Plan see above Telehealth Telehealth Location of provider rendering services: practice address Location of patient: address on file Patient Identification confirmed using: Name, : Yes Telehealth method: voice only Patient verbally consented to treatment: Yes Patient verbally consented to billing insurance company: Yes Coding Level of Care Code Tele Est Pt Level 4 (51227) Diagnoses S/P laparoscopic sleeve gastrectomy Z98.84 Splenic hemorrhage D73.5
[2024-01-04 10:38] VITALS: BMI 35.8
== END 2024-01-04 13:45 | disposition home or self-care (01) ==
LOC: HO.HBS 11:25
PROVIDERS: PCP Family Medicine; Visit Provider Physician Assistant
DX: E66.9 Obesity, unspecified (principal); Z68.35 Body mass index [BMI] 35.0-35.9, adult; Z98.84 Bariatric surgery status; D73.5 Infarction of spleen
CPT/HCPCS: 99443

== ENCOUNTER → 2024-01-04 10:30 | Outpatient (BNVA) | payer MEDICARE, SELFPAY | PROVIDERS: PCP Family Medicine; Visit Provider Physician Assistant ==

== ENCOUNTER 2024-01-17 13:37 | Outpatient (AMB) | payer OTHER, MEDICAID, SELFPAY ==
--- NOTE | 2024-01-31 11:53 | A.OFFWM_ITS ---
Intake Intake Visit Reasons: (TV) PO LSG 09/08/23 Allergies moxifloxacin [From Avelox] Allergy (Severe, Verified 09/08/23 07:55) Anaphylaxis codeine Allergy (Mild, Verified 09/08/23 07:55) ITCHY AVALAX Allergy (Severe, Uncoded 09/08/23 07:55) Anaphylaxis POLLEN Allergy (Mild, Uncoded 09/08/23 07:55) Runny Nose oral contrast Allergy (Uncoded 09/10/23 08:49) Itching PFSH Medical History (Updated 01/31/24 @ 11:56 by Isi Lombardo) Splenic hemorrhage Hypokalemia Hiatal hernia Pre-op evaluation Vertigo Morbid obesity Hx of migraine headaches Environmental and seasonal allergies PONV (postoperative nausea and vomiting) Lower extremity edema Obstructive sleep apnea on CPAP Aneurysm Surgical History (Updated 09/25/23 @ 00:01 by Lorelei Reid) H/O gastric sleeve S/P cerebral aneurysm operation History of surgery for cerebral aneurysm Hx of hand surgery Hx of colonoscopy Hx of foot surgery Hx of knee surgery Hx of appendectomy Hx of hysterectomy Family History Mother No problems noted. Father AA (alcohol abuse) Brother No problems noted. Sister No problems noted. Brother No problems noted. Brother No problems noted. Daughter Autoimmune disease Daughter Autoimmune disease Social History Household Members: Spouse Housing: House Are you a primary regular senior care provider to a significant other at home: No Do you presently have visiting nurse or other home services: No 75 years or older and lives alone: No Alcohol intake: never Patient Tobacco Use Status: Former Tobacco user Quit Date: 2015 Tobacco use type: Cigarette service: No Current occupational status: disabled Behavioral Health Assessment Weight Management Therapy Therapy Notes Details Josefina talked about her surgery, spleen laceration and ending up back in the hospital, after care she needed, loss of her dog. She reported increased depression, feels like she has PTSD from everything she experienced. wants to get her life back but cannot. Presenting Concerns Referral Source provider Reason for referral anxiety, anger, depression Precipitating Event surgery, hospitalization, loss of pet Living Situation Current Living Situation Own Assessment & Plan Assessment & Plan (1) Generalized anxiety disorder: Comment: R/O PTSD Code(s): F41.1 - Generalized anxiety disorder (2) Major depressive disorder, recurrent, moderate: Code(s): F33.1 - Major depressive disorder, recurrent, moderate Plan Patient is struggling emotionally, she reported trauma from everything she went through in recent months. Stated that she almost and now has decreased quality of life. Pt also reported several days of not having her medications while hospitalized and withdrawal symptoms. She is back on them now. Currently struggles with low motivation, wanting to stay in bed, feels stuck , angry, also grief over loosing her pet. We discussed some forms of movement to help her feel better, also enjoys being outdoors, is doing some walking when she can, journaling, talked about EMDR, active and supportive listening, motivational interviewing, review of supports, cognitive restructuring. She will be seen again. Telehealth Telehealth Telehealth Platform: Telephone Location of provider rendering services: other Location of patient: address on file Patient Identification confirmed using: Name, : Yes Telehealth method: voice only Patient verbally consented to treatment: Yes Patient verbally consented to billing insurance company: Yes Patient informed of any privacy concerns related to visit: Yes Minutes spent on Phone/Video with Pt.: 45 Coding Level of Care Code Tele Psytx 45 mins ([id number]) Diagnoses Generalized anxiety disorder F41.1 Major depressive disorder, recurrent, moderate F33.1 Time Spent (min) 45
== END 2024-01-31 11:53 | disposition home or self-care (01) ==
PROVIDERS: PCP Family Medicine; Visit Provider Counselor Mental Health
DX: F41.1 Generalized anxiety disorder (principal); F33.1 Major depressive disorder, recurrent, moderate
CPT/HCPCS: 90834

== ENCOUNTER → 2024-01-17 13:37 | Outpatient (BNVA) | payer MEDICARE, MEDICAID, SELFPAY | PROVIDERS: PCP Family Medicine; Visit Provider Counselor Mental Health ==

== ENCOUNTER 2024-01-19 13:15 | Outpatient (AMB) | payer MEDICARE, SELFPAY ==
--- NOTE | 2024-01-19 13:08 | MHC.OFFVISWM ---
Intake Intake Visit Reasons: (TELEPHONE) PO LSG 09/08/23 Allergies moxifloxacin [From Avelox] Allergy (Severe, Verified 09/08/23 07:55) Anaphylaxis codeine Allergy (Mild, Verified 09/08/23 07:55) ITCHY AVALAX Allergy (Severe, Uncoded 09/08/23 07:55) Anaphylaxis POLLEN Allergy (Mild, Uncoded 09/08/23 07:55) Runny Nose oral contrast Allergy (Uncoded 09/10/23 08:49) Itching Medication List - Last Reconciled 01/19/24 by KRIS Johnson abatacept (Orencia) mg subcut docusate sodium (Colace) 100 mg PO BID fluoxetine (Prozac) 60 mg PO DAILY furosemide (Lasix) 40 mg PO Q OTHER DAY gabapentin 800 mg PO TID inulin (Fiber Gummies) 2 grams PO BID lorazepam 1 mg PO TID PRN dwodpirtegyj-xbp-lxzm-FA-vit K 45 mg iron- 800 mcg-120 mcg (Bariatric Multivitamins) caps PO pantoprazole 40 mg PO DAILY HPI HPI Comments History of Present Illness Details This?is a?63?yo female who is s/p LSG 09/08/2023 complicated by 4th degree splenic lac. Presents for 4.5 month post op visit. Weight at last visit on 01/04/2024 was 202 pounds with a BMI of 35.8, weight today is 202 pounds, pt thinks but did not weigh herself this week.? No complaints of nausea, emesis, abdominal pain or reflux, or constipation. CT scan showed smaller collection, although I do not see report in our system. Pt was able to see report. Having EEG due to frequent morning headaches, since aneurysm. Has tried introducing some new foods, taking carafate but having some heartburn. Occasional LUQ pain, exacerbated by eating. Present meal plan includes: 6am - 1 cup coffee with fake sugar and cremora or UAM 1pm - protein bar - over 3 hours 5pm- 4 forks of protein and vegetable - over 30 minutes 7pm - Equate shake - 1 hour plus 30g protein water recommended at last visit Exercise routine includes: treadmill walking recommended at last visit [facility] Medical History (Updated 12/21/23 @ 11:37 by Brook Sanford PA-C) Splenic hemorrhage Hypokalemia Hiatal hernia Pre-op evaluation Vertigo Morbid obesity Hx of migraine headaches Environmental and seasonal allergies PONV (postoperative nausea and vomiting) Lower extremity edema Obstructive sleep apnea on CPAP Aneurysm Surgical History (Updated 09/25/23 @ 00:01 by Lorelei Reid) H/O gastric sleeve S/P cerebral aneurysm operation History of surgery for cerebral aneurysm Hx of hand surgery Hx of colonoscopy Hx of foot surgery Hx of knee surgery Hx of appendectomy Hx of hysterectomy Family History Mother No problems noted. Father AA (alcohol abuse) Brother No problems noted. Sister No problems noted. Brother No problems noted. Brother No problems noted. Daughter Autoimmune disease Daughter Autoimmune disease Social History Household Members: Spouse Housing: House Are you a primary manager home healthcare to a significant other at home: No Do you presently have visiting nurse or other home services: No 75 years or older and lives alone: No Alcohol intake: never Patient Tobacco Use Status: Former Tobacco user Quit Date: 2015 Tobacco use type: Cigarette service: No Current occupational status: disabled Assessment & Plan Assessment & Plan (1) Splenic hemorrhage: Code(s): D73.5 - Infarction of spleen (2) Obesity: Code(s): E66.9 - Obesity, unspecified (3) S/P laparoscopic sleeve gastrectomy: Code(s): Z98.84 - Bariatric surgery status Plan Pt is doing better getting enough protein, but still not exercising. We discussed starting treadmill walking not only as a way to help facilitate weight loss but to potentially help with mood. Also has a pool and wants to swim once it opens. I will obtain CT scan report from 01/12. Next CT scan in 6 weeks per pt, will schedule another appt with me in 6 weeks also to review next scan, will also be pt's 6 month appt. Patient is obese and is not considered stable at this time. I spent a total of 30 minutes reviewing/updating records, examining the patient and counseling the patient on weight management as detailed above. Medications: New pantoprazole 40 mg PO DAILY 90 tabs 1RF docusate sodium (Colace) 100 mg PO BID 90 caps 2RF Telehealth Telehealth Location of provider rendering services: practice address Location of patient: address on file Patient Identification confirmed using: Name, : Yes Telehealth method: voice only Patient verbally consented to treatment: Yes Patient verbally consented to billing insurance company: Yes Patient informed of any privacy concerns related to visit: Yes Minutes spent on Phone/Video with Pt.: 18 Coding Level of Care Code Tele Est Pt Level 4 (60499) Diagnoses Splenic hemorrhage D73.5 Obesity E66.9 S/P laparoscopic sleeve gastrectomy Z98.84
== END 2024-01-19 13:32 | disposition home or self-care (01) ==
LOC: HO.HBS 13:15
PROVIDERS: PCP Family Medicine; Visit Provider Physician Assistant Surgical
DX: E66.9 Obesity, unspecified (principal); Z68.38 Body mass index [BMI] 38.0-38.9, adult; D73.5 Infarction of spleen; Z90.3 Acquired absence of stomach [part of]; Z98.84 Bariatric surgery status
CPT/HCPCS: G2252

== ENCOUNTER → 2024-01-19 13:15 | Outpatient (BNVA) | payer MEDICARE, MEDICAID, SELFPAY | PROVIDERS: PCP Family Medicine; Visit Provider Physician Assistant Surgical ==

== ENCOUNTER 2024-01-31 11:54 | Outpatient (AMB) | payer MEDICARE, MEDICAID, SELFPAY ==
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
== END 2024-01-31 12:01 | disposition home or self-care (01) ==
LOC: HO.HBST 11:54
PROVIDERS: PCP Family Medicine; Visit Provider Counselor Mental Health
DX: F41.1 Generalized anxiety disorder (principal); F33.1 Major depressive disorder, recurrent, moderate
CPT/HCPCS: 90837

== ENCOUNTER → 2024-01-31 11:54 | Outpatient (BNVA) | payer MEDICARE, SELFPAY | PROVIDERS: PCP Family Medicine; Visit Provider Counselor Mental Health ==

== ENCOUNTER 2024-02-14 11:38 | Outpatient (AMB) | payer MEDICARE, MEDICAID, SELFPAY ==
--- OUTSIDE RECORDS SUMMARY | 2024-02-14 11:40 | XMS_ITS | Continuity of Care Document ---
Author Organization [facility] Address [address] [place] [address]- Care Team Providers Care Service Control Operator Name Role Phone Rachell LAM, Liu Rivera Primary Care Physician Encounter [facility] [place] Date(s): 10/20/23 - 10/20/[address] [address]- Encounter Diagnosis Acute gout(Final) - 10/20/23 Splenic hemorrhage(Final) - 10/20/23 Discharge Disposition: A-D/C [place] Attending Physician: Jayne LAM, Sara Orourke Admitting Physician: Sara Godoy MD Referring Physician: Not on Staff, Referring MD Allergies, Adverse Reactions, Alerts Substance Reaction Severity Status codeine Itchy Active Effexor Active Avelox Active Contrast Dye 1, 2 Active 1per pt not oral contrasst, was IV injection RG 05/06/23 2Oral contrast dye, swelling of face/eyes Immunizations Given and Recorded Vaccine Date Status Refusal Reason SARS-CoV-2 mRNA ([id number]) vax 01/19/22 Recorded SARS-CoV-2 (COVID-19) mRNA-1273 vaccine 06/16/21 R ecorded SARS-CoV-2 (COVID-19) mRNA-1273 vaccine 12/03/20 R ecorded SARS-CoV-2 (COVID-19) mRNA-1273 vaccine 11/05/20 R ecorded Medications acetaminophen-oxyCODONE 325 mg-5 mg oral tablet 1, tablet, By Mouth, Every 6 hours, PRN, # 8 tablet, Refills 0, Tot. Refills 0, Acute, for pain, 10/23/23 17:10:00 EST, 10/20/23 17:10:00 EST, Route to Pharmacy Electronically, [facility]/pharmacy #[id number] Tablet, Partial fill upon patient request if the prescr... Start Date: 10/20/23 Stop Date: 10/23/23 Status: Ordered aspirin 81 mg oral delayed release tablet 81 mg, 1, tablet, By Mouth, Daily, Take 5 days prior to the procedure, # 30 tablet, Refills 1, Tot.Refills 1, Maintenance, 05/10/23 9:54:00 EDT, Route to Pharmacy Electronically, [facility],Partial fill upon patient request if the [...] Refills, Maintenance, 05/10/23 9:55:00 EDT, Tablet, [facility], Partial fill upon patient request if the prescription is for a schedule II opioid drug., 160, cm, 05/08/23 20:11:00 EDT, Height... Start Date: 05/10/23 Stop Date: 06/09/23 Status: Ordered colchicine 0.6 mg oral capsule See Instructions, 1 capsule By Mouth 2 times a day until 48 hours after your symptoms resolve, # 30capsule, 0 Refills, Maintenance, 10/20/23 17:10:00 EST, Capsule, [facility]/pharmacy #[id number], Partial fill upon patient request if the prescription is for a vanita... Start Date: 10/20/23 Status: Ordered CPAP Machine See Instructions, # [...] Refills, Maintenance, 05/10/23 9:56:00 EDT, Tablet, [facility], Partial fill upon patient request if [...] DAYS., # 60 capsule, 3 Refills, [facility], 163, cm, 01/13/21 11:27:00 EDT, Height, [...] oral tablet 5 mg, Tablet, By Mouth, Once, PRN for Pain , Moderate, Routine, 10/20/23 12:48:00 EST Start Date: 10/20/23 Stop Date: 10/20/23 Status: Completed Plavix 75 mg oral tablet 75 mg, 1, tablet, By Mouth, Daily, Take 5 days prior to the procedure, # 30 tablet, Refills 1, Tot.Refills 1, Maintenance, 05/10/23 9:54:00 EDT, Route to Pharmacy Electronically, [facility],Partial fill upon patient request if the [...] 05/16/14 15:26:02 Start Date: 05/16/14 Status: Ordered Tylenol 325 mg oral tablet 975 mg, Tablet, By Mouth, Once, PRN for Pain , Mild, Routine, 10/20/23 12:48:00 EST Start Date: 10/20/23 Stop Date: 10/20/23 Status: Completed Ventolin 90 mcg Inhaler Inhalation, Every 6 [...] Active Rheumatoid arthritis Confirmed Active Severe obesity (BMI 35.0-39.9) with comorbidity Confirmed Active Results Radiology Reports * Exam Date Time Procedure Performing Provider Status 10/20/23 1:10 PM US Doppler Ext Lower Venous Left Sara Becerril; Betzy (Verified) Notes: (US Doppler Ext Lower Venous Left) Reason For Exam: RULE OUT DVT, post op;Pain/Tenderness Extremities RESULT: US Doppler Ext Lower Venous Left US Doppler Ext Lower Venous Left Reason: Pain Tenderness Extremities; Clinical Question(s): Thrombus COMPARISON: None IMAGING TECHNIQUE: Ultrasound of the veins from the groin through the calf was performed using grayscale, color, and spectral Doppler ultrasound assessing for complete compressibility and normal flowcharacteristics. FINDINGS: Common femoral vein: Patent. No thrombosis. Femoral vein: Patent. No thrombosis. Popliteal vein: Patent. No thrombosis. Gastrocnemius veins: The visualized portions are patent without evidence of thrombosis. Peroneal veins: The visualized portions are patent without evidence of thrombosis. Posterior tibial veins: The visualized portions are patent without evidence of thrombosis. Contralateral common femoral vein: Patent. No thrombosis. OTHER FINDINGS: None. IMPRESSION: No evidence of deep venous thrombosis. WSN: [id number] Ordering Physician: Jordan Maxwell Dictated By: Roland Varghese MD Dictated Date/Time: 10/20/23 4:06 pm Reviewed By: Roland Varghese MD Signed By: Rloand Varghese MD Signed Date/Time: 10/20/23 4:06 pm Transcribed By: RAKESH Transcribed Date/Time: 10/20/23 1:41 pm * Exam Date Time Procedure Performing Provider Status 10/20/23 1:32 PM Ankle Min 3 Views Left Ana M Lorenzo; Auth (Verified) Notes: (Ankle Min 3 Views Left) Reason For Exam: atraumatic ankle pain, gout?;Pain RESULT: Ankle Min 3 Views Left Examination: Left ankle performed on 10/20/2023. History: Hx of Present Illness: Acute atraumatic L ankle pain - woke pt from sleep. No relief gabapentin.; Reason: Pain; atraumatic ankle pain, gout?; Clinical Question(s): Fracture Findings: Frontal, oblique, and lateral views of the left ankle are submitted. The mortise is preserved. No fractures or dislocations are demonstrated. There is a plantar calcaneal spur. Ossification of the insertion of the Achilles tendon is seen. IMPRESSION: Plantar spur. There is no acute osseous abnormality. WSN: [id number] Ordering Physician: Jordan Maxwell Dictated By: Mily Faye MD Dictated Date/Time: 10/20/23 1:38 pm Reviewed By: Mily Faye MD Signed By: Mily Faye MD Signed Date/Time: 10/20/23 1:38 pm Transcribed By: RAKESH Transcribed Date/Time: 10/20/23 1:34 pm Vital Signs Most recent to oldest [Reference Range]: 1 2 3 Height 160 cm (10/20/23 2:16 PM) 160 cm (10/20/23 11:24 AM) Weight 95 kg (10/20/23 2:16 PM) 95 kg (10/20/23 11:24 AM) Oxygen Saturation [94-100 %] 96 % (10/20/23 2:16 PM) 97 % (10/20/23 11:24 AM) Pulse Rate [55-90 bpm] 58 bpm (10/20/23 2:16 PM) 71 bpm (10/20/23 11:24 AM) Body Mass Index [18.5-24.99 kg/m2] 37.11 kg/m2 *>HHI* (10/20/23 2:16 PM) Blood Pressure [90-138/55-84 mm Hg] 100/58mm Hg (10/20/23 2:16 PM) 130/78mm Hg (10/20/23 11:24 AM) Respiratory Rate [16-30 br/min] 16 br/min (10/20/23 2:16 PM) 16 br/min (10/20/23 1:26 PM) 16 br/min (10/20/23 1:25 PM) Temperature [96.8-100.4 DegF] 98.3 DegF (10/20/23 2:16 PM) 96.8 DegF (10/20/23 11:24 AM) Mode of Delivery (Oxygen) Room air (10/20/23 2:16 PM) Room air (10/20/23 11:24 AM) Blood pressure sites Arm, right (10/20/23 2:16 PM) Arm, right (10/20/23 11:24 AM) Temperature Route Oral (10/20/23 2:16 PM) Temporal (10/20/23 11:24 AM) Dry Weight 95 kg (10/20/23 2:16 PM) 95 kg (10/20/23 11:24 AM) Weight Obtained Via Patient/family state d (10/20/23 11:24 AM) Dry Weight Obtained Via Patient/family s tated (10/20/23 11:24 AM) Social History Social History Type Response Smoking Status Former smoker; Other : Pt quit on 01/17/18; entered on: 02/09/18 Sex Note * Jordan Keith: PERFORM Event Display: Patient Education Leaflets Authored Date: [id number] Gout Diet ?? [id number] Gout Diet Gout is a painful condition caused by an excess of uric acid, a waste product made by the body. Uric acid forms crystals that collect in the joints. The immune response to these crystals brings on symptoms of joint pain and swelling. This is called a gout attack. Often, medicines and diet changes are combined to manage gout. Below are some guidelines for changing your diet to help you manage goutand prevent attacks. Your healthcare provider will help you determine the best eating plan for you. Eating to manage gout Weight loss for those who are overweight may help reduce gout attacks. Eat less of these foods Eating too many foods containing purines may raise the levels of uric acid in your body. This raises your risk for a gout attack. Try to limit these foods and drinks: ??? Alcohol, such as beer and red wine. You may be told to avoid alcohol completely. ??? Soft drinks that contain sugar or high fructose corn syrup ??? Certain fish, including anchovies, sardines, fish eggs, and watt ??? Shellfish ??? Certain meats, such as red meat, hot dogs, luncheon meats, and turkey ??? Organ meats, such as liver, kidneys, and sweetbreads ??? Legumes, such as dried beans and peas ??? Other high fat foods such as gravy, whole milk, and high fat cheeses ??? Vegetables suchas asparagus, cauliflower, spinach, and mushrooms used to be thought to contribute to an increased risk??for a gout attack, but recent studies show that high purine vegetables don't increase the riskfor a gout attack. Eat more of these foods Other foods may be helpful for people with gout. Add some of these foods to your diet: ??? Cherriescontain chemicals that may lower uric acid. ??? [place] fatty acids. These are found in some fatty fish such as salmon, certain oils (flax, olive, or nut), and nuts themselves. [place] fatty acids may help prevent inflammation due to gout. ??? Dairy products that are low-fat or fat-free, such as cheeseand yogurt ??? Complex carbohydrate foods, including whole grains, brown rice, oats, and beans ??? Coffee, in moderation ??? Water, approximately 64 ounces per day ?? Follow-up care Follow up with your healthcare provider as advised. ?? When to get medical advice Call your healthcare provider right away??if any of these occur: ??? Return of gout symptoms, usually at night ??? Severe pain, swelling, and heat in a joint, especially the base of the big toe ??? Affected joint is hard to move ??? Skin of the affected joint is purple or red ??? Fever of 100.4??F (38??C) or higher, or as advised by your provider ??? Pain that??doesn't get better even with??prescribed medicine? Last Reviewed Date: 2021 ?? [employer]. All rights reserved. This information is not intended as a substitute for professional medical care. Always follow your healthcare professional's instructions. ?? * Jordan Keith: PERFORM Event Display: Patient Education Leaflets Authored Date: [id number] Gout ?? [id number] Gout Gout is an inflammation of a joint caused by an inflammatory response to gout crystals in the jointfluid. This occurs when there is excess??uric acid. Uric acid is a normal waste product in the body. It builds up in the body when the kidneys can't filter enough of it from the blood. This may occurwith age. It's also associated with kidney disease. Gout occurs more often in people with obesity, diabetes, high blood pressure,??or??high??levels of??fats in the blood. It may run in families. Gouttends to come and go. A flare up of gout is called an attack. Drinking alcohol or eating certain foods (such as shellfish or??foods with additives such as high-fructose corn syrup) may increase uric acid levels in the blood and cause a gout attack. During a gout attack, the affected joint may become hot, red, swollen, and painful. If you have hadone attack of gout, you are likely to have another. An attack of gout can be treated with??medicine. If these attacks become frequent,??a daily medicine may be prescribed to help the kidneys??remove uric acid from the body. Home care During a gout attack: ??? Contact your healthcare provider for advice and therapy options at the early stages of a gout flare. Treating the flare right away can prevent it from getting worse. Your healthcare provider can prescribe medicine to improve pain and shorten your gout flare. ??? Rest painful joints. If gout affects the joints of your foot or leg, you may want to use crutches for the first few days to keep from bearing weight on the affected joint. ??? When sitting or lying down, raise the painful joint to a level higher than your heart. ??? Apply an ice pack (ice cubes in a plastic bag wrapped in a thin towel) over the injured area for 20 minutes every 1 to 2 hours the first day for pain relief. Continue this 3 to 4 times a day for swelling and pain. ??? Avoid alcohol and foods listed below (see??Preventing attacks) during a gout attack. Drink extra fluid to help flush the uricacid through your kidneys. ??? If you were prescribed a medicine to treat gout, take it as your healthcare provider has instructed. Don't skip doses. ??? Take??anti-inflammatory??medicine as directedby your healthcare provider. If you have chronic liver or kidney disease or ever had a stomach ulcer or digestive tract bleeding, talk with your doctor before using these medicines. ??? If pain medicines have been prescribed, take them exactly as directed. ? Preventing attacks ??? Follow up with your healthcare provider to assess if you would benefit from daily medicine to prevent gout flares. ??? Limit or stop alcohol??use. Excess alcohol intake can cause a gout attack. ??? Limit these foods and drinks: o Organ meats, such as kidneys and liver o Certain seafoods (anchovies, sardines, shrimp, scallops, watt, mackerel) o Wild game, meat extracts and meat gravies o Foods and drinks sweetened with high-fructose corn syrup, such as sodas ??? Eat a healthy diet including low-fat and nonfat dairy, whole grains, and vegetables. ??? If you are??overweight, talk to your healthcare provider about a weight reduction plan. Avoid??fasting??or??extreme low calorie diets??(less than 900 calories per??day). This will increase uric acid levels in the body.??? If you??have diabetes??or??high blood pressure, work with your provider to manage these conditions. ??? Protect the joint from injury. Wear good-fitting socks and shoes. Injury can trigger a goutattack. ?? Follow-up care Follow up with your healthcare provider, or as advised.? When to get medical advice Call your healthcare provider if you have any of the following: ??? Fever over??100.4??F (38.??C)??with worsening joint pain ??? Increasing redness around the joint ??? Pain developing in another joint ??? Repeated vomiting, abdominal pain, or small amounts of blood in the vomit or stool (black or red color) Call 911 Call 911, or get immediate medical care if any of these occur: ??? Large amounts of blood in the vomit or stool (black or red color) ??? Fainting ?? Last Reviewed Date: 2021 ?? 4786-1990 [employer]. All rights reserved. This information is not intended as a substitute for professional medical care. Always follow your healthcare professional's instructions. ?? Patient Care team information Care Team Personnel Name: Tiffanie Tamayo RN Position: [facility] RN Member Role: Primary Care Nurse Name: Bebo Diaz MD Position: [facility] Physician (General Medicine) Member Role: Lifetime Consulting Physician Address: Address: [address] [place] [address]- Name: Perla Paulino RN Position: [facility] RN Member Role: Primary Care Nurse Name: Nicky Ross RN Position: [facility] RN Member Role: Primary Care Nurse Name: Alice Le RN Position: [facility] RN Member Role: Primary Care Nurse Name: Carolee Mendez RN Position: [facility] RN Supv Member Role: Primary Care Nurse Name: Bryanna Rolon RN Position: [facility] RN Member Role: Primary Care Nurse Name: Sara Mak RN Position: [facility] RN Member Role: Primary Care Nurse Name: Pollo Lopez RN Position: [facility] RN Member Role: Primary Care Nurse Name: Babs Ferrara Position: [facility] Outreach Member Role: Lifetime Consulting Physician Name: Liu Lovett MD Position: [facility] Physician - Primary Care Member Role: PCP Address: Address: [address] [place] [address]- [place] Name: Celia Simpson RN Position: [facility] RN Member Role: Primary Care Nurse Name: Colby Denny RN Position: [facility] RN Member Role: Primary Care Nurse Name: Jordan Keith Position: [facility] Associate Professional Member Role: ED Physician Client Account Manager Address: Address: [address] [place] [id number]- [place] Name: Sara Godoy MD Position: [facility] Resident Member Role: Admitting Physician Address: Address: [address] [place] [address] [place] [address]- [place] Name: Ana Luisa Stanton RN Position: S ED RN W/OE and Tasks Member Role: Patient Care Provider Care Team Related Persons Name: CATHY SAMEER Address: home [address] [place] [address] Name: JOHNNY PUCKETT Address: home [address] [place] [address] Name: SAMEER SCHAEFER Address: home [address] [place] [address]
--- OUTSIDE RECORDS SUMMARY | 2024-02-14 11:40 | XMS_ITS | Continuity of Care Document ---
Author Organization [facility] Address [address] [place] [address]- Care Team Providers Care Biometrician Name Role Phone Rachell LAM, Liu Rivera Primary Care Physician Encounter [facility] [place] Date(s): 10/20/23 - 11/19/[address] [address]- Attending Physician: Erica Connelly Admitting Physician: Erica Connelly Referring Physician: AdmtrErica Allergies, Adverse Reactions, Alerts Substance Reaction Severity Status codeine Itchy Active Effexor Active Avelox Active Contrast Dye 1, 2 Active 1per pt not oral contrasst, was IV injection RG 05/06/23 2Oral contrast dye, swelling of face/eyes Immunizations Given and Recorded Vaccine Date Status Refusal Reason SARS-CoV-2 mRNA ([id number]-[id number]) vax 01/19/22 Recorded SARS-CoV-2 (COVID-19) mRNA-1273 vaccine 06/16/21 R ecorded SARS-CoV-2 (COVID-19) mRNA-1273 vaccine 12/03/20 R ecorded SARS-CoV-2 (COVID-19) mRNA-1273 vaccine 11/05/20 R ecorded Medications aspirin 81 mg oral delayed release tablet 81 mg, 1, tablet, By Mouth, Daily, Take 5 days prior to the procedure, # 30 tablet, Refills 1, Tot.Refills 1, Maintenance, 05/10/23 9:54:00 EDT, Route to Pharmacy Electronically, [facility],Partial fill upon patient request if the [...] Refills, Maintenance, 05/10/23 9:55:00 EDT, Tablet, [facility], Partial fill upon patient request if the prescription is for a schedule II opioid drug., 160, cm, 05/08/23 20:11:00 EDT, Height... Start Date: 05/10/23 Stop Date: 06/09/23 Status: Ordered colchicine 0.6 mg oral capsule See Instructions, 1 capsule By Mouth 2 times a day until 48 hours after your symptoms resolve, # 30capsule, 0 Refills, Maintenance, 10/20/23 17:10:00 EST, Capsule, [facility]/pharmacy #[id number], Partial fill upon patient request [...] Refills, Maintenance, 05/10/23 9:56:00 EDT, Tablet, [facility], Partial fill upon patient request if [...] DAYS., # 60 capsule, 3 Refills, [facility], 163, cm, 01/13/21 11:27:00 EDT, Height, [...] 9:54:00 EDT, Route to Pharmacy Electronically, [facility],Partial fill upon patient request if the [...] obesity (BMI 35.0-39.9) with comorbidity Confirmed Active Social History Social History Type Response Smoking Status Former smoker; Other : Pt quit on 01/17/18; entered on: 02/09/18 Sex Patient Care team information Care Team Personnel Name: Joe LAM, Bebo Parks Position: [facility] Physician (General Medicine) Member Role: Lifetime Consulting Physician Address: Address: [address] [place] [address]- Name: Perla Paulino RN Position: [facility] RN Member Role: Primary Care Nurse Name: Nicky Ross RN Position: [facility] RN Member Role: Primary Care Nurse Name: Alice Le RN Position: [facility] RN Member Role: Primary Care Nurse Name: Carolee Mendez RN Position: [facility] RN Supv Member Role: Primary Care Nurse Name: Bryanna Rolon RN Position: [facility] RN Member Role: Primary Care Nurse Name: Sara Mak RN Position: [facility] RN Member Role: Primary Care Nurse Name: Pollo Lopez RN Position: [facility] RN Member Role: Primary Care Nurse Name: Babs Ferrara Position: [facility] Outreach Member Role: Lifetime Consulting Physician Name: Liu Lovett MD Position: [facility] Physician - Primary Care Member Role: PCP Address: Address: [address] [place] [address]- [place] Name: Celia Simpson RN Position: [facility] RN Member Role: Primary Care Nurse Name: Colby Denny RN Position: [facility] RN Member Role: Primary Care Nurse Care Team Related Persons Name: SAMEER MORGAN Address: home [address] [place] [address] Name: JOHNNY PUCKETT Address: home [address] [place] [address] Name: SAMEER SCHAEFER Address: home [address] [place] [address]
--- OUTSIDE RECORDS SUMMARY | 2024-02-14 11:43 | XMS_ITS | Continuity of Care Document ---
Author Organization [facility] Address [address] [place] [id number]- Care Team Providers Care Business Intelligence Administrator Name Role Phone Liu Lovett MD Primary Care Physician Encounter [facility] Date(s): 07/22/23 - 11/19/[address] [address] Attending Physician: Bebo Zamora DO Admitting Physician: Bebo Zamora DO Referring Physician: Liu Lovett MD Allergies, Adverse Reactions, Alerts Substance Reaction Severity Status codeine Itchy Active Effexor Active Avelox Active Contrast Dye 1, 2 Active 1per pt not oral contrasst, was IV injection RG 05/06/23 2Oral contrast dye, swelling of face/eyes Immunizations Given and Recorded Vaccine Date Status Refusal Reason SARS-CoV-2 mRNA ([id number]) vax 01/19/22 Recorded SARS-CoV-2 (COVID-19) mRNA-1273 vaccine 06/16/21 R ecorded SARS-CoV-2 (COVID-19) mRNA-1273 vaccine 12/03/20 R ecorded SARS-CoV-2 (COVID-19) mRNA-1273 vaccine 11/05/20 R ecorded Medications aspirin 81 mg oral delayed release tablet 81 mg, 1, tablet, By Mouth, Daily, Take 5 days prior to the procedure, # 30 tablet, Refills 1, Tot.Refills 1, Maintenance, 05/10/23 9:54:00 EDT, Route to Pharmacy Electronically, [facility],Partial fill upon patient request if the [...] Refills, Maintenance, 05/10/23 9:55:00 EDT, Tablet, [facility], Partial fill upon patient request if the prescription is for a schedule II opioid drug., 160, cm, 05/08/23 20:11:00 EDT, Height... Start Date: 05/10/23 Stop Date: 06/09/23 Status: Ordered colchicine 0.6 mg oral capsule See Instructions, 1 capsule By Mouth 2 times a day until 48 hours after your symptoms resolve, # 30capsule, 0 Refills, Maintenance, 10/20/23 17:10:00 EST, Capsule, [facility]/pharmacy #[id number], Partial fill upon patient request if [...] Refills, Maintenance, 05/10/23 9:56:00 EDT, Tablet, [facility], Partial fill upon patient request if [...] DAYS., # 60 capsule, 3 Refills, [facility], 163, cm, 01/13/21 11:27:00 EDT, Height, [...] 9:54:00 EDT, Route to Pharmacy Electronically, [facility],Partial fill upon patient request if the [...] Former smoker; Other : Pt quit on 4/10/18; entered on: 02/09/18 Sex Patient Care team information Care Team Personnel Name: Joe LAM, Bebo Parks Position: [facility] Physician (General Medicine) Member Role: Lifetime Consulting Physician Address: Address: [address] [place] [phone]- Name: Perla Paulino RN Position: [facility] RN Member Role: Primary Care Nurse Name: Nicky Ross RN Position: [facility] RN Member Role: Primary Care Nurse Name: Alice Le RN Position: [facility] RN Member Role: Primary Care Nurse Name: Carolee Mendez RN Position: [facility] RN Supv Member Role: Primary Care Nurse Name: Bryanna Rolon RN Position: [facility] RN Member Role: Primary Care Nurse Name: Sara Mak RN Position: [facility] RN Member Role: Primary Care Nurse Name: Pollo Lopez RN Position: [facility] RN Member Role: Primary Care Nurse Name: Babs Ferrara Position: [facility] Outreach Member Role: Lifetime Consulting Physician Name: Liu Lovett MD Position: [facility] Physician - Primary Care Member Role: PCP Address: Address: [address] [place] [address]- Name: Celia Simpson RN Position: [facility] RN Member Role: Primary Care Nurse Name: Colby Denny RN Position: [facility] RN Member Role: Primary Care Nurse Care Team Related Persons Name: SAMEER MORGAN Address: [address] [place] [address] Name: JOHNNY PUCKETT Address: home [address] [place] [address] Name: SAMEER SCHAEFER Address: home [address] [place] [address]
--- NOTE | 2024-02-14 13:55 | MHC.WMTHER ---
Intake Intake Visit Reasons: (TV) PO LSG 09/08/23 Allergies moxifloxacin [From Avelox] Allergy (Severe, Verified 09/08/23 07:55) Anaphylaxis codeine Allergy (Mild, Verified 09/08/23 07:55) ITCHY AVALAX Allergy (Severe, Uncoded 09/08/23 07:55) Anaphylaxis POLLEN Allergy (Mild, Uncoded 09/08/23 07:55) Runny Nose oral contrast Allergy (Uncoded 09/10/23 08:49) Itching PFSH Medical History (Updated 01/31/24 @ 11:56 by Isi Lombardo) Splenic hemorrhage Hypokalemia Hiatal hernia Pre-op evaluation Vertigo Morbid obesity Hx of migraine headaches Environmental and seasonal allergies PONV (postoperative nausea and vomiting) Lower extremity edema Obstructive sleep apnea on CPAP Aneurysm Surgical History (Updated 09/25/23 @ 00:01 by Lorelei Reid) H/O gastric sleeve S/P cerebral aneurysm operation History of surgery for cerebral aneurysm Hx of hand surgery Hx of colonoscopy Hx of foot surgery Hx of knee surgery Hx of appendectomy Hx of hysterectomy Family History Mother No problems noted. Father AA (alcohol abuse) Brother No problems noted. Sister No problems noted. Brother No problems noted. Brother No problems noted. Daughter Autoimmune disease Daughter Autoimmune disease Social History Household Members: Spouse Housing: House Are you a primary patient care director to a significant other at home: No Do you presently have visiting nurse or other home services: No 75 years or older and lives alone: No Alcohol intake: never Patient Tobacco Use Status: Former Tobacco user Quit Date: 2015 Tobacco use type: Cigarette service: No Current occupational status: disabled Behavioral Health Assessment Weight Management Therapy Therapy Notes Details Today reported that she is trying to figure out what to do. Does not want to make any decisions out of emotions, not anger, just depressed and down about her life post surgery. Is down under 200lbs and is happy about that as well as good weather and her pool being open. She would like to start swimming again. Josefina talked about her surgery, spleen laceration and ending up back in the hospital, after care she needed, loss of her dog. She reported increased depression, feels like she has PTSD from everything she experienced. wants to get her life back but cannot. Josefina discussed in length the mistreatment she reported. Pt stated I feel stuck , I cannot get out of this . stated that her worries for her. She is future oriented, talked about opening up her pool soon which is very therapeutic for her. She stated that her PCP recommended trauma doctor. Presenting Concerns Referral Source provider Reason for referral anxiety, anger, depression Precipitating Event surgery, hospitalization, loss of pet Living Situation Current Living Situation Own Assessment & Plan Assessment & Plan (1) Generalized anxiety disorder: Comment: R/O PTSD Code(s): F41.1 - Generalized anxiety disorder (2) Major depressive disorder, recurrent, moderate: Code(s): F33.1 - Major depressive disorder, recurrent, moderate Plan Patient is struggling emotionally, she reported trauma from everything she went through in recent months. Stated that she almost and now has decreased quality of life. Pt also reported several days of not having her medications while hospitalized and withdrawal symptoms. She is back on them now. Currently struggles with low motivation, wanting to stay in bed, feels stuck , angry, also grief over loosing her pet. We discussed some forms of movement to help her feel better, also enjoys being outdoors, is doing some walking when she can, journaling, talked about EMDR (she would have to not take her Lorazepam for that and is aware, had already spoke with her doctor about getting off of them due to roasterman effects), active and supportive listening, motivational interviewing, review of supports, cognitive restructuring. Pt reported feeling better after this appointment. She will be seen again. Telehealth Telehealth Telehealth Platform: Telephone Location of provider rendering services: other Location of patient: address on file Patient Identification confirmed using: Name, : Yes Telehealth method: voice only Patient verbally consented to treatment: Yes Patient verbally consented to billing insurance company: Yes Patient informed of any privacy concerns related to visit: Yes Minutes spent on Phone/Video with Pt.: 30 Coding Level of Care Code Tele Psytx 30 mins (41548) Diagnoses Generalized anxiety disorder F41.1 Major depressive disorder, recurrent, moderate F33.1 Time Spent (min) 30
== END 2024-02-14 13:55 | disposition home or self-care (01) ==
LOC: HO.HBST 11:38
PROVIDERS: PCP Family Medicine; Visit Provider Counselor Mental Health
DX: F41.1 Generalized anxiety disorder (principal); F33.1 Major depressive disorder, recurrent, moderate
CPT/HCPCS: 90832

== ENCOUNTER → 2024-02-14 11:38 | Outpatient (BNVA) | payer MEDICARE, SELFPAY | PROVIDERS: PCP Family Medicine; Visit Provider Counselor Mental Health ==

== ENCOUNTER 2024-03-20 10:09 | Outpatient (AMB) | payer MEDICARE, MEDICAID, SELFPAY ==
--- OUTSIDE RECORDS SUMMARY | 2024-03-20 10:11 | XMS_ITS | Continuity of Care Document ---
Author Organization [facility] Address [address] [place] [id number]- Care Team Providers Care Eap Consultant Name Role Phone Rachell LAM, Liu Rivera Primary Care Physician [phone] Encounter [facility] [place] [place] Date(s): 02/10/24 - 03/17/[address] [address] Attending Physician: Kimberly Soto DNP Admitting Physician: Kimberly Soto DNP Referring Physician: Kimberly Soto DNP Allergies, Adverse Reactions, Alerts Substance Reaction Severity Status codeine Itchy Active Effexor Active Avelox Active Contrast Dye 1, 2 Active 1per pt not oral contrasst, was IV injection RG 05/06/23 2Oral contrast dye, swelling of face/eyes Immunizations Given and Recorded Vaccine Date Status Refusal Reason SARS-CoV-2 mRNA ([id number]-[id number]-[id number]) vax 01/19/22 Recorded SARS-CoV-2 (COVID-19) mRNA-1273 vaccine 06/16/21 R ecorded SARS-CoV-2 (COVID-19) mRNA-1273 vaccine 12/03/20 R ecorded SARS-CoV-2 (COVID-19) mRNA-1273 vaccine 11/05/20 R ecorded Medications aspirin 81 mg oral delayed release tablet 81 mg, 1, tablet, By Mouth, Daily, Take 5 days prior to the procedure, # 30 tablet, Refills 1, Tot.Refills 1, Maintenance, 05/10/23 9:54:00 EDT, Route to Pharmacy Electronically, [facility],Partial fill upon patient request if the [...] Refills, Maintenance, 05/10/23 9:55:00 EDT, Tablet, [facility], Partial fill upon patient request if the prescription is for a schedule II opioid drug., 160, cm, 05/08/23 20:11:00 EDT, Height... Start Date: 05/10/23 Stop Date: 06/09/23 Status: Ordered colchicine 0.6 mg oral capsule See Instructions, 1 capsule By Mouth 2 times a day until 48 hours after your symptoms resolve, # 30capsule, 0 Refills, Maintenance, 10/20/23 17:10:00 EST, Capsule, [facility]/pharmacy #[id number], Partial fill upon patient request [...] Refills, Maintenance, 05/10/23 9:56:00 EDT, Tablet, [facility], Partial fill upon patient request if [...] DAYS., # 60 capsule, 3 Refills, [facility], 163, cm, 01/13/21 11:27:00 EDT, Height, 113, kg, 01/13/21 11:27:00 EDT, Dry Weight Start Date: 03/29/22 Status: Ordered Orencia ClickJect 125 mg/mL subcutaneous solution 0 Refills, Maintenance, 01/06/24 13:02:00 EDT, Partial fill upon patient request if the prescription is for a schedule II opioid drug. 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 Confirmed Active Anxiety Confirmed Active Depression Confirmed Active Fibromyalgia Confirmed Active GERD (gastroesophageal reflux disease) Confirmed Active Sleep related hypoxia Confirmed Active Obstructive sleep apnea hypopnea, moderate Confirmed Active Rheumatoid arthritis Confirmed Active Seizure Confirmed Active Severe obesity (BMI 35.0-39.9) with comorbidity Confirmed Active Social History Social History Type Response Smoking Status Former smoker; Other : Pt quit on 01/17/18; entered on: 02/09/18 Sex Patient Care team information Care Team Personnel Name: Joe LAM, Bebo Parks Position: [facility] Physician (General Medicine) Member Role: Lifetime Consulting Physician Address: Address: [address] [place] [address] Name: Perla Paulino RN Position: [facility] RN Member Role: Primary Care Nurse Name: Nicky Ross RN Position: [facility] RN Member Role: Primary Care Nurse Name: Alice Le RN Position: [facility] RN Member Role: Primary Care Nurse Name: Carolee Mendez RN Position: [facility] RN Supv Member Role: Primary Care Nurse Name: Bryanna Rolon RN Position: [facility] RN Member Role: Primary Care Nurse Name: Sara Mak RN Position: [facility] RN Member Role: Primary Care Nurse Name: Pollo Lopez RN Position: [facility] RN Member Role: Primary Care Nurse Name: Babs Ferrara Position: [facility] Outreach Member Role: Lifetime Consulting Physician Name: Liu Lovett MD Position: [facility] Physician - Primary Care Member Role: PCP Address: Address: [address] [place] [address]- Name: Celia Simpson RN Position: [facility] RN Member Role: Primary Care Nurse Name: Colby Denny RN Position: [facility] RN Member Role: Primary Care Nurse Care Team Related Persons Name: SAMEER MORGAN Address: home [address] [place] [address] Name: JOHNNY PUCKETT Address: home [address] [place] [address] Name: SAMEER SCHAEFER Address: home [address] [place] [address]
--- OUTSIDE RECORDS SUMMARY | 2024-03-20 10:12 | XMS_ITS | Continuity of Care Document ---
Author Organization [facility] Address [address] [place] [address]- Care Team Providers Care Glass Cut Off Tender Name Role Phone Liu Lovett MD Primary Care Physician Encounter [facility] Date(s): 02/01/24 - 03/02/24 [facility] [address] [place] [address]- Allergies, Adverse Reactions, Alerts Substance Reaction Severity Status codeine Itchy Active Effexor Active Avelox Active Contrast Dye 1, 2 Active 1per pt not oral contrasst, was IV injection RG 05/06/23 2Oral contrast dye, swelling of face/eyes Immunizations Given and Recorded Vaccine Date Status Refusal Reason SARS-CoV-2 mRNA ([id number]-iwhe-totdx) vax 01/19/22 Recorded SARS-CoV-2 (COVID-19) mRNA-1273 vaccine 06/16/21 R ecorded SARS-CoV-2 (COVID-19) mRNA-1273 vaccine 12/03/20 R ecorded SARS-CoV-2 (COVID-19) mRNA-1273 vaccine 11/05/20 R ecorded Medications aspirin 81 mg oral delayed release tablet 81 mg, 1, tablet, By Mouth, Daily, Take 5 days prior to the procedure, # 30 tablet, Refills 1, Tot.Refills 1, Maintenance, 05/10/23 9:54:00 EDT, Route to Pharmacy Electronically, [facility],Partial fill upon patient request if the [...] Refills, Maintenance, 05/10/23 9:55:00 EDT, Tablet, [facility], Partial fill upon patient request if the prescription is for a schedule II opioid drug., 160, cm, 05/08/23 20:11:00 EDT, Height... Start Date: 05/10/23 Stop Date: 06/09/23 Status: Ordered colchicine 0.6 mg oral capsule See Instructions, 1 capsule By Mouth 2 times a day until 48 hours after your symptoms resolve, # 30capsule, 0 Refills, Maintenance, 10/20/23 17:10:00 EST, Capsule, [facility]/pharmacy #[id number], Partial fill upon patient request [...] 0 Refills, Maintenance, 05/10/23 9:56:00 EDT, Tablet, [facility], Partial fill upon patient request if [...] DAYS., # 60 capsule, 3 Refills, [facility], 163, cm, 01/13/21 11:27:00 EDT, Height, [...] 9:54:00 EDT, Route to Pharmacy Electronically, [facility],Partial fill upon patient request if the [...] Personnel Name: Joe LAM, Bebo Parks Position: [facility] Physician (General Medicine) Member Role: Lifetime Consulting Physician Address: Address: [address] [place] [address]- Name: Perla Paulino RN Position: [facility] RN Member Role: Primary Care Nurse Name: Nicky Ross RN Position: [facility] RN Member Role: Primary Care Nurse Name: Alice Le RN Position: [facility] RN Member Role: Primary Care Nurse Name: Carolee Mendez RN Position: [facility] RN Supv Member Role: Primary Care Nurse Name: Bryanna Rolon RN Position: [facility] RN Member Role: Primary Care Nurse Name: Sara Mak RN Position: [facility] RN Member Role: Primary Care Nurse Name: Pollo Lopez RN Position: [facility] RN Member Role: Primary Care Nurse Name: Babs Ferrara Position: [facility] Outreach Member Role: Lifetime Consulting Physician Name: Liu Lovett MD Position: [facility] Physician - Primary Care Member Role: PCP Address: Address: [address] [place] [address]- Name: Celia Simpson RN Position: [facility] RN Member Role: Primary Care Nurse Name: Colby Denny RN Position: [facility] RN Member Role: Primary Care Nurse Care Team Related Persons Name: SMAEER MORGAN Address: home [address] [place] [address] Name: JOHNNY PUCKETT Address: home [address] [place] [address] Name: SAMEER SCHAEFER Address: home [address] [place] [address]
--- OUTSIDE RECORDS SUMMARY | 2024-03-20 10:12 | XMS_ITS | Continuity of Care Document ---
Author Organization [facility] Address [address] [place] [address]- Care Team Providers Care Insurance Billing Specialist Name Role Phone Rachell LAM, Liu Rivera Primary Care Physician [place] [facility] 01/16[place]24 - 02/15/24 [facility] [address] [place] [id number] Allergies, Adverse Reactions, Alerts Substance Reaction Severity Status codeine Itchy Active Effexor Active Avelox Active Contrast Dye 1, 2 Active 1per pt not oral contrasst, was IV injection RG 05/06/23 2Oral contrast dye, swelling of face/eyes Immunizations Given and Recorded Vaccine Date Status Refusal Reason SARS-CoV-2 mRNA ([id number]-[id number]) vax 01/19/22 Recorded SARS-CoV-2 (COVID-19) mRNA-1273 vaccine 06/16/21 R ecorded SARS-CoV-2 (COVID-19) mRNA-1273 vaccine 12/03/20 R ecorded SARS-CoV-2 (COVID-19) mRNA-1273 vaccine 11/05/20 R ecorded Medications aspirin 81 mg oral delayed release tablet 81 mg, 1, tablet, By Mouth, Daily, Take 5 days prior to the procedure, # 30 tablet, Refills 1, Tot.Refills 1, Maintenance, 05/10/23 9:54:00 EDT, Route to Pharmacy Electronically, [facility],Partial fill upon patient request if the [...] 0 Refills, Maintenance, 05/10/23 9:55:00 EDT, Tablet, [facility], Partial fill upon patient request if the prescription is for a schedule II opioid drug., 160, cm, 05/08/23 20:11:00 EDT, Height... Start Date: 05/10/23 Stop Date: 06/09/23 Status: Ordered colchicine 0.6 mg oral capsule See Instructions, 1 capsule By Mouth 2 times a day until 48 hours after your symptoms resolve, # 30capsule, 0 Refills, Maintenance, 10/20/23 17:10:00 EST, Capsule, [facility]/pharmacy #[id number], Partial fill upon patient [...] 0 Refills, Maintenance, 05/10/23 9:56:00 EDT, Tablet, [facility], Partial fill upon patient request if [...] DAYS., # 60 capsule, 3 Refills, [facility], 163, cm, 01/13/21 11:27:00 EDT, Height, [...] 9:54:00 EDT, Route to Pharmacy Electronically, [facility],Partial fill upon patient request if the [...] Personnel Name: Joe LAM, Bebo Parks Position: [facility] Physician (General Medicine) Member Role: Lifetime Consulting Physician Address: Address: [address] [place] [address]- Name: Perla Paulino RN Position: [facility] RN Member Role: Primary Care Nurse Name: Nicky Ross RN Position: [facility] RN Member Role: Primary Care Nurse Name: Alice Le RN Position: [facility] RN Member Role: Primary Care Nurse Name: Carolee Mendez RN Position: [facility] RN Supv Member Role: Primary Care Nurse Name: Bryanna Rolon RN Position: [facility] RN Member Role: Primary Care Nurse Name: Sara Mak RN Position: [facility] RN Member Role: Primary Care Nurse Name: Pollo Lopez RN Position: [facility] RN Member Role: Primary Care Nurse Name: Babs Ferrara Position: [facility] Outreach Member Role: Lifetime Consulting Physician Name: Liu Lovett MD Position: [facility] Physician - Primary Care Member Role: PCP Address: Address: [address] [place] [phone]- Name: Celia Simpson RN Position: [facility] RN Member Role: Primary Care Nurse Name: Colby Denny RN Position: [facility] RN Member Role: Primary Care Nurse Care Team Related Persons Name: SAMEER MORGAN Address: [address] [place] [address] Name: JOHNNY PUCKETT Address: home [address] [place] [address] Name: SAMEER SCHAEFER Address: home [address] [place] [address]
--- OUTSIDE RECORDS SUMMARY | 2024-03-20 10:12 | XMS_ITS | Continuity of Care Document ---
Author Organization [facility] Address [address] [place] [address], 3r d Floor, [address] [place] [id number]- Care Team Providers Care Consultant Rn Name Role Phone Rachell LAM, Liu Rivera Primary Care Physician Encounter [facility] Date(s): 01/31/24 - 03/01/24 [facility] [address] [facility] 3rd Floor, [address] [place] [id number]- Allergies, Adverse Reactions, Alerts Substance Reaction Severity Status codeine Itchy Active Effexor Active Avelox Active Contrast Dye 1, 2 Active 1per pt not oral contrasst, was IV injection RG 05/06/23 2Oral contrast dye, swelling of face/eyes Immunizations Given and Recorded Vaccine Date Status Refusal Reason SARS-CoV-2 mRNA ([id number]) vax 01/19/22 Recorded SARS-CoV-2 (COVID-19) mRNA-1273 vaccine 06/16/21 R ecorded SARS-CoV-2 (COVID-19) mRNA-1273 vaccine 12/03/20 R ecorded SARS-CoV-2 (COVID-19) mRNA-1273 vaccine 11/05/20 R ecorded Medications aspirin 81 mg oral delayed release tablet 81 mg, 1, tablet, By Mouth, Daily, Take 5 days prior to the procedure, # 30 tablet, Refills 1, Tot.Refills 1, Maintenance, 05/10/23 9:54:00 EDT, Route to Pharmacy Electronically, [facility],Partial fill upon patient request if the [...] 0 Refills, Maintenance, 10/20/23 17:10:00 EST, Capsule, [facility]/pharmacy #[id number], Partial fill upon patient request [...] DAYS., # 60 capsule, 3 Refills, [facility], 163, cm, 01/13/21 11:27:00 EDT, Height, [...] 9:54:00 EDT, Route to Pharmacy Electronically, [facility],Partial fill upon patient request if the [...] List Condition Confirmation Course Effective Dates Status [facility] atus Informant Aneurysm of intracranial [...] Team Personnel Name: Bebo Diaz MD Position: [facility] Physician (General Medicine) Member Role: Lifetime Consulting Physician Address: Address: [address] [place] [id number]- Name: Perla Paulino RN Position: [facility] RN Member Role: Primary Care Nurse Name: Nicky Ross RN Position: [facility] RN Member Role: Primary Care Nurse Name: Alice Le RN Position: [facility] RN Member Role: Primary Care Nurse Name: Carolee Mendez RN Position: [facility] RN Supmalou Member Role: Primary Care Nurse Name: Bryanna Rolon RN Position: [facility] RN Member Role: Primary Care Nurse Name: Sara Mak RN Position: [facility] RN Member Role: Primary Care Nurse Name: Pollo Lopez RN Position: [facility] RN Member Role: Primary Care Nurse Name: Babs Ferrara Position: [facility] Outreach Member Role: Lifetime Consulting Physician Name: Liu Lovett MD Position: [facility] Physician - Primary Care Member Role: PCP Address: Address: [address] [place] [phone]- Name: Celia Simpson RN Position: [facility] RN Member Role: Primary Care Nurse Name: Colby Denny RN Position: [facility] RN Member Role: Primary Care Nurse Care Team Related Persons Name: SAMEER MORGAN Address: home [address] [place] [address] Name: JOHNNY PUCKETT Address: home [address] [place] [address] Name: SAMEER SCHAEFER Address: home [address] [place] [address]
--- OUTSIDE RECORDS SUMMARY | 2024-03-20 10:13 | XMS_ITS | Continuity of Care Document ---
Author Organization [facility] Address [address] [place] [phone]- Care Team Providers Care Kitchen Supervisor Name Role Phone Rachell LAM, Liu Rivera Primary Care Physician Encounter [facility] [place] Date(s): 01/16/24 - 02/15/24 [facility] [address] [place] [id number] Allergies, Adverse Reactions, Alerts Substance Reaction Severity Status codeine Itchy Active Effexor Active Avelox Active Contrast Dye 1, 2 Active 1per pt not oral contrasst, was IV injection RG 05/06/23 2Oral contrast dye, swelling of face/eyes Immunizations Given and Recorded Vaccine Date Status Refusal Reason SARS-CoV-2 mRNA ([id number]-[id number]) vax 01/19/22 Recorded SARS-CoV-2 (COVID-19) mRNA-1273 vaccine 06/16/21 R ecorded SARS-CoV-2 (COVID-19) mRNA-1273 vaccine 12/03/20 R ecorded SARS-CoV-2 (COVID-19) mRNA-1273 vaccine 11/05/20 R ecorded Medications aspirin 81 mg oral delayed release tablet 81 mg, 1, tablet, By Mouth, Daily, Take 5 days prior to the procedure, # 30 tablet, Refills 1, Tot.Refills 1, Maintenance, 05/10/23 9:54:00 EDT, Route to Pharmacy Electronically, [facility],Partial fill upon patient request if the [...] 0 Refills, Maintenance, 05/10/23 9:55:00 EDT, Tablet, [facility], Partial fill upon patient request if the prescription is for a schedule II opioid drug., 160, cm, 05/08/23 20:11:00 EDT, Height... Start Date: 05/10/23 Stop Date: 06/09/23 Status: Ordered colchicine 0.6 mg oral capsule See Instructions, 1 capsule By Mouth 2 times a day until 48 hours after your symptoms resolve, # 30capsule, 0 Refills, Maintenance, 10/20/23 17:10:00 EST, Capsule, [facility]/pharmacy #[id number], Partial fill upon patient [...] DAYS., # 60 capsule, 3 Refills, [facility], 163, cm, 01/13/21 11:27:00 EDT, Height, [...] 9:54:00 EDT, Route to Pharmacy Electronically, [facility],Partial fill upon patient request if the [...] Personnel Name: Joe LAM, Bebo Parks Position: [facility] Physician (General Medicine) Member Role: Lifetime Consulting Physician Address: Address: [address] [place] [address]- Name: Perla Paulino RN Position: [facility] RN Member Role: Primary Care Nurse Name: Nicky Ross RN Position: [facility] RN Member Role: Primary Care Nurse Name: Alice Le RN Position: [facility] RN Member Role: Primary Care Nurse Name: Carolee Mendez RN Position: [facility] RN Supv Member Role: Primary Care Nurse Name: Bryanna Rolon RN Position: [facility] RN Member Role: Primary Care Nurse Name: Sara Mak RN Position: [facility] RN Member Role: Primary Care Nurse Name: Pollo Lopez RN Position: [facility] RN Member Role: Primary Care Nurse Name: Babs Ferrara Position: [facility] Outreach Member Role: Lifetime Consulting Physician Name: Liu Lovett MD Position: [facility] Physician - Primary Care Member Role: PCP Address: Address: [address] [place] [address]- Name: Celia Simpson RN Position: [facility] RN Member Role: Primary Care Nurse Name: Colby Denny RN Position: [facility] RN Member Role: Primary Care Nurse Care Team Related Persons Name: SAMEER MORGAN Address: home [address] [place] [address] Name: JOHNNY PUCKETT Address: home [address] [place] [address] Name: SAMEER SCHAEFER Address: home [address] [place] [address]
--- OUTSIDE RECORDS SUMMARY | 2024-03-20 10:14 | XMS_ITS | Continuity of Care Document ---
Author Organization [facility] Address [address] [place] [address]- Care Team Providers Care Slab Miller Operator Name Role Phone Liu Lovett MD Primary Care Physician Encounter [facility] [place] Date(s): 01/31/24 - 03/01/24 [facility] [address] [place] [address]- Allergies, Adverse Reactions, Alerts Substance Reaction Severity Status codeine Itchy Active Effexor Active Avelox Active Contrast Dye 1, 2 Active 1per pt not oral contrasst, was IV injection RG 05/06/23 2Oral contrast dye, swelling of face/eyes Immunizations Given and Recorded Vaccine Date Status Refusal Reason SARS-CoV-2 mRNA ([id number]) vax 01/19/22 Recorded SARS-CoV-2 (COVID-19) mRNA-1273 vaccine 06/16/21 R ecorded SARS-CoV-2 (COVID-19) mRNA-1273 vaccine 12/03/20 R ecorded SARS-CoV-2 (COVID-19) mRNA-1273 vaccine 11/05/20 R ecorded Medications aspirin 81 mg oral delayed release tablet 81 mg, 1, tablet, By Mouth, Daily, Take 5 days prior to the procedure, # 30 tablet, Refills 1, Tot.Refills 1, Maintenance, 05/10/23 9:54:00 EDT, Route to Pharmacy Electronically, [facility],Partial fill upon patient request if the [...] Refills, Maintenance, 05/10/23 9:55:00 EDT, Tablet, [facility], Partial fill upon patient request if the prescription is for a schedule II opioid drug., 160, cm, 05/08/23 20:11:00 EDT, Height... Start Date: 05/10/23 Stop Date: 06/09/23 Status: Ordered colchicine 0.6 mg oral capsule See Instructions, 1 capsule By Mouth 2 times a day until 48 hours after your symptoms resolve, # 30capsule, 0 Refills, Maintenance, 10/20/23 17:10:00 EST, Capsule, [facility]/pharmacy #[id number], Partial fill upon patient request if [...] 0 Refills, Maintenance, 05/10/23 9:56:00 EDT, Tablet, [facility], Partial fill upon patient request if [...] DAYS., # 60 capsule, 3 Refills, [facility], 163, cm, 01/13/21 11:27:00 EDT, Height, [...] 9:54:00 EDT, Route to Pharmacy Electronically, [facility],Partial fill upon patient request if the [...] Personnel Name: Joe LAM, Bebo Parks Position: [facility] Physician (General Medicine) Member Role: Lifetime Consulting Physician Address: Address: [address] [place] [phone]- Name: Perla Paulino RN Position: [facility] RN Member Role: Primary Care Nurse Name: Nicky Ross RN Position: [facility] RN Member Role: Primary Care Nurse Name: Alice Le RN Position: [facility] RN Member Role: Primary Care Nurse Name: Carolee Mendez RN Position: [facility] RN Supv Member Role: Primary Care Nurse Name: Bryanna Rolon RN Position: [facility] RN Member Role: Primary Care Nurse Name: Sara Mak RN Position: [facility] RN Member Role: Primary Care Nurse Name: Pollo Lopez RN Position: [facility] RN Member Role: Primary Care Nurse Name: Babs Ferrara Position: [facility] Outreach Member Role: Lifetime Consulting Physician Name: Liu Lovett MD Position: [facility] Physician - Primary Care Member Role: PCP Address: Address: [address] [place] [address]- Name: Celia Simpson RN Position: [facility] RN Member Role: Primary Care Nurse Name: Colby Denny RN Position: [facility] RN Member Role: Primary Care Nurse Care Team Related Persons Name: SAMEER MORGAN Address: [address] [place] [address] Name: JOHNNY PUCKETT Address: home [address] [place] [address] Name: SAMEER SCHAEFER Address: home [address] [place] [address]
--- NOTE | 2024-03-20 10:38 | A.OFFWM_ITS ---
Intake Intake Visit Reasons: (TV) PO LSG 09/08/23 Allergies moxifloxacin [From Avelox] Allergy (Severe, Verified 09/08/23 07:55) Anaphylaxis codeine Allergy (Mild, Verified 09/08/23 07:55) ITCHY AVALAX Allergy (Severe, Uncoded 09/08/23 07:55) Anaphylaxis POLLEN Allergy (Mild, Uncoded 09/08/23 07:55) Runny Nose oral contrast Allergy (Uncoded 09/10/23 08:49) Itching PFSH Medical History (Updated 01/31/24 @ 11:56 by Isi Lombardo) Splenic hemorrhage Hypokalemia Hiatal hernia Pre-op evaluation Vertigo Morbid obesity Hx of migraine headaches Environmental and seasonal allergies PONV (postoperative nausea and vomiting) Lower extremity edema Obstructive sleep apnea on CPAP Aneurysm Surgical History (Updated 09/25/23 @ 00:01 by Lorelei Reid) H/O gastric sleeve S/P cerebral aneurysm operation History of surgery for cerebral aneurysm Hx of hand surgery Hx of colonoscopy Hx of foot surgery Hx of knee surgery Hx of appendectomy Hx of hysterectomy Family History Mother No problems noted. Father AA (alcohol abuse) Brother No problems noted. Sister No problems noted. Brother No problems noted. Brother No problems noted. Daughter Autoimmune disease Daughter Autoimmune disease Social History Household Members: Spouse Housing: House Are you a primary intensive care specialist to a significant other at home: No Do you presently have visiting nurse or other home services: No 75 years or older and lives alone: No Alcohol intake: never Patient Tobacco Use Status: Former Tobacco user Tobacco use type: Cigarette service: No Current occupational status: disabled Behavioral Health Assessment Weight Management Therapy Therapy Notes Details Kassi talked about feeling like she has been forgetten, she is still not on Plavix because no one has cleared her and said that her spleen is healed to go back on it. Has no had a repeat CT scan, stated that she was supposed to because she was told from the first one, that she did not have well functioning spleen . Pt discussed how upset and angry she feels about everything that has happened, and now has had no follow up on the events that have occured. Josefina talked about her surgery, spleen laceration and ending up back in the hospital, after care she needed, loss of her dog. She reported increased depression, feels like she has PTSD from everything she experienced. wants to get her life back but cannot. Josefina discussed in length the mistreatment she reported. Pt stated I feel stuck , I cannot get out of this . stated that her worries for her. She is future oriented, talked about opening up her pool soon which is very therapeutic for her. She stated that her PCP recommended trauma doctor. Presenting Concerns Referral Source provider Reason for referral anxiety, anger, depression Precipitating Event surgery, hospitalization, loss of pet Living Situation Current Living Situation Own Assessment & Plan Assessment & Plan (1) Generalized anxiety disorder: Comment: R/O PTSD Code(s): F41.1 - Generalized anxiety disorder (2) Major depressive disorder, recurrent, moderate: Code(s): F33.1 - Major depressive disorder, recurrent, moderate Plan Patient is struggling emotionally, she reported trauma from everything she went through in recent months. Stated that she almost and now has decreased quality of life. Pt also reported several days of not having her medications while hospitalized and withdrawal symptoms. She is back on them now. Currently struggles with low motivation, wanting to stay in bed, feels stuck , angry, also grief over loosing her pet. We discussed some forms of movement to help her feel better, also enjoys being outdoors, is doing some walking when she can, journaling, talked about EMDR (she would have to not take her Lorazepam for that and is aware, had already spoke with her doctor about getting off of them due to [facility] effects), active and supportive listening, motivational interviewing, review of supports, cognitive restructuring. Pt reported feeling better after this appointment. She will be seen again. Telehealth Telehealth Telehealth Platform: Telephone Location of provider rendering services: practice address Location of patient: address on file Patient Identification confirmed using: Name, : Yes Telehealth method: voice only Patient verbally consented to treatment: Yes Patient verbally consented to billing insurance company: Yes Patient informed of any privacy concerns related to visit: Yes Minutes spent on Phone/Video with Pt.: 45 Coding Level of Care Code Tele Psytx 45 mins (374[address]) Diagnoses Generalized anxiety disorder F41.1 Major depressive disorder, recurrent, moderate F33.1 Time Spent (min) 45
== END 2024-03-20 10:46 | disposition home or self-care (01) ==
LOC: HO.HBST 10:09
PROVIDERS: PCP Family Medicine; Visit Provider Counselor Mental Health
DX: F41.1 Generalized anxiety disorder (principal); F33.1 Major depressive disorder, recurrent, moderate
CPT/HCPCS: 90834

== ENCOUNTER → 2024-03-20 10:09 | Outpatient (BNVA) | payer OTHER, MEDICARE, SELFPAY | PROVIDERS: PCP Family Medicine; Visit Provider Counselor Mental Health ==

== ENCOUNTER 2024-05-08 16:10 | Outpatient (AMB) | payer MEDICARE, SELFPAY ==
--- OUTSIDE RECORDS SUMMARY | 2024-05-08 16:11 | XMS_ITS | Continuity of Care Document ---
Author Organization [facility] Address Unknown Care Team Providers Care Mannequin Coloring Artist Name Role Phone Liu Lovett MD Primary Care Physician [phone] [place] [facility] [place] Date(s): 03/19/24 - 04/29/[address] Attending Physician: Miguel Hernadez MD Admitting Physician: Miguel Hernadez MD Referring Physician: Liu Lovett MD Allergies, Adverse Reactions, Alerts Substance Reaction Severity Status codeine Itchy Active Effexor Active Avelox Active Contrast Dye 1, 2 Active 1per pt not oral contrasst, was IV injection RG 05/06/23 2Oral contrast dye, swelling of face/eyes Immunizations Given and Recorded Vaccine Date Status Refusal Reason SARS-CoV-2 mRNA ([id number]) vax 01/19/22 Recorded SARS-CoV-2 (COVID-19) mRNA-1273 vaccine 06/16/21 R ecorded SARS-CoV-2 (COVID-19) mRNA-1273 vaccine 12/03/20 R ecorded SARS-CoV-2 (COVID-19) mRNA-1273 vaccine 11/05/20 R ecorded Medications aspirin 81 mg oral delayed release tablet 81 mg, 1, tablet, By Mouth, Daily, Take 5 days prior to the procedure, # 30 tablet, Refills 1, Tot.Refills 1, Maintenance, 05/10/23 9:54:00 EDT, Route to Pharmacy Electronically, [facility],Partial fill upon patient request if the [...] Refills, Maintenance, 05/10/23 9:55:00 EDT, Tablet, [facility], Partial fill upon patient request if the prescription is for a schedule II opioid drug., 160, cm, 05/08/23 20:11:00 EDT, Height... Start Date: 05/10/23 Stop Date: 06/09/23 Status: Ordered colchicine 0.6 mg oral capsule See Instructions, 1 capsule By Mouth 2 times a day until 48 hours after your symptoms resolve, # 30capsule, 0 Refills, Maintenance, 10/20/23 17:10:00 EST, Capsule, [facility]/pharmacy #[id number], Partial fill upon patient request [...] Refills, Maintenance, 05/10/23 9:56:00 EDT, Tablet, [facility], Partial fill upon patient request if [...] DAYS., # 60 capsule, 3 Refills, [facility], 163, cm, 01/13/21 11:27:00 EDT, Height, [...] drug. Start Date: 09/13/22 Status: Ordered Ozempic (1 mg dose) 4 mg/3 mL subcutaneous solution = 1 mg, Subcutaneous Injection, Every week, # 3 mL, 0 Refills, Maintenance, 03/26/24 11:32:00 EDT, Solution, Partial fill upon patient request if the prescription is for a schedule II opioid drug. Start Date: 03/26/24 Status: Ordered Plavix 75 mg oral tablet 75 mg, 1, tablet, By Mouth, Daily, Take 5 days prior to the procedure, # 30 tablet, Refills 1, Tot.Refills 1, Maintenance, 05/10/23 9:54:00 EDT, Route to Pharmacy Electronically, [facility],Partial fill upon patient request if the [...] Team Personnel Name: Bebo Diaz MD Position: [facility] Physician (General Medicine) Member Role: Lifetime Consulting Physician Address: Address: [address] [place] [address]- Name: Perla Paulino RN Position: [facility] RN Member Role: Primary Care Nurse Name: Nicky Ross RN Position: [facility] RN Member Role: Primary Care Nurse Name: Alice Le RN Position: [facility] RN Member [...] Primary Care Nurse Name: Babs Ferrara Position: [facility] Outreach Member Role: Lifetime Consulting Physician Name: Liu Lovett MD Position: [facility] Physician - Primary Care Member Role: PCP Address: Address: [address] [place] [address]- [place] Name: Celia Simpson RN Position: [facility] RN Member Role: Primary Care Nurse Name: Colby Denny RN Position: [facility] RN Member Role: Primary Care Nurse Care Team Related Persons Name: SAMEER MORGAN Address: home [address] [place] [address] Name: JOHNNY PUCKETT Address: home [address] [place] [address] Name: SAMEER SCHAEFER Address: home [address] [place] [address]
--- NOTE | 2024-05-08 17:40 | A.OFFWM_ITS ---
Intake Intake Visit Reasons: (TV) PO LSG 09/08/23 Allergies moxifloxacin [From Avelox] Allergy (Severe, Verified 09/08/23 07:55) Anaphylaxis codeine Allergy (Mild, Verified 09/08/23 07:55) ITCHY AVALAX Allergy (Severe, Uncoded 09/08/23 07:55) Anaphylaxis POLLEN Allergy (Mild, Uncoded 09/08/23 07:55) Runny Nose oral contrast Allergy (Uncoded 09/10/23 08:49) Itching PFSH Medical History (Updated 01/31/24 @ 11:56 by Isi Lombardo) Splenic hemorrhage Hypokalemia Hiatal hernia Pre-op evaluation Vertigo Morbid obesity Hx of migraine headaches Environmental and seasonal allergies PONV (postoperative nausea and vomiting) Lower extremity edema Obstructive sleep apnea on CPAP Aneurysm Surgical History (Updated 09/25/23 @ 00:01 by Lorelei Reid) H/O gastric sleeve S/P cerebral aneurysm operation History of surgery for cerebral aneurysm Hx of hand surgery Hx of colonoscopy Hx of foot surgery Hx of knee surgery Hx of appendectomy Hx of hysterectomy Family History Mother No problems noted. Father AA (alcohol abuse) Brother No problems noted. Sister No problems noted. Brother No problems noted. Brother No problems noted. Daughter Autoimmune disease Daughter Autoimmune disease Social History Household Members: Spouse Housing: House Are you a primary chiropractic care to a significant other at home: No Do you presently have visiting nurse or other home services: No 75 years or older and lives alone: No Alcohol intake: never Patient Tobacco Use Status: Former Tobacco user Tobacco use type: Cigarette service: No Current occupational status: disabled Behavioral Health Assessment Weight Management Therapy Therapy Notes Details Pt reported struggling with on going depression, she worries she will never go back to her normal self prior to surgery. Often struggles to get out of bed, also brain fog. Stated that she just wants to be heard. Assessment & Plan Assessment & Plan (1) Generalized anxiety disorder: Comment: R/O PTSD Code(s): F41.1 - Generalized anxiety disorder (2) Major depressive disorder, recurrent, moderate: Code(s): F33.1 - Major depressive disorder, recurrent, moderate Plan Per previous sessions; Patient is struggling emotionally, she reported trauma from everything she went through in recent months. Stated that she almost and now has decreased quality of life. Pt also reported several days of not having her medications while hospitalized and withdrawal symptoms. She is back on them now. Currently struggles with low motivation, wanting to stay in bed, feels stuck , angry, also grief over loosing her pet. We discussed some forms of movement to help her feel better, also enjoys being outdoors, is doing some walking when she can, journaling, talked about EMDR (she would have to not take her Lorazepam for that and is aware, had already spoke with her doctor about getting off of them due to long-term effects), active and supportive listening, motivational interviewing, review of supports, cognitive restructuring. She continues to struggle with depression several months later. Pt would benefit from ongoing outpatient therapy, this is her last appointment with this financial underwriter. Telehealth Telehealth Telehealth Platform: Telephone Location of provider rendering services: other Location of patient: address on file Patient Identification confirmed using: Name, : Yes Telehealth method: voice only Patient verbally consented to treatment: Yes Patient verbally consented to billing insurance company: Yes Patient informed of any privacy concerns related to visit: Yes Minutes spent on Phone/Video with Pt.: 40 Coding Level of Care Code Tele Psytx 45 mins ([address]) Diagnoses Generalized anxiety disorder F41.1 Major depressive disorder, recurrent, moderate F33.1 Time Spent (min) 40
== END 2024-05-08 17:40 | disposition home or self-care (01) ==
LOC: HO.HBST 16:10
PROVIDERS: PCP Family Medicine; Visit Provider Counselor Mental Health
DX: F41.1 Generalized anxiety disorder (principal); F33.1 Major depressive disorder, recurrent, moderate

== ENCOUNTER → 2024-05-08 16:10 | Outpatient (BNVA) | payer MEDICARE, SELFPAY | PROVIDERS: PCP Family Medicine; Visit Provider Counselor Mental Health ==

== ENCOUNTER 2024-05-10 09:15 | Outpatient (AMB) | payer MEDICARE, SELFPAY ==
--- NOTE | 2024-05-10 09:13 | MHC.OFFVISWM ---
VS Expanded 05/10/24 09:24 Height 5 ft 3 in Weight 189 lb BMI 33.5 Intake Visit Reasons: TELEPHONE PO LSG 09/08/23 Allergies moxifloxacin [From Avelox] Allergy (Severe, Verified 09/08/23 07:55) Anaphylaxis codeine Allergy (Mild, Verified 09/08/23 07:55) ITCHY AVALAX Allergy (Severe, Uncoded 09/08/23 07:55) Anaphylaxis POLLEN Allergy (Mild, Uncoded 09/08/23 07:55) Runny Nose oral contrast Allergy (Uncoded 09/10/23 08:49) Itching Medication List - Last Reconciled 05/10/24 by KRIS Johnson abatacept (Orencia) mg subcut docusate sodium (Colace) 100 mg PO BID fluoxetine (Prozac) 60 mg PO DAILY furosemide (Lasix) 40 mg PO Q OTHER DAY gabapentin 800 mg PO TID inulin (Fiber Gummies) 2 grams PO BID lorazepam 1 mg PO TID PRN kheywgqbcijj-nud-wdmr-FA-vit K 45 mg iron- 800 mcg-120 mcg (Bariatric Multivitamins) caps PO pantoprazole 40 mg PO DAILY HPI Comments Details: This?is a?63?yo female who is s/p LSG 09/08/2023 complicated by 4th degree splenic lac. Presents for 10 month post op visit. Weight at last visit on 01/19/2024 was 202 pounds with a BMI of 35.8, weight today is 189 pounds with a BMI of 33.5. Pt reports ongoing reflux when she eats certain things- meats, carbs, acidity. Has some ongoing fatigue. Has started Keppra by her neurologist. CT scan showed smaller collection compared to scan from 01/2024. Previously 10.7x7.9x9.3, now 6.1x9x8.1cm. Present meal plan includes: trying to get enough protein, trying to eat softer foods to avoid reflux Equate shakes- premade, 30g or Isopure mixed with almond milk eats Afghan yogurt 1 meal a day- tofu and veg Exercise routine includes: swimming, occasional treadmill walking [facility] Medical History (Updated 01/31/24 @ 11:56 by Isi Lombardo) Splenic hemorrhage Hypokalemia Hiatal hernia Pre-op evaluation Vertigo Morbid obesity Hx of migraine headaches Environmental and seasonal allergies PONV (postoperative nausea and vomiting) Lower extremity edema Obstructive sleep apnea on CPAP Aneurysm Surgical History (Updated 09/25/23 @ 00:01 by Lorelei Reid) H/O gastric sleeve S/P cerebral aneurysm operation History of surgery for cerebral aneurysm Hx of hand surgery Hx of colonoscopy Hx of foot surgery Hx of knee surgery Hx of appendectomy Hx of hysterectomy Family History Mother No problems noted. Father AA (alcohol abuse) Brother No problems noted. Sister No problems noted. Brother No problems noted. Brother No problems noted. Daughter Autoimmune disease Daughter Autoimmune disease Social History Household Members: Spouse Housing: House Are you a primary primary care md to a significant other at home: No Do you presently have visiting nurse or other home services: No 75 years or older and lives alone: No Alcohol intake: never Patient Tobacco Use Status: Former Tobacco user Tobacco use type: Cigarette service: No Current occupational status: disabled Assessment & Plan Assessment & Plan (1) S/P laparoscopic sleeve gastrectomy: Code(s): Z98.84 - Bariatric surgery status Category: Medical (2) Splenic hemorrhage: Code(s): D73.5 - Infarction of spleen Category: Medical (3) GERD (gastroesophageal reflux disease): Code(s): K21.9 - Gastro-esophageal reflux disease without esophagitis Category: Medical Plan Pt is going to speak with Dr. Corbin at [facility] to review recent CT results and discuss safety of resuming Plavix. Discussed getting adequate protein, goal 75g per day (pt thinks she was getting close to 60g). Recommend: 1 Equate shake, 1 Isopure drink half scoop, 1 Afghan yogurt, and 1 meal 4f/4f. Discussed avoiding reflux triggers, eating/drinking slowly and not consuming foods that trigger reflux. Pt to continue exercise, she has enjoyed swimming and is starting to use her treadmill, congratulated her for this progress. We discussed all the positive progress she has made over the past few months. Since our therapist is leaving the practice, recommended establishing care with a community therapist. Will contact [facility] to try to find a provider that accepts pt's insurance and is close to [place]. RTC 2 months, will also update pt after Dr Last is able to review CT scan as well. I spent a total of 35 minutes reviewing/updating records, examining the patient and counseling the patient on weight management as detailed above.
[2024-05-10 09:24] VITALS: BMI 33.5
== END 2024-05-10 09:44 | disposition home or self-care (01) ==
LOC: HO.HBS 09:15
PROVIDERS: PCP Family Medicine; Visit Provider Physician Assistant Surgical
DX: E66.9 Obesity, unspecified (principal); Z68.33 Body mass index [BMI] 33.0-33.9, adult; Z98.84 Bariatric surgery status; K21.9 Gastro-esophageal reflux disease without esophagitis; D73.5 Infarction of spleen
CPT/HCPCS: G2252

== ENCOUNTER → 2024-05-10 09:15 | Outpatient (BNVA) | payer MEDICARE, SELFPAY | PROVIDERS: PCP Family Medicine; Visit Provider Physician Assistant Surgical ==

== ENCOUNTER 2024-08-06 09:41 | Outpatient (AMB) | payer MEDICARE, SELFPAY ==
--- NOTE | 2024-08-06 09:33 | A.OFFVIS_ITS ---
VS Expanded 08/06/24 09:40 Height 5 ft 3 in Weight 189 lb BMI 33.5 Intake Visit Reasons: TELEPHONE PO LSG 09/08/23 Allergies moxifloxacin [From Avelox] Allergy (Severe, Verified 09/08/23 07:55) Anaphylaxis codeine Allergy (Mild, Verified 09/08/23 07:55) ITCHY AVALAX Allergy (Severe, Uncoded 09/08/23 07:55) Anaphylaxis POLLEN Allergy (Mild, Uncoded 09/08/23 07:55) Runny Nose oral contrast Allergy (Uncoded 09/10/23 08:49) Itching Medication List - Last Reconciled 08/06/24 by KRIS Johnson abatacept (Orencia) mg subcut cholecalciferol (vitamin D3) 50 mcg PO DAILY docusate sodium (Colace) 100 mg PO BID fluoxetine (Prozac) 60 mg PO DAILY furosemide (Lasix) 40 mg PO Q OTHER DAY gabapentin 800 mg PO TID inulin (Fiber Gummies) 2 grams PO BID lorazepam 1 mg PO TID PRN gucolylljaxt-rbf-gpki-FA-vit K 45 mg iron- 800 mcg-120 mcg (Bariatric Multivitamins) caps PO omeprazole 40 mg PO DAILY HPI Comments Details: This?is a?63?yo female who is s/p LSG 09/08/2023. Presents for 11 month post op visit. Weight at last visit on 05/10/2024 was 189 pounds with a BMI of 33.5, weight today is same.? Pt continues to have a lot of stress/anxiety. Feels about the same. Had an episode of difficulty swallowing which she felt in the center of her chest, doesn't think it was related to anything she ate recently although with further questioning she did have a piece of no-carb bread afterwards to try to move things down. Tums helped. Continues to have reflux, takes Prilosec. Pt reports she called and left a message at therapy office in [place] ([facility]) but she has not heard back yet and believes they are overwhelmed with other patients. Pt still has not restarted Plavix; her neurologist wants her splenic collection to be completely healed before restarting. Present meal plan includes: 1 Equate shake, 1 Isopure drink half scoop, 1 Lithuanian yogurt, and 1 meal 4f/4f recommended at last visit has been having 1 poached egg in AM, has a shake, has a dinner of veg/protein (chicken/fish) Exercise routine includes: swimming, occasional treadmill walking Pt reports a lot of pain/arthritis recently which is limiting her exercise [facility] Medical History (Updated 01/31/24 @ 11:56 by Isi Lombardo) Splenic hemorrhage Hypokalemia Hiatal hernia Pre-op evaluation Vertigo Morbid obesity Hx of migraine headaches Environmental and seasonal allergies PONV (postoperative nausea and vomiting) Lower extremity edema Obstructive sleep apnea on CPAP Aneurysm Surgical History (Updated 09/25/23 @ 00:01 by Lorelei Reid) H/O gastric sleeve S/P cerebral aneurysm operation History of surgery for cerebral aneurysm Hx of hand surgery Hx of colonoscopy Hx of foot surgery Hx of knee surgery Hx of appendectomy Hx of hysterectomy Family History Mother No problems noted. Father AA (alcohol abuse) Brother No problems noted. Sister No problems noted. Brother No problems noted. Brother No problems noted. Daughter Autoimmune disease Daughter Autoimmune disease Social History Household Members: Spouse Housing: House Are you a primary long term acute care registered nurse to a significant other at home: No Do you presently have visiting nurse or other home services: No 75 years or older and lives alone: No Alcohol intake: never Patient Tobacco Use Status: Former Tobacco user Tobacco use type: Cigarette service: No Current occupational status: disabled Telehealth Telehealth Telehealth Platform: Telephone Location of provider rendering services: other Location of patient: address on file Patient Identification confirmed using: Name, : Yes Telehealth method: voice only Patient verbally consented to treatment: Yes Patient verbally consented to billing insurance company: Yes Patient informed of any privacy concerns related to visit: Yes Minutes spent on Phone/Video with Pt.: 22 Assessment & Plan Assessment & Plan (1) Splenic hemorrhage: Code(s): D73.5 - Infarction of spleen Category: Medical (2) Obesity: Code(s): E66.9 - Obesity, unspecified Category: Medical (3) S/P laparoscopic sleeve gastrectomy: Code(s): Z98.84 - Bariatric surgery status Category: Surgical Plan Pt will try to call [employer] again and then message me if she would like to set up an appt with [facility]. Again discussed getting enough protein, closer to 75g/day- instructed pt to incorporate one additional protein drink per day. Exercise however is comfortable for her- she was recently able to do 2 miles on her home treadmill without too much pain. Will arrange for another CT abdomen in 4-6 weeks to monitor collection. Next follow up appointment after CT read is done. I spent a total of 30 minutes reviewing/updating records, examining the patient and counseling the patient on weight management as detailed above. Medications: Refilled omeprazole 40 mg PO DAILY 90 caps 3RF
[2024-08-06 09:40] VITALS: BMI 33.5
--- OUTSIDE RECORDS SUMMARY | 2024-08-06 09:42 | XMS_ITS | Continuity of Care Document ---
Author Organization [facility] Address [address] [place] [id number]- Care Team Providers Care Placement Coordinator Name Role Phone Liu Lovett MD Primary Care Physician [phone] Encounter [facility] Date(s): 05/14/24 - 06/13/24 [facility] [address] [place] [id number]- Allergies, Adverse Reactions, Alerts Substance Reaction Severity Status codeine Itchy Active barium sulfate 1 Active Effexor Active Avelox Active 1PER PATIENT SHE IS ALLERGIC TO ORAL CONTRAST BECAUSE OF HER GASTRIC SLEEVE NOT ALLERGIC TO IV CONTRAST- [facility] Immunizations Given and Recorded Vaccine Date Status Refusal Reason SARS-CoV-2 mRNA ([id number]) vax 01/19/22 Recorded SARS-CoV-2 (COVID-19) mRNA-1273 vaccine 06/16/21 R ecorded SARS-CoV-2 (COVID-19) mRNA-1273 vaccine 12/03/20 R ecorded SARS-CoV-2 (COVID-19) mRNA-1273 vaccine 11/05/20 R ecorded Medications aspirin 81 mg oral delayed release tablet 81 mg, 1, tablet, By Mouth, Daily, Take 5 days prior to the procedure, # 30 tablet, Refills 1, Tot.Refills 1, Maintenance, 05/10/23 9:54:00 EDT, Route to Pharmacy Electronically, [facility],Partial fill upon patient request if the [...] Refills, Maintenance, 05/10/23 9:55:00 EDT, Tablet, [facility], Partial fill upon patient request if the prescription is for a schedule II opioid drug., 160, cm, 05/08/23 20:11:00 EDT, Height... Start Date: 05/10/23 Stop Date: 06/09/23 Status: Ordered colchicine 0.6 mg oral capsule See Instructions, 1 capsule By Mouth 2 times a day until 48 hours after your symptoms resolve, # 30capsule, 0 Refills, Maintenance, 10/20/23 17:10:00 EST, Capsule, [facility]/pharmacy #[id number], Partial fill upon patient [...] 0 Refills, Maintenance, 05/10/23 9:56:00 EDT, Tablet, [facility], Partial fill upon patient request if [...] DAYS., # 60 capsule, 3 Refills, [facility], 163, cm, 01/13/21 11:27:00 EDT, Height, [...] 9:54:00 EDT, Route to Pharmacy Electronically, [facility],Partial fill upon patient request if the [...] Team Personnel Name: Bebo Diaz MD Position: [facility] Physician (General Medicine) Member Role: Lifetime Consulting Physician Address: Address: [address] [place] [id number]- Name: Perla Paulino RN Position: [facility] RN Member Role: Primary Care Nurse Name: Nicky Ross RN Position: [facility] RN Member Role: Primary Care Nurse Name: Alice Le RN Position: [facility] RN Member Role: Primary Care Nurse Name: Carolee Mendez RN Position: [facility] RN Supv Member Role: Primary Care Nurse Name: Bryanna Rolon RN Position: [facility] RN Member Role: Primary Care Nurse Name: Sara Mak RN Position: [facility] RN Member Role: Primary Care Nurse Name: Pollo Lopez RN Position: [facility] RN Member Role: Primary Care Nurse Name: Babs Ferrara Position: [facility] Outreach Member Role: Lifetime Consulting Physician Name: Liu Lovett MD Position: [facility] Physician - Primary Care Member Role: PCP Address: Address: [address] [place] [id number]- Name: Celia Simpson RN Position: [facility] RN Member Role: Primary Care Nurse Name: Colby Denny RN Position: [facility] RN Member Role: Primary Care Nurse Care Team Related Persons Name: SAMEER MORGAN Address: [address] [place] [address] Name: JOHNNY PUCKETT Address: home [address] [place] [address] Name: SAMEER SCHAEFER Address: home [address] [place] [address]
--- OUTSIDE RECORDS SUMMARY | 2024-08-06 09:44 | XMS_ITS | Continuity of Care Document ---
Author Organization [facility] Address [address] [place] [address]- Care Team Providers Care Sugar Cane Grower Name Role Phone Liu Lovett MD Primary Care Physician Encounter [facility] Date(s): 06/29/24 - 06/29/[address] [address]- Discharge Disposition: A-D/C Home Attending Physician: Vika Ibarra MD Admitting Physician: Vika Ibarra MD Referring Physician: Vika Ibarra MD Allergies, Adverse Reactions, Alerts Substance Reaction Severity Status codeine Itchy Active barium sulfate 1 Active Effexor Active Avelox Active 1PER PATIENT SHE IS ALLERGIC TO ORAL CONTRAST BECAUSE OF HER GASTRIC SLEEVE NOT ALLERGIC TO IV CONTRAST- [facility] [place] [facility] Immunizations Given and Recorded Vaccine Date Status Refusal Reason SARS-CoV-2 mRNA ([id number]) vax 01/19/22 Recorded SARS-CoV-2 (COVID-19) mRNA-1273 vaccine 06/16/21 R ecorded SARS-CoV-2 (COVID-19) mRNA-1273 vaccine 12/03/20 R ecorded SARS-CoV-2 (COVID-19) mRNA-1273 vaccine 11/05/20 R ecorded Medications aspirin 81 mg oral delayed release tablet 81 mg, 1, tablet, By Mouth, Daily, Take 5 days prior to the procedure, # 30 tablet, Refills 1, Tot.Refills 1, Maintenance, 05/10/23 9:54:00 EDT, Route to Pharmacy Electronically, [facility],Partial fill upon patient request if the [...] Refills, Maintenance, 05/10/23 9:55:00 EDT, Tablet, [facility], Partial fill upon patient request if the prescription is for a schedule II opioid drug., 160, cm, 05/08/23 20:11:00 EDT, Height... Start Date: 05/10/23 Stop Date: 06/09/23 Status: Ordered colchicine 0.6 mg oral capsule See Instructions, 1 capsule By Mouth 2 times a day until 48 hours after your symptoms resolve, # 30capsule, 0 Refills, Maintenance, 10/20/23 17:10:00 EST, Capsule, [facility]/pharmacy #[id number], Partial fill upon patient request if [...] Refills, Maintenance, 05/10/23 9:56:00 EDT, Tablet, [facility], Partial fill upon patient request if [...] DAYS., # 60 capsule, 3 Refills, [facility], 163, cm, 01/13/21 11:27:00 EDT, Height, [...] 9:54:00 EDT, Route to Pharmacy Electronically, [facility],Partial fill upon patient request if the [...] obesity (BMI 35.0-39.9) with comorbidity Confirmed Active Vital Signs Most recent to oldest [Reference Range]: 1 2 3 Weight 94.4 kg (06/29/24 9:35 AM) Oxygen Saturation [94-100 %] 100 % (06/29/24 1:00 PM) 100 % (06/29/24 12:30 PM) 100 % (06/29/24 12:15 PM) Pulse Rate [55-90 bpm] 65 bpm (06/29/24 9:35 AM) Blood Pressure [90-138/55-84 mm Hg] 138/65mm Hg (06/29/24 1:00 PM) 143/73mm Hg *H* (06/29/24 12:30 PM) 129/70mm Hg (06/29/24 12:15 PM) Respiratory Rate [16-30 br/min] 15 br/min *L* (06/29/24 1:00 PM) 26 br/min (06/29/24 12:30 PM) 15 br/min *L* (06/29/24 12:15 PM) Temperature [96.8-100.4 DegF] 96.3 DegF *L* (06/29/24 9:35 AM) Liters per Minute 6 L/min (06/29/24 12:00 PM) 6 L/min (06/29/24 11:59 AM) Mode of Delivery (Oxygen) Room air (06/29/24 1:32 PM) Room air (06/29/24 1:00 PM) Room air (06/29/24 12:30 PM) Blood pressure sites Leg, right (06/29/24 1:00 PM) Leg, right (06/29/24 12:30 PM) Leg, right (06/29/24 12:15 PM) Temperature Route Temporal (06/29/24 9:35 AM) Dry Weight 94.4 kg (06/29/24 9:35 AM) Social History Social History Type Response Smoking Status Former smoker; Other : Pt quit on 01/17/18; entered on: 02/09/18 Sex EKG study * Event Display: ECG 12-Lead Authored Date: Please click on pdf link to open report * Event Display: ECG 12-Lead Authored Date: Ventricular Rate: 51 BPM Atrial Rate: 51 BPM P-R Interval: 164 ms QRS Duration: 80 ms Q-T Interval: 430 ms QTC Calculation(Bazett): 396 ms P [place]: 83 degrees R [place]: 22 degrees T [place]: 33 degrees Sinus bradycardia Otherwise normal ECG When compared with ECG of 26-APR-2023 09:28, No significant change was found Confirmed by KLAUDIA BURNETT ([id number]) on 06/29/2024 5:44:31 PM [place]: KLAUDIA BURNETT Note * Mary GUEVARA, Balta Rivera: ROSANGELA Event Display: Patient Education/Instruction Authored Date: Inpatient Adult Discharge Instructions. [place] [id number] Name: ISRAEL BALTAZAR : 1960?? Visit: 06/29/2024 09:11?? Current Date: 06/29/2024 12:38 ?? Account: [id number]?? Inpatient Adult Discharge Instructions We would like [...] and their families. Surveys are administered by [employer] ?? If further treatment with your primary care physician or another doctor is recommended, it is important for you to keep the appointment. Call your primary care physician or return to the Emergency Department immediately if your condition worsens, fails to improve, or new symptoms develop. If you need to find a doctor, you can call [facility] Link for a referral at [phone] or toll free at [phone]) or log in to [email or web address].. ?? [facility], in keeping with [facility] guidance, no longer requires face masks for staff, patientsor visitors in most situations. Similiar to time spent indoors at other locations, there is the chance that you were exposed to repiratory viruses during your time with us (such as flu or COVID-19). If you develop symptoms concerning for a viral respiratory infection, please seek testing (and treatment if indicated) from your medical provider or home test kit. ?? You can view and manage your care through the patient portal or by using a health care [place] of your choosing. [employer] is a website that allows you to securely view your medical information including your hospital discharge summary, office visit summaries, medications and follow-up visits. You can also request appointments, renew medications, and request access to your medical information using a health care [place] of your choosing, or just ask a question. You can enroll at [email or web address] or register during your next office visit. You have been discharged from [facility], Patient Care Unit: [facility]??. If you have any questions regarding these instructions, including results of studies pending, afteryou leave, please call us and we will be happy to assist you 02/05. [facility] Nursing Unit Direct Phone Number, for 02/05 contact and results of studies pending [facility] [address] [place] [address] Your Care Team Attending Physician Vika Ibarra MD?? Consulting Providers Vika Ibarra MD?? Discharging Providers Vika Ibarra MD Tests Performed Below is a partial list of the tests performed during your hospitalization. You may have had other tests and procedures not included in this list. Please discuss all test results with your provider. High??Sensitivity??Troponin T (Troponin T, High Sensitivity)?? Primary Care Provider Liu Lovett MD? Advance Directive Health Care Proxy on File Yes - Health Care Proxy Discharge Vitals Temperature:??96.3 DegF??Low Weight: 94.4 kg Pulse Rate: 65 bpm ?? Respiratory Rate:??15 br/min??Low ?? Systolic Blood Pressure: 133 mm Hg ?? Diastolic Blood Pressure: 71 mm Hg ?? Oxygen Saturation: 100 % ?? Studies Pending All studies ordered during this hospital stay have been completed unless listed below. Please discuss all pending results with your provider listed above in these instructions. ?? High??Sensitivity??Troponin T (Troponin T, High Sensitivity)?? What to do next Instructions From Your Doctor Please call the Hand Surgery clinic at if you have any of the following symptoms: ?? - Fever over 101.5 degrees F - Increased redness around your incision or streaking up your arm - Drainage or bleeding from your incision - Intractable nausea or vomiting (inability to keep anything down) - Worsening pain, not responding to pain medicine - Loss of feeling in your fingers - If your dressing gets wet ?? Post operative instructions: ?? Incision care: - Leave your dressing on for 2 days - You may shower immediately. Keep dressing/splint dry by covering your hand with a bag when you shower. After two days, you may remove the surgical dressing and leave incision open to air. Ok to wash hands with soap and water and shower normally. No soaking hand in dirty water (no washing dishes, washing pets, washing the car or swimming in hot tubs/price/lakes/swimming pools until seen in the clinic) ?? Activity restrictions: - No heavy lifting over 10-15 lbs and no heavy gripping (digging, raking, power tools, biking kayaking) until seen in the clinic - Perform active range of motion of fingers to prevent stiffness. Work on making a full fist, completely straightening fingers and touching thumb to each fingertip multiple times an hour - ELEVATE your hand above the level of the heart for the first 72h after surgery.?? - Ok to apply ice to your operative hand - Ok to do exercise such as walking, jogging or light house work that does not require lifting withthe operative hand - You may return to work as soon as you feel able as long as they can accommodate restrictions ?? Pain Control: -??Take your first dose of pain medicine when your finger(s) start to tingle - Take Tylenol and Motrin alternating as needed for pain - You can take 500-650mg of Tylenol every 4-6 hours (not to exceed 4000mg daily) - You can take 400mg Motrin every 4 hours (not to exceed 3200mg daily) ?? Please call the Hand Surgery clinic at if you have any other questions or concerns ?? Orders? 06/29/24 11:56:00 EDT?? Scheduled Follow-Up Appointments Tuesday 1:00 PM EDT ?? With: Sharmila Rojas Where: [facility] [address] [place], [place] [id number]- Status: Pending Discharge Medications BALTAZARISRAEL :1960 Visit Date:06/29/2024 Medications: Please continue your medications until treatment is completed or stopped by your provider. Medications not listed below should be discontinued. Discuss any questions related to medications with your provider. What How Much When Instructions Next Dose Unchanged Abatacept (Orencia ClickJect 125 mg/ mL subcutaneous solution) Unchanged Albuterol (Ventolin 90 mcg Inhaler) Inhalation Every 6 hours Unchanged Aspirin (aspirin 81 mg oral delayed release tablet) 1 tab(s) Oral Daily Duration: 30 Days Take 5 days prior to the procedure ?? Unchanged Atorvastatin (atorvastatin 80 mg oral tablet) 80 Milligram Oral Daily at Bedtime Duration: 30 Days Unchanged Clopidogrel (Plavix 75 mg oral tablet) 1 tab(s) Oral Daily Duration: 30 Days Take 5 days prior to the procedure ?? Unchanged Colchicine (colchicine 0.6 mg oral capsule) See instructions 1 capsule By Mouth 2 times a day until 48 hours after your symptoms resolve ?? Unchanged Durable Medical Equipment (CPAP Machine) See instructions AutoCPAP 8-20 cm H20, use Daily when sleeping ?? Unchanged Fluoxetine (Prozac 40 mg oral capsule) 1 capsule Oral Daily Unchanged Furosemide (Lasix 40 mg oral tablet) 1 tab(s) Oral Every other day Unchanged Gabapentin (gabapentin 800 mg oral tablet) 2 tab(s) Oral 3 times a day Unchanged levETIRAcetam (Keppra 500 mg oral tablet) 500 Milligram Oral Twice a day Duration: 30 Days Unchanged Lorazepam (Ativan 0.5 mg oral tablet) 2 tab(s) Oral 3 times a day as needed for as needed for anxiety Unchanged Omeprazole (omeprazole 40 mg oral enteric coated capsule) 1 capsule Oral Twice a day X30 DAYS. ?? Unchanged Oxycodone 5 Milligram Oral 3 times a day as needed for Pain , Mild Unchanged PredniSONE (predniSONE 5 mg oral tablet) Unchanged semaglutide (Ozempic (1 mg dose) 4 mg/ 3 mL subcutaneous solution) 1 Milligram Subcutaneous Injection Every week Prescription Given During Visit No new medications prescribed at time of discharge.?? Laboratory Results Below is a partial list of the most recent Laboratory test results done prior to this discharge. You may have had other tests and procedures not included in this list. Please discuss all test resultswith your provider. 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 Anxiety?? Depression?? Fibromyalgia?? GERD (gastroesophageal reflux disease)?? Obstructive sleep apnea hypopnea, moderate?? Rheumatoid arthritis?? Seizure?? Severe obesity (BMI 35.0-39.9) with comorbidity?? Sleep related hypoxia?? Education Materials Below is the list of Educational Leaflet Providered with your Discharge Instructions. [employer] Patient Education - ??NSAID Analgesic Schedule?? Valuables and Belongings I fully understand and agree that [facility] accepts no responsibility for all my [...] encouraged to send valuables and belongings home. ? Other Discharge Information ? Pulmonary Rehab Status?? Pulmonary Rehab Discharge Status?? Respiratory Rate:??15 br/min??Low ? Common Emergency Awareness Tips IS IT [...] are strongly encouraged to quit. Please call [facility] at [phone] or [phone] ([phone]) or log in to [email or web address] for referrals to smoking cessation programs. ?? 569 Suicide & Crisis Lifeline is available 02/05 if you or someone you know needs to find a reason to keep living. By calling 609 you'll be connected to a skilled, trained counselor at a crisis center in your area. INPATIENT DISCHARGE INSTRUCTIONS SIGNATURE ISRAEL JACOBSON Location:[facility] Registration Date and Time:06/29/2024 09:11 EDT Primary Care Physician: Rachell LAM, Liu Rivera, Attending Physician: Fred LAM, Vika Mckeon, ISRAEL DICKEY, have received the above patient education materials/instructions and have verbalized understanding. If ambulance or transport services are being used I further acknowledge being given achoice of service. ?? If you need to contact me, please call me at this number: . Patient/Network Security Officer Name: Patient/Network Security Officer Signature: Relationship to Patient: Witness Name/Signature: Date: * Balta Hernandez RN: PERFORM Event Display: Patient Education Leaflets Authored Date: [id number] NSAID Analgesic Schedule ?? 604 NSAID???s Analgesic Schedule ?? Pain is the primary source of illness following your procedure and can include dehydration, difficulty and painful swallowing, and weight loss. These symptoms can lead to increased post-operative visits and hospital readmission. The best way to control pain is to take pain medications regularly. Your doctor has recommended both Ibuprofen and Acetaminophen (generic/store brands are okay, too). These can be picked up over the counter at your pharmacy of choice. Follow the instructions on the bottle to determine the proper dosage to give. The simplest way to take these medications it to rotate the two at 3-hour intervals. Here is a sample diagram. The time you take your medications may vary from this example. Do not give Ibuprofen more than every 6 hours or Acetaminophen every 4 hours. Do not give Acetaminophen if your doctor has given you a prescription that contains Acetaminophen. ? Patient Care team information Care Team Personnel Name: Joe LAM, Bebo Parks Position: [facility] Physician (General Medicine) Member Role: Lifetime Consulting Physician Address: Address: [address] [place] [address]- [place] Name: Perla Paulino RN Position: [facility] RN Member Role: Primary Care Nurse Name: Nicky Ross RN Position: [facility] RN Member Role: Primary Care Nurse Name: Alice Le RN Position: [facility] RN Member Role: Primary Care Nurse Name: Carolee Mendez RN Position: [facility] RN Supv Member Role: Primary Care Nurse Name: Bryanna Rolon RN Position: [facility] RN Member Role: Primary Care Nurse Name: Sara Mak RN Position: [facility] RN Member Role: Primary Care Nurse Name: Pollo Lopez RN Position: [facility] RN Member Role: Primary Care Nurse Name: Babs Ferrara Position: [facility] Outreach Member Role: Lifetime Consulting Physician Name: Liu Lovett MD Position: [facility] Physician - Primary Care Member Role: PCP Address: Address: [address] [place] [address]- Name: Celia Simpson RN Position: [facility] RN Member Role: Primary Care Nurse Name: Colby Denny RN Position: [facility] RN Member Role: Primary Care Nurse Care Team Related Persons Name: SAMEER MORGAN Address: home [address] [place] [address] Name: JOHNNY PUCKETT Address: home [address] [place] [address] Name: SAMEER SCHAEFER Address: home [address] [place] [address]
--- OUTSIDE RECORDS SUMMARY | 2024-08-06 09:45 | XMS_ITS | Continuity of Care Document ---
Author Organization [facility] ter Address [address] [place] [address]- Care Team Providers Care Butcher Scullion Name Role Phone Liu Lovett MD Primary Care Physician [phone] Encounter 06/04/24 - 06/05/[address] [address] Attending Physician: Not on Staff, Attending MD Referring Physician: Not on Staff, Referring MD Allergies, Adverse Reactions, Alerts Substance Reaction Severity Status codeine Itchy Active barium sulfate 1 Active Effexor Active Avelox Active 1PER PATIENT SHE IS ALLERGIC TO ORAL CONTRAST BECAUSE OF HER GASTRIC SLEEVE NOT ALLERGIC TO IV CONTRAST- [facility] Immunizations Given and Recorded Vaccine Date Status Refusal Reason SARS-CoV-2 mRNA ([id number]) vax 01/19/22 Recorded SARS-CoV-2 (COVID-19) mRNA-1273 vaccine 06/16/21 R ecorded SARS-CoV-2 (COVID-19) mRNA-1273 vaccine 12/03/20 R ecorded SARS-CoV-2 (COVID-19) mRNA-1273 vaccine 11/05/20 R ecorded Medications aspirin 81 mg oral delayed release tablet 81 mg, 1, tablet, By Mouth, Daily, Take 5 days prior to the procedure, # 30 tablet, Refills 1, Tot.Refills 1, Maintenance, 05/10/23 9:54:00 EDT, Route to Pharmacy Electronically, [facility],Partial fill upon patient request if the [...] 0 Refills, Maintenance, 05/10/23 9:55:00 EDT, Tablet, [facility], Partial fill upon patient request if the prescription is for a schedule II opioid drug., 160, cm, 05/08/23 20:11:00 EDT, Height... Start Date: 05/10/23 Stop Date: 06/09/23 Status: Ordered colchicine 0.6 mg oral capsule See Instructions, 1 capsule By Mouth 2 times a day until 48 hours after your symptoms resolve, # 30capsule, 0 Refills, Maintenance, 10/20/23 17:10:00 EST, Capsule, [facility]/pharmacy #[id number], Partial fill [...] DAYS., # 60 capsule, 3 Refills, [facility], 163, cm, 01/13/21 11:27:00 EDT, Height, [...] 9:54:00 EDT, Route to Pharmacy Electronically, [facility],Partial fill upon patient request if the [...] Exam Date Time Procedure Performing Provider Status 06/04/24 2:08 PM MRA/MRV Head W/O Contrast Auth (Verified) Notes: (MRA/MRV Head W/O Contrast) Reason For Exam: Personal history of other diseases of the circulatory system;Personal history of other diseases of the circulatory system RESULT: MRA Head W/O contrast [facility] VISIT NUMBER :[id number] Patient Name: Josefina Suggs Date of : 1960 Date of Exam: 06-04-2024 Referring Physician: Jennifer Adan [address], [address] [place], [place] [address] Exam: MR Brain Angio (C-) CPT 25789 Room Description: [facility] 1.5 MRA of the brain without contrast. HISTORY: Headaches. Bilateral facial pain. Intermittent vision loss bilaterally. COMPARISON: 03/19/2023. FINDINGS: Bilateral carotid siphons are normal in calibers and appearance. No stenosis is seen. The right posterior communicating artery is opacified. No evidence of posterior communicating artery aneurysm. The right A1 segment is hypoplastic or aplastic. An azygos A2 segment is noted. The rest of ACAs and bilateral MCAs as well as their visualized branches are patent. No stenosis or vessel cut off. There is no intracranial aneurysm or vascular malformation. Bilateral intracranial vertebral arteries are normal in calibers. No stenosis seen. The basilar artery is normal. No basilar tip aneurysm. Bilateral professor of counseling and their visualized branches are patent. IMPRESSION: No high-grade stenosis or vessel cut off of the intracranial arterial circulation. No significant change to prior study. Electronically Signed By: Lennox Hoffman MD Dictated By: Not on Staff BECCA MD Dictated Date/Time: 06/05/24 9:27 am Reviewed By: Not on Staff , BECCA LAM Signed By: Not on Staff , BECCA LAM Signed Date/Time: 06/05/24 9:27 am Transcribed By: LIZANDRO Transcribed Date/Time: 06/05/24 9:27 am Social History Social History Type Response Smoking Status Former smoker; Other : Pt quit on 01/17/18; entered on: 02/09/18 Sex Patient Care team information Care Team Personnel Name: Bebo Diaz MD Position: [facility] Physician (General Medicine) Member Role: Lifetime Consulting Physician Address: Address: [address] [place] [address]- Name: Perla Paulino RN Position: [facility] RN Member Role: Primary Care Nurse Name: Nicky Ross RN Position: [facility] RN Member Role: Primary Care Nurse Name: Alice Le RN Position: [facility] RN Member Role: Primary Care Nurse Name: Carolee Mendez RN Position: [facility] RN Bryan Member Role: Primary Care Nurse Name: Bryanna Rolon RN Position: [facility] RN Member Role: Primary Care Nurse Name: Sara Mak RN Position: [facility] RN Member Role: Primary Care Nurse Name: Pollo Lopez RN Position: [facility] RN Member Role: Primary Care Nurse Name: Babs Ferrara Position: [facility] Outreach Member Role: Lifetime Consulting Physician Name: Liu Lovett MD Position: [facility] Physician - Primary Care Member Role: PCP Address: Address: [address] [place] [address]- Name: Celia Simpson RN Position: [facility] RN Member Role: Primary Care Nurse Name: Colby Denny RN Position: [facility] RN Member Role: Primary Care Nurse Care Team Related Persons Name: SAMEER MORGAN Address: home [address] [place] [address] Name: JOHNNY PUCKETT Address: home [address] [place] [address] Name: SAMEER SCHAEFER Address: home [address] [place] [address]
--- OUTSIDE RECORDS SUMMARY | 2024-08-06 09:45 | XMS_ITS | Continuity of Care Document ---
Author Organization [facility] Felicitas sandip Address [address] [place] [address] [address] [place] [address]- Care Team Providers Care Vp Genetic Name Role Phone Rachell LAM, Liu Rivera Primary Care Physician Encounter [facility] Date(s): 07/02/24 - 08/01/24 [facility] [address] [address]- Allergies, Adverse Reactions, Alerts Substance Reaction Severity Status codeine Itchy Active barium sulfate 1 Active Effexor Active Avelox Active 1PER PATIENT SHE IS ALLERGIC TO ORAL CONTRAST BECAUSE OF HER GASTRIC SLEEVE NOT ALLERGIC TO IV CONTRAST- [facility] [place] [place] Immunizations Given and Recorded Vaccine Date Status Refusal Reason SARS-CoV-2 mRNA (asxyudr-twqp-wjkxc) vax 01/19/22 Recorded SARS-CoV-2 (COVID-19) mRNA-1273 vaccine 06/16/21 R ecorded SARS-CoV-2 (COVID-19) mRNA-1273 vaccine 12/03/20 R ecorded SARS-CoV-2 (COVID-19) mRNA-1273 vaccine 11/05/20 R ecorded Medications aspirin 81 mg oral delayed release tablet 81 mg, 1, tablet, By Mouth, Daily, Take 5 days prior to the procedure, # 30 tablet, Refills 1, Tot.Refills 1, Maintenance, 05/10/23 9:54:00 EDT, Route to Pharmacy Electronically, [facility],Partial fill upon patient request if the [...] 0 Refills, Maintenance, 05/10/23 9:55:00 EDT, Tablet, [facility], Partial fill upon patient request if the prescription is for a schedule II opioid drug., 160, cm, 05/08/23 20:11:00 EDT, Height... Start Date: 05/10/23 Stop Date: 06/09/23 Status: Ordered colchicine 0.6 mg oral capsule See Instructions, 1 capsule By Mouth 2 times a day until 48 hours after your symptoms resolve, # 30capsule, 0 Refills, Maintenance, 10/20/23 17:10:00 EST, Capsule, [facility]/pharmacy #[id number], Partial fill upon patient request [...] 0 Refills, Maintenance, 05/10/23 9:56:00 EDT, Tablet, [facility], Partial fill upon patient request [...] DAYS., # 60 capsule, 3 Refills, [facility], 163, cm, 01/13/21 11:27:00 EDT, Height, [...] EDT, Route to Pharmacy Electronically, [facility],Partial fill upon patient request if the [...] Personnel Name: Joe LAM, Bebo Parks Position: [facility] Physician (General Medicine) Member Role: Lifetime Consulting Physician Address: Address: [address] [place] [address]- Name: Perla Paulino RN Position: [facility] RN Member Role: Primary Care Nurse Name: Nicky Ross RN Position: [facility] RN Member Role: Primary Care Nurse Name: Alice Le RN Position: [facility] RN Member Role: Primary Care Nurse Name: Carolee Mendez RN Position: [facility] RN Supv Member Role: Primary Care Nurse Name: Bryanna Rolon RN Position: [facility] RN Member Role: Primary Care Nurse Name: Sara Mak RN Position: [facility] RN Member Role: Primary Care Nurse Name: Pollo Lopez RN Position: [facility] RN Member Role: Primary Care Nurse Name: Babs Ferrara Position: [facility] Outreach Member Role: Lifetime Consulting Physician Name: Liu Lovett MD Position: [facility] Physician - Primary Care Member Role: PCP Address: Address: [address] [place] [id number]- Name: Celia Simpson RN Position: [facility] RN Member Role: Primary Care Nurse Name: Colby Denny RN Position: [facility] RN Member Role: Primary Care Nurse Care Team Related Persons Name: SAMEER MORGAN Address: [address] [place] [address] Name: JOHNNY PUCKETT Address: home [address] [place] [address] Name: SAMEER SCHAEFER Address: home [address] [place] [address]
== END 2024-08-06 10:03 | disposition home or self-care (01) ==
LOC: HO.HBS 09:41
PROVIDERS: PCP Family Medicine; Visit Provider Physician Assistant Surgical
DX: D73.5 Infarction of spleen (principal); E66.9 Obesity, unspecified; Z98.84 Bariatric surgery status
CPT/HCPCS: 99442

== ENCOUNTER → 2024-08-06 09:41 | Outpatient (BNVA) | payer MEDICARE, SELFPAY | PROVIDERS: PCP Family Medicine; Visit Provider Physician Assistant Surgical ==

== ENCOUNTER 2024-10-01 11:06 | Outpatient (AMB) | payer MEDICARE, MEDICAID, SELFPAY ==
--- NOTE | 2024-10-01 10:34 | MHC.OFFVISWM ---
VS Expanded 10/01/24 11:02 Height 5 ft 3 in Weight 189 lb BMI 33.5 Intake Visit Reasons: TELEPHONE PO LSG 09/08/23 Allergies moxifloxacin [From Avelox] Allergy (Severe, Verified 09/08/23 07:55) Anaphylaxis codeine Allergy (Mild, Verified 09/08/23 07:55) ITCHY AVALAX Allergy (Severe, Uncoded 09/08/23 07:55) Anaphylaxis POLLEN Allergy (Mild, Uncoded 09/08/23 07:55) Runny Nose oral contrast Allergy (Uncoded 09/10/23 08:49) Itching Medication List - Last Reconciled 10/01/24 by KRIS Johnson abatacept (Orencia) mg subcut cholecalciferol (vitamin D3) 50 mcg PO DAILY docusate sodium 100 mg PO BID fluoxetine (Prozac) 60 mg PO DAILY furosemide (Lasix) 40 mg PO Q OTHER DAY gabapentin 800 mg PO TID inulin (Fiber Gummies) 2 grams PO BID lorazepam 1 mg PO TID PRN unrdgkzvzfle-dtw-bsvt-FA-vit K 45 mg iron- 800 mcg-120 mcg (Bariatric Multivitamins) caps PO omeprazole 40 mg PO DAILY HPI Comments Details: This is a 64 yo female who is s/p LSG 09/08/2023. Presents for 13 month post op visit. Weight at last visit on 05/10/2024 was 189 pounds with a BMI of 33.5, weight today is same. Continues to have reflux, takes Prilosec. Having some LUQ pain, about the same . Takes Percocet for the pain sometimes which she takes PRN for her RA. Thinks that collection should have been healed by now and has been discussing with a family friend who is a trauma doctor who believes that things should have been healed by now. Pt reports she was able to get in touch with [facility] and plans to get an appt after the first of the year. Pt still has not restarted Plavix; her neurologist wants her splenic collection to be completely healed before restarting. Present meal plan includes: 1 Equate shake, 1 Isopure drink half scoop, 1 Georgian yogurt, and 1 meal 4f/4f recommended at last visit has been having 1 poached egg in AM, has a shake, has a dinner of veg/protein (chicken/fish) Exercise routine includes: swimming, occasional treadmill walking Pt reports a lot of pain/arthritis recently which is limiting her exercise [facility] Medical History (Updated 01/31/24 @ 11:56 by Isi Lombardo) Splenic hemorrhage Hypokalemia Hiatal hernia Pre-op evaluation Vertigo Morbid obesity Hx of migraine headaches Environmental and seasonal allergies PONV (postoperative nausea and vomiting) Lower extremity edema Obstructive sleep apnea on CPAP Aneurysm Surgical History (Updated 09/25/23 @ 00:01 by Lorelei Reid) H/O gastric sleeve S/P cerebral aneurysm operation History of surgery for cerebral aneurysm Hx of hand surgery Hx of colonoscopy Hx of foot surgery Hx of knee surgery Hx of appendectomy Hx of hysterectomy Family History Mother No problems noted. Father AA (alcohol abuse) Brother No problems noted. Sister No problems noted. Brother No problems noted. Brother No problems noted. Daughter Autoimmune disease Daughter Autoimmune disease Social History Household Members: Spouse Housing: House Are you a primary foster care social worker to a significant other at home: No Do you presently have visiting nurse or other home services: No 75 years or older and lives alone: No Alcohol intake: never Patient Tobacco Use Status: Former Tobacco user Tobacco use type: Cigarette service: No Current occupational status: disabled Telehealth Telehealth Telehealth Platform: Telephone Location of provider rendering services: practice address Location of patient: address on file Patient Identification confirmed using: Name, : Yes Telehealth method: voice only Patient verbally consented to treatment: Yes Patient verbally consented to billing insurance company: Yes Patient informed of any privacy concerns related to visit: Yes Minutes spent on Phone/Video with Pt.: 25 Assessment & Plan Assessment & Plan (1) Obesity: Code(s): E66.9 - Obesity, unspecified Category: Medical (2) S/P laparoscopic sleeve gastrectomy: Code(s): Z98.84 - Bariatric surgery status Category: Surgical (3) Splenic hemorrhage: Code(s): D73.5 - Infarction of spleen Category: Medical Plan Reviewed recent CT scan done on 09/20; collection is 8.1x6.2 (previously 8.9x6.1). We discussed that pt is making progress, albeit slowly. Regarding her LUQ pain we discussed tracking episodes of pain to see if they are correlated with eating/drinking; see if shakes/softer foods are less aggravating than solid foods and stick to hose. I reassured her that things did not appear worse and that this pain was unlikely to be an indicator of a new problem, based on CT results. She will try to resume treadmill walking as she does enjoy this. RTC late December or early January. I spent a total of 45 minutes reviewing/updating records, examining the patient and counseling the patient on weight management as detailed above.
[2024-10-01 11:02] VITALS: BMI 33.5
--- OUTSIDE RECORDS SUMMARY | 2024-10-01 11:08 | XMS_ITS | Continuity of Care Document ---
Author Organization [facility] vices Address [address] [place] [address] Phone Care Team Providers Care Professor In Family Studies Name Role Phone Unavailable Unavailable Unavailable Medications Medication Instructions Dosage Effective Dates (start - stop) Status Comments furosemide 40 mg tablet take 1 tablet by oral route every day 40 MG - Active gabapentin 400 mg capsule take 2 Capsule by oral route 2 times every day 800 MG - Active Tylenol-Codeine #3 300 mg-30 mg tablet take 1 tablet by oral route every 8 hours as needed 1 tablet - Active Lyrica 50 mg capsule take 1 capsule by oral route 3 times every day 50 MG - No Longer Active furosemide 40 mg tablet take 1 tablet by oral route every day 40 MG - No Longer Active Procedures Procedure Date Documentation Is Incomplete OFFICE/OUTPATIENT VISIT, EST OFFICE/OUTPATIENT VISIT, EST Advance Directives Directive Yes / No Effective Date File Name No Information Encounters Encounter Description Practice Location Reason(s) For Visit Diagnoses Date Provider Providers Copied on Encounter [facility], [address] [place] [address], [address], tel:[phone] [facility] Adult [facility] No Information No Information [facility], [address] [place] [address], [address], [place] tel:[phone] [facility] [place] [facility] refill (chief complaint) No Information 4 No Information OFFICE/OUTPA TIENT VISIT, EST [facility], [address] [place] [address], [address], tel:[phone] [facility] [place] Follow Up of (chief complaint) depression (chief complaint) DepressionPain in limb 3 No Information OFFICE/OUTPA TIENT VISIT, EST [facility], [address] [place], [address], [place] tel:[phone] [facility] Adult [facility] [place] follow up (chief complaint) Depression 3 No Information [facility], [address] [place], [address], [place] tel:[phone] Conversion DEPRESSIVE DISORDER, NOT ELSEWHERE CLASSIFIEDABNOR MAL WEIGHT GAIN 3 No Information Family History Family Member Type Diagnosis Age At Onset No Information Payers Payer name Insurance type Covered republican ID Karie varma(s) CheikhA $0 Flat Fee [id number] Social History Type Description Quantity Date Captured Comments Sex Female Smoking Status No Information Chief Complaint And Reason For Visit No Information Reason For Referral Reason For Referral No Information History Of Present Illness Encounter Date Complaint History Of Prese nt Illness Med refill Follow Up of Consult on new medication Seen by a mold checker in [place] due to chronic foot pain. +h/o R foot fracture in 2010 which was repaired with screws and plates. Increased pain x 2 months. Also with L foot pain x months which has increased x 2 months. Was told that no further surgery is possible for her R foot. Was diagnosed with a partial Achilles tendon tear and heel spur on L. Also has a protruding bone on medial L foot due to compensation for gait due to R foot pain. Was given a boot to wear on R and has been advised to stay off of her feet. Disability is recommended. Has a 10 fup planned where doctor will present all of her options (injection, meds, PT, etc). Feels best when barefoot. Unable to wear most shoes. Has sharp, stabbing and stinging pain B/L when standing or walking. Also describes spasms of 2nd toe R foot. Was given 3 scripts: Lidoderm patches, Lyrica 150 mg BID and Percocet. Is afraid to use Percocet due to fear of addiction. Has not filled... depression This is a follow up visit. The symptoms occur intermittently. Related symptoms are recurrent. There is worsening of previously reported symptoms. The patient presents with depressed mood, difficulty falling asleep and excessive worry but denies thoughts of or suicide. The depression is aggravated by conflict or stress and lack of sleep. The depression is associated with chronic pain. Additional information: Chronic pain and recent discussion with mold checker has caused an increase in symptoms. Also notes that current of Prozac is not helping. Maurice good x 1 week after dose increase. Is not using trazadone due to urinary incontenience after use. Symptoms resolve off meds.. depression (comments) Has been s eeing therapist every 2 weeks with improvement. Is feeling frustrated. Was hoping to have surgical correction of feet and return to work. Feels too young for disability. Is frustrated with her chronic pain. Also with low back pain and B/L hand pain. follow up follow up on pro miriam and med refill for lorazepam, and lasixStarted Prozac 01/2013, notes improved mood, decreased anxiety and irritability. Feels that she has hit a plateau in improvement. Notes some return in irritability and edginess x 1-2 weeks. +use of lorazepam prn insomnia x 1 year. Has been weaning herself off of the meds due to fear of addiction x weeks. Has 1 dose remaining. Script was written for TID but patient was using most nights and sometimes BID. +h/o sleep issues x years. At best, sleeps 5-6 hours.Still looking for work. Was able to temp x 4 weeks since last visit. Has a few interviews scheduled.Was referred to at Main Office and did not receive a call. Has been talking to a friend who is a counselor. Episodes of crying has decreased from daily to every few weeks.Of note, was sent for screening labs and sample hemolyzed. Patient is a hard stick and wishes to postpone labs for now.Weight loss noted (246.5 > 233). Is pleased with her progress. Notes... Functional Status Date Functional Assessmen t No Information Instructions Date Instruction Additional Infor mation No Information Assessments Type Assessment Date No Information Patient Care Teams Name Effective Dates (start - stop) Status Members No Information
--- OUTSIDE RECORDS SUMMARY | 2024-10-01 11:08 | XMS_ITS | Continuity of Care Document ---
Author Organization [facility] Address [address] [place], [place] Phone [phone] Care Team Providers Care Railroad Construction Director Name Role Phone Rachell Rivera MD Care Team Information Rece iver Unavailable CHIQUI FARRIS M.D. Care Team Information Rec eiver Unavailable Rachell Rivera MD Primary Care Physician Sade vailable Problems Active Problems Provider Date Pure hypercholesterolemia Onset: 12/13/2023 Malaise and fatigue Chiqui Farris M.D. Onse t: 02/15/2024 Secondary hyperparathyroidism Chiqui Farris M.D. Onset: 02/15/2024 Social History Type Date Description Comments Sex Unknown Allergies and adverse reactions Active Allergies Criticality Reaction Severity Comments Date Avelox Unable to assess criticality anaphylaxis Severe 08/02/2023 Sertraline Unable to assess criticality tachycardia 08/02/2023 Atorvastatin Unable to assess criticality leg cramps Moderate 02/15/2024 Medications Active Medications SIG Qnty Indications Ordering Provider Date Hydrocodone Bitartrate/Acetaminoph en5-325mg Tablets Rachell Rivera MD Orencia Dkhaiqrrf519uq/ml Solution Auto-Inject for Jennifer Duval NP CA+ ?250 Caltrate? chews x1/d Unknown Mvit Over 50 Unknown 0 000 Vit E Unknown Tumeric Unknown Vit D gummies(also for hair &nails) Unknown Qszjygzybt78st Capsules DR 1 by mouth every day 30caps Unknown Fondaparinux Sodium2.5mg/0.5ML Solution Unknown Rmarlphzoygig596kb Tablets qd(Keppra) Jennifer Adan NP Colchicine0.6mg Capsules prn gout Unknown Ozempic (1 MG/Dose)4mg/3ML Solution Pen-Inject Jennifer Adan NP Wxndthpsre471wn Tablets tid Jennifer Adan NP Uohvdgwrvn64gs Tablets qod->not needing(05/2024) Jennifer Adan NP Albuterol Sulfate IBL503(90Base) mcg/Act Aerosol Jennifer Adan NP Fluoxetine MLB45ga Capsules Jennifer Adan NP Lorazepam0.5mg Tablets tid Jennifer Adan NP Oxycodone-Acetaminophe n5-325mg Tablets Jennifer Adan NP 000 History Medications Egscbnjhqujqec0wo Tablets take by mouth 5tabs x3d then 4tab x3d then 9ujrf3s then 2tab x3d then 1tab x3d 47tabs R53.83 Chiqui Farris M.D. 06/07/2024 - 07/19/2024 Hahqdfvykondsg67jd Tablets take 3 tablets by mouth daily for 8days 24tabs R53.83 Chiqui Farris M.D. 05/31/2024 - 06/07/2024 Oiujcaihgnyqz051at Tablets Unknown - 02/15/2024 Aspirin Low Hhzy80gb Tablets Elio Renteria MD - 09/03/2023 Ozempic (0.25 Or 0.5 MG/Dose)2mg/3ML Solution Pen-Inject Unknown - 02/15/2024 Ksovgscqisz4ar Tablets Dispers Unknown - 02/15/2024 Peg 133845qg Packet Unknown - 02/15/2024 Xrblpywbih7UA/10ML Suspension Unknown - 02/15/2024 Atorvastatin Yhasrpq99he Tablets Unknown - 02/15/2024 Clopidogrel Aiuokxdzy24kf Tablets Elio Hannah MD - 09/03/2023 Oxycodone HCL5mg Tablets Unkno wn - 02/15/2024 Amoxicillin/Clavulanate Whdvxuwmy739-87in/5ML Suspension Rec Unknown - 02/15/2024 Ondansetron HCL4mg Tablets Unknown - 02/15/2024 Zhyqxrajf5dn Tablets Unknown - 02/15/2024 Ddpurciiwu3gt Tablets Unknown - 02/15/2024 Rvhgodkjef3pf Tablets Unknown - 02/15/2024 Fluoxetine DGY84he Capsules Unknown - 02/15/[address] Unknown - 02/15/2024
== END 2024-10-01 11:20 | disposition home or self-care (01) ==
LOC: HO.HBS 11:06
PROVIDERS: PCP Family Medicine; Visit Provider Physician Assistant Surgical
DX: E66.811 Obesity, class 1 (principal); Z68.33 Body mass index [BMI] 33.0-33.9, adult; Z98.84 Bariatric surgery status; D73.5 Infarction of spleen
CPT/HCPCS: 98968

== ENCOUNTER 2025-01-01 10:14 | Outpatient (AMB) | payer MEDICARE, MEDICAID, SELFPAY ==
--- NOTE | 2025-01-01 09:58 | A.OFFVIS_ITS ---
VS Expanded 01/01/25 10:19 Height 5 ft 3 in Weight 189 lb BMI 33.5 Intake Visit Reasons: TELEPHONE PO LSG 09/08/23 Allergies moxifloxacin [From Avelox] Allergy (Severe, Verified 09/08/23 07:55) Anaphylaxis codeine Allergy (Mild, Verified 09/08/23 07:55) ITCHY AVALAX Allergy (Severe, Uncoded 09/08/23 07:55) Anaphylaxis POLLEN Allergy (Mild, Uncoded 09/08/23 07:55) Runny Nose oral contrast Allergy (Uncoded 09/10/23 08:49) Itching Medication List - Last Reconciled 01/01/25 by KRIS Johnson abatacept (Orencia) mg subcut cholecalciferol (vitamin D3) 50 mcg PO DAILY docusate sodium 100 mg PO BID fluoxetine (Prozac) 60 mg PO DAILY furosemide (Lasix) 40 mg PO Q OTHER DAY gabapentin 800 mg PO TID inulin (Fiber Gummies) 2 grams PO BID lorazepam 1 mg PO TID PRN obcydomcyeqk-zgq-fzpv-FA-vit K 45 mg iron- 800 mcg-120 mcg (Bariatric Multivitamins) caps PO omeprazole 40 mg PO DAILY HPI Comments Details: This is a 64 yo female who is s/p LSG 09/08/2023. Presents for 16 month post op visit. Weight at last visit on 10/01/2024 was 189 pounds with a BMI of 33.5, weight today is same. Was started on Mounjaro by PCP. On lowest dose. (had previously tried Ozempic but didn't agree with me ) Her A1C was also elevated, 6.7. Now down to 5.9. Was also swtiched back to Humira. Also on hydrocortisone 1x/month for 5 days- by endo after she had a cortisone test. Continues to have reflux, takes Prilosec. Having some LUQ pain, about the same . Takes Percocet for the pain sometimes which she takes PRN for her RA. Does take Dulcolax to help with BMs, but not always effective. [facility] Pt still has not restarted Plavix; her neurologist wants her splenic collection to be completely healed before restarting. Present meal plan includes: 1 Equate shake, 1 Isopure drink half scoop, 1 German yogurt, and 1 meal 4f/4f recommended at last visit has been having 1 poached egg in AM, has a shake, has a dinner of veg/protein (chicken/fish) feels hungry all the time Exercise routine includes: swimming, occasional treadmill walking Pt reports a lot of pain/arthritis recently which is limiting her exercise Plans to resume outdoor walking more as weather improves [facility] Medical History (Updated 01/31/24 @ 11:56 by Isi Lombardo) Splenic hemorrhage Hypokalemia Hiatal hernia Pre-op evaluation Vertigo Morbid obesity Hx of migraine headaches Environmental and seasonal allergies PONV (postoperative nausea and vomiting) Lower extremity edema Obstructive sleep apnea on CPAP Aneurysm Surgical History (Updated 09/25/23 @ 00:01 by Lorelei Reid) H/O gastric sleeve S/P cerebral aneurysm operation History of surgery for cerebral aneurysm Hx of hand surgery Hx of colonoscopy Hx of foot surgery Hx of knee surgery Hx of appendectomy Hx of hysterectomy Family History Mother No problems noted. Father AA (alcohol abuse) Brother No problems noted. Sister No problems noted. Brother No problems noted. Brother No problems noted. Daughter Autoimmune disease Daughter Autoimmune disease Social History Household Members: Spouse Housing: House Are you a primary pet care worker to a significant other at home: No Do you presently have visiting nurse or other home services: No 75 years or older and lives alone: No Alcohol intake: never Patient Tobacco Use Status: Former Tobacco user Tobacco use type: Cigarette service: No Current occupational status: disabled Telehealth Telehealth Telehealth Platform: Telephone Location of provider rendering services: practice address Location of patient: address on file Patient Identification confirmed using: Name, : Yes Telehealth method: voice only Patient verbally consented to treatment: Yes Patient verbally consented to billing insurance company: Yes Patient informed of any privacy concerns related to visit: Yes Minutes spent on Phone/Video with Pt.: 19 Assessment & Plan Assessment & Plan (1) Obesity: Code(s): E66.9 - Obesity, unspecified Category: Medical (2) S/P laparoscopic sleeve gastrectomy: Code(s): Z98.84 - Bariatric surgery status Category: Surgical Plan Will repeat CT scan around end of February, will have been 18mo since original surgery and 6mo since last CT. Recommended discussing colonoscopy with PCP, pt thinks she is due. May be related to her left sided pain; she notes that she is frequently constipated. Again discussed the importance of exercise and adequate protein intake. Her hunger may be due to stopping high dose Ozempic and transitioning to low dose Mounjaro. RTC 3-[address] scan complete with results.
[2025-01-01 10:19] VITALS: BMI 33.5
== END 2025-01-01 10:38 | disposition home or self-care (01) ==
LOC: HO.HBS 10:14
PROVIDERS: PCP Family Medicine; Visit Provider Physician Assistant Surgical
DX: E66.811 Obesity, class 1 (principal); Z68.33 Body mass index [BMI] 33.0-33.9, adult; Z90.3 Acquired absence of stomach [part of]; Z98.84 Bariatric surgery status
CPT/HCPCS: 99214; G2211

== ENCOUNTER 2025-03-11 10:39 | Outpatient (AMB) | payer MEDICARE, MEDICAID, SELFPAY ==
--- NOTE | 2025-03-11 10:26 | MHC.OFFVISWM ---
Intake Visit Reasons: TELEPHONE PO LSG 09/08/23 Allergies moxifloxacin [From Avelox] Allergy (Severe, Verified 09/08/23 07:55) Anaphylaxis codeine Allergy (Mild, Verified 09/08/23 07:55) ITCHY AVALAX Allergy (Severe, Uncoded 09/08/23 07:55) Anaphylaxis POLLEN Allergy (Mild, Uncoded 09/08/23 07:55) Runny Nose oral contrast Allergy (Uncoded 09/10/23 08:49) Itching HPI Comments Details: This is a 64 yo female who is s/p LSG 09/08/2023. Presents for 18 month post op visit. Weight at last visit on 01/01/2025 was 189 pounds with a BMI of 33.5. We did not get to discuss her weight today. She feels like a ticking time bomb and we spent the visit discussing her concerns over her unresolved intraabdominal hematoma. Present meal plan includes: 1 Equate shake, 1 Isopure drink half scoop, 1 [place] yogurt, and 1 meal 4f/4f recommended at previous visit has been having 1 poached egg in AM, has a shake, has a dinner of veg/protein (chicken/fish) Exercise routine includes: swimming, occasional treadmill walking Pt reports a lot of pain/arthritis recently which is limiting her exercise Plans to resume outdoor walking more as weather improves [facility] Medical History (Updated 01/31/24 @ 11:56 by Iis Lombardo) Splenic hemorrhage Hypokalemia Hiatal hernia Pre-op evaluation Vertigo Morbid obesity Hx of migraine headaches Environmental and seasonal allergies PONV (postoperative nausea and vomiting) Lower extremity edema Obstructive sleep apnea on CPAP Aneurysm Surgical History (Updated 09/25/23 @ 00:01 by Lorelei Reid) H/O gastric sleeve S/P cerebral aneurysm operation History of surgery for cerebral aneurysm Hx of hand surgery Hx of colonoscopy Hx of foot surgery Hx of knee surgery Hx of appendectomy Hx of hysterectomy Family History Mother No problems noted. Father AA (alcohol abuse) Brother No problems noted. Sister No problems noted. Brother No problems noted. Brother No problems noted. Daughter Autoimmune disease Daughter Autoimmune disease Social History Household Members: Spouse Housing: House Are you a primary health careers instructor to a significant other at home: No Do you presently have visiting nurse or other home services: No 75 years or older and lives alone: No Alcohol intake: never Patient Tobacco Use Status: Former Tobacco user Tobacco use type: Cigarette service: No Current occupational status: disabled Telehealth Telehealth Telehealth Platform: Telephone Location of provider rendering services: practice address Location of patient: address on file Patient Identification confirmed using: Name, : Yes Telehealth method: voice only Patient verbally consented to treatment: Yes Patient verbally consented to billing insurance company: Yes Patient informed of any privacy concerns related to visit: Yes Minutes spent on Phone/Video with Pt.: 18 Results Reviewed Results Reviewed: CT scan at [facility] performed 03/06/2025 shows smaller collection, 7.3x5.6x6.6cm (I spoke to radiologist on the phone to obtain these measurements) compared to 7.7x6.1x7.8cm last scan. Assessment & Plan Assessment & Plan (1) Splenic hemorrhage: Code(s): D73.5 - Infarction of spleen Category: Medical (2) Obesity: Code(s): E66.9 - Obesity, unspecified Category: Medical (3) S/P laparoscopic sleeve gastrectomy: Code(s): Z98.84 - Bariatric surgery status Category: Surgical Plan Pt is frustrated by the slow pace of healing of her splenic hematoma. She is unhappy with conservative management as she reports she is constantly fearful and having pain. We had a long discussion about risk vs benefit of any invasive measures. I offered the option of a second opinion. She is willing to see [facility] group. Will place a referral.
--- OUTSIDE RECORDS SUMMARY | 2025-03-11 11:44 | XMS_ITS | Continuity of Care Document ---
Author Organization [facility] Address [address] [place], [place] Phone [phone] Care Team Providers Care Soil Conservation Technician Name Role Phone Rachell Rivera MD Care Team Information Rece iver Unavailable CHIQUI FARRIS M.D. Care Team Information Rec eiver Unavailable Rachell Rivera MD Primary Care Physician Sdae vailable Problems Active Problems Provider Date Pure [...] Bitartrate/Acetaminoph en5-325mg Tablets Rachell Rivera MD Orencia Snrdtehjp385ga/ml Solution Auto-Inject for Jennifer Duval NP CA+ ?250 Caltrate? chews x1/d Unknown Mvit Over 50 Unknown 0 000 Vit E Unknown Tumeric Unknown Vit D gummies(also for hair &nails) Unknown Cakixpezlm30yn Capsules DR 1 by mouth every day 30caps Unknown Fondaparinux Sodium2.5mg/0.5ML Solution Unknown Lqcyoafktglvm507on Tablets qd(Keppra) Jennifer Adan NP Colchicine0.6mg Capsules prn gout Unknown Ozempic (1 MG/Dose)4mg/3ML Solution Pen-Inject Jennifer Adan NP Cflmdazwhp366an Tablets tid Jennifer Adan NP Gbcwpjrhyt37ot Tablets qod->not needing(05/2024) Jennifer Adan NP Albuterol Sulfate HLB604(90Base) mcg/Act Aerosol Jennifer Adan NP Fluoxetine AUS00yp Capsules Jennifer Adan NP Lorazepam0.5mg Tablets tid Jennifer Adan NP Oxycodone-Acetaminophe n5-325mg Tablets Jennifer Adan NP 000 History Medications Oljpqywlckouxd5kn Tablets take by mouth 5tabs x3d then 4tab x3d then 8wwpn7a then 2tab x3d then 1tab x3d 47tabs R53.83 Chiqui Farris M.D. 06/07/2024 - 07/19/2024 Nzaqxfnthrdgtt72kk Tablets take 3 tablets by mouth daily for 8days 24tabs R53.83 Chiqui Farris M.D. 05/31/2024 - 06/07/2024 Wggmgbfsjlwex431qw Tablets Unknown - 02/15/2024 Aspirin Low Exjm27un Tablets Elio Renteria MD - 09/03/2023 Ozempic (0.25 Or 0.5 MG/Dose)2mg/3ML Solution Pen-Inject Unknown - 02/15/2024 Lvtfnszvyyr3wo Tablets Dispers Unknown - 02/15/2024 Peg [id number] Packet Unknown - 02/15/2024 Quunrrzxde0IK/10ML Suspension Unknown - 02/15/2024 Atorvastatin Bfizeif01hy Tablets Unknown - 02/15/2024 Clopidogrel Dmqzfawms04er Tablets Eloi Hannah MD - 09/03/2023 Oxycodone HCL5mg Tablets Unkno wn - 02/15/2024 Amoxicillin/Clavulanate Xttkrncsi564-97nm/5ML Suspension Rec Unknown - 02/15/2024 Ondansetron HCL4mg Tablets Unknown - 02/15/2024 Qoxmjuicj6zp Tablets Unknown - 02/15/2024 Cgsngmjvpx8cu Tablets Unknown - 02/15/2024 Zspqlydrbg7ub Tablets Unknown - 02/15/2024 Fluoxetine AFW83do Capsules Unknown - 02/15/[address] Unknown - 02/15/2024
== END 2025-03-11 11:00 | disposition home or self-care (01) ==
LOC: HO.HBS 10:39
PROVIDERS: PCP Family Medicine; Visit Provider Physician Assistant Surgical
DX: D73.5 Infarction of spleen (principal); E66.9 Obesity, unspecified; Z98.84 Bariatric surgery status
CPT/HCPCS: 99214; G2211

== ENCOUNTER → 2025-03-11 10:39 | Outpatient (BNVA) | payer MEDICARE, MEDICAID, SELFPAY | PROVIDERS: PCP Family Medicine; Visit Provider Physician Assistant Surgical | DX: Z13.89 Encounter for screening for other disorder (principal) ==

== ENCOUNTER 2025-04-23 11:45 | Outpatient (AMB) | payer MEDICARE, MEDICAID, SELFPAY ==
--- NOTE | 2025-04-23 11:46 | MHC.OFFVISWM ---
Intake Visit Reasons: TELEPHONE PO LSG 09/08/23 Allergies moxifloxacin (From Avelox) Allergy (Severe, Verified 09/08/23 07:55) Anaphylaxis codeine Allergy (Mild, Verified 09/08/23 07:55) ITCHY AVALAX Allergy (Severe, Uncoded 09/08/23 07:55) Anaphylaxis POLLEN Allergy (Mild, Uncoded 09/08/23 07:55) Runny Nose oral contrast Allergy (Uncoded 09/10/23 08:49) Itching Medication List - Last Reconciled 04/23/25 by KRIS Johnson abatacept (Orencia) mg subcut cholecalciferol (vitamin D3) 50 mcg PO DAILY docusate sodium 100 mg PO BID fluoxetine (Prozac) 60 mg PO DAILY furosemide (Lasix) 40 mg PO Q OTHER DAY gabapentin 800 mg PO TID inulin (Fiber Gummies) 2 grams PO BID lorazepam 1 mg PO TID PRN ivbdcbtxcrin-rpo-mnmc-FA-vit K 45 mg iron- 800 mcg-120 mcg (Bariatric Multivitamins) caps PO omeprazole 40 mg PO DAILY HPI Comments Details: This is a 64 yo female who is s/p LSG 09/08/2023. Last known weight on 01/01/2025 was 189 pounds with a BMI of 33.5. We did not discuss weight again today. She feels like a ticking time bomb and we spent the visit discussing her concerns over her unresolved intraabdominal hematoma. Pt went to [facility] within the last week and had a repeat CT scan. She says the doctor was not very happy with my spleen. He says I needed to see a trauma specialist. She reports she has a hiatal hernia and an abdominal wall hernia. Present meal plan includes: 1 Equate shake, 1 Isopure drink half scoop, 1 [place] yogurt, and 1 meal 4f/4f recommended at previous visit has been having 1 poached egg in AM, has a shake, has a dinner of veg/protein (chicken/fish) Exercise routine includes: swimming, occasional treadmill walking Pt reports a lot of pain/arthritis recently which is limiting her exercise Plans to resume outdoor walking more as weather improves [facility] Medical History (Updated 01/31/24 @ 11:56 by Isi Lombardo) Splenic hemorrhage Hypokalemia Hiatal hernia Pre-op evaluation Vertigo Morbid obesity Hx of migraine headaches Environmental and seasonal allergies PONV (postoperative nausea and vomiting) Lower extremity edema Obstructive sleep apnea on CPAP Aneurysm Surgical History (Updated 09/25/23 @ 00:01 by Lorelei Reid) H/O gastric sleeve S/P cerebral aneurysm operation History of surgery for cerebral aneurysm Hx of hand surgery Hx of colonoscopy Hx of foot surgery Hx of knee surgery Hx of appendectomy Hx of hysterectomy Family History Mother No problems noted. Father AA (alcohol abuse) Brother No problems noted. Sister No problems noted. Brother No problems noted. Brother No problems noted. Daughter Autoimmune disease Daughter Autoimmune disease Social History Household Members: Spouse Housing: House Are you a primary multi care technician to a significant other at home: No Do you presently have visiting nurse or other home services: No 75 years or older and lives alone: No Alcohol intake: never Patient Tobacco Use Status: Former Tobacco user Tobacco use type: Cigarette service: No Current occupational status: disabled Telehealth Telehealth Telehealth Platform: Telephone Location of provider rendering services: practice address Location of patient: address on file Patient Identification confirmed using: Name, : Yes Telehealth method: voice only Patient verbally consented to treatment: Yes Patient verbally consented to billing insurance company: Yes Patient informed of any privacy concerns related to visit: Yes Minutes spent on Phone/Video with Pt.: 14 Assessment & Plan Assessment & Plan (1) S/P laparoscopic sleeve gastrectomy: Code(s): Z98.84 - Bariatric surgery status Category: Surgical (2) Obesity: Code(s): E66.9 - Obesity, unspecified Category: Medical (3) Splenic hemorrhage: Code(s): D73.5 - Infarction of spleen Category: Medical Plan I called [facility] to check on the status of the referral I had placed after our last visit. They will check on whether they have all needed info as pt has not received a call from them yet. Will follow up with pt in 2 weeks to ensure she has been contacted by their office.
--- OUTSIDE RECORDS SUMMARY | 2025-04-23 13:04 | XMS_ITS | Continuity of Care Document ---
Author Organization [facility] Address [address] [place], [place] Phone [phone] Care Team Providers Care Local Announcer Name Role Phone Rachell Rivera MD Care Team Information Rece iver Unavailable CHIQUI FARRIS M.D. Care Team Information Rec eiver Unavailable Rachell Rivera MD Primary Care Physician Sade vailable Problems Active Problems Provider Date Pure hypercholesterolemia Onset: 12/13/2023 Malaise and fatigue Chiqui Farris M.D. Onse t: 02/15/2024 Secondary hyperparathyroidism Chiqui Farris M.D. Onset: 02/15/2024 Social History Type Date Description Comments Sex Female Sex Unknown Allergies and adverse reactions Active Allergies Criticality Reaction Severity Comments Date Avelox Unable to assess criticality anaphylaxis Severe 08/02/2023 Sertraline Unable to assess criticality tachycardia 08/02/2023 Atorvastatin Unable to assess criticality leg cramps Moderate 02/15/2024 Medications Active Medications SIG Qnty Indications Ordering Provider Date Hydrocodone Bitartrate/Acetaminoph en5-325mg Tablets Rachell Rivera MD Orencia Avmxjdlzk504yt/ml Solution Auto-Inject for Jennifer Duval NP CA+ ?250 Caltrate? chews x1/d Unknown Mvit Over 50 Unknown 0 000 Vit E Unknown Tumeric Unknown Vit D gummies(also for hair &nails) Unknown Ksulfremzk27cw Capsules DR 1 by mouth every day 30caps Unknown Fondaparinux Sodium2.5mg/0.5ML Solution Unknown Wgwmzdopgaoep384pz Tablets qd(Keppra) Jennifer Adan NP Colchicine0.6mg Capsules prn gout Unknown Ozempic (1 MG/Dose)4mg/3ML Solution Pen-Inject Jennifer Adan NP Kbzpdkiqgo783rd Tablets tid Jennifer Adan NP Fwbvyzapxg76qi Tablets qod->not needing(05/2024) Jennifer Adan NP Albuterol Sulfate OCK005(90Base) mcg/Act Aerosol Jennifer Adan NP Fluoxetine QYO35yh Capsules Jennifer Adan NP Lorazepam0.5mg Tablets tid Jennifer Adan NP Oxycodone-Acetaminophe n5-325mg Tablets Jennifer Adan NP 000 History Medications Gkcctczloazzxx4th Tablets take by mouth 5tabs x3d then 4tab x3d then 2msfg5w then 2tab x3d then 1tab x3d 47tabs R53.83 Chiqui Farris M.D. 06/07/2024 - 07/19/2024 Flviflnvfehbxv25jq Tablets take 3 tablets by mouth daily for 8days 24tabs R53.83 Chiqui Farris M.D. 05/31/2024 - 06/07/2024 Xhdlbgzkdhhzt148xu Tablets Unknown - 02/15/2024 Aspirin Low Bmqd86qu Tablets Elio Renteria MD - 09/03/2023 Ozempic (0.25 Or 0.5 MG/Dose)2mg/3ML Solution Pen-Inject Unknown - 02/15/2024 Rtnqvolaxbd3zo Tablets Dispers Unknown - 02/15/2024 Peg [id number] Packet Unknown - 02/15/2024 Olfwnduxjr2OC/10ML Suspension Unknown - 02/15/2024 Atorvastatin Idsxscr71zt Tablets Unknown - 02/15/2024 Clopidogrel Soqjsjfnz52ed Tablets Elio Hannah MD - 09/03/2023 Oxycodone HCL5mg Tablets Unkno wn - 02/15/2024 Amoxicillin/Clavulanate Lscgojklf265-76xn/5ML Suspension Rec Unknown - 02/15/2024 Ondansetron HCL4mg Tablets Unknown - 02/15/2024 Aptfvhmfg2bg Tablets Unknown - 02/15/2024 Iaactlwmdl3jv Tablets Unknown - 02/15/2024 Curgxkieqp4ir Tablets Unknown - 02/15/2024 Fluoxetine ARB18tu Capsules Unknown - 02/15/[address] Unknown - 02/15/2024
--- OUTSIDE RECORDS SUMMARY | 2025-04-23 13:05 | XMS_ITS | Data Portability ---
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 High grade partial thickness articular surface tear within lateral outlet fibers of the supraspinatus tendon. Supraspinatus, infraspinatus and subscapularis tendinopathy. Small myotendinous cyst within the infraspinatus Intermediate T2 signal within a thickened inferior glenohumeral ligament can be seen with synovitis and adhesive capsulitis. Hooked acromion process. Not available 10/14/2022 15:56:08 11/11/2022 11/11/2022 MRI right shoulder report 2019 at [facility]: IMPRESSION: Small full-thickness tear within footprint fibers of the supraspinatus tendon. High grade partial thickness articular surface tear within lateral outlet fibers of the supraspinatus tendon. Supraspinatus, infraspinatus and subscapularis tendinopathy. Small myotendinous cyst within the infraspinatus Intermediate T2 signal within a thickened inferior glenohumeral ligament can be seen with synovitis and adhesive capsulitis. Hooked acromion process. X-rays of the right shoulder and humerus were previously interpreted demonstrating no fracture, mild AC joint OA. Cortical irregularity of GT noted Recent MRI of the right shoulder was independently interpreted demonstrating enlargement of previous full-thickness supraspinatus tear measuring approximately 1.6 cm currently. Cystic structure in the subscapularis muscle described by radiology as a myotendinous cyst although there does appear to be communication with the anterior shoulder joint and this may represent a large labral cyst. Not available 11/11/2022 12:16:45 Plan of Treatment Reminders Order Date Submit Date Provider Last Modified By Organization Details Last Modified Time Details Appointments None recorded. Lab C-reactive protein, quantitati ve, serum or plasma 2021 022 [facility], [address] [place] [address], [id number], 20:38:13 ESR (erythrocy te sedimentat ion rate), blood 2021 022 [facility], [address] [place] [address], [id number], 20:38:38 CBC [address] [facility], [address] [place] [address], [id number], 13:57:59 CMP, serum or plasma 2021 022 [facility], [address] [place] [address], [id number], 20:38:11 Referral orthopedic surgeon referral - Right shoulder pain and progressio n of supraspina tous tear from 2019. Would like to discuss surgical options. MRI done at [facility] 2022 023 [email or web address] [address], [address] [facility], [place], [address], 3 08:41:32 Procedures None recorded. Surgeries None recorded. Imaging XR, shoulder - x-ray right shoulder due to pain 2022 023 [email or web address] 67 [facility] (Imaging), [address], [place], [address], 3 21:31:14 XR, humerus - x-ray right humerus due to pain 20[email or web address] [place] [address] (Imaging), [address], [place], [address], 3 21:31:14 MRI, shoulder, w/o contrast - MRI right shoulder eval for progressio n of RTC tear seen in 2019 Increased pain and weakness 2022 023 [facility] ([facility]), [address] [facility], [place], [address], 3 12:21:03 bone density 2021 022 [facility] (Imaging), [address], [place], [address], 2 10:54:51 Medication Orders Orencia ClickJect 125 mg/mL subcutaneo us auto-injec tor 2021 022 [email or web address] [facility] [address] ([facility] 827), [address] [facility], [place], [place], [id number], 2 15:40:14 Patient TargetsNo targets recorded. Patient Instructions Encounter Date Encounter Id Patient Instructions Last Modified By Organization Details Last Modified Time 10/14/2022 [id number] Have x-rays done Have MRI done Use tylenol for pain Follow-up after your MRI for a recheck Not available 10/14/2022 14:21:14 All of the patients questions were answered and they understand the plan of care. Thank you for allowing me to participate in the care of your patient. Please feel free to contact me with any questions regarding their care. Not available 10/14/2022 14:21:07 11/11/2022 [id number] Keep shoulder moving and continue with home physical therapy Use tylenol as needed for pain Make an apponitment with Dr. Gibson to discuss surgical options Follow-up as needed Not available 11/11/2022 12:11:34 All of the patients questions were answered and they understand the plan of care. Thank you for allowing me to participate in the care of your patient. Please feel free to contact me with any questions regarding their care. Not available 11/11/2022 10:54:53 Reason for Referral Orthopedic Surgeon Referral for Pain of shoulder region Right shoulder pain and progression of supraspinatous tear from 2019. Would like to discuss surgical options. MRI done at [facility] Referring Physician: Will Ferguson, Sports Medicine, Encounter Date: 11/11/2022 Results Created Date Observation Date Name Description Value Unit Range Abnormal Flag Note LastModifiedBy Organization Detail LastModifiedTime 12/23/1912/22/2021 COMPR EHENS TRISTEN METAB OLIC PANL glucose 108 mg/dL (70-99 ) high Not Available [facility] (Centralized Electronic Ordering - All Locations) Patient Can Go To The Location Of Their Choice, 12/22/2021 15:05:12/23/1912/22/2021 COMPR EHENS TRISTEN METAB OLIC PANL BUN 24 mg/dL (8-23) high Not Available [facility] (Centralized Electronic Ordering - All Locations) Patient Can Go To The Location Of Their Choice, 12/22/2021 15:05:33 12/23/1912/22/2021 COMPR EHENS TRISTEN METAB OLIC PANL creatinine 0.8 mg/dL (0.5-1 .0) Not Available [facility] (Centralized Electronic Ordering - All Locations) Patient Can Go To The Location Of Their Choice, 12/22/2021 15:05:33 12/23/1912/22/2021 COMPR EHENS TRISTEN METAB OLIC PANL sodium 140 mmol/ L (133-1 45) Not Available [facility] (Centralized Electronic Ordering - All Locations) Patient Can Go To The Location Of Their Choice, 12/22/2021 15:05:33 12/23/1912/22/2021 COMPR EHENS TRISTEN METAB OLIC PANL potassium 4.4 mmol/ L (3.6-5 .2) Not Available [facility] (Centralized Electronic Ordering - All Locations) Patient Can Go To The Location Of Their Choice, 12/22/2021 15:05:33 12/23/1912/22/2021 COMPR EHENS TRISTEN METAB OLIC PANL chloride 103 mmol/ L (98-10 7) Not Available [facility] (Centralized Electronic Ordering - All Locations) Patient Can Go To The Location Of Their Choice, 12/22/2021 15:05:12/23/1912/22/2021 COMPR EHENS TRISTEN METAB OLIC PANL bicarbonate 25 mmol/ L (22-29 ) Not Available [facility] (Centralized Electronic Ordering - All Locations) Patient Can Go To The Location Of Their Choice, 12/22/2021 15:05:12/23/1912/22/2021 COMPR EHENS TRISTEN METAB OLIC PANL anion gap 12 (4-17) Not Available [facility] (Centralized Electronic Ordering - All Locations) Patient Can Go To The Location Of Their Choice, 12/22/2021 15:05:12/23/1912/22/2021 COMPR EHENS TRISTEN METAB OLIC PANL albumin 4.6 gm/dL (3.4-4 .8) Not Available [facility] (Centralized Electronic Ordering - All Locations) Patient Can Go To The Location Of Their Choice, 12/22/2021 15:05:12/23/1912/22/2021 COMPR EHENS TRISTEN METAB OLIC PANL calcium 9.5 mg/dL (8.6-1 0.5) Not Available [facility] (Centralized Electronic Ordering - All Locations) Patient Can Go To The Location Of Their Choice, 12/22/2021 15:05:12/23/1912/22/2021 COMPR EHENS TRISTEN METAB OLIC PANL bilirubin,to josee 0.2 mg/dL (0-1.2 ) Not Available [facility] (Centralized Electronic Ordering - All Locations) Patient Can Go To The Location Of Their Choice, 12/22/2021 15:05:12/23/1912/22/2021 COMPR EHENS TRISTEN METAB OLIC PANL total protein 6.9 gm/dL (6.2-8 .2) Not Available [facility] (Centralized Electronic Ordering - All Locations) Patient Can Go To The Location Of Their Choice, 12/22/2021 15:05:12/23/1912/22/2021 COMPR EHENS TRISTEN METAB OLIC PANL Ag ratio 2.0 Not Available [facility] (Centralized Electronic Ordering - All Locations) Patient Can Go To The Location Of Their Choice, 12/22/2021 15:05:33 12/23/1912/22/2021 COMPR EHENS TRISTEN METAB OLIC PANL AST 15 U/L (0-32) Not Available [facility] (Centralized Electronic Ordering - All Locations) Patient Can Go To The Location Of Their Choice, 12/22/2021 15:05:33 12/23/1912/22/2021 COMPR EHENS TRISTEN METAB OLIC PANL alk phos 118 U/L (35-10 4) high Not Available [facility] (Centralized Electronic Ordering - All Locations) Patient Can Go To The Location Of Their Choice, 12/22/2021 15:05:33 12/23/1912/22/2021 COMPR EHENS TRISTEN METAB OLIC PANL ALT 14 U/L (0-33) Not Available [facility] (Centralized Electronic Ordering - All Locations) Patient Can Go To The Location Of Their Choice, 12/22/2021 15:05:33 12/23/1912/22/2021 COMPR EHENS TRISTEN METAB OLIC PANL estimated GFR creatinine 83 mL/mi n/1.7 3_M2 Creat inine based estim ated glome rular filtr ation rate (eGFR ) is calcu lated using the Chron ic Kidne y Disea se Epide miolo gy Colla borat ion (CKD- EPI). The CKD-E PI calcu latio n is not valid ated in child harjit (<18 years ), pregn ant woman or in racia l or ethni c subgr oups. Not Available [facility] (Centralized Electronic Ordering - All Locations) Patient Can Go To The Location Of Their Choice, 12/22/2021 15:05:33 12/23/1912/22/2021 C-ADRIANNE CTIVE PROTE IN C-reactive protein 2.1 mg/dL (0-0.5 ) high Not Available [facility] (Centralized Electronic Ordering - All Locations) Patient Can Go To The Location Of Their Choice, 12/22/2021 15:05:35 12/23/1912/22/2021 COMPL ETE CBC WITH DIFF WBC 10.3 K/mm3 (4.0-1 1.0) Not Available [facility] (Centralized Electronic Ordering - All Locations) Patient Can Go To The Location Of Their Choice, 12/22/2021 16:23:25 12/23/19 22 12/22/2021 COMPL ETE CBC WITH DIFF RBC 4.69 M/mm3 (4.20- 5.40) Not Available [facility] (Centralized Electronic Ordering - All Locations) Patient Can Go To The Location Of Their Choice, 12/22/2021 16:23:25 12/23/19 22 12/22/2021 COMPL ETE CBC WITH DIFF HGB 13.8 gm/dL (11.7- 15.5) Not Available [facility] (Centralized Electronic Ordering - All Locations) Patient Can Go To The Location Of Their Choice, 12/22/2021 16:23:25 12/23/1912/22/2021 COMPL ETE CBC WITH DIFF HCT 43.7 % (35.7- 45.8) Not Available [facility] (Centralized Electronic Ordering - All Locations) Patient Can Go To The Location Of Their Choice, 12/22/2021 16:23:25 12/23/1912/22/2021 COMPL ETE CBC WITH DIFF MCV 93.2 fL (80.0- 100.0) Not Available [facility] (Centralized Electronic Ordering - All Locations) Patient Can Go To The Location Of Their Choice, 12/22/2021 16:23:25 12/23/1912/22/2021 COMPL ETE CBC WITH DIFF MCH 29.4 pg (27.0- 34.0) Not Available [facility] (Centralized Electronic Ordering - All Locations) Patient Can Go To The Location Of Their Choice, 12/22/2021 16:23:25 12/23/1912/22/2021 COMPL ETE CBC WITH DIFF MCHC 31.6 g/dL (33.0- 37.0) low Not Available [facility] (Centralized Electronic Ordering - All Locations) Patient Can Go To The Location Of Their Choice, 12/22/2021 16:23:25 12/23/1912/22/2021 COMPL ETE CBC WITH DIFF plt 259 K/mm3 (150-4 60) Not Available [facility] (Centralized Electronic Ordering - All Locations) Patient Can Go To The Location Of Their Choice, 12/22/2021 16:23:25 12/23/19 22 12/22/2021 COMPL ETE CBC WITH DIFF RDW-SD 50.8 fL (<47.0 ) high Not Available [facility] (Centralized Electronic Ordering - All Locations) Patient Can Go To The Location Of Their Choice, 12/22/2021 16:23:25 12/23/19 22 12/22/2021 COMPL ETE CBC WITH DIFF MPV 11.0 fL (9.4-1 2.4) Not Available [facility] (Centralized Electronic Ordering - All Locations) Patient Can Go To The Location Of Their Choice, 12/22/2021 16:23:25 12/23/19 22 12/22/2021 COMPL ETE CBC WITH DIFF automated NRBC 0.0 #/100 _WBC' s Not Available [facility] (Centralized Electronic Ordering - All Locations) Patient Can Go To The Location Of Their Choice, 12/22/2021 16:23:25 12/23/19 22 12/22/2021 COMPL ETE CBC WITH DIFF abs. NRBC 0.0 K/mm3 Not Available [facility] (Centralized Electronic Ordering - All Locations) Patient Can Go To The Location Of Their Choice, 12/22/2021 16:23:25 12/23/19 22 12/22/2021 COMPL ETE CBC WITH DIFF neut # 7.0 K/mm3 (1.3-7 .0) Not Available [facility] (Centralized Electronic Ordering - All Locations) Patient Can Go To The Location Of Their Choice, 12/22/2021 16:23:25 12/23/1912/22/2021 COMPL ETE CBC WITH DIFF lymph # 2.2 K/mm3 (0.8-3 .1) Not Available [facility] (Centralized Electronic Ordering - All Locations) Patient Can Go To The Location Of Their Choice, 12/22/2021 16:23:25 12/23/19 22 12/22/2021 COMPL ETE CBC WITH DIFF mono# 0.8 K/mm3 (0.4-0 .9) Not Available [facility] (Centralized Electronic Ordering - All Locations) Patient Can Go To The Location Of Their Choice, 12/22/2021 16:23:25 12/23/1912/22/2021 COMPL ETE CBC WITH DIFF eo # 0.2 K/mm3 (0.0-0 .4) Not Available [facility] (Centralized Electronic Ordering - All Locations) Patient Can Go To The Location Of Their Choice, 12/22/2021 16:23:12/23/1912/22/2021 COMPL ETE CBC WITH DIFF baso # 0.1 K/mm3 (0.0-0 .1) Not Available [facility] (Centralized Electronic Ordering - All Locations) Patient Can Go To The Location Of Their Choice, 12/22/2021 16:23:12/23/1912/22/2021 COMPL ETE CBC WITH DIFF abs. imm gran 0.1 K/mm3 Not Available [facility] (Centralized Electronic Ordering - All Locations) Patient Can Go To The Location Of Their Choice, 12/22/2021 16:23:12/23/1912/22/2021 COMPL ETE CBC WITH DIFF neut 67.8 % (44-76 ) Not Available [facility] (Centralized Electronic Ordering - All Locations) Patient Can Go To The Location Of Their Choice, 12/22/2021 16:23:12/23/1912/22/2021 COMPL ETE CBC WITH DIFF lymph 21.2 % (15-43 ) Not Available [facility] (Centralized Electronic Ordering - All Locations) Patient Can Go To The Location Of Their Choice, 12/22/2021 16:23:12/23/1912/22/2021 COMPL ETE CBC WITH DIFF monocyte 7.9 % (4.5-1 0.5) Not Available [facility] (Centralized Electronic Ordering - All Locations) Patient Can Go To The Location Of Their Choice, 12/22/2021 16:23:25 12/23/1912/22/2021 COMPL ETE CBC WITH DIFF eo 1.9 % (0-6) Not Available [facility] (Centralized Electronic Ordering - All Locations) Patient Can Go To The Location Of Their Choice, 12/22/2021 16:23:25 12/23/19 22 12/22/2021 COMPL ETE CBC WITH DIFF baso 0.6 % (0-2) Not Available [facility] (Centralized Electronic Ordering - All Locations) Patient Can Go To The Location Of Their Choice, 12/22/2021 16:23:25 12/23/19 22 12/22/2021 COMPL ETE CBC WITH DIFF imm gran 0.6 % Not Available [facility] (Centralized Electronic Ordering - All Locations) Patient Can Go To The Location Of Their Choice, 12/22/2021 16:23:25 12/23/19 22 12/22/2021 SEDIM ENTAT ION RATE, AUTOM ATED sedimentatio n rate,automat ed 28 mm/HR (0-20) high Not Available [facility] (Centralized Electronic Ordering - All Locations) Patient Can Go To The Location Of Their Choice, 12/22/2021 16:55:53 12/23/19 22 12/23/2021 ANTI- NUCLE AR ANTIB NATASHA SCREE N anti-nuclear antibody screen NEGATI VE (NOTE ) Negat tristen <1:80 Borde rline 1:80 Posit tristen >1:80 ICAP nomen karie re: AC-0 For more infor matio n about Hep-2 cell patte rns use ANApa ttern s.org , the offic ial websi te for the Inter natio nal Conse nsus on Antin uclea r Antib natasha (ELDER) Patte rns (ICAP ). Test perfo rmed by [facility], [address], [place] [address] Not Available [facility] (Centralized Electronic Ordering - All Locations) Patient Can Go To The Location Of Their Choice, 12/23/2021 20:07:11 12/23/1912/24/2021 HISTO NE ANTIB ODIES histone antibodies 0.4 Refer ence range : 0.0 to 0.9 Unit: Units (NOTE ) Negat tristen <1.0 Weak Posit tristen 1.0 - 1.5 Moder ate Posit tristen 1.6 - 2.5 Stron g Posit tristen >2.5 [facility] p[facility] , [address] [place] [address] Tatiana , [facility]15 Not Available [facility] (Centralized Electronic Ordering - All Locations) Patient Can Go To The Location Of Their Choice, 12/24/2021 13:06:35 04/14/2004/14/2022 COMPL ETE BLOOD COUNT WBC 8.1 K/mm3 (4.0-1 1.0) Not Available [facility] (Centralized Electronic Ordering - All Locations) Patient Can Go To The Location Of Their Choice, 04/14/2022 20:10:45 04/14/2004/14/2022 COMPL ETE BLOOD COUNT RBC 4.83 M/mm3 (4.20- 5.40) Not Available [facility] (Centralized Electronic Ordering - All Locations) Patient Can Go To The Location Of Their Choice, 04/14/2022 20:10:45 04/14/2004/14/2022 COMPL ETE BLOOD COUNT HGB 13.8 gm/dL (11.7- 15.5) Not Available [facility] (Centralized Electronic Ordering - All Locations) Patient Can Go To The Location Of Their Choice, 04/14/2022 20:10:45 04/14/2004/14/2022 COMPL ETE BLOOD COUNT HCT 44.4 % (35.7- 45.8) Not Available [facility] (Centralized Electronic Ordering - All Locations) Patient Can Go To The Location Of Their Choice, 04/14/2022 20:10:45 04/14/2004/14/2022 COMPL ETE BLOOD COUNT MCV 91.9 fL (80.0- 100.0) Not Available [facility] (Centralized Electronic Ordering - All Locations) Patient Can Go To The Location Of Their Choice, 04/14/2022 20:10:45 04/14/2004/14/2022 COMPL ETE BLOOD COUNT MCH 28.6 pg (27.0- 34.0) Not Available [facility] (Centralized Electronic Ordering - All Locations) Patient Can Go To The Location Of Their Choice, 04/14/2022 20:10:45 04/14/2004/14/2022 COMPL ETE BLOOD COUNT MCHC 31.1 g/dL (33.0- 37.0) low Not Available [facility] (Centralized Electronic Ordering - All Locations) Patient Can Go To The Location Of Their Choice, 04/14/2022 20:10:45 04/14/2004/14/2022 COMPL ETE BLOOD COUNT plt 281 K/mm3 (150-4 60) Not Available [facility] (Centralized Electronic Ordering - All Locations) Patient Can Go To The Location Of Their Choice, 04/14/2022 20:10:45 04/14/2004/14/2022 COMPL ETE BLOOD COUNT RDW-SD 48.8 fL (<47.0 ) high Not Available [facility] (Centralized Electronic Ordering - All Locations) Patient Can Go To The Location Of Their Choice, 04/14/2022 20:10:45 04/14/2004/14/2022 COMPL ETE BLOOD COUNT MPV 11.2 fL (9.4-1 2.4) Not Available [facility] (Centralized Electronic Ordering - All Locations) Patient Can Go To The Location Of Their Choice, 04/14/2022 20:10:45 04/14/2004/14/2022 COMPL ETE BLOOD COUNT automated NRBC 0.0 #/100 _WBC' s Not Available [facility] (Centralized Electronic Ordering - All Locations) Patient Can Go To The Location Of Their Choice, 04/14/2022 20:10:45 04/14/2004/14/2022 COMPL ETE BLOOD COUNT abs. NRBC 0.0 K/mm3 Not Available [facility] (Centralized Electronic Ordering - All Locations) Patient Can Go To The Location Of Their Choice, 04/14/2022 20:10:45 04/14/2004/14/2022 COMPR EHENS TRISTEN METAB OLIC PANL glucose 125 mg/dL (70-99 ) high Not Available [facility] (Centralized Electronic Ordering - All Locations) Patient Can Go To The Location Of Their Choice, 04/14/2022 20:38:11 04/14/2004/14/2022 COMPR EHENS TRISTEN METAB OLIC PANL BUN 19 mg/dL (8-23) Not Available [facility] (Centralized Electronic Ordering - All Locations) Patient Can Go To The Location Of Their Choice, 04/14/2022 20:38:11 04/14/2004/14/2022 COMPR EHENS TRISTEN METAB OLIC PANL creatinine 0.9 mg/dL (0.5-1 .0) Not Available [facility] (Centralized Electronic Ordering - All Locations) Patient Can Go To The Location Of Their Choice, 04/14/2022 20:38:11 04/14/20 22 04/14/2022 COMPR EHENS TRISTEN METAB OLIC PANL sodium 135 mmol/ L (133-1 45) Not Available [facility] (Centralized Electronic Ordering - All Locations) Patient Can Go To The Location Of Their Choice, 04/14/2022 20:38:11 04/14/20 22 04/14/2022 COMPR EHENS TRISTEN METAB OLIC PANL potassium 4.4 mmol/ L (3.6-5 .2) Not Available [facility] (Centralized Electronic Ordering - All Locations) Patient Can Go To The Location Of Their Choice, 04/14/2022 20:38:11 04/14/2004/14/2022 COMPR EHENS TRISTEN METAB OLIC PANL chloride 96 mmol/ L (98-10 7) low Not Available [facility] (Centralized Electronic Ordering - All Locations) Patient Can Go To The Location Of Their Choice, 04/14/2022 20:38:11 04/14/2004/14/2022 COMPR EHENS TRISTEN METAB OLIC PANL bicarbonate 28 mmol/ L (22-29 ) Not Available [facility] (Centralized Electronic Ordering - All Locations) Patient Can Go To The Location Of Their Choice, 04/14/2022 20:38:11 04/14/2004/14/2022 COMPR EHENS TRISTEN METAB OLIC PANL anion gap 11 (4-17) Not Available [facility] (Centralized Electronic Ordering - All Locations) Patient Can Go To The Location Of Their Choice, 04/14/2022 20:38:11 04/14/20 22 04/14/2022 COMPR EHENS TRISTEN METAB OLIC PANL albumin 4.6 gm/dL (3.4-4 .8) Not Available [facility] (Centralized Electronic Ordering - All Locations) Patient Can Go To The Location Of Their Choice, 04/14/2022 20:38:11 04/14/20 22 04/14/2022 COMPR EHENS TRISTEN METAB OLIC PANL calcium 9.5 mg/dL (8.6-1 0.5) Not Available [facility] (Centralized Electronic Ordering - All Locations) Patient Can Go To The Location Of Their Choice, 04/14/2022 20:38:11 04/14/20 22 04/14/2022 COMPR EHENS TRISTEN METAB OLIC PANL bilirubin,to josee 0.2 mg/dL (0-1.2 ) Not Available [facility] (Centralized Electronic Ordering - All Locations) Patient Can Go To The Location Of Their Choice, 04/14/2022 20:38:11 04/14/20 22 04/14/2022 COMPR EHENS TRISTEN METAB OLIC PANL total protein 7.1 gm/dL (6.2-8 .2) Not Available [facility] (Centralized Electronic Ordering - All Locations) Patient Can Go To The Location Of Their Choice, 04/14/2022 20:38:11 04/14/20 22 04/14/2022 COMPR EHENS TRISTEN METAB OLIC PANL Ag ratio 1.8 Not Available [facility] (Centralized Electronic Ordering - All Locations) Patient Can Go To The Location Of Their Choice, 04/14/2022 20:38:11 04/14/20 22 04/14/2022 COMPR EHENS TRISTEN METAB OLIC PANL AST 18 U/L (0-32) Not Available [facility] (Centralized Electronic Ordering - All Locations) Patient Can Go To The Location Of Their Choice, 04/14/2022 20:38:11 04/14/20 22 04/14/2022 COMPR EHENS TRISTEN METAB OLIC PANL alk phos 116 U/L (35-10 4) high Not Available [facility] (Centralized Electronic Ordering - All Locations) Patient Can Go To The Location Of Their Choice, 04/14/2022 20:38:11 04/14/20 22 04/14/2022 COMPR EHENS TRISTEN METAB OLIC PANL ALT 15 U/L (0-33) Not Available [facility] (Centralized Electronic Ordering - All Locations) Patient Can Go To The Location Of Their Choice, 04/14/2022 20:38:11 04/14/20 22 04/14/2022 COMPR EHENS TRISTEN METAB OLIC PANL estimated GFR creatinine 75 mL/mi n/1.7 3_M2 Creat inine based estim ated glome rular filtr ation (eGFR ) in adult s is calcu lated using the Natio nal Kidne y Found ation recom tao d 2020 CKD-E PI equat ion. Estim ates GFR from serum creat inine , age and sex. Not Available [facility] (Centralized Electronic Ordering - All Locations) Patient Can Go To The Location Of Their Choice, 04/14/2022 20:38:11 04/14/20 22 04/14/2022 C-ADRIANNE CTIVE PROTE IN C-reactive protein 0.7 mg/dL (0-0.5 ) high Not Available [facility] (Centralized Electronic Ordering - All Locations) Patient Can Go To The Location Of Their Choice, 04/14/2022 20:38:13 04/14/20 22 04/14/2022 SEDIM ENTAT ION RATE, AUTOM ATED sedimentatio n rate,automat ed 31 mm/HR (0-20) high Not Available [facility] (Central[facility] Ordering - All Locations) Patient Can Go To The Location Of Their Choice, 04/14/2022 20:38:37 07/28/2007/28/2022 COMPL ETE BLOOD COUNT WBC 8.7 K/mm3 (4.0-1 1.0) Not Available [facility] (Centralized Electronic Ordering - All Locations) Patient Can Go To The Location Of Their Choice, 07/28/2022 16:23:28 07/28/2007/28/2022 COMPL ETE BLOOD COUNT RBC 4.76 M/mm3 (4.20- 5.40) Not Available [facility] (Centralized Electronic Ordering - All Locations) Patient Can Go To The Location Of Their Choice, 07/28/2022 16:23:28 07/28/2007/28/2022 COMPL ETE BLOOD COUNT HGB 13.4 gm/dL (11.7- 15.5) Not Available [facility] (Centralized Electronic Ordering - All Locations) Patient Can Go To The Location Of Their Choice, 07/28/2022 16:23:28 07/28/2007/28/2022 COMPL ETE BLOOD COUNT HCT 43.6 % (35.7- 45.8) Not Available [facility] (Centralized Electronic Ordering - All Locations) Patient Can Go To The Location Of Their Choice, 07/28/2022 16:23:28 07/28/2007/28/2022 COMPL ETE BLOOD COUNT MCV 91.6 fL (80.0- 100.0) Not Available [facility] (Centralized Electronic Ordering - All Locations) Patient Can Go To The Location Of Their Choice, 07/28/2022 16:23:28 07/28/2007/28/2022 COMPL ETE BLOOD COUNT MCH 28.2 pg (27.0- 34.0) Not Available [facility] (Centralized Electronic Ordering - All Locations) Patient Can Go To The Location Of Their Choice, 07/28/2022 16:23:28 07/28/2007/28/2022 COMPL ETE BLOOD COUNT MCHC 30.7 g/dL (33.0- 37.0) low Not Available [facility] (Centralized Electronic Ordering - All Locations) Patient Can Go To The Location Of Their Choice, 07/28/2022 16:23:28 07/28/2007/28/2022 COMPL ETE BLOOD COUNT plt 275 K/mm3 (150-4 60) Not Available [facility] (Centralized Electronic Ordering - All Locations) Patient Can Go To The Location Of Their Choice, 07/28/2022 16:23:28 07/28/2007/28/2022 COMPL ETE BLOOD COUNT RDW-SD 49.8 fL (<47.0 ) high Not Available [facility] (Centralized Electronic Ordering - All Locations) Patient Can Go To The Location Of Their Choice, 07/28/2022 16:23:28 07/28/2007/28/2022 COMPL ETE BLOOD COUNT MPV 10.9 fL (9.4-1 2.4) Not Available [facility] (Centralized Electronic Ordering - All Locations) Patient Can Go To The Location Of Their Choice, 07/28/2022 16:23:28 07/28/2007/28/2022 COMPL ETE BLOOD COUNT automated NRBC 0.0 #/100 _WBC' s Not Available [facility] (Centralized Electronic Ordering - All Locations) Patient Can Go To The Location Of Their Choice, 07/28/2022 16:23:28 07/28/2007/28/2022 COMPL ETE BLOOD COUNT abs. NRBC 0.0 K/mm3 Not Available [facility] (Centralized Electronic Ordering - All Locations) Patient Can Go To The Location Of Their Choice, 07/28/2022 16:23:28 07/28/2007/28/2022 SEDIM ENTAT ION RATE, AUTOM ATED sedimentatio n rate,automat ed 33 mm/HR (0-20) high Not Available [facility] (Centralized [facility] Ordering - All Locations) Patient Can Go To The Location Of Their Choice, 07/28/2022 16:30:21 07/28/2007/28/2022 COMPR EHENS TRISTEN METAB OLIC PANL glucose 95 mg/dL (70-99 ) Not Available [facility] (Centralized Electronic Ordering - All Locations) Patient Can Go To The Location Of Their Choice, 07/28/2022 22:41:31 07/28/2007/28/2022 COMPR EHENS TRISTEN METAB OLIC PANL BUN 20 mg/dL (8-23) Not Available [facility] (Centralized Electronic Ordering - All Locations) Patient Can Go To The Location Of Their Choice, 07/28/2022 22:41:31 07/28/2007/28/2022 COMPR EHENS TRISTEN METAB OLIC PANL creatinine 0.7 mg/dL (0.5-1 .0) Not Available [facility] (Centralized Electronic Ordering - All Locations) Patient Can Go To The Location Of Their Choice, 07/28/2022 22:41:31 07/28/2007/28/2022 COMPR EHENS TRISTEN METAB OLIC PANL sodium 139 mmol/ L (133-1 45) Not Available [facility] (Centralized Electronic Ordering - All Locations) Patient Can Go To The Location Of Their Choice, 07/28/2022 22:41:31 07/28/2007/28/2022 COMPR EHENS TRISTEN METAB OLIC PANL potassium 4.1 mmol/ L (3.6-5 .2) Not Available [facility] (Centralized Electronic Ordering - All Locations) Patient Can Go To The Location Of Their Choice, 07/28/2022 22:41:31 07/28/2007/28/2022 COMPR EHENS TRISTEN METAB OLIC PANL chloride 100 mmol/ L (98-10 7) Not Available [facility] (Centralized Electronic Ordering - All Locations) Patient Can Go To The Location Of Their Choice, 07/28/2022 22:41:31 07/28/2007/28/2022 COMPR EHENS TRISTEN METAB OLIC PANL bicarbonate 27 mmol/ L (22-29 ) Not Available [facility] (Centralized Electronic Ordering - All Locations) Patient Can Go To The Location Of Their Choice, 07/28/2022 22:41:31 07/28/2007/28/2022 COMPR EHENS TRISTEN METAB OLIC PANL anion gap 12 (4-17) Not Available [facility] (Centralized Electronic Ordering - All Locations) Patient Can Go To The Location Of Their Choice, 07/28/2022 22:41:31 07/28/2007/28/2022 COMPR EHENS TRISTEN METAB OLIC PANL albumin 4.4 gm/dL (3.4-4 .8) Not Available [facility] (Centralized Electronic Ordering - All Locations) Patient Can Go To The Location Of Their Choice, 07/28/2022 22:41:31 07/28/2007/28/2022 COMPR EHENS TRISTEN METAB OLIC PANL calcium 9.1 mg/dL (8.6-1 0.5) Not Available [facility] (Centralized Electronic Ordering - All Locations) Patient Can Go To The Location Of Their Choice, 07/28/2022 22:41:31 07/28/2007/28/2022 COMPR EHENS TRISTEN METAB OLIC PANL bilirubin,to josee 0.2 mg/dL (0-1.2 ) Not Available [facility] (Centralized Electronic Ordering - All Locations) Patient Can Go To The Location Of Their Choice, 07/28/2022 22:41:31 07/28/2007/28/2022 COMPR EHENS TRISTEN METAB OLIC PANL total protein 6.7 gm/dL (6.2-8 .2) Not Available [facility] (Centralized Electronic Ordering - All Locations) Patient Can Go To The Location Of Their Choice, 07/28/2022 22:41:31 07/28/2007/28/2022 COMPR EHENS TRISTEN METAB OLIC PANL Ag ratio 1.9 Not Available [facility] (Centralized Electronic Ordering - All Locations) Patient Can Go To The Location Of Their Choice, 07/28/2022 22:41:31 07/28/2007/28/2022 COMPR EHENS TRISTEN METAB OLIC PANL AST 15 U/L (0-32) Not Available [facility] (Centralized Electronic Ordering - All Locations) Patient Can Go To The Location Of Their Choice, 07/28/2022 22:41:31 07/28/2007/28/2022 COMPR EHENS TRISTEN METAB OLIC PANL alk phos 130 U/L (35-10 4) high Not Available [facility] (Centralized Electronic Ordering - All Locations) Patient Can Go To The Location Of Their Choice, 07/28/2022 22:41:31 07/28/2007/28/2022 COMPR EHENS TRISTEN METAB OLIC PANL ALT 20 U/L (0-33) Not Available [facility] (Centralized Electronic Ordering - All Locations) Patient Can Go To The Location Of Their Choice, 07/28/2022 22:41:31 07/28/2007/28/2022 COMPR EHENS TRISTEN METAB OLIC PANL estimated GFR creatinine 96 mL/mi n/1.7 3_M2 Creat inine based estim ated glome rular filtr ation (eGFR ) in adult s is calcu lated using the Natio nal Kidne y Found ation recom tao d 2020 CKD-E PI equat ion. Estim ates GFR from serum creat inine , age and sex. Not Available [facility] (Centralized Electronic Ordering - All Locations) Patient Can Go To The Location Of Their Choice, 07/28/2022 22:41:31 07/28/2007/28/2022 C-ADRIANNE CTIVE PROTE IN C-reactive protein 2.3 mg/dL (0-0.5 ) high Not Available [facility] (Centralized Electronic Ordering - All Locations) Patient Can Go To The Location Of Their Choice, 07/28/2022 22:41:33 10/18/19 23 10/18/2022 XR, shoul karina CLINIC AL HISTOR Y: Right should er pain. No injury . TECHNI QUE: 3 views of the right should er were obtain ed. COMPAR ABY: None. FINDIN GS: There is no fractu re or disloc ation. The acromi oclavi cular joint space is preser alie. The glenoh umeral joint space is preser alie. There is minima l cortic al irregu larity in the greate r tubero sity. This is unlike ly to be signif icant. IMPRES JESI: No acute bone abnorm ality. Minima l degene rative change . Jessica gonzalez Physic dorita: Shanthi Dorman ms [facility] (Imaging) [address] [place], [address], 11/01/2022 13:15:54 10/18/19 23 10/18/2022 XR, humer us CLINIC AL HISTOR Y: Right humeru s pain. TECHNI QUE: Two views of the right humeru s were obtain ed. COMPAR ABY: None. FINDIN GS: There is no fractu re. No suspic ious bone lesion is apprec iated. There are mild degene rative change s of the doc l head. IMPRES JESI: No acute bone abnorm ality. Jessica gonzalez Physic dorita: Shanthi Dorman ms [facility] (Imaging) [address] [place], [address], 10/19/2022 11:45:53 11/01/19 23 10/30/2022 MRI, shoul karina, w/o contr ast No observ ation record ed. [facility] [address], [place], [address], 11/11/2022 10:58:01 11/01/19 23 10/30/2022 MRI, shoul karina, w/o contr ast [facility] Access ion Number : [id number] Memo t Name: Josefina Suggs Record Number : [id number] Date of : 1959 Date of Exam: 2022 Referr abby Foote dorita: Oscar Ferguson [facility] [address] [place] [address] Exam: MR Should er (C-) CPT 24516 - Right Room Descri ption: Jeronimo Siem Espr 1.5 Should er MRI right Clinic al Histor y: Pain Compar aby: 019 Findin gs: Mild acromi oclavi cular osteoa rthrit is. Hooked acromi on proces s. Full-t hickne ss tear within latera l outlet fibers of the digital marketing apprentice ior supras pinatu s. Tear measur es approx imatel y 1.3 cm medial to latera l by 0.5 - 1 cm front to back. Full-t hickne ss tear within footpr int fibers of the supras pinatu s tendon . Torn fibers retrac may approx imatel y 1 to 1.5 cm. Tear measur es approx imatel y 1 cm front to back. Infras pinatu s tendin opathy Possib le small focus of calcif ic tendin itis/H ADD within infras pinatu s tendon fibers on image 12 of series 3 The teres minor tendon is intact . Subsca pulari s tendin opathy . Myoten dinous cyst within the subsca pulari s measur es up to 4 x 1.5 x 1.5 cm The long head of the biceps tendon is intact with intra- articu lar tendin opathy . Small glenoh umeral osteop hytes Mild fatty atroph y of rotato r cuff muscul ature hasn't change d Impres jesi: Full-t hickne ss supras pinatu s tears are outlin ed above. There has been a slight progre ssion in the grade and size of the tears when compar ed with 2019. Infras pinatu s, subsca pulari s and biceps tendin opathy . Myoten dinous cyst within the subsca pulari s Possib le small focus of calcif ic tendin itis/H ADD within distal infras pinatu s tendon fibers . Mild acromi oclavi cular and glenoh umeral osteoa rthrit is. Electr onical ly Signed By: Ruma Ballard MD [facility] ([facility]) [address], [place], [address], 11/11/2022 10:58:01 Result Notes Documentation Provider Name and Address Organization Details Recorded Time Xr, Shoulder : CLINICAL HISTORY: Right shoulder pain. No injury. TECHNIQUE: 3 views of the right shoulder were obtained. COMPARISON: None. FINDINGS: There is no fracture or dislocation. The acromioclavicular joint space is preserved. The glenohumeral joint space is preserved. There is minimal cortical irregularity in the greater tuberosity. This is unlikely to be significant. IMPRESSION: No acute bone abnormality. Minimal degenerative change. Reading Physician: Ochoa Ferguson MD [address] [place] [address], [phone], [facility] 10/19/2022 08:24:23 Xr, Humerus : CLINICAL HISTORY: Right humerus pain. TECHNIQUE: Two views of the right humerus were obtained. COMPARISON: None. FINDINGS: There is no fracture. No suspicious bone lesion is appreciated. There are mild degenerative changes of the humeral head. IMPRESSION: No acute bone abnormality. Reading Physician: Ochoa Ferguson MD [address] [place] [address], [phone], [facility] 10/19/2022 08:24:24 Mri, Shoulder, W/o Contrast : [facility] Accession Number: [id number] Patient Name: Josefina Suggs Date of : 1960 Date of Exam: 10-30-2022 Referring Physician: Will Ferguson [address] [address] Exam: MR Shoulder (C-) CPT 31592 - Right Room Description: Jeronimo Reed Espr 1.5 Shoulder MRI right Clinical History: Pain Comparison: 02/21/2019 Findings: Mild acromioclavicular osteoarthritis. Hooked acromion process. Full-thickness tear within lateral outlet fibers of the posterior supraspinatus. Tear measures approximately 1.3 cm medial to lateral by 0.5 - 1 cm front to back. Full-thickness tear within footprint fibers of the supraspinatus tendon. Torn fibers retracted approximately 1 to 1.5 cm. Tear measures approximately 1 cm front to back. Infraspinatus tendinopathy Possible small focus of calcific tendinitis/HADD within infraspinatus tendon fibers on image 12 of series 3 The teres minor tendon is intact . Subscapularis tendinopathy. Myotendinous cyst within the subscapularis measures up to 4 x 1.5 x 1.5 cm The long head of the biceps tendon is intact with intra-articular tendinopathy . Small glenohumeral osteophytes Mild fatty atrophy of rotator cuff musculature hasn't changed Impression: Full-thickness supraspinatus tears are outlined above. There has been a slight progression in the grade and size of the tears when compared with 2019. Infraspinatus, subscapularis and biceps tendinopathy. Myotendinous cyst within the subscapularis Possible small focus of calcific tendinitis/HADD within distal infraspinatus tendon fibers. Mild acromioclavicular and glenohumeral osteoarthritis. Electronically Signed By: Kiran Ferguson MD [address] [place] [address], [phone], [facility] 11/11/2022 10:58:01 Problems Name Problem SNOMED Code Status Onset Date Resolution Date Notes Provider Name and Address Organization Details Recorded Time Osteoarthri tis of joint of hand 40520341 Active Bebo Diaz MD [address] [place], [place] [address]F[place], 1, [facility] 6 15:56:29 Knee pain Active Bebo Diaz MD [address] [place], [place] [address], 1, [facility] 4 10:26:52 Pain of hip region 26381579 Active Simona Ann [facility] 4 08:21:04 Hand pain 27302036 Active Bebo Diaz MD [address] [place], [place] [address], 1, [facility] 6 17:30:19 Stenosing tenosynovit is 41576076 Active Bebo Diaz MD [address] [place], [place] [address], 1, [facility] 6 17:30:19 Morbid obesity 273820695 Active 2020 BMI > 40 Merly Goyal LPN [facility] 1 10:07:28 Seronegativ e rheumatoid arthritis 934506756 Completed 202009/10/2021 Nirmala akdins, [facility] 14:21:07 Rheumatoid arthritis 52865166 [facility] 14:21:22 Problem Notes None recorded. Procedures Surgical History Date Name Laterality Status Provider Name and Address Organization Details Recorded Time 09/22/20 Injectable Medication Teaching completed Grace Vega LPN [facility] 09/22/2021 11:42:43 08/15/20 20 Ultrasound Guided Trochanteric Injection completed Bebo Diaz MD [address] [place] [address], [phone], [facility] 08/16/2020 08:49:03 06/20/20 19 Shoulder (Right) Injection completed Bebo Diaz MD [address] [place] [address], [phone], [facility] 06/20/2019 16:34:54 12/20/19 19 Generic Procedure Template completed Bebo Diaz MD [address] [place] [address], [phone], [facility] 12/19/2018 17:03:13 01/04/20 17 Smoking cessation counseling completed Linda Morris LPN [facility] 01/03/2017 13:11:53 Total Hysterectomy completed Bebo Diaz MD [address] [place] [address], [phone], [facility] 03/23/2014 11:29:54 Imaging Results None recorded. Procedure Notes None recorded. Medical Equipment None Reported. Allergies Allergen ID Allergen Name Allergen Category Reaction Reaction Severity Criticality Documentation Date Start Date Code Code System Note Provider Name and Address Organization Details Recorded Time 1960 Avelox medicatio n anaphylax is severe Not available 01/03/2017 26992 6 [facility] 7 13:07:23 1960 Effexor medicatio n anaphylax is severe Not available 01/03/2017 44662 2 RxNorm Linda Morris LPN null, [facility] 7 13:10:22 945757 Lyrica medicatio n edema Not available Not available 01/03/2017 41350 1 RxNorm Linda Morris, APARTMENT LEASING CONSULTANT null, [facility] 7 13:10:49 871004 codeine medicatio n itching moderate Not available 12/30/2017 2670 RxNorm Linda Morris, APARTMENT LEASING CONSULTANT null, [facility] 8 11:36:31 531074 ibuprofen medicatio n gi bleed severe Not available 01/29/20202019 5640 RxNorm Rula Lopezgood, APARTMENT LEASING CONSULTANT null, [facility] 0 10:54:34 773449 sulfasala zine medicatio n other severe Not available 02/05/2020 9524 RxNorm mouth and lips burni ng, jono en, white patch es, RIOS, nause a Rula Keane, APARTMENT LEASING CONSULTANT null, [facility] 0 15:50:03 Medications Name Sig Start Date Stop Date Status Note LastModified by Organization Details LastModified Time Prescript ion - Prior Authoriza tion Request active Not Available Not Available Not Available furosemid e 40 mg tablet Take 1 tablet every other day by oral route. active Not Available Not Available No t Available prednison e 10 mg tablet 2 po qd 4 d then 1 po qd for 10d 01/04 completed inflamma tory arthriti s mostly involvin g the hands, 4 mg a day 01/04/22 Not Available Not Available Not Available gabapenti n 600 mg tablet Take 1 tablet 3 times a day by oral route. 09/21 completed 100mg tid Not Available Not Available Not Available Plaquenil 200 mg tablet Take 1 tablet every day by oral route. 01/04 completed Not taking. Pt reports after 2 days felt very nauseous Not Available Not Available Not Available Prozac 40 mg capsule Take 1 capsule every day by oral route. active Not Available Not Available No t Available gabapenti n 400 mg capsule takes 1 cap every other night 01/03 completed Not Available Not Available Not Available prednison e 5 mg tablet TAKE ONE-HALF TO 1 TABLET BY MOUTH ONCE DAILY DIRECTED active Not Available Not Available No t Available sulfasala zine 500 mg tablet,de layed release Starting Approxim ately 01/22/20, take 1 po qd 5d then 1 po bid 5 d then 2 po bid 08/14 completed Pt stopped: reports tongue burnt, lips and inside of mouth sore, increase d headache s. Not Available Not Available Not Available Protonix 20 mg tablet,de layed release Take 1 tablet every day by oral route. 11/25 completed [facility] 08/28, changed to omeprazo le Not Available Not Available Not Available leflunomi de 10 mg tablet 1 po qod for 1 week, then 1 po qd 01/04 completed Pt not taking, caused diarrhea , nausea, RIOS Not Available Not Available Not Available clopidogr el 75 mg tablet Take 1 tablet every day by oral route. active Not Available Not Available No t Available omeprazol e 40 mg capsule,d elayed release Take 1 capsule every day by oral route. active Not Available Not Available No t Available ketorolac 30 mg/mL (1 mL) injection solution Inject 1 mL every 6 hours by intramus cular route. 06/20 completed Not Available Not Available Not Available oxycodone -acetamin ophen 5 mg-325 mg tablet Take 1 tablet every 6 hours by oral route. 2019 active Pt not taking, causes aggitati on/on hand prn Not Available Not Available Not Available lorazepam 0.5 mg tablet Take 1 tablet 3 times a day by oral route as needed. active 05.5 mg taking 3 tabs/jhony ly Not Available Not Available Not Available methotrex ate sodium 2.5 mg tablet 6 tabs by mouth all at once, one day each week 01/04 completed Pt stopped taking early 10/2019 Not Available Not Available Not Available prednison e 1 mg tablet Take 4 tablets every day by oral route. 2020 active 2.5 - 5 mg/d and then taper, taking 2.5 mg 11/11/21 Not Available Not Available Not Available venlafaxi ne 37.5 mg tablet Take 2 tablets every day by oral route. 01/03 completed Not Available Not Available Not Available Prozac 20 mg capsule Take 1 capsule every day by oral route. 09/21 completed Not Available Not Available Not Available oxycodone 5 mg capsule Take 1 capsule every 6 hours by oral route as needed. 12/19 completed Pt. states takes approxim ately once a month Not Available Not Available Not Available betametha sone dipropion ate 0.05 % topical cream APPLY A THIN LAYER TO THE AFFECTED AREA(S) BY TOPICAL ROUTE ONCE DAILY 2016 active PRN Not Available Not Available Not Avai lable omeprazol e 20 mg capsule,d elayed release TAKE ONE CAPSULE BY [id number] 10/22 completed Taking protonix Not Available Not Available Not Available diclofena c sodium 75 mg tablet,de layed release Take 1 tablet(s ) twice a day by oral route. 01/04 completed Pt. states with food and omeprazo le still made her stomach hurt. Not taking 01/03/17 Not Available Not Available Not Available leucovori n calcium 5 mg tablet 4 po once per week, approx 8 - 12 hrs after MTX dose. 01/04 completed Pt stopped taking early 10/2019 Not Available Not Available Not Available folic acid 1 mg tablet Take 2 tablets every day by oral route. 01/04 completed Pt not taking Not Available Not Available Not Available Cymbalta 20 mg capsule,d elayed release Take 1 capsule twice a day by oral route. 06/29 completed Not Available Not Available Not Available Lyrica 100 mg capsule Take 1 capsule twice a day by oral route. 01/03 completed Not Available Not Available Not Available ibuprofen 600mg TID every day PRN 01/28 completed stopped 12/24/19 d/t GI bleed Not Available Not Available Not Available Benadryl active Not Available Not Avai lable Not Available gabapenti n 400mg TID active 800 BID and 600 TID Not Available Not Available Not Available Wellbutri n SR 75mg daily 12/02 completed changed to Prozac Not Available Not Available Not Available Voltaren 1 % topical gel APPLY 2 GRAM TO THE AFFECTED AREA(S) BY TOPICAL ROUTE 4 TIMES PER DAY 12/19 completed Not Available Not Available Not Available Orencia 125 mg/mL subcutane ous syringe active weekly Not Available Not Available Not Available Orencia ClickJect 125 mg/mL subcutane ous auto-inje ctor INJECT THE CONTENTS OF ONE PREFILLE D SYRINGE SUBCUTAN EOUSLY ONCE WEEKLY active Not Available Not Available No t Available Humira(CF ) Pen 40 mg/0.4 mL subcutane ous kit INJECT 0.4 ML EVERY 2 WEEKS BY SUBCUTAN EOUS ROUTE FOR 28 DAYS. 11/11 completed taking orencia now Not Available Not Available Not Available aspirin 81 mg capsule Take 1 capsule every day by oral route. active Not Available Not Available No t Available Vitals Date Recorded Body height Heart rate Systolic And Diastolic Provider Name and Address Organization Details Last Updated DateTime 10/14/2022 162.56 cm 72 /min 122/76 mm[Hg] Bee Kapadia [facility] [place] 10/14/2022 14:01:20 Date Recorded Body height Body mass index (BMI) Body weight Heart rate Oxygen saturation Oxygen saturation in Arterial blood by Pulse oximetry Systolic And Diastolic Provider Name and Address Organization Details Last Updated DateTime 162.56 cm 41.2 kg/m2 251030. 17 g 77 /min 95 % 95 % 112/82 mm[Hg] Rula Keane [facility] 3 10:36:37 Date Recorded Body height Provider Name an d Address Organization Details Last Updated DateTime 01/04/2022 162.56 cm Grace Vega [facility] 01/04/2022 15:01:25 Date Recorded Body height Provider Name an d Address Organization Details Last Updated DateTime 04/29/2022 162.56 cm Grace Vega [facility] 04/29/2022 14:33:56 Date Recorded Body height Body mass index (BMI) Body weight Heart rate Systolic And Diastolic Provider Name and Address Organization Details Last Updated DateTime 08/24/2022 162.56 cm 42.2 kg/m2 513419.0 8 g 75 /min 124/86 mm[Hg] Grace HoodLENCHO santos [facility] 08/24/2022 11:20:51 Social History Question Answer Notes LastModified by [employer] Details LastModified Time Tobacco Smoking Status Former Smoker states she quit 1 week ago [facility]/03/2017 13:11:48 What Was The Date Of Your Most Recent Tobacco Screening? 12/19/2018 Information not available 05/02/2019 Sex: Unknown Functional Status Question Answer Note LastModified by Organizat ion Details LastModified Time What is your level of alcohol consumption? Occasional once q 3 months [email or web address] Information not available 09/21/2018 Mental Status None recorded. Family History Relationship Description Onset Age of this Age Resolved Age Notes LastModified by Organization Details LastModified Time Brother Malignant neoplasm of liver 50 [email or web address] Not available 2015 17:23:10 Maternal Grandfather Rheumatoid arthritis [email or web address] Not available 2015 17:23:10 Medical History Condition Response Osteoarthritis MUSCULOSKELETAL Y METABOLIC Y Sleep Apnea Y CANCER Y Gynecological HistoryNo gynecological history recorded. Obstetrics History GPAL:G 0 P 0 0 0 0 Immunizations Vaccine Type Date Status Note Provider Nam e and Address Organization Details Recorded Time Influenza, split virus, quadrivalent, preservative 7 completed Not Available [facility] 01/06/2023 11:16:25 influenza, unspecified formulation 8 completed Not Available [facility] 01/06/2023 11:16:25 Pneumococcal conjugate PCV 13 1 completed LENCHO Whyte [facility] 09/01/2021 13:28:22 Past Encounters Encounter ID Performer Location Encounter Start Date Encounter Closed Date Diagnosis/Indication Diagnosis SNOMED-CT Code Diagnosis ICD10 Code Diagnosis Note [id number] Bebo Diaz MD Rheumatol dany, [address] [address] 03/22/2014 13:35:08 03/25/2014 09:20:00 Osteoarthritis of joint of hand [id number] On the basis of today's exam, no signs of any active synovitis in the hands. She pretty clearly has osteoarthr itic changes at the DIP joints. There is some tenderness and enlargemen t at the thumb MCP joints bilaterall y. This is a little bit unusual for osteoarthr itis, but the appearance does not suggest active synovitis. I am reasonably certain we are dealing with degenerati ve and osteoarthr itis of the hands. She is relatively intolerant of NSAID medication s. She can try some arnica gel. In the future we could try some topical NSAID gel. Knee pain [id number] Patie nt is describing a lot of medial knee pain. The joint itself looks relatively good. I found no effusion. No instabilit y. She is maximally tender in the left anserine region and this may lend itself to local injection in the future. We will tend to her hip first. Pain of hip region [id number] Her most symptomati c problem today seems to be he right hip pain. She is quite limited at the hip with guarded movement. It we will obtain an x-ray, but I think we are dealing mostly with trochanter ic bursitis. Assuming nothing else shows up on x-ray, we will bring her back for an ultrasound -guided trochanter ic injection. There is considerab le overlying adipose. [id number] Bebo Diaz MD [facility] [address] [address] 09/26/2014 09:43:56 09/30/2014 09:16:19 Knee pain [id number] Minor injury 4 weeks ago followed by 3 weeks prominent pain and swelling. Swelling improved. Most pain now resolved but focal medial tenderness , some joint laxity to valgus stress, pain with certain external rotation movements. Suspect MCL injury, internal derangemen t . Clearly improving. Offered knee brace, but she prefers to try simple elastic sleeve first. Restrict activity for now. If not gradual improvemen t, should see Ortho. [id number] Bebo Diaz MD [facility] [address] [address] 10/20/2015 14:47:10 10/21/2015 07:30:08 Hand pain [id number] M79.641 M79.642 The patient is describing about 2 or 3 months of gradually progressiv e hand pain with significan t morning stiffness. Objective findings are pretty minimal, but that did seem to be trace effusions at the couple of the PIP joints especially in the right hand and she is describing trigger phenomenon right middle finger. There is some localized tenderness over the flexor tendon. With findings of symmetrica l PIP and MCP pain, duration of a couple of months I am a little bit suspicious for early onset of inflammato ry arthritis, particular ly. Diagnostic ally check labs. Also check baseline x-rays of the hands. Therapeuti mikal, we can see if she is able to tolerate an anti-infla mmatory with concurrent omeprazole . Specifical ly, try diclofenac 75 twice a day with omeprazole 20 mg daily. We discussed fully the potential side effects of NSAIDs including GI issues and cardiovasc ular risk. I have asked her to return in about 3 weeks to discuss response to treatment, review labs and x-rays. She should call sooner if she has a major flare in symptoms. Stenosing tenosynovitis [id number] M65.80 trigger finger R middle. Mild tenderness at a couple of other MCPs. Possibly related to underlying inflmmator y arthritis. [id number] Bebo Diaz MD [facility] [address] [address] 01/03/2017 13:02:34 01/04/2017 07:41:01 Tobacco user [id number] Z72.0 Discussed with patient advisabili ty of smoking cessation. Specifical ly emphasized that, in addition to other ills, smoking promotes inflammati on and that arthritis patients who smoke have less of a response to the anti-rheum atic drugs than non smokers. Offered encouragem ent to stop smoking. Provided resources to contact Cigarette smoker [id number] F17.210 Pain of mu ltiple joints 93717598 M25.50 Widespread painful symptoms, most prominent in hands.Whil e there are no objective findings, she describes a full 3-4 hours of AM stiffness in her hands.Labs all normal.She has widespread other MSK pain, tenderness , fatigue, non-restor ative sleep. While I think there is a large component of myofascial pain/fibro myalgia, there may be an inflammato ry component as well. Explained reasoning behind shor trial of prednisone to see if dramatic improvemen t in AM stiffness hands. Need to pay particular attention to duration of AM stiffness. I anticipate it may well be difficult to differenti ate her symptoms. I will see her in 3 weeks to review response to prednisone . In future, may try adding tizanidine at night. Sleep apnea [id number] G47 .30 Remote dx sleep apnea, not using machine. Has lost weight. [id number] Bebo Diaz MD Rheumatol dany, [address] [place] [address] 01/28/2017 10:01:20 01/31/2017 07:32:34 Inflammatory polyarthropathy [id number] M06.4 Possible inflammato ry polyarthri tis. I have not seen objective evidence of synovitis. However, she was describing 3 hours of AM stiffness involving hands that remitted dramatical ly with relatively low dose prednisone . I feel that suspicion for inflammato ry arthritis is high enough that I would like to try adding Plaquenil. Discussed the use of hydroxychl oroquine (Plaquenil ). Specifical ly discussed potential OTHER SPATIAL SCIENTIST and GI side effects, sun sensitivit y and hyperpigme ntation, and discussed specifical ly potential for retinal toxicity and the need for regular eye exams. Continue prednisone at current 5 mg/d, re-eval 8 weeks, but plan prednisone taper.[facility] labs next visit Fibromyalgia [id number] M 79.7 At recent visit I had felt she had fairly prominent fibromyalg ia. There was widespread pain, fatigue, tenderness etc. Interestin gly, most of these symptoms promptly remitted on the prednisne. This may be a non-specif ic response to the higher dose of steroids, but we will see what happens over next few weeks on low dose prednisone . Continue Cymbalta, gabapentin etc. Says taking less narcotic. [id number] Bebo Diaz MD Rheumatol dany, [address] [place] [address] 04/08/2017 14:31:50 04/08/2017 15:05:55 Eruption [id number] R21 Peeling skin palms; likely from mechanica l stretching related to pronounced swelling (by hx). Pain of mu ltiple joints 07282868 M25.50 Widespread painful symptoms, most prominent in hands.Whil e there are no objective findings, she describes a full 3-4 hours of AM stiffness in her hands.Labs all normal.She has widespread other MSK pain, tenderness , fatigue, non-restor ative sleep. While I think there is a component of myofascial pain/fibro myalgia, there seems to be a significan t inflammato ry component as well. I want to try to see her when swelling is present. Should stay on current 5 mg of prednisone until about a week before next visit, then rapidly taper off. Intolerant of Plaquenil. Next step would be MTX. [id number] Corona Cummins DPM Podiatry, [address] [place] [address] 05/26/2017 12:49:01 05/26/2017 15:12:27 Foot pain 91740453 M79.671 right foot xray ordered to evaluate alignment of bones and if there is a bone prominence that could be shaved. Corns and callus [id number] L84 aseptic debridemen t of b/l lesions to feet. To apply moisturiza tion to feet daily. Dispensed metatarsal pad to offload callus on right foot. RTC 9wks. [id number] Bebo Diaz MD Rheumatol ogy, [address] [place] [address] 06/14/2017 10:15:03 06/14/2017 13:46:50 Pain of multiple joints 49995119 M25.50 Widespread painful symptoms, most prominent in hands. By descriptio n there was diffuse hand/joint swelling and there was prednisone response. Swelling seems to have resolved and has not recurred with prenisone taper down to current 2.5 mg/d. Labs all normal. She will try to taper off the prednioson e entirely.C ontinue gabapentin which has been very useful for her pain. She has widespread other MSK pain, tenderness , fatigue, non-restor ative sleep. I think there is a component of myofascial pain/fibro myalgia. [id number] Corona Cummins DPM Podiatry, [address] [place] [address] 06/29/2017 10:43:46 06/29/2017 12:34:27 Foot pain 37817184 M79.671 right foot xray reviewed with pt. Notable for k-wire protruding to skin on 4th metatarsal correlatin g to site of pain and painful callus. Will plan for removal of painful retained hardware for jul 11. Explained to patient that due to the end of pin going plantarly and none going to top of bone, I would have to make a plantar approach to gain access. Will perform a rotational flap to gain access wire and remove painful callus. Explained risks and benefits including worsening of pain. Pt agrees and wants to proceed with surgery. I spent 25 mins face to face with patient, more 50% spent in counseling and coordinati on of care. Corns and callus 00 L84 aseptic debridemen t of b/l lesions to feet. To apply moisturiza tion to feet daily. Dispensed metatarsal pad to offload callus on right foot. RTC 9 wks. [id number] Corona Cummins DPM Podiatry, [address] [address] 07/20/2017 14:01:34 07/20/2017 14:57:06 Foot pain [id number] M79.671 doing well post op. Dressing changed today. Instructed to leave intact for another week then change herself. POst op xray ordered. continue non weightbear ing on right foot. RTC 2 weeks will remove sutures at that time. [id number] Corona Cummins DPM Podiatry, [address] [address] 08/04/2017 08:37:19 08/04/2017 09:30:03 Foot pain [id number] M79.671 doing well post op. Sutures removed today. Photo taken and uploaded into her chart. POst op xray reviewed with patient. Ok to get her foot wet. To transition to a walking boot. RTC 4 weeks. Injury of soft tissue 28 6894702 T14.90XD [id number] Bebo Diaz MD Rheumatol dany, [address] [address] 08/26/2017 10:44:19 08/29/2017 07:24:37 Pain of multiple joints 36024621 M25.50 At previous visits, widespread painful symptoms, most prominent in hands. By descriptio n there was diffuse hand/joint swelling and there was prednisone response.L abs all normal. She was doing well until just 2 days ago when she had migraine. Then sudden, more generalize d MSK sxs. It is hard to account for this. It could be some post migraine phenomenon . For now, try IBU 600 tid, but if sxs persist and if there is any swelling as she had on previous occasions, will suggest going back on prednsone. Continue gabapentin which has been very useful for her pain. Migraine 54846646 G43.90 9 I am quite certain that what she describes occurring yesterday was a classic migraine with aura. There was scotomata which resolved but then followed promptly by headache, photophobi a etc.Headac he now much improved.I suppose it is a bit unusual to have first migraine at age 56. No obvious precipitan t, but I do note that she recently (1 mo) was started on Wellbutrin , low dose.If migraine recurs, will need to discuss with Primary Care or Neurology whether further investigat ion or treatment is needed. There is coincident generalize d increase in MSK pains. I don't know if this is some unusual post migraine phenomenon or if this could be recurrence of her inflammato ry joint sxs.These multiple pains seem to respond to IBU and she also has taken a dose of prednisone . Anxiety 77176595 F41.9 Chronic anxiety, some depression . Has started Wellbutrin and was meant to increase dose, but she is afraid. Taking just 75/d. Discussed she could try 5 hydroxytry ptophan. Says that her daughter takes it with good success.di scussed dosing: start at 50/hs and increase up to 200/hs. Myofascial pain 13572067 9 M79.1 She has widespread other MSK pain, tenderness , fatigue, non-restor ative sleep. I think there also is a component of myofascial pain/fibro myalgia. [id number] Corona Cummins DPM Podiatry, [facility] [address] [facility] [place] [place] [address] 12/02/2017 10:42:49 12/05/2017 08:57:24 Foot pain 42247975 M79.671 related to painful scar Injury of soft tissue 28 3287193 T14.90XD Pain of scar 955365449 L 90.5 Callus debrided using aseptic technique. rx for voltaren gel sent to pharmacy to be applied to scar and massaged to area. Urgent referral to PT also sent for scar therapy. I hope that they can employ modalities to assist with breaking up her scar tissue. Consider cortisone injection to area to assist further with breaking up tissue. I spent 25 mins face to face with patient, more 50% spent in counseling and coordinati on of care. [id number] Bebo Diaz MD Rheumatol ogy, [address] [place] [address] 12/30/2017 11:29:20 12/30/2017 11:55:27 Pain of multiple joints 34322860 M25.50 At previous visits, widespread painful symptoms, most prominent in hands, especially MCPs. . By descriptio n there was diffuse hand/joint swelling and there was prednisone response.R ecent labs: ESR 28. CRP sl elevated. Neg RF, neg Lyme. I remain suspicious of a possible low grade inflammato ry polyarthri tis.Intole rant of Plaquenil. I don't want to put her back on prednisone (contribut ed to anxiety). In view of recent neurologic al symptoms, I want to hold off before institutin g any new meds. After nuerologic al eval, I will consider possibly trying MTX.Return 1 mo to discuss this. Continue gabapentin which has been very useful for her pain. Acquired t bridge rigger finger 7011745 M65.30 R index triggering ,offered injection, but she wants to wait. Migraine 26972657 G43.90 9 Last visit decribed occurence of classic migraine.N ow other neuro sxs followed by headache.H as neuro eval pending. [id number] Corona Cummins DPM Podiatry, [address] [place] [address] 06/01/2018 14:40:52 06/01/2018 16:53:35 Foot pain 19017490 M79.671 related to painful scar Injury of soft tissue 28 2465290 T14.90XD Pain of scar 938871338 L 90.5 Callus debrided using aseptic technique. Continue use of voltaren gel to be applied to scar and massaged to area. Also to contact PT also sent for scar therapy. I hope that they can employ modalities to assist with breaking up her scar tissue. Consider cortisone injection to area to assist further with breaking up tissue. I spent 15 mins face to face with patient, more 50% spent in counseling and coordinati on of care. [id number] Bebo Diaz MD [facility] [address] [place] [address] 09/21/2018 08:21:23 09/22/2018 07:03:13 Fibromyalgia 112073482 M79.7 At recent visit I had felt she had fairly prominent fibromyalg ia. There was widespread pain, fatigue, tenderness etc. Interestin gly, most of these symptoms promptly remitted when treated with prednisone last year, but promptly recurred. Now seems like flare , but no objective synovitis. I think most of sxs fibromyalg ia. Can try 10 days of prednisone 10 mg.Also discussed reasonable to try CBD oil.Memo em also has 5HT aat home. should only try one supplement at a time so as not to confuse. Continue gabapentin , Prozac etc. Tried Cymbalta in past: not effective. Check labs during flare up . [id number] Bebo Diaz MD [facility] [address] [place] [address] 12/19/2018 15:51:02 12/21/2018 06:14:27 Pain of shoulder region 21723734 M25.519 R shoulder pain.Findi ngs suggest R biceps tendinitis , but exam is difficult because of overlying adipose and because she has generalize d allodynia. I gave her bieps tendon injection with kenalog + 5 cc xylocaine and there was significna t immediate anesthetic response. also, inject 30 mg ketorolac. Fibromyalgia M 79.7 prominent fibromyalg ia. There is widespread pain, fatigue, tenderness etc. Interestin gly, most of these symptoms promptly remitted when treated with prednisone last year, but promptly recurred. Last time discussed reasonable to try CBD oil.Memo em also has 5HT aat home. should only try one supplement at a time so as not to confuse. Continue gabapentin , Prozac etc. Tried Cymbalta in past: not effective. Biceps tendinitis 958742 007 M75.21 Sxs localize as R biceps tendinitis . Try local injection. [id number] Bebo Diaz MD Rheumatol dany, [address] [place] [address] 06/20/2019 10:08:37 06/21/2019 15:46:30 Pain of multiple joints 69261805 M25.50 At previous visits, widespread painful symptoms, most prominent in hands, especially MCPs. . By descriptio n there was diffuse hand/joint swelling and there was prednisone response.I remain suspicious of a possible low grade inflammato ry polyarthri tis. Additional ly, there is almost certainly a major component of fibromyalg ia. This could well be inter-rela may with sleep apnea. Inflammato ry polyarthropathy 796967027 M06.4 Possible inflammato ry polyarthri tis. I have not seen objective evidence of synovitis. However, she was describing 3 hours of AM stiffness involving hands that remitted dramatical ly with relatively low dose prednisone . ESR and CRP have been consistent ly elevated. A couple of years ago we tried Plaquenil, but did not tolerate (GI).I would like to have her try again, but at just 200/d (script was written for 200 bid, but I called her and told her to try taking just one per day). If Plaquenil not tolerated, will consider trial on MTX.I don't want to put her back on skilled nursing prednisone (contribut ed to anxiety). Fibromyalgia 162417360 M 79.7 prominent fibromyalg ia. There is widespread pain, fatigue, tenderness etc.Contin ue gabapentin , Prozac etc. Tried Cymbalta in past: not effective. Strongly recommende d repeat sleep study. Confirmed apnea in past, but lost weight and now apnea improved. However now regained weight, she has AM headaches, has daytime hypersomno lence. Discussed relationsh ip fibromyalg ia and sleep apnea. Bursitis of shoulder 239 736313 M75.51 Bursitis/r otator cuff tendinitis R. Had MRI demonstrat ing tear.Can try local injection. Advised against surgery unless all conservati ve options exhaused. If injection not helpful should get PT. [id number] Bebo Diaz MD Rheumatol dany, [facility] [address] [facility] [place] [address] 10/22/2019 09:57:33 10/24/2019 14:49:18 Inflammatory polyarthropathy 592483409 M06.4 Probable inflammato ry polyarthri tis. Previously , I have not seen objective evidence of synovitis. However, she was describing 3 hours of AM stiffness involving hands that remitted dramatical ly with relatively low dose prednisone . ESR and CRP have been consistent ly elevated. Now she showed pictures of fairly prominent swelling at MCP joints from a few days ago. We tried Plaquenil, but did not tolerate (GI).Lisa hall just started 20/d prednisone . Instructed to reduce to 10 for 3 weeks, then 5/d until next visit. I am in favor of re-checkin g labs. Recent malar rash: rule out lupus. Will try adding MTX at just 12.5 mg/wk. Discussed therapeuti c options. Use of methotrexa te discussed in detail including potential side effects, possible adverse effects of alcohol, need for regular lab monitoring . No known history of hepatitis B or hepatitis C. Baseline labs and chest x-ray will be checked. Return 4-5 weeks for re-eval Fibromyalgia 025599043 M 79.7 prominent fibromyalg ia. There is widespread pain, fatigue, tenderness etc.Contin ue gabapentin , Prozac etc. Tried Cymbalta in past: not effective. I remain suspicious that FM is interrelat ed with sleep apnea. Confirmed apnea in past, but lost weight and apnea improved. However now regained weight, she has AM headaches, has daytime hypersomno lence. Discussed again relationsh ip fibromyalg ia and sleep apnea. Her insurance will not allow re-test but is allowing new CPAP machine. [id number] Bebo Diaz MD 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 Prior to last visit I had not seen objective evidence of synovitis. However, she was describing 3 hours of AM stiffness involving hands that remitted dramatical ly with relatively low dose prednisone . ESR and CRP have been consistent ly elevated. She showed pictures of fairly prominent swelling at MCP joints.[facility] tiple labs 10/22/19 all normal except sl increase ESR.On this basis initiated MTX, but not well tolerated. Describes mouth sores and hair loss. We tried Plaquenil, but did not tolerate (GI) ; discontinu e. Currently 2.5 mg/d prednisone . May continue. I am still thinking this is an undifferen tiated inflammato ry arthritis. Try adding low dose LEF. I discussed Leflunomid e, the potential for side effects including, but not limited to, diarrhea, rash, inflammati on of the liver. I emphasized need for monitoring labs and I explained that taking cholestyra mine might be necessary in the event of any serious side effect. Check labs today and at return in 4 weeks. Fibromyalgia 073540885 M 79.7 prominent fibromyalg ia. There is widespread pain, fatigue, tenderness etc.Contin ue gabapentin , Prozac etc. Tried Cymbalta in past: not effective. I remain suspicious that FM is interrelat ed with sleep apnea. Confirmed apnea in past, but lost weight and apnea improved. However now regained weight, she has AM headaches, has daytime hypersomno lence. Discussed again [facility] ip fibromyalg ia and sleep apnea. Her insurance will not allow re-test but is allowing new CPAP machine. [id number] Bebo Diaz MD Rheumatol og, [facility] [address] [place] [address] 01/01/2020 10:50:36 01/01/2020 14:30:18 Inflammatory polyarthropathy 562936780 M06.4 Probable inflammato ry polyarthri tis. Previously , I have not seen objective evidence of synovitis. However, she was describing 3 hours of AM stiffness involving hands that remitted dramatical ly with relatively low dose prednisone . ESR and CRP have been consistent ly elevated. A couple of visits ago she showed pictures of fairly prominent swelling at MCP joints. We tried Plaquenil, but did not tolerate (GI).She has been on MTX 12.5/wk, but I don't think she will tolerate a higher dose (mouth sores, hair loss, fatigue).A s discussed at last visit, she will be starting Leflunomid e. Also, she is taking just a trivial dose of prednisone . Increase to 2.5 mg/d. Avoid NSAID with recent GI bleed, but perhaps 2-3 mo from now could try her on Celebrex if needed. [id number] Bebo Diaz MD Rheumatol [address] [place] [address] 01/14/2020 08:45:52 01/15/2020 08:28:06 Inflammatory polyarthropathy 220873538 M06.4 Inflammato ry polyarthri tis. Previously , I had not seen objective evidence of synovitis. However, she was describing 3 hours of AM stiffness involving hands that remitted dramatical ly with relatively low dose prednisone . ESR and CRP have been consistent ly elevated. A couple of visits ago she showed pictures of fairly prominent swelling at MCP joints. She has been reluctant to stay on medication . Discussed at length.Con tinue prednisone 2.5 mg/d.Resta rt Plaquenil at 200 mg/d.Resta rt MTX at 12.5 mg/wk.In another week, start SSZ. Medication discussed in detail. Potential for side effects including, particular ly, potential for allergic reaction. On rare occasions this can be very serious. Patient instructed to discontinu e the medication immediatel y for any suspected allergy. Other side effects reviewed including headache, malaise, and GI upset. Follow-up blood count. Avoid NSAID with recent GI bleed, but perhaps 2-3 mo from now could try her on Celebrex if needed. Fibromyalgia 950085998 M 79.7 prominent fibromyalg ia. There is widespread pain, fatigue, tenderness etc.Contin ue gabapentin , Prozac etc. Tried Cymbalta in past: not effective. I remain suspicious that FM is interrelat ed with sleep apnea. Confirmed apnea in past, but lost weight and apnea improved. However now regained weight, she has AM headaches, has daytime hypersomno lence. Her insurance will not allow re-test but is allowing new CPAP machine. [id number] Bebo Diaz MD Rheumatol dany, [address] [place] [address] 01/29/2020 10:38:33 01/29/2020 12:08:58 Inflammatory polyarthropathy [id number] M06.4 Inflammato ry polyarthri tis. Previously , I had not seen objective evidence of synovitis. However, she was describing 3 hours of AM stiffness involving hands that remitted dramatical ly with relatively low dose prednisone . ESR and CRP have been consistent ly elevated. A couple of visits ago she showed pictures of fairly prominent swelling at MCP joints. She has been reluctant to stay on medication . Discussed at length.Con tinue prednisone 2.5 mg/d.Plaqu enil at 200 mg/d.MTX at 12.5 mg/wk. Continue on SSZ, increase to 500 bid (it doesn't seem likely she will tolerate full dose) Avoid NSAID with recent GI bleed, but perhaps 2-3 mo from now could try her on Celebrex if needed. Needs updated labs end of January. Fibromyalgia [id number] M 79.7 prominent fibromyalg ia. There is widespread pain, fatigue, tenderness etc.Contin ue gabapentin , Prozac etc. Tried Cymbalta in past: not effective. I remain suspicious that FM is interrelat ed with sleep apnea. Confirmed apnea in past, but lost weight and apnea improved. However now regained weight, she has AM headaches, has daytime hypersomno lence. Her insurance will not allow re-test but is allowing new CPAP machine. She is still waiting. [id number] Bebo Diaz MD [facility] [address] [facility] [place] [address] 02/05/2020 15:43:06 02/07/2020 07:13:51 Inflammatory polyarthropathy [id number] M06.4 Inflammato ry polyarthri tis. At least 2 issues with her. Joint pains seem fairly certain to be a true inflammato ry polyarthri tis.Also, however, prominent fatigue and global pain: likely combinatio n of FM and sleep apnea. Previously , I had not seen objective evidence of synovitis. However, she was describing 3 hours of AM stiffness involving hands that remitted dramatical ly with relatively low dose prednisone . ESR and CRP have been consistent ly elevated. A couple of visits ago she showed pictures of fairly prominent swelling at MCP joints. She has been reluctant to stay on medication .D/C SSZ (allergy)C ontinue prednisone 2.5 mg/d.Plaqu enil at 200 mg/d. Discussed options. I do not want to start Biologic in face of COVID.I will have her increase MTX to 17.5/wk. Avoid NSAID with recent GI bleed, but perhaps 2-3 mo from now could try her on Celebrex if needed. Needs updated labs March.Retun appt shortly after that. [id number] Bebo Diaz MD Rheumatol [place], [address] [place] [address] 06/10/2020 07:55:57 06/10/2020 16:32:27 Atypical chest pain [id number] R07.89 Intermitte nt sxs but usually days at a time. Some days asymptomat ic. Not exertional .Some pleuritic component. No response to prednisone past few days. Labs reviewed. ELDER neg in January . Results rom 06/06 still pending. ESR, CRP improved from last time. If CXR normal, will consider chest CT . Fatigue [id number] R53.83 Had home seep stdy. Results pending. [id number] Bebo Diaz MD Rheumatol [place], [address] [place], [place] [address] 08/14/2020 11:15:53 08/18/2020 07:11:46 Inflammatory polyarthropathy [id number] M06.4 Inflammato ry polyarthri tis. At least 2 issues with her. Joint pains seem fairly certain to be a true inflammato ry polyarthri tis.Also, however, prominent fatigue and global pain: likely combinatio n of FM and sleep apnea. Inflammato ry arthritis was better when taking MTX, but she stopped it because of hair loss. She has been reluctant to stay on any medication .D/C SSZ (allergy)C ontinue prednisone 2.5 mg/d.Plaqu enil at 200 mg/d. Discussed options. I do not want to start Biologic in face of COVID.I will have her restart MTX at 15 per wk. Double her doses of folate and leucovorin . Avoid NSAID with recent GI bleed, but perhaps 2-3 mo from now could try her on Celebrex if needed. Needs updated labs 1 mo. Trochanter ic bursitis of left hip [id number] 23450 M70.62 arrange u/s guided injection Fibromyalgia M 79.7 prominent fibromyalg ia. There is widespread pain, fatigue, tenderness etc.Contin ue gabapentin , Prozac etc. Tried Cymbalta in past: not effective. I remain suspicious that FM is interrelat ed with sleep apnea.Franchesca lly back on CPAP, but takes it off during night. [id number] Bebo Diaz MD Rheumatol [facility] [place], [place] [address] 08/15/2020 10:55:40 08/18/2020 07:13:11 Trochanteric bursitis of left hip [id number] 16889 M70.62 u/s guided injection today [id number] Bebo Diaz MD Rheumatol [place] [place] [address] 11/25/2020 07:58:22 11/26/2020 18:48:54 Undifferentiated inflammatory polyarthritis [id number] M13.0 Probable inflammato ry polyarthri tis. Prior to 2019, I had not seen objective evidence of synovitis. However, she was describing 3 hours of AM stiffness involving hands that remitted dramatical ly with relatively low dose prednisone . ESR and CRP have been consistent ly elevated. Last time she showed pictures of fairly prominent swelling at MCP joints. I am still thinking this is an undifferen tiated inflammato ry arthritis. Sxs mostly suppressed on low dse prednisone . Intolerant of DMARDS as listed in HPI. I do want her to try Plaquenil again: dose at just 200 mg/d. Discussed need for Ophth visit if remains on med. [id number] Bebo Diaz MD Rheumatol [address] [place] [address] 01/13/2021 08:28:47 01/13/2021 16:48:02 Headache [id number] R51.9 1 month of headache including worst headache of my life over weekend. Prior CT angio showed small L internal carotid aneurysm. Has seen Neuro in past. Has appt in 2 weeks. I do not think this is rheumatolo gic, but will screen with labs for GCA (However, note that always has elevated ESR from her RA) I urged that she re-contact neuro office, and if she is unable to be seen urgently, then should present to ER for evaluation . Undifferen tiated inflammatory polyarthritis [id number] M13.0 Probable inflammato ry polyarthri tis. Prior to 2019, I had not seen objective evidence of synovitis. However, she was describing 3 hours of AM stiffness involving hands that remitted dramatical ly with relatively low dose prednisone . ESR and CRP have been consistent ly elevated. Last time she showed pictures of fairly prominent swelling at MCP joints. I am still thinking this is an undifferen tiated inflammato ry arthritis. Sxs mostly suppressed on low dse prednisone . Intolerant of DMARDS as listed in HPI. I do not think shw warrants treatment with Biologic at this time. Continue prednisone 5 mg alt with 2.5 mg. Has f/u with Dr Soto in April. [id number] Bebo Diaz MD Rheumatol [place], [address] [place] [address] 04/28/2021 10:54:59 04/30/2021 16:23:37 Undifferentiated inflammatory polyarthritis [id number] M13.0 inflammato ry polyarthri tis. Prior to 2019, I had not seen objective evidence of synovitis. However, she was describing 3 hours of AM stiffness involving hands that remitted dramatical ly with relatively low dose prednisone . ESR and CRP have been consistent ly elevated. Unfortunat arsenio, intolerant of DMARDS as listed in HPI. MTX probably was helping, but she noted hair loss and stopped it. Hair loss has persisted off the MTX, so I would consider re-startin g it, but she was opposed. Synovitis seems to be localized to just to hands. I do not think she warrants treatment with Biologic at this time. While she has been vaccinated for Covid, she is at significan t risk Will have her increase daily prednisone to 4 mg. Has f/u with Dr Soto in Aug. Fibromyalgia 611678975 M 79.7 prominent fibromyalg ia. There is widespread pain, fatigue, tenderness etc.Contin ue gabapentin , Prozac etc. Tried Cymbalta in past: not effective. I remain suspicious that FM is interrelat ed with sleep apnea.Back on CPAP, but takes it off during night.Says there are plans to try different mask. Lipoma of back [id number] D17.1 small lipomas upper back. Discussed. [id number] Elke Soto MD Rheumatol dany, [address] [place] [address] 09/01/2021 08:30:08 09/01/2021 16:55:32 Chronic low back pain [id number] M54.50 Patient has chronic low back pain since age 14.Inflamm atory features, better with movement, worse with rest, prolonged morning stiffness. r/o spondyloar thropathy. Good response to NSAIDs, but has GI bleed.[facility] k labs.Check radiograph s and MRI. Long-term current use of systemic steroid [id number] 42253 Z79.52 Continue calcium and vitamin D.Check bone density. Seronegati ve rheumatoid arthritis 961245947 M06.00 Patient has pain and swelling in hands, synovitis on exam.Pain over wrists , shoulders. Failed/int olerated plaquenil, methotrexa te, SSZ, and leflunomid e.Will start Humira. Patient got COVID booster and flu shot.She will get PCV-13 today.Smihta ent to get Shingrix. Check labs.Check imaging. Side effects of Humira discussed with the patient, including but not limited to: injection site reactions, increased incidence of usual infections , serious infections (like TB), malignanci es, allergic reaction, demyelinat ing disease, heart failure, lupus-like syndrome, cytopenias . Patient counselled to stop the medication if fever or any other sign of infection and call her PCP or our office right away. Patient instructed not to have any live vaccines. Patient verbalized understand ing. Active or passive immunization [id number] Z23 [id number] Elke Soto MD Rheumatol dany, [facility] [address] [place] [address] 09/22/2021 11:01:04 09/23/2021 19:07:02 Rheumatoid arthritis 93425987 M06.9 Seronegati ve rheumatoid arthritis 009868128 M06.00 Patient has pain and swelling in hands, synovitis on exam.Pain over wrists , shoulders. Failed/int olerated plaquenil, methotrexa te, SSZ, and leflunomid e.Will start Humira. Patient got COVID booster and flu shot.She will get PCV-13 today.Smitha ent to get Shingrix. Check labs.Check imaging. Side effects of Humira discussed with the patient, including but not limited to: injection site reactions, increased incidence of usual infections , serious infections (like TB), malignanci es, allergic reaction, demyelinat ing disease, heart failure, lupus-like syndrome, cytopenias . Patient counselled to stop the medication if fever or any other sign of infection and call her PCP or our office right away. Patient instructed not to have any live vaccines. Patient verbalized understand ing. [id number] Elke Soto MD [facility], [address] [address] 01/04/2022 14:58:01 01/04/2022 16:13:33 Seronegative rheumatoid arthritis 126375880 M06.00 Patient has pain and swelling in hands, synovitis on exam.Pain over wrists , shoulders. Failed/int olerated plaquenil, methotrexa te, SSZ, and leflunomid e. Improved on Humira but inflamamto ry markers still elevated. Clinically patient is 75% better.Adrianne ssess in 10 weeks, in office.Kathy ck labs before next visit. Patient got PCV-13, flu shot, and first dose of Shingrix. Patient got the COVID series. Counselled about the 4 th dose. RTC in 10 weeks. Long-term current use of systemic steroid [id number] 04121 Z79.52 Continue calcium and vitamin D.Recheck bone density. It was ordered before, not done. Sleep apnea [id number] G47 .30 She has severe fatigue.St opped CPAP.Couns elled to follow with her pcp and the sleep studies. [id number] Elke Soto MD Rheumatol [place], [address] [address] 04/29/2022 14:32:37 04/29/2022 15:05:11 Seronegative rheumatoid arthritis 078470631 M06.00 Patient has pain and swelling in hands, synovitis on exam.Pain over wrists , shoulders. Failed/int olerated plaquenil, methotrexa te, SSZ, and leflunomid e. Incomplete response to Humira but inflammato ry markers still elevated.P atient is still on prednisone 5-10 mg daily, counselled to wean down /off prednisone .D/C Humira.Sta rt Orencia.Ch la ;abs before next visit. Kevzara is a good option but patient is having gI issues, will wait for GI evaluation . Patient got PCV-13, flu shot, and first dose of Shingrix. Patient got the COVID series. RTC in 4 months Side effects of Orencia discussed with the patient, including but not limited to: injection site reactions, increase risk of usual infections , serious infections , allergic reaction, malignanci es. Patient counselled to stop the medication if fever or any other sign of infection and call his PCP or our office right away. Patient instructed not to have any live vaccines. Patient verbalized understand ing. Long-term current use of systemic steroid [id number] 63593 Z79.52 Continue calcium and vitamin D.Awaiting bone density. Sleep apnea 68799446 G47 .30 She has severe fatigue.St opped CPAP.Couns elled to follow with her pcp and the sleep studies. [id number] Elke Soto MD Rheumatol dany, [address] [place] [address] 08/24/2022 11:05:50 08/27/2022 13:49:13 Rheumatoid arthritis 56700083 M06.9 Seronegati ve rheumatoid arthritis 661538577 M06.00 Patient had pain and swelling in hands, synovitis on exam.Pain over wrists , shoulders. Failed/int olerated plaquenil, methotrexa te, SSZ, and leflunomid e.Incomple te response to Humira Doing better on Orencia and prednisone 1-2 times a week. Patient is having brain surgery but she is not sure what kind of surgery.I asked her to discuss with her neurosurge on as she will need to be off Orencia. j carlos is contacting them today and she will let me know. Long-term current use of systemic steroid [id number] 64079 Z79.52 Continue calcium and vitamin D.Awaiting bone density.Pr eviously ordered. Patient has more important issues now, she is to follow with her pcp on this. Pain in right arm 513275 004 M79.601 She will be seeing Dr. Ferguson for further evaluation . [id number] Will Ferguson MD Sports Medicine, [address] [place] [address] 10/14/2022 13:40:15 10/18/2022 21:31:13 Pain of shoulder region 91536438 M25.519 Josefina is a 62-year-ol d female with right shoulder pain that I suspect is due to worsening of a previously seen rotator cuff tear. Her MRI report from 2019 of the right shoulder indicates a small full-thick ness tear of the distal supraspina tus tendon. Her ultrasound exam today this appears to have significan tly widened and I feel she likely has had extension of the tear causing her symptoms. I reviewed all of this with her today as well as discussing treatment. I did ask that she have x-rays of her shoulder and humerus after the office visit. If these are nondiagnos tic I have ordered an updated MRI to evaluate for progressio n of her rotator cuff tear requiring surgical interventi on. She will plan to follow up with me after her MRI for reevaluati on. Until that time she will use Tylenol for pain and continue to keep her arm moving his normally as possible to prevent stiffness. Pain in right arm 398454 004 M79.261 [id number] Will Ferguson MD Sports Medicine, [address] [place] [address] 11/11/2022 10:26:13 11/12/2022 08:41:32 Pain of shoulder region 17591809 M25.511 Josefina is a 62-year-ol d female with right shoulder pain that I believe is primarily due to enlargemen t of her previously seen supraspina tus tear. The tear measures a medial to lateral distance of approximat arsenio 1.6 cm on her recent MRI. She was also noted to have a cyst within her subscapula ris muscle that appears to communicat e with her glenohumer al joint and may be an anterior paralabral cyst. I reviewed all this with her today as well as discussing treatment. Due to the enlarging size of her rotator cuff tear I have advised consultati on with a surgeon to discuss operative options. She was given a referral to Dr. Gibson will call to set up an appointmen t. I have advised continued range of motion exercises to prevent stiffness. Josefina will plan to follow-up with me only as needed if surgery is not anticipate d. Pain in right arm [id number] 004 M79.601 Health Concerns Section Related Observation LastModified by Organization Detai ls LastModified Time None Recorded Concern Status LastModified by Organization Details LastModified Time None Recorded Advance Directives Directive None Recorded Payers Insurance Date Sequence Insurance Name Policy Number Policy Steve Covered Member ID Steve Member ID Guarantor Name 08/22/2024 2 [place] [facility] Josefina Suggs [id number] Josefina Suggs 01/29/2022 1 [place] [employer] Josefina Suggs [id number] Josefina Suggs 08/22/2024 1 [place] [employer] Josefina Suggs [id number] Josefina Suggs 01/29/2022 2 [place] Josefina Suggs [id number] Josefina Suggs Notes Date Note Type Note Provider Name and Address Organization Details Recorded Time 01/04/2022 text/html This is a [employer] phone visit. Patient agreed to this visit via phone or secure telehealth platform due to the COVID -19 pandemic. Patient understands this is a scheduled visit and the usual procedures with regard to billing and confidentiality apply. Patient was notified that the provider location is home Patient location: home During the visit the patient s medical history and medical record were reviewed. Patient is 61 y old female following-up on seronegative rheumatoid arthritis.Patient states that she is doing ok. Patient states that she has 75% improvement in her pain and swelling. She can use her hands again.She is taking Humira and prednisone 4 mg daily. She is tolerating the medications, no side effects reported. Labs reviewed. Previous visit on 09/22/21:Patient is 61 y old female following-up on joint pain. Patient states that she just got off a flare, she was having pain and swelling in her hands and pain in all her other joints, she increased prednisone to 15 mg for about 10 days then she tapered down and this helped some. Patient is prednisone 5 mg daily.Patient previously failed/could not tolerate plaquenil, methotrexate, SSZ or leflunomide.She previously had GI bleed from ibuprofen. She has chronic low back pain since age 14. Pain is worse in the morning. Pain is worse with movement. Morning stiffness 2 hours.She previously had injections in her back and they help. No smoking currently. She stopped 8 months ago. Patient used to see Dr. Diaz. As per previous visit with Dr. Diaz on 04/28/21:follow up for 60-year-old woman whom I have seen in the past with what appeared to be a significant inflammatory arthritis mostly involving the hands. She described major swelling and puffiness. At a visit in 2016, gave her prednisone . Reported dramatic improvement. On basis of the prednisone response and inflammatory sxs, Inflammatory polyarthritis felt likely.In Oct 2019 started prednisone and started DMARD treatment.She has been reluctant to stay on any medication.Unfortunat arsenio, intolerant of MTX (fatigue, hair loss), though the medication was at least partly helpful.Allergy to SSZ.Stopped Plaquenil, though I thought it was helping.Intolerant Leflunomide (diarrhea). Currently, arthritis treated with just prednisone 5 mg alt with 2,5 mg.Takes Gabapentin and lorazepam provided by [facility].Has sleep apnea on CPAP, though not clear how effective. Today reports persisting swelling and pain at 2,3 MCP joints R > L, 1 hour of AM stiffness, some wrist discomfort. Also low back pain., fatigue, and general misery.She has noted some painful lumps upper back. Nov, 2019 she had GI bleed related to IBU. Prior hx R rot cuff tendinitis/bursitis last injected Jun, 2019.. Pt is also felt to have significant fibromyalgia component. Marjorie Soto MD [address] [place] [address], [phone], [facility] 01/04/2022 18:26:20 04/29/2022 text/html This is a [employer] phone visit. Patient agreed to this visit via phone or secure telehealth platform due to the COVID -19 pandemic. Patient understands this is a scheduled visit and the usual procedures with regard to billing and confidentiality apply.Patient was notified that the provider location is homePatient location: homeDuring the visit the patient s medical history and medical record were reviewed. Patient is 61 y old female following-up on seronegative rheumatoid arthritis. Patient states that she is doing ok.Patient states that she he Humira, she improved on Humira but not completely, she is taking prednisone 5-10 mg every day, she feels like the shot is not lasting 14 days.She is tolerating the medications, no side effects reported except for occasional itching. Labs reviewed. Previous visit on 09/22/21:Patient is 61 y old female following-up on joint pain. Patient states that she just got off a flare, she was having pain and swelling in her hands and pain in all her other joints, she increased prednisone to 15 mg for about 10 days then she tapered down and this helped some. Patient is prednisone 5 mg daily.Patient previously failed/could not tolerate plaquenil, methotrexate, SSZ or leflunomide.She previously had GI bleed from ibuprofen. She has chronic low back pain since age 14. Pain is worse in the morning. Pain is worse with movement. Morning stiffness 2 hours.She previously had injections in her back and they help. No smoking currently. She stopped 8 months ago. Patient used to see Dr. Diaz. As per previous visit with Dr. Diaz on 04/28/21:follow up for 60-year-old woman whom I have seen in the past with what appeared to be a significant inflammatory arthritis mostly involving the hands. She described major swelling and puffiness. At a visit in 2016, gave her prednisone . Reported dramatic improvement. On basis of the prednisone response and inflammatory sxs, Inflammatory polyarthritis felt likely.In Oct 2019 started prednisone and started DMARD treatment.She has been reluctant to stay on any medication.Unfortunat arsenio, intolerant of MTX (fatigue, hair loss), though the medication was at least partly helpful.Allergy to SSZ.Stopped Plaquenil, though I thought it was helping.Intolerant Leflunomide (diarrhea). Currently, arthritis treated with just prednisone 5 mg alt with 2,5 mg.Takes Gabapentin and lorazepam provided by [facility].Has sleep apnea on CPAP, though not clear how effective. Today reports persisting swelling and pain at 2,3 MCP joints R > L, 1 hour of AM stiffness, some wrist discomfort. Also low back pain., fatigue, and general misery.She has noted some painful lumps upper back. Nov, 2019 she had GI bleed related to IBU. Prior hx R rot cuff tendinitis/bursitis last injected Jun, 2019.. Pt is also felt to have significant fibromyalgia component. Marjorie Soto MD [address] [place] [address], [phone], [facility] 04/29/2022 15:03:42 08/24/2022 text/html Patient is 61 y old female following-up on seronegative rheumatoid arthritis. Patient states that she is very anxious as she was found to have 2 brain aneurysms and is having further testing done this . She reports neck pain and headaches.She complains of pain in her right arm with limitation in the movement and feels a lump under her skin in her arm. She is on Orencia and she takes prednisone 1-2 times a week, She is tolerating the medications, no side effects reported. Labs reviewed. Previous visit on 04/29/22:Patient is 61 y old female following-up on seronegative rheumatoid arthritis. Patient states that she is doing ok.Patient states that she he Humira, she improved on Humira but not completely, she is taking prednisone 5-10 mg every day, she feels like the shot is not lasting 14 days.She is tolerating the medications, no side effects reported except for occasional itching. Labs reviewed. Previous visit on 09/22/21:Patient is 61 y old female following-up on joint pain. Patient states that she just got off a flare, she was having pain and swelling in her hands and pain in all her other joints, she increased prednisone to 15 mg for about 10 days then she tapered down and this helped some. Patient is prednisone 5 mg daily.Patient previously failed/could not tolerate plaquenil, methotrexate, SSZ or leflunomide.She previously had GI bleed from ibuprofen. She has chronic low back pain since age 14. Pain is worse in the morning. Pain is worse with movement. Morning stiffness 2 hours.She previously had injections in her back and they help. No smoking currently. She stopped 8 months ago. Patient used to see Dr. Diaz. As per previous visit with Dr. Diaz on 04/28/21:follow up for 60-year-old woman whom I have seen in the past with what appeared to be a significant inflammatory arthritis mostly involving the hands. She described major swelling and puffiness. At a visit in 2016, gave her prednisone . Reported dramatic improvement. On basis of the prednisone response and inflammatory sxs, Inflammatory polyarthritis felt likely.In Oct 2019 started prednisone and started DMARD treatment.She has been reluctant to stay on any medication.Unfortunat arsenio, intolerant of MTX (fatigue, hair loss), though the medication was at least partly helpful.Allergy to SSZ.Stopped Plaquenil, though I thought it was helping.Intolerant Leflunomide (diarrhea). Currently, arthritis treated with just prednisone 5 mg alt with 2,5 mg.Takes Gabapentin and lorazepam provided by [facility].Has sleep apnea on CPAP, though not clear how effective. Today reports persisting swelling and pain at 2,3 MCP joints R > L, 1 hour of AM stiffness, some wrist discomfort. Also low back pain., fatigue, and general misery.She has noted some painful lumps upper back. Nov, 2019 she had GI bleed related to IBU. Prior hx R rot cuff tendinitis/bursitis last injected Jun, 2019.. Pt is also felt to have significant fibromyalgia component. Marjorie Soto MD [address] [place] [address], [phone], [facility] 08/24/2022 12:10:08 10/14/2022 text/html Josefina is a 62-yea r-old female who presents today for evaluation of right shoulder pain. States she has had approximately 6 months of pain in her right shoulder. She describes pain and a sensation of a lump along the lateral shoulder. She states the pain and the lump comes and goes and she cannot describe any specific aggravating or alleviating factors. She states her whole arm feels weak and at times she has tingling sensations in her forearm and fingers. She denies any pain shooting down below the elbow. She denies any recent treatment but does states she did physical therapy as well as having a cortisone injection several years ago in her right shoulder. She has never had any previous right shoulder surgery. Will Ferguson MD [address] [place] [address], [phone], [facility] 10/14/2022 16:11:12 11/11/2022 text/html Josefina is a 62-yea r-old female who presents today for persistent uncontrolled right shoulder pain. She was last evaluated on 10/14/2022. Since then she has had persistent pain in her right shoulder which has been gradually worsening. She describes pain primarily over the anterior shoulder with some radiation into the biceps region that she states is worse with movement. The pain is particularly worse when attempting to reach overhead and then lower her arm. She states her right arm feels weak. She denies any sensory symptoms. She denies any new injuries. In review she has had approximately 7 months of pain in her right shoulder as well as sensations of weakness. She has never had any previous right shoulder surgery. Will Ferguson MD [address] [place] [address], [phone], [facility] 11/11/2022 12:17:42 OBGyn Episode No OBEpisode recorded.
== END 2025-04-23 12:06 | disposition home or self-care (01) ==
LOC: HO.HBS 11:45
PROVIDERS: PCP Family Medicine; Visit Provider Physician Assistant Surgical
DX: D73.5 Infarction of spleen (principal); E66.9 Obesity, unspecified; Z68.33 Body mass index [BMI] 33.0-33.9, adult; Z90.3 Acquired absence of stomach [part of]; Z98.84 Bariatric surgery status
CPT/HCPCS: 99213; G2211